=== PATIENT | male | born 1950 | race Caucasian/White ===

== ENCOUNTER 2024-07-26 19:59 | Inpatient (IN) | payer OTHER, SELFPAY ==
[2024-07-26 15:24] VITALS: BP 121/56
[2024-07-26 16:02] LABS: % Basophils 0.5 % (0-2); % Eosinophils 1.9 % (0-6); % Immature Granulocytes 0.3 % (0-0.5); % Monocytes 11.3 % (1.7-9.3); Absolute Eosinophils 0.1 10^3/uL (0-0.7); Absolute Lymphocytes 0.5 10^3/uL (1.2-3.4); Absolute Monocytes 0.7 10^3/uL (0.1-0.6); Absolute Neutrophils 4.5 10^3/uL (1.4-6.5); Hematocrit 32.8 % (39.0-52.0); Hemoglobin 11.7 g/dL (13.0-18.0); Mean Corp Hgb Conc. 35.7 g/dL (33.0-37.0); Mean Corpuscular Volume 81.2 fL (80.0-94.0); Mean Platelet Volume 12.4 fL (7.4-10.4); Nucleated Red Blood Cells % 0 % (-); Platelet Count 122 10^3/uL (130-400); Red Blood Cell Count 4.04 10^6/uL (4.70-6.10); Red Cell Dist. Width 14.7 % (11.5-14.5); White Blood Cell Count 5.8 10^3/uL (4.8-10.8)
[2024-07-26 16:13] LABS: INR 2.73; PT 28.9 Sec (11.4-14.6)
[2024-07-26 16:22] LABS: ALT (SGPT) 22 U/L (0-50); AST (SGOT) 27 U/L (17-59); Albumin 4.4 g/dl (3.5-5.0); Alkaline Phosphatase 177 U/L (38-126); Calcium 8.3 mg/dl (8.4-10.2); Carbon Dioxide 26 mmol/L (22-30); Chloride 84 mmol/L (98-107); Glucose 156 mg/dl (70-99); NT-proBNP 3450 pg/ml; Potassium 3.2 mmol/L (3.5-5.1); Sodium 130 mmol/L (135-145); eGFR 22.15
[2024-07-26 17:05] LABS: Blood Urea Nitrogen 162 mg/dl (9-20)
--- NOTE | 2024-07-26 17:08 | ED.GENMED ---
History of Present Illness
<Joie Mcfarland PA-C - Last Filed: 07/27/24 01:55>
General
Chief Complaint: Abnormal Lab Value
Source: patient
Exam Limitations: none
Time Seen by Provider: 07/26/24 16:34
Nursing documentation reviewed up to this point in time: agreed with
History of Present Illness
History of Present Illness:
74-year-old male with history atrial fibrillation on Coumadin, CHF, aortic stenosis, hypertension, diabetes presenting to the emergency department with abnormal lab work drawn outpatient. Patient has known right-sided heart failure and takes
torsemide 100 mg twice daily. Patient followed by cardiology, Dr. Morris, at [facility]. He underwent a right sided heart catheterization 2 weeks ago for potential tricuspid valve preoperative planning. He was started on metolazone 5 mg biweekly.
Since initiating this 2 weeks ago�patient states he has been very tired and lethargic. His cribber baljit labs on Friday which resulted today showing an elevation in his kidney function. It was recommended that he be admitted to the hospital
for careful fluid management of his elevated kidney function in setting of heart failure. Patient did not wish to go downtown to [facility] prompting visit to [place].
Patient denies any chest pain or shortness of breath. No increase in lower extremity swelling. He has not had any recent weight gain, he is actually losing weight.
Patient states he is still producing urine although seems to be less over the past week or so.
Past History
<Joie Mcfarland PA-C - Last Filed: 07/27/24 01:55>
Past History
ED Past Medical History: CHF, HTN, Hypercholesterolemia, NIDDM (Diet-controlled), Valvular disease (AVR x 2, tricuspid regurgitation) and Other (infectious endocarditis, alcoholic cirrhosis)
ED Past Surgical History: Cardiac (Aortic valve replacement x2) and Other (Hernia repair)
Social History
Tobacco: Non-smoker
Alcohol: Daily
Drug: None
Personal:
Review of Systems
<Joie Mcfarland PA-C - Last Filed: 07/27/24 01:55>
Review of Systems
Allergies reviewed?: Yes
All Other Systems: ROS reviewed and negative except as documented in HPI and ROS
Phy Exam
<Joie Mcfarland PA-C - Last Filed: 07/27/24 01:55>
Physical Exam
Physical Exam:
Vitals: Patient's vital signs are stable. Afebrile
General: Patient is well appearing, no acute distress. Nontoxic appearing
Skin: Warm and dry, no rashes or lesions
Head: Normocephalic, atraumatic
Eyes: Sclera nonicteric. EOMs intact. No nystagmus.
Throat: Protecting airway
Neck: Normal ROM, no cervical spine tenderness, no meningismus. No JVD
Cardiac: Regular rate and rhythm. Murmur noted.
Pulm: Normal respiratory effort, no wheezes, rales, rhonchi heard on exam. O2 saturation 97 on room air. No tachypnea
Abdomen: Abdomen soft and nontender.
Extremities: Bilateral lower extremity edema�unchanged from baseline. Palpable DP pulses bilaterally. Negative Homans' sign.
Neuro: AAOx3. Grossly intact.
Psychiatric: Normal affect.
Course
<Joie Mcfarland PA-C - Last Filed: 07/27/24 01:55>
Orders/Labs/Results
Orders:
Orders
07/26/24 15:29
Electrocardiogram (*1) Urgent
Reason for Study: Bradycardia / Tachycardia
EKG- Treatment ONCE
IV Insert/Care/Rem.- Treatment PRN
07/26/24 15:50
Complete Blood Count/With Diff Urgent
Comprehensive Metabolic Panel Urgent
Magnesium Urgent
Comment: ADD ON
Pro-BNP [NT-proBNP] Urgent
Prothrombin Time Urgent
Serum Osmolality Urgent
Comment: ADD ON
07/26/24 17:21
CR Chest - 2 Views Urgent
Comment:
Reason For Exam: elevated BNP
07/26/24 17:22
0.9% Sodium Chloride 250 ml [Nss] 250 ml IV BOLUS
Potassium Chloride [KCl] 40 meq PO NOW STA
07/26/24 18:41
Admit/Transfer Patient As Directed
Co-Sign Provider:
Level of Care: Inpatient admission
Assign to:: Telemetry
Physician / Group: mireya
Diagnosis: acute kidney injury
Reason for Telemetry: Arrhythmia
Date to Stop Telemetry: 07/29/24
Time to Stop Telemetry: 11:00
Reason for Hospitalization: MP
Expected length of stay greater than two midnights?: Yes
ELOS- Estimated Length of Stay in days: 3
I certify the patient meets the requirements for IP care: Yes
PRN Pain Medication Management As Directed
May give lesser potent ordered pain med per pt: Yes
preference::
Protocol:: Medication orders for pain may be administered in a
manner that supports deferring to patient preference
when the pt is:
- Requesting an ordered lesser potent pain medication.
Least to most potent pain medications are defined
as: acetaminophen < NSAID < tramadol < opioids
(morphine, oxycodone, hydromorphone).
- Requesting a lesser dose of the same medication IF
ORDERED.
- Requesting a less intrusive route of administration
if both routes are prescribed by the provider (PO <
IV).
07/26/24 18:42
Code Status As Directed
Resuscitation Status: Full Code
07/26/24 18:59
Add On- LAB Stat
Tests Added?: serum osmolality
07/26/24 19:24
Add On- LAB Stat
Tests Added?: magnesium level
07/26/24 20:39
Urine Creatinine Stat
Date Specimen was Collected: 07/26/24
Time Specimen was Collected: 19:22
Urine Osmolality Random [Osmolality, Random Urine] Stat
Date Specimen was Collected: 07/26/24
Time Specimen was Collected: 19:22
Urine Sodium Stat
Date Specimen was Collected: 07/26/24
Time Specimen was Collected: 19:22
07/26/24 21:28
Acetaminophen [Tylenol] 650 mg PO Q4HPRN PRN
Bisacodyl [Dulcolax] 10 mg RECTAL [id number] PRN
Carvedilol [Coreg] 6.25 mg PO BID
Dextrose 50%-Water [Dextrose 50% Syringe] 12.5 grams IV [id number] PRN
Diphenhydramine [Benadryl] 50 mg PO HSPRN PRN
Docusate W/Senna [Senokot-S] 1 tablet PO BIDPRN PRN
Glucagon [GlucaGen] 1 mg IM PRN PRN
Polyethylene Glycol Powder [Miralax] 17 grams PO DAILYPRN PRN
07/26/24 21:28
CARDIOLOGY CONSULT Routine
Consulting Provider: Hari Bui
Was physician already notified: Yes
NEPHROLOGY CONSULT Routine
Consulting Provider: Familia Black
Was physician already notified: Yes
Activity As Directed
Activity Level: As Tolerated
Bedside Glucose Monitoring As Directed
Frequency: AC&HS
Additional Instructions:: Change to q6h if pt on TPN, tube feeding or not eating
Intake/ Output As Directed
Frequency: Per unit guidelines
Vital Signs As Directed
Frequency: Per unit guidelines
Weight As Directed
Frequency: Daily
07/26/24 22:00
Atorvastatin [Lipitor] 40 mg PO HS
Torsemide [Demadex] 80 mg PO BID
Warfarin [Coumadin] 5 mg PO MoTuTh@1800
07/27/24 Breakfast
2000 calorie (17 carb) Diabetic
At Your Request: Limited Participation
Does patient need a safe tray?: No
Basic Metabolic Panel IN AM
Complete Blood Count/No Diff IN AM
Glycohemoglobin (HgbA1c) IN AM
Magnesium IN AM
PT/INR [Prothrombin Time] IN AM
07/27/24 07:30
Insulin Aspart Corrective Low [Novolog Flexpen-Low Resistance] See Protocol SC AC
07/27/24 08:00
Amlodipine [Norvasc] 5 mg PO DAILY
Pantoprazole [Protonix] 40 mg PO DAILY
07/27/24 22:00
Famotidine [Pepcid] 20 mg PO Q48H
07/28/24 06:00
Basic Metabolic Panel IN AM
Complete Blood Count/No Diff IN AM
PT/INR [Prothrombin Time] IN AM
07/28/24 18:00
Warfarin [Coumadin] 10 mg PO SuWeFrSa@1800
07/29/24 06:00
Basic Metabolic Panel IN AM
Complete Blood Count/No Diff IN AM
PT/INR [Prothrombin Time] IN AM
07/29/24 11:00
DC Protocol for Telemetry ONCE
Abnormal Lab Results
07/26/24
15:50
RBC 4.04 L 10^6/uL
(4.70-6.10)
Hgb 11.7 L g/dL
(13.0-18.0)
Hct 32.8 L %
(39.0-52.0)
RDW 14.7 H %
(11.5-14.5)
Plt Count 122 L 10^3/uL
(130-400)
MPV 12.4 H fL
(7.4-10.4)
Absolute Lymphs (auto) 0.5 L 10^3/uL
(1.2-3.4)
Absolute Monos (auto) 0.7 H 10^3/uL
(0.1-0.6)
Neutrophils % 78.0 H %
(42.2-75.2)
Lymphocytes % 8.0 L %
(20.5-51.1)
Monocytes % 11.3 H %
(1.7-9.3)
PT 28.9 H Sec
(11.4-14.6)
Sodium 130 L mmol/L
(135-145)
Potassium 3.2 L mmol/L
(3.5-5.1)
Chloride 84 L mmol/L
(98-107)
BUN 162 H* mg/dl
(9-20)
Creatinine 2.9 H mg/dL
(0.7-1.3)
Glucose 156 H mg/dl
(70-99)
Serum Osmolality 319 H mOsm/kg
(275-300)
Calcium 8.3 L mg/dl
(8.4-10.2)
Alkaline Phosphatase 177 H U/L
(38-126)
07/26/24 15:50
07/26/24 15:50
Vital Signs
Initial and Last Documented VS:
Initial Vital Signs
Temp Pulse Resp BP Pulse Ox
97.6 F 48 20 121/56 97
07/26/24 15:24 07/26/24 15:24 07/26/24 15:24 07/26/24 15:24 07/26/24 15:24
Last Documented Vital Signs
Temp Pulse Resp BP Pulse Ox
98.3 F 44 18 116/56 94
07/27/24 00:21 07/27/24 00:21 07/26/24 21:43 07/27/24 00:21 07/27/24 00:21
<Mal Vargas MD - Last Filed: 07/26/24 18:09>
Orders/Labs/Results
Orders:
Orders
07/26/24 15:29
Electrocardiogram (*1) Urgent
Reason for Study: Bradycardia / Tachycardia
EKG- Treatment ONCE
IV Insert/Care/Rem.- Treatment PRN
07/26/24 15:50
Complete Blood Count/With Diff Urgent
Comprehensive Metabolic Panel Urgent
Magnesium Urgent
Comment: ADD ON
Pro-BNP [NT-proBNP] Urgent
Prothrombin Time Urgent
Serum Osmolality Urgent
Comment: ADD ON
07/26/24 17:21
CR Chest - 2 Views Urgent
Comment:
Reason For Exam: elevated BNP
07/26/24 17:22
0.9% Sodium Chloride 250 ml [Nss] 250 ml IV BOLUS
Potassium Chloride [KCl] 40 meq PO NOW STA
07/26/24 18:41
Admit/Transfer Patient As Directed
Co-Sign Provider:
Level of Care: Inpatient admission
Assign to:: Telemetry
Physician / Group: mireya
Diagnosis: acute kidney injury
Reason for Telemetry: Arrhythmia
Date to Stop Telemetry: 07/29/24
Time to Stop Telemetry: 11:00
Reason for Hospitalization: MP
Expected length of stay greater than two midnights?: Yes
ELOS- Estimated Length of Stay in days: 3
I certify the patient meets the requirements for IP care: Yes
PRN Pain Medication Management As Directed
May give lesser potent ordered pain med per pt: Yes
preference::
Protocol:: Medication orders for pain may be administered in a
manner that supports deferring to patient preference
when the pt is:
- Requesting an ordered lesser potent pain medication.
Least to most potent pain medications are defined
as: acetaminophen < NSAID < tramadol < opioids
(morphine, oxycodone, hydromorphone).
- Requesting a lesser dose of the same medication IF
ORDERED.
- Requesting a less intrusive route of administration
if both routes are prescribed by the provider (PO <
IV).
07/26/24 18:42
Code Status As Directed
Resuscitation Status: Full Code
07/26/24 18:59
Add On- LAB Stat
Tests Added?: serum osmolality
07/26/24 19:24
Add On- LAB Stat
Tests Added?: magnesium level
07/26/24 20:39
Urine Creatinine Stat
Date Specimen was Collected: 07/26/24
Time Specimen was Collected: 19:22
Urine Osmolality Random [Osmolality, Random Urine] Stat
Date Specimen was Collected: 07/26/24
Time Specimen was Collected: 19:22
Urine Sodium Stat
Date Specimen was Collected: 07/26/24
Time Specimen was Collected: 19:22
07/26/24 21:28
Acetaminophen [Tylenol] 650 mg PO Q4HPRN PRN
Bisacodyl [Dulcolax] 10 mg RECTAL [id number] PRN
Carvedilol [Coreg] 6.25 mg PO BID
Dextrose 50%-Water [Dextrose 50% Syringe] 12.5 grams IV [id number] PRN
Diphenhydramine [Benadryl] 50 mg PO HSPRN PRN
Docusate W/Senna [Senokot-S] 1 tablet PO BIDPRN PRN
Glucagon [GlucaGen] 1 mg IM PRN PRN
Polyethylene Glycol Powder [Miralax] 17 grams PO DAILYPRN PRN
07/26/24 21:28
CARDIOLOGY CONSULT Routine
Consulting Provider: Hari Bui
Was physician already notified: Yes
NEPHROLOGY CONSULT Routine
Consulting Provider: Familia Black
Was physician already notified: Yes
Activity As Directed
Activity Level: As Tolerated
Bedside Glucose Monitoring As Directed
Frequency: AC&HS
Additional Instructions:: Change to q6h if pt on TPN, tube feeding or not eating
Intake/ Output As Directed
Frequency: Per unit guidelines
Vital Signs As Directed
Frequency: Per unit guidelines
Weight As Directed
Frequency: Daily
07/26/24 22:00
Atorvastatin [Lipitor] 40 mg PO HS
Torsemide [Demadex] 80 mg PO BID
Warfarin [Coumadin] 5 mg PO MoTuTh@1800
07/27/24 Breakfast
2000 calorie (17 carb) Diabetic
At Your Request: Limited Participation
Does patient need a safe tray?: No
Basic Metabolic Panel IN AM
Complete Blood Count/No Diff IN AM
Glycohemoglobin (HgbA1c) IN AM
Magnesium IN AM
PT/INR [Prothrombin Time] IN AM
07/27/24 07:30
Insulin Aspart Corrective Low [Novolog Flexpen-Low Resistance] See Protocol SC AC
07/27/24 08:00
Amlodipine [Norvasc] 5 mg PO DAILY
Pantoprazole [Protonix] 40 mg PO DAILY
07/27/24 22:00
Famotidine [Pepcid] 20 mg PO Q48H
07/28/24 06:00
Basic Metabolic Panel IN AM
Complete Blood Count/No Diff IN AM
PT/INR [Prothrombin Time] IN AM
07/28/24 18:00
Warfarin [Coumadin] 10 mg PO SuWeFrSa@1800
07/29/24 06:00
Basic Metabolic Panel IN AM
Complete Blood Count/No Diff IN AM
PT/INR [Prothrombin Time] IN AM
07/29/24 11:00
DC Protocol for Telemetry ONCE
Abnormal Lab Results
07/26/24
15:50
RBC 4.04 L 10^6/uL
(4.70-6.10)
Hgb 11.7 L g/dL
(13.0-18.0)
Hct 32.8 L %
(39.0-52.0)
RDW 14.7 H %
(11.5-14.5)
Plt Count 122 L 10^3/uL
(130-400)
MPV 12.4 H fL
(7.4-10.4)
Absolute Lymphs (auto) 0.5 L 10^3/uL
(1.2-3.4)
Absolute Monos (auto) 0.7 H 10^3/uL
(0.1-0.6)
Neutrophils % 78.0 H %
(42.2-75.2)
Lymphocytes % 8.0 L %
(20.5-51.1)
Monocytes % 11.3 H %
(1.7-9.3)
PT 28.9 H Sec
(11.4-14.6)
Sodium 130 L mmol/L
(135-145)
Potassium 3.2 L mmol/L
(3.5-5.1)
Chloride 84 L mmol/L
(98-107)
BUN 162 H* mg/dl
(9-20)
Creatinine 2.9 H mg/dL
(0.7-1.3)
Glucose 156 H mg/dl
(70-99)
Serum Osmolality 319 H mOsm/kg
(275-300)
Calcium 8.3 L mg/dl
(8.4-10.2)
Alkaline Phosphatase 177 H U/L
(38-126)
07/26/24 15:50
07/26/24 15:50
Vital Signs
Initial and Last Documented VS:
Initial Vital Signs
Temp Pulse Resp BP Pulse Ox
97.6 F 48 20 121/56 97
04/14/25 15:24 07/26/24 15:24 07/26/24 15:24 07/26/24 15:24 07/26/24 15:24
Last Documented Vital Signs
Temp Pulse Resp BP Pulse Ox
98.3 F 44 18 116/56 94
07/27/24 00:21 07/27/24 00:21 07/26/24 21:43 07/27/24 00:21 07/27/24 00:21
<Joie Mcfarland PA-C - Last Filed: 07/27/24 01:55>
MDM/Problems Addressed
Differential Diagnosis Includes:
Not limited to: MP, acute dehydration, electrolyte abnormalities, CHF exacerbation, etc.
MDM/Problems Addressed:
74-year-old male with history as documented presenting with abnormal lab results obtained outpatient and concern for kidney dysfunction�referred by cardiology. Patient with recent increase in fatigue after initiating metolazone by cardiology. No
associated chest pain, shortness of breath, weight increase, lower extremity edema. Vital stable. Physical exam as above. Cardio/pulmonary assessment unremarkable. Lungs are clear. Patient has stable bilateral lower extremity edema and skin
changes. Labs were initiated in triage significant for a elevated creatinine of 2.9 with BUN of 162. Mild hyponatremia and hypokalemia. BNP of 3450. Patient did have recent increase in diuretic prescription. Ultimately�suspect MP secondary to
overdiuresis. Given patient's acute kidney injury along with chronic CHF-he warrants admission for close management of diuresis along with fluid resuscitation. Will check chest x-ray to ensure no pulmonary edema prior to admission.
Update: Chest x-ray shows no evidence of pulmonary edema. Patient will be given small amount of IV fluids in ED along with oral potassium. Patient accepted to hospital service stable condition.
Chronic conditions affecting care:
Congestive heart failure, hypertension, valvular disorder, atrial fibrillation on Coumadin
Acute Exacerbation and/or Progression of Chronic Illness:
Acute kidney injury, acute CHF exacerbation
<Joie Mcfarland PA-C - Last Filed: 07/27/24 01:55>
*Radiology
Radiology exam reviewed: preliminary read by ED provider (Chest x-ray reviewed by me-no acute abnormalities) and radiology read reviewed
*Pulse Oximetry
Patient hypoxic: no
*EKG
Interpreted by ED Provider?: Yes
EKG Intrepretation Date: 07/26/24
Interpretation: abnormal
Comparison EKG: changes noted
Heart Rate: 46
Rate: bradycardiac
Rhythm: a-fib
[place]: indeterminate
Interval: normal QT interval
QRS Pattern: low voltage
Ischemia: non-specific ST changes
*Business Office Technician Interpretation
Rate: Business Office Technician- N/A
*Critical Care Note
Total Time (30-74mins, 75-104mins- exclusive of procedures): Not Applicable
<Joie Mcfarland PA-C - Last Filed: 07/27/24 01:55>
Patient Management
Discussion with other providers: Hospitalist
Escalation/DeEscalation of care consider admission/obs:
Admit indicated
ED Attending Note
<Joie Mcfarland PA-C - Last Filed: 07/27/24 01:55>
-
Portions of this chart may have been created with voice recognition software.� Occasional wrong word or��sound alike� substitutions may have occurred due to the inherent limitations of voice recognition software.
<Mal Vargas MD - Last Filed: 07/26/24 18:09>
ED Attending Note
Patient seen and examined by attending physician: Yes
I performed the substantive portion of visit, reviewed & personally made and approve the management plan that is documented in note by myself or AURE.: Yes
ED Attending Note:
74-year-old male sent for abnormal labs. History of tricuspid valve issue. On diuretics at home. Increased doses recently. Noted to have abnormal BUN and creatinine and sent in for further care. Patient had some increased weakness yesterday.
On exam patient is nontoxic in no distress. Lungs are essentially clear. Heart regular rate and rhythm. Mild midsystolic murmur. Abdomen nontender. Chronic edema and chronic hyperpigmentation of the lower extremities. Warm and dry. Perfusing
well.
BUN and creatinine elevated. Likely all prerenal related to overdiuresis. However with patient's cardiac issues and acute renal insufficiency warrants inpatient management
Discharge Plan
Departure
Patient Disposition: Admit
Date of Disposition: 07/26/24
Time of Disposition: 18:05
Presentation/result/management discussed w/ accepting MD/DO: Hospitalist
Discharge Problem:
MP (acute kidney injury), CHF exacerbation
Interventions
Interventions:
*Risk Screen - Suicide Last Done: 07/26/24 21:59
*General Assessment Last Done: 07/26/24 15:24
*Neglect/Abuse Screening Last Done: 07/26/24 17:24
*ED COVID-19 Vaccine History Last Done: 07/26/24 21:59
*Nursing Disposition Last Done: 07/26/24 21:28
Discharge Date and Time
Discharge Date/Time: 07/26/24 21:28
[2024-07-26 17:14] VITALS: BP 117/74
[2024-07-26 17:22] VITALS: BMI 34.6
--- NOTE | 2024-07-26 18:16 | HPS.HSE ---
Family Physician
-
Family Physician: Choco Carlson
Chief Complaint
-
Elevated creatinine
History of Present Illness
74-year-old male with history atrial fibrillation on Coumadin, CHF, aortic stenosis, hypertension, diabetes presenting to the emergency department with abnormal lab work drawn outpatient. Patient has known right-sided heart failure and takes
torsemide 100 mg twice daily. He underwent a right sided heart catheterization 2 weeks ago for potential tricuspid valve preoperative planning. He was started on metolazone 5 mg biweekly. Since initiating this 2 weeks ago�patient states he has
been very tired and lethargic. The labs were done on Friday and noted to have elevated creatinine. It was recommended that he be admitted to the hospital for careful fluid management of his elevated kidney function in setting of heart failure.
Patient denies any chest pain or shortness of breath. No increase in lower extremity swelling. He has not had any recent weight gain. Patient denies any headache, dizziness or syncope. Patient denies runny nose, congestion, cough. Patient
denies any abdominal pain, nausea, vomiting or diarrhea. Patient stated decreased urine output since he was started on metolazone.
Patient was noted to have creatinine of 2.9. Patient received normal saline, 40 of K in ER. Admitting for further management
Medical History
Past Medical History
Past Medical History: Reports Other
Additional Past Medical History:
Paroxysmal A-fib, pleural effusion, chronic right-sided heart failure, dyslipidemia
Hypertension
Endocarditis of aortic valve
Lyme disease
GERD
Iron deficiency anemia
Large gastric hyperplastic polyp
Pancreatic head cyst
Right inguinal hernia
Past Surgical History: Reports Other
Additional Past Surgical History:
Left inguinal herniorrhaphy
AVR
Hydrocelectomy
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
Social History
Tobacco: Non-smoker
Alcohol: Occasional
Drug: None
Personal:
Living: With Family
Family History
Family History: Not pertinent
Allergies / Home Medications
Allergies reflects when Allergies were last updated in [facility].
Home Medications with original date entered in [facility]
Allergy/Medication List:
Allergies
Allergy/AdvReac Type Severity Reaction Status Date / Time
lorazepam [From Ativan] Allergy hallucinati Verified 07/26/24 15:22
ons
Home Medications
famotidine 40 mg tablet 40 mg PO HS Gastrointestinal issue 04/26/22
atorvastatin 40 mg tablet 40 mg PO HS High cholesterol 05/16/22
pantoprazole 40 mg tablet,delayed release 40 mg PO DAILY Gastrointestinal issue 05/16/22
carvedilol 6.25 mg tablet 6.25 mg PO BID #60 tabs 06/02/22
amlodipine 5 mg tablet 5 mg PO DAILY 07/17/22
dapagliflozin propanediol 10 mg tablet (Farxiga) 10 mg PO DAILY 07/26/24
diphenhydramine 25 mg-acetaminophen 500 mg tablet (Tylenol PM Extra Strength) 2 tab PO HSPRN PRN sleep 07/26/24
lisinopril 5 mg tablet 5 mg PO DAILY 07/26/24
torsemide 100 mg tablet 100 mg PO BID 07/26/24
warfarin 5 mg tablet 5 mg PO MOTUTH 07/26/24
warfarin 5 mg tablet 10 mg PO SUWEFRSA 07/26/24
Review of Systems
-
Constitutional: Reports No Symptoms
EENT: Reports No Symptoms
Respiratory: Reports No Symptoms
Cardiac: Reports No Symptoms
Abdomen/GI: Reports No Symptoms
: Reports No Symptoms
Musculoskeletal: Reports No Symptoms
Skin: Reports No Symptoms
Neurological: Reports Weakness and Other (Lethargic)
Endocrine: Reports No Symptoms
Hematologic/Lymphatic: Reports No Symptoms
Psych: Reports No Symptoms
Physical Exam
Vital Signs
Vital Signs
Temp Pulse Resp BP Pulse Ox
97.6 F 61 21 117/74 97
07/26/24 15:24 07/26/24 17:15 07/26/24 17:15 07/26/24 17:14 07/26/24 17:15
Physical Exam
General: Well Developed, Well Nourished and No Apparent Distress
HEENT: NormoCephalic, Moist mucous membranes and Atraumatic
Respiratory: Clear
Cardiac: S1/S2 and Regular Rhythm; No Murmur or Rub
GI: Soft, Non Tender, Non Distended and Normal Bowel Sounds; No Organomegaly
Rectal: Deferred by Provider
Musculoskeletal: No Clubbing, No Cyanosis and Other (Chronic bilateral lower extremities edema)
Skin: No Rash
Neuro: AO x 3 and Nonfocal/grossly intact
Psych: Calm
Laboratory Results
-
07/26/24 15:50
07/26/24 15:50
Laboratory Results
PT 28.9 Sec (11.4-14.6) H 07/26/24 15:50
INR 2.73 07/26/24 15:50
Total Bilirubin 1.0 mg/dl (0.2-1.3) 07/26/24 15:50
AST 27 U/L (17-59) 07/26/24 15:50
ALT 22 U/L (0-50) 07/26/24 15:50
Alkaline Phosphatase 177 U/L (38-126) H 07/26/24 15:50
Data Reviewed
-
Lab Data: Labs Reviewed by me
Impression/Plan
-
# Acute kidney injury on CKD 3B
# Chronic hyponatremia
# Hypokalemia
- Sodium 130, K3.0, creatinine 2.9
-Patient received normal saline to 50 cc in ER
-Consult nephrology
-obtain urine na, cr, osm, serum osm
-decreased torsemide to 80 bid and discontinued metolazone.
# Anemia of chronic disease
# Thrombocytopenia
- Hemoglobin stable at 11.7 platelets were noted to
- No active bleeding
- Continue to monitor
-
# Atrial fibs permanent
- EKG with A-fib with slow ventricular response, right bundle branch block, ST and T wave abnormality
- Coreg continue with hold parameters
-Coumadin continued
# History of right sided heart failure
#hxt of tricuspid regurgitation
#hxt of AVR
- Hold for farxiga
-strict I&O, daily weight
-on Torsemide decrased to 80mg bid
-ECHO (2022) with sever Tricuspid regurgitation, EF of 55-60%
-chest x ray with Stable cardiomegaly without evidence of new airspace disease or pulmonary edema.
#GERD
-PPI continued
-
# History of cirrhosis/alcohol abuse
Essential Hypertension:stable
- Norvasc continue with hold parameters
-hold lisinopril
#Hx AVR: stable by recent echo
#Hyperlipidemia- maintain on Statin
#DMT2
-sliding scale
-CHO diet
#DVT prophylaxis
-Coumadin
#CODE status
-full code
[2024-07-26] MEDS: KCL 40 MEQ PO (18:20)
[2024-07-26] MEDS: NSS 250 IV (18:21)
--- NOTE | 2024-07-26 19:04 | W.PN.UPDATE ---
Update Note
Progress Note Update
Patient seen in conjunction with CORE MICROARCHITECT. I agree with the findings on patient physical physical medical with assessment and plan listed out of life.
Briefly, it is a 74-year-old male with past medical history significant for congestive failure with severe RV dysfunction, severe tricuspid regurgitation, right-sided congestion with cardiac cirrhosis, last echo in our system showing EF of 55 to
60%, history of aortic valve stenosis status post AVR, permanent atrial fibrillation on anticoagulation with Coumadin presenting to the Emergency Department after found to have elevated creatinine and to 3.4 on outpatient workup July 23.
Patient is being evaluated for tricuspid valve replacement. He had CHANTELLE and a right heart cath on July 08. Prior to this procedure patient's creatinine was 1.3. He was on torsemide 100 mg twice daily. Procedure did showed elevated pulmonary
capillary wedge pressure of 21, PA pressure of 49/24, RV end-diastolic pressure of 25, pulmonary vascular resistance of 2.7. RA pressure of 26. Based on this pressures the patient was felt to need additional volume decompression and he was placed
on metolazone 5 mg twice a week. Spouse reports that prior to this procedure the patient has maintained steady weight of around 240 pounds which has not changed for several years and has not changed since the procedure. After 2 weeks of extra days
of metolazone the patient became more weak. Spouse noted that his blood pressure did trended down over the weekend last weekend. He had outpatient workup on Friday which showed a creatinine of 3.4. He did not gain any weight. He did not appear
to have lost any weight either. He denies any increase or decrease in his lower extremity swelling. He denies any increasing orthopnea or PND. He denies any chest pain palpitations lightheadedness or dizziness. He has he has had no fevers or
cough. He did receive a contrast load with a CT cardiac study with IV contrast on June 28.
Here in the emergency department his blood pressure was 117/80 with a pulse of 61 and satting 97% on room air. He is afebrile. ECG shows atrial fibrillation rate was 46 (chronic slow A-fib), right bundle, low voltages. BNP was elevated at 3400.
No recent priors.
CBC was unremarkable stop electrolytes notable for potassium of 3.2, sodium was 130 which is similar to his baseline. Bicarb was 26.
His BUN and creatinine are 160 and 2.9.
Chest x-ray is clear.
On exam he is well-appearing and in no acute distress. No crackles on lung auscultation. He has trace to 1+ bilateral lower edema which is unchanged. He has mild abdominal distention but no fluid wave and no tenderness to palpation.
Assessment and plan
This a patient with chronic right-sided failure, severe tricuspid regurgitation pending valve repair for which she had right heart cath which showed elevated right-sided pressures as well as elevated pulmonary wedge pressure for which she was
started on more aggressive diuretic regimen with addition of metolazone twice torsemide regimen. 2 weeks after initiating this procedure patient's creatinine had gone up to 3.4 and he had slight decrease in his blood pressure and increasing
weakness over the weekend. His colorist photography pain recommended that he come to the emergency department. They stopped the metolazone and told him to reduce his torsemide to 80 mg daily. Area. Over the last 4 days his creatinine actually improved
from around 3.4-2.9. Picture is suggestive of a cardiorenal syndrome which will be typical for right-sided failure and despite elevated pressures appears to hypoperfuse kidneys with further diuresis. With the increase in BUN, suspect he is
over-diuresed.
Chronic CHF
- admit to telemetry
- holding metolazone
- decrease torsemide to 80 bid
- given 250 ml NS in ED, will re-evaluate creatinne in am, no additional fluid needed
- replace K,
- hold off on repeat echo given recent CHANTELLE/RHC with pending records from [facility]
- continue carvedilol
- cardiology consult
MP - suspect secondary to overdiuresis. Contrast exposure was June 28, no other insults. Unlikely ATN.
- adjust diuresis and fluids as above
- hold lisinopril and dapagliflozin
- daily weights and i/os
- urine Na, Cr and U/A
- nephrology consult
AFIB
- continue coreg as above
- warfarin
Code status - Full Code
[2024-07-26 19:37] LABS: Osmolality Serum 319 mOsm/kg (275-300)
[2024-07-26 19:52] LABS: Magnesium 2.1 mg/dl (1.6-2.3)
[2024-07-26 20:56] LABS: Osmolality Urine 304 mOsm/kg (300-900)
[2024-07-26 21:05] LABS: Urine Sodium 51 mmol/L (30-90)
[2024-07-26 21:43] VITALS: BP 138/66; BMI 34.7
--- NOTE | 2024-07-26 21:43 | PTCARENOTE ---
Pt arrived from ED via stretcher and ambulated to the bed. Pt is AAOx3, VSS, and w/o complaints of pain. Pt is oriented to room with the call beard within reach.
[2024-07-26] MEDS: COREG 6.25 MG PO (21:55)
[2024-07-26] MEDS: LIPITOR 40 MG PO (21:56)
[2024-07-26] MEDS: DEMADEX 80 MG PO (21:56)
[2024-07-26] MEDS: BENADRYL 50 MG PO (21:57)
[2024-07-26 22:09] VITALS: BMI 34.7
[2024-07-26] MEDS: COUMADIN 5 MG PO (22:11)
[2024-07-26 23:55] VITALS: BP 116/56
[2024-07-27] VITALS (7 sets, daily range): BP systolic 107–133; BP diastolic 54–73; BMI 34.6
[2024-07-27 01:25] LABS: Glucose - Point of Care 133 mg/dl (70-99)
[2024-07-27 07:24] LABS: Glucose - Point of Care 124 mg/dl (70-99)
[2024-07-27 08:07] LABS: INR 2.79; PT 29.3 Sec (11.4-14.6)
--- NOTE | 2024-07-27 08:12 | CON.CAR ---
Addendum entered and electronically signed by Ravinder Mchugh MD 07/27/24 12:28:
I saw and examined the patient.
The GRINDING MACHINE TENDER's note was reviewed and I agree with the note.
74-year-old male previously followed by Dr. Quigley who was most recently followed by Dr. Morris at [facility] and also will be followed by Dr. Watson. Patient with history of bioprosthetic aortic valve replacement, severe
tricuspid regurgitation and RV dysfunction permanent atrial fibrillation, chronic anticoagulation CKD cirrhosis diabetes hypertension hypercholesterolemia patient has not been undergoing an evaluation at [facility]. Possible TTVR.
As part of his evaluation he underwent a right heart catheterization nearly 3 weeks ago which showed a pulmonary wedge pressure of 21 also with elevated right heart pressures patient also had a CT scan approximately 1 month ago as part of his
preprocedure assessment.. Patient is maintained on torsemide and was taking metolazone 2.5 mg on an as needed basis his diuretic was changed post right heart cath so that he was taking metolazone 5 mg twice daily he did not notice much of an
increase in diuresis and he did not feel that his weights had changed for the most part they have been between 240 and 245 he said at 1 point he went as low as 139. He has had some lower blood pressures mostly systolics in the 100s occasionally in
the 90s. He felt a bit weak and tired and then had labs on 07/23/2024 which showed creatinine up to 3.3 he is subsequently been admitted. Creatinine was 2.9 admission. Diuretics have been held as well as Farxiga. Creatinine now 2.2. Respiratory
status is stable mild edema on exam. Nephrology also consulted.
Challenging management issues considering patient's medical complexity. Recent right heart pressures and now with acute on chronic kidney injury. Suspect rising creatinine related to increase in diuretic.
- Agree with additional holding of diuretic. Daily assessment as we determine timing of reinitiation of oral diuretic.
- Based on blood pressure and renal function can also determine timing of reinitiation of KASSIE inhibitor and possibly Farxiga.
- Patient will need continued follow-up at [facility] arranged with Dr. Morris and continued assessment for possible tricuspid valve intervention. continue
-A-fib is stable and rate controlled. Patient remains on anticoagulation with therapeutic INR 2.79. He has had some nosebleeds intermittently. This has happened at home as well. ENT currently seeing at bedside.-
Original Note:
Consultation
Consultation Request
Date/Time Consultation Requested: 07/26/2024 21:30
Date/Time Consultation Performed: 07/27/2024 08:00
Requesting Provider: KYLE Holguin
Performing Provider: KYLE Rodriguez for Dr. Mchugh
Reason for Consultation: MP
Medical History
-
History of Present Illness:
Familia Farrell is a 74-year-old male (known to Dr. Ball and Dr. Morris), with HFpEF, bio aortic valve replacement x 2 (2011, 2012), RV dysfunction, severe tricuspid regurgitation, permanent atrial fibrillation (on warfarin), CKD 3b, cirrhosis
(EtOH, cessation in 05/2022), type 2 diabetes mellitus, prior TIA, hypertension, and dyslipidemia, who presented to the emergency department with a chief complaint of abnormal outpatient labs. After his RHC his torsemide 100mg BID was unchanged but
metolazone 5mg was added. He does not feel he urinated any more than usual. No significant weight loss. No issues with urination.
He had a right heart cath 07/08/2024 for possible TTVR. Hemodynamics revealed markedly elevated (right greater than left) filling pressures, postcapillary pulmonary hypertension, elevated pulmonary/systemic vascular resistance's, and a reduced
cardiac output/index.
Past Medical History
Past Medical History: Arrhythmias (Permanent atrial fibrillation [on warfarin]), CHF, HTN, Hypercholesterolemia, NIDDM, Renal Failure ( CKD 3b) and Valvular Disease (Bio AVR [2011, 2012], severe TR)
Past Surgical History: Cardiac
Social History
Alcohol: Former
Personal:
Living: With Family (In law suite at daughters house)
Employment: Retired
Family History
Family History: Reviewed & Not Pertinent
Allergies / Home Medications
Allergy/AdvReac Type Severity Reaction Status Date / Time
lorazepam [From Ativan] Allergy hallucinati Verified 07/26/24 15:22
ons
�Medication �Instructions �Recorded �Confirmed �Type
famotidine 40 mg tablet 40 mg PO HS Gastrointestinal issue 04/26/22 07/26/24 History
atorvastatin 40 mg tablet 40 mg PO HS High cholesterol 05/16/22 07/26/24 History
pantoprazole 40 mg tablet,delayed 40 mg PO DAILY Gastrointestinal 05/16/22 07/26/24 History
release issue
carvedilol 6.25 mg tablet 6.25 mg PO BID #60 tabs 06/02/22 07/26/24 Rx
amlodipine 5 mg tablet 5 mg PO DAILY Blood Pressure 07/17/22 07/26/24 History
dapagliflozin propanediol 10 mg 10 mg PO DAILY Diabetes 07/26/24 07/26/24 History
tablet (Farxiga)
diphenhydramine 25 2 tab PO HSPRN PRN sleep 07/26/24 07/26/24 History
mg-acetaminophen 500 mg tablet
(Tylenol PM Extra Strength)
lisinopril 5 mg tablet 5 mg PO DAILY Blood Pressure 07/26/24 07/26/24 History
torsemide 100 mg tablet 100 mg PO BID Fluid 07/26/24 07/26/24 History
Retention/Swelling
warfarin 5 mg tablet 5 mg PO MOTUTH Blood Clot 07/26/24 07/26/24 History
Prevention/Tx
warfarin 5 mg tablet 10 mg PO SUWEFRSA Blood Clot 07/26/24 07/26/24 History
Prevention/Tx
Review of Systems
-
History Source: Patient
All other systems: Negative unless noted
Constitutional: Fatigue
EENT: No Symptoms
Respiratory: No Symptoms
Cardiac: No Symptoms
Abdomen/GI: No Symptoms
: No Symptoms
Musculoskeletal: No Symptoms
Skin: No Symptoms
Neurological: Weakness
Endocrine: No Symptoms
Hematologic/Lymphatic: No Symptoms
Physical Exam
Vital Signs
Temp Pulse Resp BP Pulse Ox
97.6 F 56 20 119/65 96
07/27/24 03:38 07/27/24 03:38 07/27/24 03:38 07/27/24 03:38 07/27/24 03:38
Lab Results
Luk-W-Gpeqvlxvjza Pept 3450 pg/ml 07/26/24 15:50
Physical Exam
General: Well Developed, Well Nourished, No Apparent Distress and Comfortable
HEENT: Normocephalic, Anicteric and Moist Mucous Membranes
Respiratory: Clear and Non Labored Respirations
Cardiac: S1/S2, Irregular Rhythm, Murmur and Peripheral Edema (+1 LE)
Breast: Deferred by me
GI: Soft, Non Tender, Non Distended and Normal Bowel Sounds
Rectal: Deferred by Provider
Genito-urinary: No Costovertebral Tender
Musculoskeletal: No Clubbing and No Cyanosis
Skin: Warm and Dry
Neuro: AO x 3
Hematologic/Lymphatic: No Lymphadenopathy
Psych: Calm
Impression / Plan
-
I/P: 74M with HFpEF, bio aortic valve replacement x 2 (2011, 2012), RV dysfunction, severe tricuspid regurgitation, permanent atrial fibrillation (on warfarin), CKD 3b, cirrhosis (EtOH, cessation in 05/2022), type 2 diabetes mellitus, prior TIA,
hypertension
Outpatient movie producer: Dr Ball
Heart failure: Dr. Morris
Structural heart disease: Dr. Lopez
MP on CKD3b
-Metolazone stopped
-Nephrology following
HFpEF, chronic
-MP when metolazone 5mg was added , RHC as below
-SGLT2i: Farxiga 10mg daily
-Trend daily weight, I/O, and BMP with MP
Tricuspid regurgitation, severe
- RHC at [facility] 07/08/2024 for TTVR
Bioprosthetic AVR ()
-Initially TAVR then SAVR
Permanent atrial fibrillation
-Rates a little slow, asymptomatic, following telemetry
-Oral Anticoagulation: Warfarin, INR 2.79 this mornign
-[id number]: score 6 (Heart failure, HTN, Diabetes Mellitus, prior Stroke/TIA, age 65-74)
EtOH cirrhosis, EtOH cessation since 05/2022
Hypertension, stable, follow
Dyslipidemia, on atorvastatin
NIDDM, HgbA1c pending
Prior TIA
SUBJECTIVE:
As above.
DATA:
RHC 07/08/2024, HUP by Dr. Zack Lopez:
Hemodynamics revealed markedly elevated (right greater than left) filling pressures, postcapillary pulmonary hypertension, elevated pulmonary/systemic vascular resistance's, and a reduced cardiac output/index.
RA = 26 mmHg
RV = 49 mmHg, RVEDP 25 mmHg
RA = 49/24 mmHg with mean of 33 mmHg
PCWP = 21 mmHg
PA sat 57.5%
PVR = 2.7 Wood units
SVR = 1469
Cardiac output/index = 4.5 L/min, 2.0 L/min/m2
Data Reviewed
-
EKG: Report Reviewed by me (Atrial fibrillation with slow ventricular response, RBBB, rate 46)
Radiology: Report Reviewed by me (CXR: Stable cardiomegaly without evidence of new airspace disease or pulmonary edema.)
Medical Tests (Nuc Med, Echo etc): Report Reviewed by me (As above)
Labs: Labs Reviewed by me
Old Records: Reviewed
[2024-07-27 08:15] LABS: Hematocrit 36.1 % (39.0-52.0); Hemoglobin 12.5 g/dL (13.0-18.0); Mean Corp Hgb Conc. 34.6 g/dL (33.0-37.0); Mean Corpuscular Hgb 28.8 pg (27.0-31.0); Mean Corpuscular Volume 83.2 fL (80.0-94.0); Mean Platelet Volume 11.7 fL (7.4-10.4); Platelet Count 118 10^3/uL (130-400); Red Blood Cell Count 4.34 10^6/uL (4.70-6.10); Red Cell Dist. Width 15.2 % (11.5-14.5); White Blood Cell Count 4.3 10^3/uL (4.8-10.8)
[2024-07-27 09:04] LABS: Calcium 8.8 mg/dl (8.4-10.2); Carbon Dioxide 28 mmol/L (22-30); Chloride 86 mmol/L (98-107); Estimated Creatinine Clearance 37 ml/min; Glucose 133 mg/dl (70-99); Magnesium 2.2 mg/dl (1.6-2.3); Potassium 3.2 mmol/L (3.5-5.1); Sodium 132 mmol/L (135-145); eGFR 30.85
[2024-07-27] MEDS: COREG PO ×2 (09:06→20:50)
[2024-07-27 09:27] LABS: Blood Urea Nitrogen 151 mg/dl (9-20)
--- NOTE | 2024-07-27 09:50 | W.PN.HOSP.TC ---
Today's Communication/Plan
-
see PN
Assessment / Plan
Assessment / Plan
74yo M with PMHx of AV stenosis s/p bioprosthetic valve, TIA, HTN, HLD, CHF, Afib on coumadin sent by cardiologists with worsening kidney function. Test done after his diuresis was potentiated due to CHF symptoms witgh metholazone. Patient seeing
cardiologists in [place]. Also has recurrent epistaxis.
A/P:
#MP
#Hypokalemia
Mild hyponatremia
follow and replete electrolytes
baseline Ct around 1.1
follow Cr
hold ACEi, ARB, NSAIDs, diuretics
nephrology consult
FeNa 4.4% - concern for intrinsic component
#Chronic HFpEF
cardio consult
cannot exclude cardiorenal syndrome
#Epistaxis
exacerbated by uremic coagulopathy
cold compress
ENT consult
follow CBC
#Chronic elevation of alk.phos 2/2 liver cirrhosis
Outpatient f/u by PCP
#Afib, permanent
cont coumadin
follow INR
rate control
#mild Thrombocytopenia - possibly 2/2 cirrhosis
#mild anemia - possibly 2/2 recurrent epistaxis
#Mild leukopenia - recurrent since 2022
reasonable outpatient hematology to r/o alternative etiology
#DM type 2 with unspecified complications
Accuchecks, Insulin SS, DM diet
#Essential HTN
adjust BP meds
#HLD
#GERD
cont hoem meds
DVT ppx warfarin
Full code
I have spent at least 56min reviewing chart, test results, communication with consultants and providing direct patient care
Anticipated Discharge: > 48 hours
Subjective/Interval History
-
Date of Service: July 27, 2024
Objective Data
-
Labs:
Laboratory Results
07/27/24
07:10
WBC 4.3 L
Hgb 12.5 L
Hct 36.1 L
Plt Count 118 L
PT 29.3 H
INR 2.79
Sodium 132 L
Potassium 3.2 L
Chloride 86 L
Carbon Dioxide 28
BUN 151 H*
Creatinine 2.2 H
Glucose 133 H
Calcium 8.8
Vital Signs:
Vital Signs
Temp Pulse Resp BP Pulse Ox
97.4 F 56 16 107/54 96
07/27/24 07:35 07/27/24 09:06 07/27/24 07:35 07/27/24 09:06 07/27/24 07:35
I&O
07/26/24 07/27/24 07/28/24
06:59 06:59 06:59
Intake Total 480 / 480
Output Total 700 / 700
Balance -220 / -220
Review of Systems
-
History Source: Patient
All other systems: Reviewed and negative
Physical Exam
-
General: No Apparent Distress and Comfortable
HEENT: Normocephalic and Other (nosebleed)
Respiratory: Clear to Auscultation
Cardiac: Regular Rhythm
GI: Soft, Nontender and Nondistended
Musculoskeletal: No Clubbing, No Cyanosis, Edema, Right Lower Extrem and Edema, Left Lower Extrem
Skin: Warm
Neuro: Awake, Alert, Oriented and AO x 3
Psych: Calm and Confused
[2024-07-27 09:52] LABS: Glycohemoglobin (HgbA1c) 7.1 % (4.0-5.6)
[2024-07-27] MEDS: DEMADEX PO (10:01)
[2024-07-27] MEDS: KCL 40 MEQ PO (10:02)
[2024-07-27] MEDS: NORVASC 5 MG PO (10:03)
[2024-07-27] MEDS: PROTONIX 40 MG PO (10:03)
--- NOTE | 2024-07-27 11:02 | CM ---
Patient seen bedside, initial assessment completed. Patient is a 74-year-old male with history atrial fibrillation on Coumadin, CHF, aortic stenosis, hypertension, diabetes presenting to the emergency department with abnormal lab work drawn
outpatient.
Patient reports that he and spouse resides w/ their daughter in a 2 story split level home- 2 steps to enter. Patient shared that he and spouse will be in an in-law suite that is currently being constructed for them. Patient is independent w/
ambulating, no device required. Independent w/ ADLs. Denies any DME, denies SNF hx. Patient shared he engaged in cardiac rehab in the past, patient had HC services about 10 year ago, doesn't recall provider.
Address, point of contact and insurance verified
PCP: Choco Carlson
Pharmacy: [facility] for immediate medications. Patient utilizes [facility] for mail orders.
Plan: Anticipate home; no needs
--- NOTE | 2024-07-27 11:53 | CON.MD ---
Consultation - Medical
-
74 yo c Hx CHF, HTN, DM, A fib on Coumadin admitted c elevated Creatinine
Hx recurrent epistaxis from R nares
PT elevated at 29.3 on Coumadin, platelet count low at 118
Bled for about 30 minutes this AM, not bleeding now
PE - Dried blood R ant septum, no active bleeding
After topical anesthesia, cauterized vessels with silver nitrate
Antibiotic ointment applied
Would use ointment qhs x 2 weeks and prn to keep mucosa lubricated
Direct pressure as needed
Follow up as needed
[2024-07-27 12:04] LABS: Glucose - Point of Care 105 mg/dl (70-99)
[2024-07-27] MEDS: NSS 1000 IV (12:52)
--- NOTE | 2024-07-27 16:24 | W.CON.NEPH ---
Consultation
-
Date/Time Consultation Requested: July 27, 2024 9 AM
Date/Time Consultation Performed: July 27, 2024 3 PM
Requesting Provider: Dr. Garcia
Performing Provider: Dr. Black
Reason for Consultation: Acute kidney injury
Medical History
-
Chief Complaint: Acute kidney
History of Present Illness:
74-year-old male with history atrial fibrillation on Coumadin, CHF, aortic stenosis, hypertension, diabetes presenting to the emergency department with abnormal lab work drawn outpatient. Patient has known right-sided heart failure and takes
torsemide 100 mg twice daily. He underwent a right sided heart catheterization 2 weeks ago for potential tricuspid valve preoperative planning. He was started on metolazone 5 mg biweekly. Since initiating this 2 weeks ago�patient states he has
been very tired and lethargic
Renal consult for significant azotemia BUN 169 creatinine 2.9
Past Medical History
history atrial fibrillation on Coumadin, CHF, aortic stenosis, hypertension, diabetes
Social History
Tobacco: Non-Smoker
Alcohol: None
Family History
No renal disease
Allergies / Home Medications
Allergy/AdvReac Type Severity Reaction Status Date / Time
lorazepam [From Ativan] Allergy hallucinati Verified 07/26/24 15:22
ons
�Medication �Instructions �Recorded �Confirmed �Type
famotidine 40 mg tablet 40 mg PO HS Gastrointestinal issue 04/26/22 07/26/24 History
atorvastatin 40 mg tablet 40 mg PO HS High cholesterol 05/16/22 07/26/24 History
pantoprazole 40 mg tablet,delayed 40 mg PO DAILY Gastrointestinal 05/16/22 07/26/24 History
release issue
carvedilol 6.25 mg tablet 6.25 mg PO BID #60 tabs 06/02/22 07/26/24 Rx
amlodipine 5 mg tablet 5 mg PO DAILY Blood Pressure 07/17/22 07/26/24 History
dapagliflozin propanediol 10 mg 10 mg PO DAILY Diabetes 07/26/24 07/26/24 History
tablet (Farxiga)
diphenhydramine 25 2 tab PO HSPRN PRN sleep 07/26/24 07/26/24 History
mg-acetaminophen 500 mg tablet
(Tylenol PM Extra Strength)
lisinopril 5 mg tablet 5 mg PO DAILY Blood Pressure 07/26/24 07/26/24 History
torsemide 100 mg tablet 100 mg PO BID Fluid 07/26/24 07/26/24 History
Retention/Swelling
warfarin 5 mg tablet 5 mg PO MOTUTH Blood Clot 07/26/24 07/26/24 History
Prevention/Tx
warfarin 5 mg tablet 10 mg PO SUWEFRSA Blood Clot 07/26/24 07/26/24 History
Prevention/Tx
Review of Systems
-
Lethargy no chest pain or shortness of breath
All other systems: Negative unless noted
Physical Exam
Vital Signs
Vital Signs
Temp Pulse Resp BP Pulse Ox
97.6 F 50 18 119/62 96
07/27/24 11:25 07/27/24 11:25 07/27/24 11:25 07/27/24 11:25 07/27/24 11:25
Lab Results
WBC 4.3 10^3/uL (4.8-10.8) L 07/27/24 07:10
RBC 4.34 10^6/uL (4.70-6.10) L 07/27/24 07:10
Hgb 12.5 g/dL (13.0-18.0) L 07/27/24 07:10
Hct 36.1 % (39.0-52.0) L 07/27/24 07:10
Plt Count 118 10^3/uL (130-400) L 07/27/24 07:10
Sodium 132 mmol/L (135-145) L 07/27/24 07:10
Potassium 3.2 mmol/L (3.5-5.1) L 07/27/24 07:10
Chloride 86 mmol/L (98-107) L 07/27/24 07:10
Carbon Dioxide 28 mmol/L (22-30) 07/27/24 07:10
BUN 151 mg/dl (9-20) H* 07/27/24 07:10
Creatinine 2.2 mg/dL (0.7-1.3) H 07/27/24 07:10
eGFR 30.85 07/27/24 07:10
Glucose 133 mg/dl (70-99) H 07/27/24 07:10
Calcium 8.8 mg/dl (8.4-10.2) 07/27/24 07:10
Udl-F-Urtcchhtldo Pept 3450 pg/ml 07/26/24 15:50
Albumin 4.4 g/dl (3.5-5.0) 07/26/24 15:50
Physical Exam
General no acute distress
HEENT no cephalic atraumatic extraocular muscle intact no scleral icterus no JVD neck supple
lungs clear to auscultation bilateral
heart regular S1-S2 positive
abdomen soft nontender positive bowel sounds
extremities no edema pulses present bilateral
Neurologically nonfocal alert and oriented x 3
Skin no lesions no abrasions no petechiae
Psych normal affect no bizarre behavior
Data Reviewed
-
Radiology: Image Personally Visualized and interpreted
Labs: Labs Reviewed by me and Discussed with Patient
Assessment/Plan
-
74-year-old male with history atrial fibrillation on Coumadin, CHF, aortic stenosis, hypertension, diabetes presenting to the emergency department with abnormal lab work drawn outpatient. Patient has known right-sided heart failure and takes
torsemide 100 mg twice daily. He underwent a right sided heart catheterization 2 weeks ago for potential tricuspid valve preoperative planning. He was started on metolazone 5 mg biweekly. Since initiating this 2 weeks ago�patient states he has
been very tired and lethargic
Renal consult for significant azotemia BUN 169 creatinine 2.9
Impression.
Acute kidney injury secondary to overdiuresis with significant azotemia greater than 21 ratio.
Baseline creatinine 1.5 as of 2022
CHF.
Hypertension.
Aortic stenosis.
Diabetes.
Plan.
Agree with holding diuretic
Hold SGLT2 inhibitor
Hold lisinopril
IV fluids
A.m. lab
[2024-07-27 17:16] LABS: Glucose - Point of Care 111 mg/dl (70-99)
[2024-07-27] MEDS: COUMADIN 5 MG PO (18:16)
[2024-07-27] MEDS: LIPITOR 40 MG PO (20:43)
[2024-07-27] MEDS: PEPCID 20 MG PO (21:00)
[2024-07-27 21:17] LABS: Glucose - Point of Care 148 mg/dl (70-99)
[2024-07-28 03:52] VITALS: BP 136/72
[2024-07-28 06:00] VITALS: BMI 34.1
[2024-07-28] MEDS: NSS 1000 IV (06:31)
[2024-07-28 06:45] LABS: INR 2.62
[2024-07-28 06:47] LABS: % Basophils 0.8 % (0-2); % Eosinophils 2.7 % (0-6); % Immature Granulocytes 0.4 % (0-0.5); % Lymphocytes 10.1 % (20.5-51.1); % Monocytes 16.7 % (1.7-9.3); % Neutrophils 69.3 % (42.2-75.2); Absolute Eosinophils 0.1 10^3/uL (0-0.7); Absolute Lymphocytes 0.5 10^3/uL (1.2-3.4); Absolute Monocytes 0.8 10^3/uL (0.1-0.6); Absolute Neutrophils 3.4 10^3/uL (1.4-6.5); Hematocrit 36.5 % (39.0-52.0); Hemoglobin 12.5 g/dL (13.0-18.0); Mean Corp Hgb Conc. 34.2 g/dL (33.0-37.0); Mean Corpuscular Hgb 28.6 pg (27.0-31.0); Mean Corpuscular Volume 83.5 fL (80.0-94.0); Mean Platelet Volume 11.9 fL (7.4-10.4); Nucleated Red Blood Cells % 0 % (-); Platelet Count 122 10^3/uL (130-400); Red Blood Cell Count 4.37 10^6/uL (4.70-6.10); Red Cell Dist. Width 15.4 % (11.5-14.5); White Blood Cell Count 4.9 10^3/uL (4.8-10.8)
[2024-07-28 07:35] VITALS: BP 140/69
[2024-07-28 08:02] LABS: Calcium 9.7 mg/dl (8.4-10.2); Carbon Dioxide 30 mmol/L (22-30); Chloride 93 mmol/L (98-107); Estimated Creatinine Clearance 51 ml/min; Glucose 132 mg/dl (70-99); Magnesium 2.3 mg/dl (1.6-2.3); Potassium 3.4 mmol/L (3.5-5.1); Sodium 137 mmol/L (135-145); eGFR 45.21
[2024-07-28 08:10] LABS: Glucose - Point of Care 132 mg/dl (70-99)
[2024-07-28 08:21] LABS: Blood Urea Nitrogen 120 mg/dl (9-20)
[2024-07-28] MEDS: KCL 40 MEQ PO (08:32)
[2024-07-28] MEDS: PROTONIX 40 MG PO (08:33)
[2024-07-28] MEDS: NORVASC 5 MG PO (08:33)
[2024-07-28] MEDS: COREG 6.25 MG PO ×2 (08:33→21:11)
--- NOTE | 2024-07-28 09:30 | W.PN.CD ---
Today's Communication / Plan
-
Hold diuresis, SGLT2 inhibitor and KASSIE inhibitor
Trend creatinine
If creatinine improved tomorrow, would at least restart diuresis (no metolazone) and get nephrology's thoughts on resuming KASSIE inhibitor and SGLT2 inhibitor
Impression / Plan
-
I/P: 74M with HFpEF, bio aortic valve replacement x 2 (2011, 2012), RV dysfunction, severe tricuspid regurgitation, permanent atrial fibrillation (on warfarin), CKD 3b, cirrhosis (EtOH, cessation in 05/2022), type 2 diabetes mellitus, prior TIA,
hypertension. He is here for MP in the setting of recently increased diuretics as an outpatient.
Outpatient fleet driver: Dr Ball
Heart failure: Dr. Morris
Structural heart disease: Dr. Lopez
MP on CKD3b
- Likely due to overdiuresis (metolazone recently started as an outpatient)
- Dry weight is 240-245 pounds. He got as low as 239 prior to admission.
- Creatinine is improving with holding diuretics and nephrotoxic agents.
- Hold diuresis today. Hopefully can resume tomorrow but would stop metolazone.
- Reassess for restarting KASSIE inhibitor and Farxiga tomorrow.
- Nephrology following
HFpEF, chronic
-MP when metolazone 5mg was added , RHC as below
-SGLT2i: Farxiga 10mg daily (currently held for MP)
-Trend daily weight, I/O, and BMP with MP
Tricuspid regurgitation, severe
- RHC at [facility] 07/08/2024 for TTVR
Bioprosthetic AVR ()
-Initially TAVR then SAVR
Permanent atrial fibrillation
-Rates a little slow, asymptomatic, following telemetry
-Oral Anticoagulation: Warfarin, INR therapeutic
-[id number]: score 6 (Heart failure, HTN, Diabetes Mellitus, prior Stroke/TIA, age 65-74)
EtOH cirrhosis, EtOH cessation since 05/2022
Hypertension, stable, follow
Dyslipidemia, on atorvastatin
NIDDM, HgbA1c pending
Prior TIA
SUBJECTIVE:
Biggest concern is nosebleed which has been off/on. Otherwise he feels at his baseline.
DATA:
[facility] 07/08/2024, HUP by Dr. Zack Lopez:
Hemodynamics revealed markedly elevated (right greater than left) filling pressures, postcapillary pulmonary hypertension, elevated pulmonary/systemic vascular resistance's, and a reduced cardiac output/index.
RA = 26 mmHg
RV = 49 mmHg, RVEDP 25 mmHg
RA = 49/24 mmHg with mean of 33 mmHg
PCWP = 21 mmHg
PA sat 57.5%
PVR = 2.7 Wood units
SVR = 1469
Cardiac output/index = 4.5 L/min, 2.0 L/min/m2
Physical Exam
Vital Signs/Labs
Vital Signs
Temp Pulse Resp BP Pulse Ox
97.5 F 60 16 140/69 93
07/28/24 07:35 07/28/24 08:33 07/28/24 07:35 07/28/24 08:33 07/28/24 07:35
07/27/24 07/28/24 07/29/24
06:59 06:59 06:59
Actual Weight 241 lb 1 oz 238 lb
07/28/24 06:25
07/28/24 06:25
PT 28.0 Sec (11.4-14.6) H 07/28/24 06:25
INR 2.62 07/28/24 06:25
Magnesium 2.3 mg/dl (1.6-2.3) 07/28/24 06:25
07/26/24
15:50
Ogo-G-Slqakullkoj Pept 3450
Physical Exam
Constitutional: No acute distress and Comfortable
Cardiovascular: Rhythm & rate is regular, Pedal edema present, Systolic murmur present and S1S2 is normal
Respiratory: Respiratory effort normal and Lungs clear to auscul.
Neuro/Psych: AO x 3
Data Reviewed
-
Date of Service: July 28, 2024
Medical Decision Making: Reviewed Test Results, Independent Historian Assessment, Test Interpretation and Review of Case with other Provider
EKG: Tracing Personally Visualized and interpreted
Echo: Report Reviewed by me
Labs: Labs Reviewed by me
--- NOTE | 2024-07-28 11:10 | W.PN.HOSP.TC ---
Today's Communication/Plan
-
cont to monitor nosebleed
cont holding off diuretics
labs in AM
Assessment / Plan
Assessment / Plan
74yo M with PMHx of AV stenosis s/p bioprosthetic valve, TIA, HTN, HLD, CHF, Afib on coumadin sent by cardiologists with worsening kidney function. Test done after his diuresis was potentiated due to CHF symptoms witgh metholazone. Patient seeing
cardiologists in [place]. Also has recurrent epistaxis.
A/P:
#MP
#Hypokalemia
Mild hyponatremia
follow and replete electrolytes
baseline Ct around 1.1
follow Cr
hold ACEi, ARB, NSAIDs, diuretics
nephrology consult
FeNa 4.4% - concern for intrinsic component
#Chronic HFpEF
cardio consult
cannot exclude cardiorenal syndrome
#Epistaxis
exacerbated by uremic coagulopathy
cold compress
ENT consult: s/p silver nitrate.
follow CBC
#Chronic elevation of alk.phos 2/2 liver cirrhosis
Outpatient f/u by PCP
#Afib, permanent
cont coumadin
follow INR
rate control
#mild Thrombocytopenia - possibly 2/2 cirrhosis
#mild anemia - possibly 2/2 recurrent epistaxis
#Mild leukopenia - recurrent since 2022
reasonable outpatient hematology to r/o alternative etiology
#DM type 2 with unspecified complications
Accuchecks, Insulin SS, DM diet
#Essential HTN
adjust BP meds
#HLD
#GERD
cont hoem meds
DVT ppx warfarin
Full code
I have spent at least 56min reviewing chart, test results, communication with consultants and providing direct patient care
Anticipated Discharge: 24 - 48 hours
Subjective/Interval History
-
Date of Service: July 28, 2024
Objective Data
-
Labs:
Laboratory Results
07/28/24
06:25
WBC 4.9
Hgb 12.5 L
Hct 36.5 L
Plt Count 122 L
PT 28.0 H
INR 2.62
Sodium 137
Potassium 3.4 L
Chloride 93 L
Carbon Dioxide 30
BUN 120 H*
Creatinine 1.6 H
Glucose 132 H
Calcium 9.7
Vital Signs:
Vital Signs
Temp Pulse Resp BP Pulse Ox
97.5 F 60 16 140/69 93
07/28/24 07:35 07/28/24 08:33 07/28/24 07:35 07/28/24 08:33 07/28/24 07:35
I&O
07/27/24 07/28/24 07/29/24
06:59 06:59 06:59
Intake Total 480 / 480 1350 / 1350
Output Total 700 / 700 4400 / 4400
Balance -220 / -220 -3050 / -3050
Review of Systems
-
History Source: Patient
All other systems: Reviewed and negative
EENT: Reports Bloody Nose
Physical Exam
-
General: Comfortable
HEENT: Normocephalic
Respiratory: Clear to Auscultation
GI: Soft, Nontender and Nondistended
Neuro: Awake, Alert, Oriented and AO x 3
Psych: Calm
[2024-07-28 11:55] VITALS: BP 130/64
--- NOTE | 2024-07-28 12:10 | W.PN.NEPH.PH ---
Today's Communication / Plan
-
IV fluids continue
Holding diuretics
Assessment/Plan
-
74-year-old male with history atrial fibrillation on Coumadin, CHF, aortic stenosis, hypertension, diabetes presenting to the emergency department with abnormal lab work drawn outpatient. Patient has known right-sided heart failure and takes
torsemide 100 mg twice daily. He underwent a right sided heart catheterization 2 weeks ago for potential tricuspid valve preoperative planning. He was started on metolazone 5 mg biweekly. Since initiating this 2 weeks ago�patient states he has
been very tired and lethargic
Renal consult for significant azotemia BUN 169 creatinine 2.9
Impression.
Acute kidney injury secondary to overdiuresis with significant azotemia greater than 21 ratio.
Baseline creatinine 1.5 as of 2022
CHF.
Hypertension.
Aortic stenosis.
Diabetes.
Plan.
Agree with holding diuretic
Hold SGLT2 inhibitor
Hold lisinopril
IV fluids
BUN and creatinine improved
A.m. lab
-
-
Date of Service: July 28, 2024
CC / HPI / ROS
-
Chief Complaint:
Presents with MP
History of Present Illness:
History of CHF increased diuretics outpatient with significant azotemia on torsemide and metolazone
Review of Systems:.
No chest pain or shortness of breath. No difficulty urinating
Labs
-
Labs:
WBC 4.9 10^3/uL (4.8-10.8) 07/28/24 06:25
RBC 4.37 10^6/uL (4.70-6.10) L 07/28/24 06:25
Hgb 12.5 g/dL (13.0-18.0) L 07/28/24 06:25
Hct 36.5 % (39.0-52.0) L 07/28/24 06:25
Plt Count 122 10^3/uL (130-400) L 07/28/24 06:25
Sodium 137 mmol/L (135-145) 07/28/24 06:25
Potassium 3.4 mmol/L (3.5-5.1) L 07/28/24 06:25
Chloride 93 mmol/L (98-107) L 07/28/24 06:25
Carbon Dioxide 30 mmol/L (22-30) 07/28/24 06:25
BUN 120 mg/dl (9-20) H* 07/28/24 06:25
Creatinine 1.6 mg/dL (0.7-1.3) H 07/28/24 06:25
eGFR 45.21 07/28/24 06:25
Glucose 132 mg/dl (70-99) H 07/28/24 06:25
Calcium 9.7 mg/dl (8.4-10.2) 07/28/24 06:25
Dig-P-Jpquobmddsn Pept 3450 pg/ml 07/26/24 15:50
Albumin 4.4 g/dl (3.5-5.0) 07/26/24 15:50
Physical Exam
-
Vital Signs:
Vital Signs
Temp Pulse Resp BP Pulse Ox
97.5 F 60 16 140/69 93
07/28/24 07:35 07/28/24 08:33 07/28/24 07:35 07/28/24 08:33 07/28/24 07:35
Respiratory:: Bilateral: CTA
Lung Excursion:: Normal
Abdomen:: Soft
Bowel Sounds:: Normal
Extremity Edema:: +1: Bilateral:
Hills Catheter: No
[2024-07-28 12:38] LABS: Glucose - Point of Care 120 mg/dl (70-99)
[2024-07-28] MEDS: MIRALAX 17 GRAMS PO (14:18)
[2024-07-28 15:40] VITALS: BP 143/68
[2024-07-28 16:34] LABS: Glucose - Point of Care 113 mg/dl (70-99)
[2024-07-28] MEDS: COUMADIN 10 MG PO (17:45)
[2024-07-28 19:23] VITALS: BP 144/76
[2024-07-28] MEDS: LIPITOR 40 MG PO (21:11)
[2024-07-28] MEDS: AMBIEN 5 MG PO (21:15)
[2024-07-28 21:20] LABS: Glucose - Point of Care 119 mg/dl (70-99)
[2024-07-28 23:55] VITALS: BP 138/68
[2024-07-29 03:08] VITALS: BP 156/82
[2024-07-29] MEDS: POLYSPORIN OINTMENT 1 APPLIC TOPICAL ×2 (04:46→10:45)
--- NOTE | 2024-07-29 04:51 | PTCARENOTE ---
Pt had a few nose bleed episodes. Pt was able to stop the nose bleed.
[2024-07-29 04:53] VITALS: BMI 34.3
[2024-07-29 06:44] VITALS: BMI 34.3
[2024-07-29 06:54] LABS: % Basophils 0.6 % (0-2); % Eosinophils 1.9 % (0-6); % Immature Granulocytes 0.2 % (0-0.5); % Lymphocytes 7.6 % (20.5-51.1); % Monocytes 13.9 % (1.7-9.3); % Neutrophils 75.8 % (42.2-75.2); Absolute Eosinophils 0.1 10^3/uL (0-0.7); Absolute Lymphocytes 0.5 10^3/uL (1.2-3.4); Absolute Monocytes 0.9 10^3/uL (0.1-0.6); Absolute Neutrophils 4.8 10^3/uL (1.4-6.5); Hematocrit 36.6 % (39.0-52.0); Hemoglobin 12.3 g/dL (13.0-18.0); Mean Corp Hgb Conc. 33.6 g/dL (33.0-37.0); Mean Corpuscular Hgb 28.5 pg (27.0-31.0); Mean Corpuscular Volume 84.7 fL (80.0-94.0); Mean Platelet Volume 11.9 fL (7.4-10.4); Nucleated Red Blood Cells % 0 % (-); Platelet Count 123 10^3/uL (130-400); Red Blood Cell Count 4.32 10^6/uL (4.70-6.10); Red Cell Dist. Width 15.7 % (11.5-14.5); White Blood Cell Count 6.3 10^3/uL (4.8-10.8)
[2024-07-29 06:57] LABS: INR 2.73; PT 29.3 Sec (11.4-14.6)
[2024-07-29 07:07] LABS: ALT (SGPT) 23 U/L (0-50); AST (SGOT) 29 U/L (17-59); Albumin 4.5 g/dl (3.5-5.0); Alkaline Phosphatase 193 U/L (38-126); Blood Urea Nitrogen 89 mg/dl (9-20); Calcium 9.9 mg/dl (8.4-10.2); Carbon Dioxide 32 mmol/L (22-30); Chloride 96 mmol/L (98-107); Estimated Creatinine Clearance 68 ml/min; Glucose 120 mg/dl (70-99); Sodium 140 mmol/L (135-145); Total Bilirubin 1.9 mg/dl (0.2-1.3); Total Protein 7.5 g/dl (6.3-8.2); eGFR > 60.00
[2024-07-29 07:30] VITALS: BP 149/66
[2024-07-29 07:47] LABS: Glucose - Point of Care 106 mg/dl (70-99)
[2024-07-29] MEDS: COREG PO (08:24)
[2024-07-29] MEDS: PROTONIX 40 MG PO (08:31)
[2024-07-29] MEDS: SENOKOT-S 1 TABLET PO (08:31)
[2024-07-29] MEDS: NORVASC 5 MG PO (08:40)
--- NOTE | 2024-07-29 09:27 | W.PN.CD ---
Today's Communication / Plan
-
Hold diuresis on discharge.
Plan will be to resume home diuretic (Torsemide 80 BID) WITHOUT Metolazone on Monday 07/31
He should have a BMP on Friday (08/04) and we can decide about resuming ACEi and Farxiga
Labs ordered in eCW and sent electronically to [facility]
Impression / Plan
-
I/P: 74M with HFpEF, bio aortic valve replacement x 2 (2011, 2012), RV dysfunction, severe tricuspid regurgitation, permanent atrial fibrillation (on warfarin), CKD 3b, cirrhosis (EtOH, cessation in 05/2022), type 2 diabetes mellitus, prior TIA,
hypertension. He is here for MP in the setting of recently increased diuretics as an outpatient.
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
Heart failure: Dr. Morris
Structural heart disease: Dr. Lopez
MP on CKD3b
- Likely due to overdiuresis (metolazone recently started as an outpatient)
- Dry weight is 240-245 pounds. He got as low as 239 prior to admission and is 239 again today.
- Creatinine is improving with holding diuretics and nephrotoxic agents.
- Hold diuresis today. Safe for discharge.
- Plan will be to resume home diuretic (Torsemide 80 BID) WITHOUT Metolazone on Monday 07/31
- He should have a BMP on Friday (08/04) and we can decide about resuming ACEi and Farxiga
- Nephrology following
HFpEF, chronic
-MP when metolazone 5mg was added , RHC as below
-SGLT2i: Farxiga 10mg daily (currently held for MP)
-Trend daily weight, I/O, and BMP with MP
- Diuresis plan as above
Tricuspid regurgitation, severe
- RHC at [facility] 07/08/2024 for TTVR
Bioprosthetic AVR ()
-Initially TAVR then SAVR
Permanent atrial fibrillation
-Rates a little slow, asymptomatic, following telemetry
-Oral Anticoagulation: Warfarin, INR therapeutic
-[id number]: score 6 (Heart failure, HTN, Diabetes Mellitus, prior Stroke/TIA, age 65-74)
EtOH cirrhosis, EtOH cessation since 05/2022
Hypertension, stable, follow
Dyslipidemia, on atorvastatin
NIDDM, HgbA1c pending
Prior TIA
SUBJECTIVE:
Had another nosebleed last night. No other complaints. Eager to go home.
DATA:
RHC 07/08/2024, HUP by Dr. Zack Lopez:
Hemodynamics revealed markedly elevated (right greater than left) filling pressures, postcapillary pulmonary hypertension, elevated pulmonary/systemic vascular resistance's, and a reduced cardiac output/index.
RA = 26 mmHg
RV = 49 mmHg, RVEDP 25 mmHg
RA = 49/24 mmHg with mean of 33 mmHg
PCWP = 21 mmHg
PA sat 57.5%
PVR = 2.7 Wood units
SVR = 1469
Cardiac output/index = 4.5 L/min, 2.0 L/min/m2
Physical Exam
Vital Signs/Labs
Vital Signs
Temp Pulse Resp BP Pulse Ox
97.9 F 56 18 149/66 98
07/29/24 07:30 07/29/24 08:40 07/29/24 07:30 07/29/24 08:40 07/29/24 07:30
07/28/24 07/29/24 07/30/24
06:59 06:59 06:59
Actual Weight 238 lb 239 lb 2 oz
07/29/24 06:18
07/29/24 06:19
PT 29.3 Sec (11.4-14.6) H 07/29/24 06:19
INR 2.73 07/29/24 06:19
Magnesium 2.3 mg/dl (1.6-2.3) 07/28/24 06:25
07/26/24
15:50
Lcm-O-Edhemfsgsot Pept 3450
Physical Exam
Constitutional: No acute distress and Comfortable
Cardiovascular: Rhythm/rate is irregular, Pedal edema present, S1S2 is normal and Murmur/rub/gallop absent
Respiratory: Respiratory effort normal and Lungs clear to auscul.
Data Reviewed
-
Date of Service: July 29, 2024
Medical Decision Making: Reviewed Test Results, Independent Historian Assessment, Test Interpretation and Review of Case with other Provider
EKG: Tracing Personally Visualized and interpreted
Echo: Tracing Personally Visualized and interpreted
Labs: Labs Reviewed by me
--- NOTE | 2024-07-29 10:35 | W.PN.NEPH.PH ---
Today's Communication / Plan
-
Torsemide 80 twice daily okay for discharge from renal stand
Assessment/Plan
-
74-year-old male with history atrial fibrillation on Coumadin, CHF, aortic stenosis, hypertension, diabetes presenting to the emergency department with abnormal lab work drawn outpatient. Patient has known right-sided heart failure and takes
torsemide 100 mg twice daily. He underwent a right sided heart catheterization 2 weeks ago for potential tricuspid valve preoperative planning. He was started on metolazone 5 mg biweekly. Since initiating this 2 weeks ago�patient states he has
been very tired and lethargic
Renal consult for significant azotemia BUN 169 creatinine 2.9
Impression.
Acute kidney injury secondary to overdiuresis with significant azotemia greater than 21 ratio.
Baseline creatinine 1.5 as of 2022
CHF.
Hypertension.
Aortic stenosis.
Diabetes.
Plan.
Agree with holding diuretic
Hold SGLT2 inhibitor
Hold lisinopril
IV fluids
BUN and creatinine improved
Okay for discharge from renal standpoint is discussed with all physicians involved.
Agree with torsemide 80 twice daily.
SGLT2 inhibitor and KASSIE inhibitor can be addressed outpatient.
He can follow-up with renal in a few weeks to help with diuretic management in the setting of CKD
-
-
Date of Service: July 29, 2024
CC / HPI / ROS
-
Chief Complaint:
Presents with MP
History of Present Illness:
History of CHF increased diuretics outpatient with significant azotemia on torsemide and metolazone
Review of Systems:.
No chest pain or shortness of breath. No difficulty urinating
Labs
-
Labs:
WBC 6.3 10^3/uL (4.8-10.8) 07/29/24 06:18
RBC 4.32 10^6/uL (4.70-6.10) L 07/29/24 06:18
Hgb 12.3 g/dL (13.0-18.0) L 07/29/24 06:18
Hct 36.6 % (39.0-52.0) L 07/29/24 06:18
Plt Count 123 10^3/uL (130-400) L 07/29/24 06:18
Sodium 140 mmol/L (135-145) 07/29/24 06:19
Potassium 4.0 mmol/L (3.5-5.1) 07/29/24 06:19
Chloride 96 mmol/L (98-107) L 07/29/24 06:19
Carbon Dioxide 32 mmol/L (22-30) H 07/29/24 06:19
BUN 89 mg/dl (9-20) H 07/29/24 06:19
Creatinine 1.2 mg/dL (0.7-1.3) 07/29/24 06:19
eGFR > 60.00 07/29/24 06:19
Glucose 120 mg/dl (70-99) H 07/29/24 06:19
Calcium 9.9 mg/dl (8.4-10.2) 07/29/24 06:19
Ver-H-Abignfvzdvo Pept 3450 pg/ml 07/26/24 15:50
Albumin 4.5 g/dl (3.5-5.0) 07/29/24 06:19
Physical Exam
-
Vital Signs:
Vital Signs
Temp Pulse Resp BP Pulse Ox
97.9 F 56 18 149/66 98
07/29/24 07:30 07/29/24 08:40 07/29/24 07:30 07/29/24 08:40 07/29/24 07:30
Respiratory:: Bilateral: CTA
Lung Excursion:: Normal
Abdomen:: Soft
Bowel Sounds:: Normal
Extremity Edema:: +1: Bilateral:
Hills Catheter: No
[2024-07-29 11:20] VITALS: BP 127/65
--- NOTE | 2024-07-29 11:33 | W.PN.HOSP.TC ---
Today's Communication/Plan
-
dc
Assessment / Plan
Assessment / Plan
74yo M with PMHx of AV stenosis s/p bioprosthetic valve, TIA, HTN, HLD, CHF, Afib on Coumadin sent by cardiologists with worsening kidney function. Test done after his diuresis was potentiated due to CHF symptoms witgh metolazone. Patient seeing
cardiologists in [place]. Also has recurrent epistaxis that resolved. Torsemide to be restarted 2 days after d/c with bloodwork for BMP in 1 wek with cardiology. Agreeable with shirt trimmer to discharge as Cr normalized. Farxiga and Lisinopril to
be held until determined to be started by cardiology. Medically stable to go home.
A/P:
#MP
#Hypokalemia
Mild hyponatremia
follow and replete electrolytes
baseline Ct around 1.1
follow Cr
hold ACEi, ARB, NSAIDs, diuretics
nephrology consult
FeNa 4.4% - concern for intrinsic component
#Chronic HFpEF
cardio consult: unlikely any signs of exacerbation
#Epistaxis
exacerbated by uremic coagulopathy
cold compress
ENT consult: s/p silver nitrate.
follow CBC
#Chronic elevation of alk.phos 2/2 liver cirrhosis
Outpatient f/u by PCP
#Afib, permanent
cont coumadin
follow INR
rate control
#mild Thrombocytopenia - possibly 2/2 cirrhosis
#mild anemia - possibly 2/2 recurrent epistaxis
#Mild leukopenia - recurrent since 2022
reasonable outpatient hematology to r/o alternative etiology
#DM type 2 with unspecified complications
Accuchecks, Insulin SS, DM diet
#Essential HTN
adjust BP meds
#HLD
#GERD
cont hoem meds
DVT ppx warfarin
Full code
I have spent at least 36min reviewing chart, test results, communication with consultants and providing direct patient care
Anticipated Discharge: Today
Subjective/Interval History
-
Date of Service: July 29, 2024
Objective Data
-
Labs:
Laboratory Results
07/29/24 07/29/24
06:18 06:19
WBC 6.3
Hgb 12.3 L
Hct 36.6 L
Plt Count 123 L
PT 29.3 H
INR 2.73
Sodium 140
Potassium 4.0
Chloride 96 L
Carbon Dioxide 32 H
BUN 89 H
Creatinine 1.2
Glucose 120 H
Calcium 9.9
Total Bilirubin 1.9 H
AST 29
ALT 23
Alkaline Phosphatase 193 H
Vital Signs:
Vital Signs
Temp Pulse Resp BP Pulse Ox
98 F 56 20 127/65 97
07/29/24 11:20 07/29/24 11:20 07/29/24 11:20 07/29/24 11:20 07/29/24 11:20
I&O
07/28/24 07/29/24 07/30/24
06:59 06:59 06:59
Intake Total 1350 / 1350 3180 / 3180 760 / 760
Output Total 4400 / 4400 4275 / 4275 520 / 520
Balance -3050 / -3050 -1095 / -1095 240 / 240
Review of Systems
-
History Source: Patient
All other systems: Reviewed and negative
Physical Exam
-
General: No Apparent Distress
HEENT: Normocephalic
Musculoskeletal: No Clubbing, No Cyanosis and No Edema
Neuro: Awake, Alert, Oriented and AO x 3
Psych: Calm
--- NOTE | 2024-07-29 11:42 | W.DCSUMMARY ---
Discharge Summary
Discharge Data
Date of Admission: 07/26/24
Date of Discharge: 07/29/24
-
Pending Results: No
Hospital Course
74yo M with PMHx of AV stenosis s/p bioprosthetic valve, TIA, HTN, HLD, CHF, Afib on Coumadin sent by cardiologists with worsening kidney function. Test done after his diuresis was potentiated due to CHF symptoms witgh metolazone. Patient seeing
cardiologists in [place]. Also has recurrent epistaxis that resolved. Torsemide to be restarted 2 days after d/c with bloodworm for BMP in 1 wek with cardiology. Agreeable with credit department manager to discharge as Cr normalized. Farxiga and Lisinopril to
be held until determined to be started by cardiology. Medically stable to go home.
I have spent at least 36min reviewing chart, test results, communication with consultants and providing direct patient care
patient was managed for::
#MP
#Hypokalemia
#Chronic HFpEF
#Epistaxis
#Chronic elevation of alk.phos 2/2 liver cirrhosis
#Afib, permanent
#mild Thrombocytopenia - possibly 2/2 cirrhosis
#mild anemia - possibly 2/2 recurrent epistaxis
#Mild leukopenia - recurrent since 2022
#DM type 2 with unspecified complications
#Essential HTN
#HLD
#GERD
Discharge Plan
-
Blood Work: BMP on Friday (08/04). Labs sent electronically in eCW to [facility]
Instructions: *PCP/Other Help Desk [facility] Heart Failure Instructions
Referrals:
Choco Carlson MD [Family Provider] -
Floyd Valdez MD [Active] - in one to two weeks (if nosebleed reoccur )
Narciso Oneal MD [Active] - in four to six weeks (pancytopenia)
Prescriptions:
New
torsemide 20 mg Tablet
80 mg PO BID Qty: 60 0RF
Rx Instructions:
Start on 07/31/24
Continued
famotidine 40 mg Tablet
40 mg PO HS
atorvastatin 40 MG tablet
40 mg PO HS
pantoprazole 40 MG tablet,delayed release (DR/EC)
40 mg PO DAILY
carvedilol 6.25 mg tablet
6.25 mg PO BID Qty: 60 0RF
amlodipine 5 mg Tablet
5 mg PO DAILY
warfarin 5 mg Tablet
10 mg PO SUWEFRSA
warfarin 5 mg Tablet
5 mg PO MOTUTH
diphenhydramine-acetaminophen [Tylenol PM Extra Strength] 25-500 mg Tablet
2 tab PO HSPRN PRN (Reason: sleep)
Held
lisinopril 5 mg Tablet
5 mg PO DAILY
Hold Instructions: Until told to start it by
dapagliflozin propanediol [Farxiga] 10 mg Tablet
10 mg PO DAILY
Hold Instructions: Until told to be started by
Discontinued
torsemide 100 mg Tablet
100 mg PO BID
Patient Comments:
07/26/24: Have plans to decrease this to 80mg, has not started new dose yet
Discharge Orders:
Discharge Patient (As Directed); Ordered 07/29/24
Ordered By: Harley Garcia
Discharge Date and Time
Print Language: BENGALI
[2024-07-29 12:01] LABS: Glucose - Point of Care 89 mg/dl (70-99)
--- NOTE | 2024-07-29 12:01 | CM ---
Patient medically stable for d/c today.
Met w/ patient and spouse bedside, agreeable to d/c
IMM verbally reviewed, patient given copy, copy placed on chart
Plan: Home; no needs
--- NOTE | 2024-07-29 12:59 | PTCARENOTE ---
Educated pt on discharge packet. Answered all questions. Pt and state understanding. IV and tele removed. No further questions at this time, pt to transport home.
== END 2024-07-29 13:01 | disposition home or self-care (01) | DRG 683 ==
LOC: 4 EAST ACU 19:59
PROVIDERS: Registered Nurse; Student in an Organized Health Care Education/Training Program; ADMITTING PHYSICIAN Internal Medicine; ATTENDING PHYSICIAN Internal Medicine; CONSULT PHYSICIAN Internal Medicine Nephrology; EMERGENCY PHYSICIAN Emergency Medicine; FAMILY PHYSICIAN Internal Medicine; OTHER PHYSICIAN Internal Medicine Cardiovascular Disease; OTHER PHYSICIAN Otolaryngology
DX: N17.9 Acute kidney failure, unspecified (principal); E87.1 Hypo-osmolality and hyponatremia; I13.0 Hypertensive heart and chronic kidney disease with heart failure and stage 1 through stage 4 chronic kidney disease, or unspecified chronic kidney disease; I50.32 Chronic diastolic (congestive) heart failure; I48.21 Permanent atrial fibrillation; N18.32 Chronic kidney disease, stage 3b; Z79.01 Long term (current) use of anticoagulants; E87.6 Hypokalemia; D63.8 Anemia in other chronic diseases classified elsewhere; K21.9 Gastro-esophageal reflux disease without esophagitis; E11.22 Type 2 diabetes mellitus with diabetic chronic kidney disease; K70.30 Alcoholic cirrhosis of liver without ascites; D69.59 Other secondary thrombocytopenia; D50.9 Iron deficiency anemia, unspecified; E78.00 Pure hypercholesterolemia, unspecified; Z86.73 Personal history of transient ischemic attack (TIA), and cerebral infarction without residual deficits; Z79.899 Other long term (current) drug therapy
CPT/HCPCS: 71046; 80048; 80053; 82570; 82962; 83036; 83735; 83880; 83930; 83935; 84300; 85025; 85027; 85610; 93005; 93306; 96360; 96361; 99285

== ENCOUNTER → 2024-08-06 10:16 | Outpatient (REF) | payer OTHER, SELFPAY | LOC: HWRAD 10:16 | PROVIDERS: ATTENDING PHYSICIAN Internal Medicine | DX: N28.9 Disorder of kidney and ureter, unspecified (principal); M79.641 Pain in right hand | CPT/HCPCS: 73130 ==

== ENCOUNTER → 2024-08-19 17:40 | Outpatient (REF) | payer OTHER, SELFPAY | LOC: RAD 17:40 | PROVIDERS: ATTENDING PHYSICIAN Internal Medicine | DX: S80.11XA Contusion of right lower leg, initial encounter (principal); W19.XXXA Unspecified fall, initial encounter; M79.662 Pain in left lower leg; R60.0 Localized edema | CPT/HCPCS: 93971 ==

== ENCOUNTER → 2024-08-20 09:53 | Outpatient (REF) | payer OTHER, SELFPAY ==
[2024-08-20 12:34] LABS: INR 2.44; PT 26.6 Sec (11.4-14.6)
== END ==
LOC: HWLAB 09:53
PROVIDERS: ATTENDING PHYSICIAN Student in an Organized Health Care Education/Training Program; FAMILY PHYSICIAN Internal Medicine
DX: Z95.2 Presence of prosthetic heart valve (principal)
CPT/HCPCS: 36415; 85610

== ENCOUNTER 2024-10-03 15:07 | Emergency (ER) | payer SELFPAY ==
[2024-10-03 15:12] VITALS: BP 100/50
[2024-10-03 15:27] VITALS: BP 140/82
[2024-10-03 15:40] VITALS: BMI 35.2
[2024-10-03 15:40] LABS: % Basophils 1.1 % (0-2); % Eosinophils 2.7 % (0-6); % Immature Granulocytes 0.4 % (0-0.5); % Lymphocytes 11.3 % (20.5-51.1); % Monocytes 14.4 % (1.7-9.3); % Neutrophils 70.1 % (42.2-75.2); Absolute Basophils 0.1 10^3/uL (0-0.2); Absolute Eosinophils 0.2 10^3/uL (0-0.7); Absolute Lymphocytes 0.6 10^3/uL (1.2-3.4); Absolute Monocytes 0.8 10^3/uL (0.1-0.6); Absolute Neutrophils 3.9 10^3/uL (1.4-6.5); Hematocrit 33.4 % (39.0-52.0); Hemoglobin 11.3 g/dL (13.0-18.0); Mean Corp Hgb Conc. 33.8 g/dL (33.0-37.0); Mean Corpuscular Volume 85.6 fL (80.0-94.0); Mean Platelet Volume 11.2 fL (7.4-10.4); Nucleated Red Blood Cells % 0 % (-); Platelet Count 146 10^3/uL (130-400); Red Cell Dist. Width 17.1 % (11.5-14.5); White Blood Cell Count 5.6 10^3/uL (4.8-10.8)
[2024-10-03] MEDS: DILAUDID 0.5 MG IV ×2 (15:45→17:22)
[2024-10-03 15:50] LABS: INR 2.73; PT 28.9 Sec (11.4-14.6)
[2024-10-03 16:00] VITALS: BP 113/72
[2024-10-03 16:02] LABS: ALT (SGPT) 22 U/L (0-50); AST (SGOT) 33 U/L (17-59); Albumin 4.1 g/dl (3.5-5.0); Alkaline Phosphatase 288 U/L (38-126); Blood Urea Nitrogen 60 mg/dl (9-20); Calcium 8.7 mg/dl (8.4-10.2); Carbon Dioxide 27 mmol/L (22-30); Chloride 96 mmol/L (98-107); Estimated Creatinine Clearance 51 ml/min; Glucose 117 mg/dl (70-99); Potassium 3.9 mmol/L (3.5-5.1); Sodium 135 mmol/L (135-145); Total Bilirubin 1.3 mg/dl (0.2-1.3); eGFR 45.21
[2024-10-03 16:08] LABS: Troponin I 0.021 ng/ml
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
[2024-10-03] MEDS: NSS 250 IV (17:00)
[2024-10-03 17:11] LABS: APTT 42.4 Sec (23.4-35.0)
[2024-10-03 17:45] LABS: Alcohol None Detected
--- NOTE | 2024-10-05 09:10 | CM ---
Received a message from someone at pt's insurance company, [employer], stating pt's Nancy called stating she is unable to change pt's arm dressings. Requested VN consult but pt is not homebound. I called Nancy and left a voicemail
encouraging her to call pt's PCP DR Carlson to discuss outpatient wound care.
== END 2024-10-03 18:25 | disposition home or self-care (01) ==
LOC: EMR 15:07
PROVIDERS: EMERGENCY PHYSICIAN Emergency Medicine; FAMILY PHYSICIAN Internal Medicine
DX: S51.812A Laceration without foreign body of left forearm, initial encounter (principal); S51.811A Laceration without foreign body of right forearm, initial encounter; S52.612A Displaced fracture of left ulna styloid process, initial encounter for closed fracture; S30.1XXA Contusion of abdominal wall, initial encounter; V49.40XA Driver injured in collision with unspecified motor vehicles in traffic accident, initial encounter; I11.0 Hypertensive heart disease with heart failure; I50.9 Heart failure, unspecified; E78.00 Pure hypercholesterolemia, unspecified; E11.9 Type 2 diabetes mellitus without complications; K40.90 Unilateral inguinal hernia, without obstruction or gangrene, not specified as recurrent; Z95.2 Presence of prosthetic heart valve; Z79.01 Long term (current) use of anticoagulants
CPT/HCPCS: 29125; 96374; 96376; 99285; 70450; 71260; 72125; 73090; 74177; 80053; 82077; 84484; 85025; 85610; 85730; 93005; Q9967

== ENCOUNTER 2025-03-06 22:00 | Inpatient (IN) | payer OTHER, SELFPAY ==
[2025-03-06] VITALS (12 sets, daily range): BP systolic 111–155; BP diastolic 60–82; BMI 35.3
--- NOTE | 2025-03-06 18:10 | ED.GENMED ---
History of Present Illness
General
Chief Complaint: Abdominal Pain
Time Seen by Provider: 03/06/25 17:58
History of Present Illness
History of Present Illness:
Patient is a 74-year-old male with history of atrial fibrillation on Coumadin, CHF, hypertension, hyperlipidemia, diabetes presenting to the emergency room with abdominal pain. Patient states that an hour prior to arrival patient got up and had
sharp abdominal pain. No lightheadedness dizziness. No vomiting. No diarrhea. He states that this has happened to him once before and it was a hernia. He has never been formally evaluated for hernia. No urinary symptoms. He is compliant with
his Coumadin.
Past History
Past History
ED Past Medical History: CHF, HTN, Hypercholesterolemia, NIDDM (Diet-controlled), Valvular disease (AVR x 2, tricuspid regurgitation) and Other (infectious endocarditis, alcoholic cirrhosis)
ED Past Surgical History: Cardiac (Aortic valve replacement x2) and Other (Hernia repair)
Social History
Tobacco: Non-smoker
Alcohol: Daily
Drug: None
Personal:
Phy Exam
Physical Exam
Physical Exam:
GENERAL: Appears uncomfortable
HEENT: normocephalic, extraocular movements intact, moist oral mucosa
NECK: normal inspection
RESPIRATORY: no respiratory distress, clear to auscultation bilaterally
CARDIOVASCULAR: regular rate and rhythm
ABDOMEN/: soft, diffusely tender to palpation, no rebound or guarding
EXTREMITIES: non-tender, no edema/swelling
NEUROLOGIC: awake and alert, moves all extremities
SKIN: warm
Course
Orders/Labs/Results
Orders:
Orders
03/06/25 17:59
IV Insert/Care/Rem.- Treatment PRN
03/06/25 18:06
Electrocardiogram (*1) Urgent
Reason for Study: Abdominal Pain
EKG- Treatment ONCE
03/06/25 18:08
Complete Blood Count/With Diff Urgent
Comprehensive Metabolic Panel Urgent
Lactate Level [Lactic Acid] Urgent
Lipase Urgent
PTT Urgent
Pro-BNP [NT-proBNP] Urgent
Prothrombin Time Urgent
Troponin I Urgent
Comment: ADD ON
03/06/25 18:09
CT Abd/pelvis W Iv Cont Urgent
Comment:
Reason For Exam: abdominal pain
Morphine Sulfate 2 mg IV NOW STA
03/06/25 18:10
Urinalysis Reflex To Culture Urgent
03/06/25 18:26
Add On- LAB Urgent
Tests Added?: trop.
03/06/25 18:29
Morphine Sulfate 2 mg .ROUTE .STK-MED ONE
Morphine Sulfate 2 mg IV NOW STA
03/06/25 19:05
Electrocardiogram (*1) Urgent
Reason for Study: Abdominal Pain
EKG- Treatment ONCE
03/06/25 19:11
Electrocardiogram (*1) Urgent
Reason for Study: Chest Pain
EKG- Treatment ONCE
03/06/25 19:26
Morphine Sulfate 2 mg IV NOW STA
03/06/25 19:34
Lactated Ringers [Lr] 500 ml IV BOLUS
03/06/25 20:07
HYDROmorphone [Dilaudid] 0.5 mg IV NOW STA
03/06/25 20:31
Lactated Ringers [Lr] 1,000 ml IV BOLUS
03/06/25 21:00
Troponin I Urgent
Abnormal Lab Results
03/06/25
18:08
RBC 4.36 L 10^6/uL
(4.70-6.10)
Hgb 9.9 L g/dL
(13.0-18.0)
Hct 30.8 L %
(39.0-52.0)
MCV 70.6 L fL
(80.0-94.0)
MCH 22.7 L pg
(27.0-31.0)
MCHC 32.1 L g/dL
(33.0-37.0)
RDW 23.0 H %
(11.5-14.5)
Absolute Lymphs (auto) 0.8 L 10^3/uL
(1.2-3.4)
Absolute Monos (auto) 0.8 H 10^3/uL
(0.1-0.6)
Lymphocytes % 12.2 L %
(20.5-51.1)
Monocytes % 11.5 H %
(1.7-9.3)
PT 26.8 H Sec
(11.4-14.6)
APTT 37.5 H Sec
(23.4-35.0)
Sodium 130 L mmol/L
(135-145)
Potassium 3.0 L mmol/L
(3.5-5.1)
Chloride 91 L mmol/L
(98-107)
BUN 88 H mg/dl
(9-20)
Creatinine 1.7 H mg/dL
(0.7-1.3)
Glucose 178 H mg/dl
(70-99)
Lactic Acid 4.0 H* mmol/L
(0.7-2.0)
Total Bilirubin 1.6 H mg/dl
(0.2-1.3)
Alkaline Phosphatase 267 H U/L
(38-126)
Troponin I 0.058 H* ng/ml
03/06/25 18:08
03/06/25 18:08
Vital Signs
Initial and Last Documented VS:
Initial Vital Signs
Temp Pulse Resp BP Pulse Ox
98.2 F 64 16 111/75 78
03/06/25 17:34 03/06/25 17:34 03/06/25 17:34 03/06/25 17:34 03/06/25 17:34
Last Documented Vital Signs
Temp Pulse Resp BP Pulse Ox
98.2 F 71 20 123/66 96
03/06/25 17:34 03/06/25 18:07 03/06/25 18:07 03/06/25 18:07 03/06/25 19:54
MDM/Problems Addressed
Differential Diagnosis Includes:
Patient is a 74-year-old man with history of A-fib on Coumadin, CHF, hypertension, hyperlipidemia, diabetes presenting to the emergency department sudden onset diffuse abdominal pain prior to arrival. On arrival vitals unremarkable. Exam shows man
who is uncomfortable appearing with diffuse tenderness. Differential is broad but consistent atypical ACS, hernia, mesenteric ischemia though less likely given anticoagulation status versus kidney stone versus aortic pathology though less likely
given vital signs. Will check blood work EKG urinalysis. Will obtain CT scan. Will consider upright chest x-ray if CT scan will be delayed
*Pulse Oximetry
SaO2: 78
Oxygen Mode of Delivery: Room air
Patient hypoxic: no
*Critical Care Note
Total Time (30-74mins, 75-104mins- exclusive of procedures): Not Applicable
Update Note
Update Note:
Patient immediately taken over for CAT scan. It is medically necessary.
Blood work notable for elevated lactate as well as elevated troponin and BNP. Patient is compliant with his Coumadin he does have therapeutic INR levels. EKG per my interpretation with right bundle branch block and is consistent to prior with no
obvious ST changes. Patient is not having any chest pain or shortness of breath to suggest ACS. Will continue to trend troponins.
On reevaluation patient with worsening abdominal pain. He states that it spreads to his lower back. I did review imaging which I did not see any obvious dissection or ruptured AAA. I did discuss with radiology who immediately reviewed imaging and
did not note either. Per the official read there is an internal hernia but is not obstructed given the pain out of proportion on exam, multiple opioids, elevated lactate I did discuss with Dr. Monroe from general surgery. He will evaluate patient.
Recommended hospitalist admission.
ED Attending Note
-
Portions of this chart may have been created with voice recognition software.� Occasional wrong word or��sound alike� substitutions may have occurred due to the inherent limitations of voice recognition software.
Discharge Plan
Departure
Patient Disposition: Admit
Date of Disposition: 03/06/25
Time of Disposition: 20:33
Presentation/result/management discussed w/ accepting MD/DO: Hospitalist
Discharge Problem:
Abdominal pain
Prescriptions:
No Action
famotidine 40 mg Tablet
40 mg PO HS
atorvastatin 40 MG tablet
40 mg PO HS
pantoprazole 40 MG tablet,delayed release (DR/EC)
40 mg PO DAILY
warfarin 5 mg Tablet
10 mg PO SuFrSa@1900
warfarin 5 mg Tablet
5 mg PO MOTUWETH@1900
metolazone 5 mg Tablet
5 mg PO DAILYPRN PRN (Reason: fluid gain)
allopurinol 100 mg Tablet
100 mg PO DAILY
torsemide 100 mg Tablet
100 mg PO BID
lisinopril 5 mg Tablet
5 mg PO DAILY
metoprolol succinate [Toprol XL] 25 mg Tablet Extended Release 24 Hr
12.5 mg PO QPM
dapagliflozin propanediol [Farxiga] 10 mg Tablet
10 mg PO DAILY
potassium chloride 20 mEq Tablet Extended Release
20 meq PO BID
Referrals:
UNKNOWN - PT NOT,INTERVIEWE [Family Provider]
Interventions
Interventions:
*Risk Screen - Suicide Last Done: 03/06/25 17:34
*General Assessment Last Done: 03/06/25 18:39
*Neglect/Abuse Screening Last Done: 03/06/25 17:34
*ED- Fall Risk Assessment Last Done: 03/06/25 18:39
*ED COVID-19 Vaccine History Last Done: 03/06/25 18:39
*ED Influenza Vaccine History Last Done: 03/06/25 18:39
NX-Ilntqw-Txnnzxgzgx Assessment Last Done: 03/06/25 18:40
Discharge Date and Time
Print Language: CYMRO
[2025-03-06] MEDS: MORPHINE SULFATE 2 MG IV ×3 (18:12→19:30)
[2025-03-06 18:25] LABS: Microcytosis 4+; Normal RBC Morphology No
[2025-03-06 18:26] LABS: Hematocrit 30.8 % (39.0-52.0); Hemoglobin 9.9 g/dL (13.0-18.0); Mean Corp Hgb Conc. 32.1 g/dL (33.0-37.0); Mean Corpuscular Volume 70.6 fL (80.0-94.0); Nucleated Red Blood Cells % 0 % (-); Platelet Count 238 10^3/uL (130-400); Red Cell Dist. Width 23.0 % (11.5-14.5)
[2025-03-06 18:27] LABS: INR 2.47; PT 26.8 Sec (11.4-14.6)
[2025-03-06 18:28] LABS: APTT 37.5 Sec (23.4-35.0)
[2025-03-06 18:32] LABS: ALT (SGPT) 20 U/L (0-50); AST (SGOT) 29 U/L (17-59); Albumin 4.4 g/dl (3.5-5.0); Alkaline Phosphatase 267 U/L (38-126); Blood Urea Nitrogen 88 mg/dl (9-20); Calcium 9.0 mg/dl (8.4-10.2); Carbon Dioxide 24 mmol/L (22-30); Chloride 91 mmol/L (98-107); Estimated Creatinine Clearance 48 ml/min; Glucose 178 mg/dl (70-99); Lipase 102 U/L (23-300); Potassium 3.0 mmol/L (3.5-5.1); Sodium 130 mmol/L (135-145); Total Protein 7.6 g/dl (6.3-8.2); eGFR 42.04
[2025-03-06 18:53] LABS: Troponin I 0.058 ng/ml
[2025-03-06] MEDS: LR 500 IV (19:40)
[2025-03-06] MEDS: DILAUDID 0.5 MG IV (20:30)
[2025-03-06 20:55] LABS: Urine Character Clear (Clear)
[2025-03-06] MEDS: LR 1000 IV (20:56)
--- NOTE | 2025-03-06 21:04 | HPS.HSE ---
Family Physician
-
Family Physician: INTERVIEWE UNKNOWN - PT NOT
Chief Complaint
-
Abdominal pain
History of Present Illness
74-year-old male with past medical history significant for congestive failure with severe RV dysfunction, severe tricuspid regurgitation, right-sided congestion with cardiac cirrhosis, last echo in our system showing EF of 55 to 60%, history of
aortic valve stenosis status post AVR, permanent atrial fibrillation on anticoagulation with Coumadin, CKD 4 who presents to the emergency department with acute onset of abdominal pain.
Patient reports acute onset of pain this afternoon. He was sitting on a chair and then when he tried to get up he reported severe sharp epigastric pain that seems to be radiating to his lower back. He did not have nausea vomiting initially. He
reported that he had a bowel movement earlier in the day that was not diarrhea and was nonbloody. He denies having any fevers or chills. He denies having any urinary symptoms. He denies any flank pain. He had taking his usual medications in the
morning. When I spoke to the patient he was still having severe back pain as well as abdominal pain and started having nausea. He did not have any chest pain. Denies any shortness of breath. He denies having any palpitations.
And Emergency Department patient was afebrile, blood pressure was 120/60 with a pulse of 71 and he was satting 96% on room air. ECG shows a atrial fibrillation with PVCs and right bundle branch block rate controlled. Troponin was 0.058. BNP 2800.
This INR was 2.47, total bilirubin 1.6, lactic acid was elevated 4.0. CBC was at his baseline with a white count of 6.7 hemoglobin of 9.9 and a platelet of 230. His electrolytes notable for a sodium of 130 potassium of 3.0 with normal bicarb.
BUN/creatinine are elevated for him at 88 and 1.7. Glucose was normal.
CT of the abdomen pelvis showing multiple findings including hepatic venous congestion with cardiogenic hepatic cirrhosis, similar to prior examination. Mild upper abdominal ascites. Increased compared to prior examination.
No obstructive uropathy.
Mild diverticulosis. No evidence of acute diverticulitis.
No bowel obstruction. Right inguinal hernia containing small bowel and ascites, without proximal dilatation to suggest obstruction.
Findings suspicious for internal hernia in the central/right paracentral mid pelvis, without proximal bowel distention to indicate mechanical obstruction.
The appendix is difficult to identify with certainty, possibly to the right of midline in the anterior mid to upper pelvis. No secondary signs to suggest appendicitis.
No free air.
Severe atherosclerotic calcification of the abdominal aorta without aneurysm. No evidence to suggest dissection.
No acute vertebral compression deformity appreciated. There is moderate to advanced multilevel degenerative disc disease and facet arthrosis. Similar to prior examination.
Medical History
Past Medical History
Past Medical History: Reports Other
Additional Past Medical History:
Paroxysmal A-fib, pleural effusion, chronic right-sided heart failure, dyslipidemia
Hypertension
Endocarditis of aortic valve
Lyme disease
GERD
Iron deficiency anemia
Large gastric hyperplastic polyp
Pancreatic head cyst
Right inguinal hernia
Past Surgical History: Reports Other
Additional Past Surgical History:
Left inguinal herniorrhaphy
AVR
Hydrocelectomy
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
Social History
Tobacco: Non-smoker
Alcohol: Occasional
Drug: None
Personal:
Living: With Family
Family History
Family History: Not pertinent
Allergies / Home Medications
Allergies reflects when Allergies were last updated in [facility].
Home Medications with original date entered in [facility]
Allergy/Medication List:
Allergies
Allergy/AdvReac Type Severity Reaction Status Date / Time
lorazepam [From Ativan] Allergy hallucinati Verified 07/26/24 15:22
ons
Home Medications
famotidine 40 mg tablet 40 mg PO HS Gastrointestinal issue 04/26/22
atorvastatin 40 mg tablet 40 mg PO HS High cholesterol 05/16/22
pantoprazole 40 mg tablet,delayed release 40 mg PO DAILY Gastrointestinal issue 05/16/22
carvedilol 6.25 mg tablet 6.25 mg PO BID #60 tabs 06/02/22
amlodipine 5 mg tablet 5 mg PO DAILY 07/17/22
dapagliflozin propanediol 10 mg tablet (Farxiga) 10 mg PO DAILY 07/26/24
diphenhydramine 25 mg-acetaminophen 500 mg tablet (Tylenol PM Extra Strength) 2 tab PO HSPRN PRN sleep 07/26/24
lisinopril 5 mg tablet 5 mg PO DAILY 07/26/24
torsemide 100 mg tablet 100 mg PO BID 07/26/24
warfarin 5 mg tablet 5 mg PO MOTUTH 07/26/24
warfarin 5 mg tablet 10 mg PO SUWEFRSA 07/26/24
Review of Systems
-
Constitutional: Reports No Symptoms
EENT: Reports No Symptoms
Respiratory: Reports No Symptoms
Cardiac: Reports No Symptoms
Abdomen/GI: Reports Abdominal Pain
: Reports No Symptoms
Musculoskeletal: Reports No Symptoms
Skin: Reports No Symptoms
Neurological: Reports No Symptoms
Endocrine: Reports No Symptoms
Hematologic/Lymphatic: Reports No Symptoms
Psych: Reports No Symptoms
Physical Exam
Vital Signs
Vital Signs
Temp Pulse Resp BP Pulse Ox
98.2 F 71 20 123/66 96
03/06/25 17:34 03/06/25 18:07 03/06/25 18:07 03/06/25 18:07 03/06/25 19:54
Physical Exam
General: Well Developed, Well Nourished and No Apparent Distress
HEENT: NormoCephalic, Moist mucous membranes and Atraumatic
Respiratory: Clear
Cardiac: S1/S2 and Regular Rhythm; No Murmur or Rub
GI: Soft, Normal Bowel Sounds and Distended; No Organomegaly
Rectal: Deferred by Provider
Musculoskeletal: No Clubbing, No Cyanosis and Other (Chronic bilateral lower extremities edema)
Skin: No Rash
Neuro: AO x 3 and Nonfocal/grossly intact
Psych: Calm
Laboratory Results
-
03/06/25 18:08
03/06/25 18:08
Laboratory Results
PT 26.8 Sec (11.4-14.6) H 03/06/25 18:08
INR 2.47 03/06/25 18:08
APTT 37.5 Sec (23.4-35.0) H 03/06/25 18:08
Lactic Acid 4.0 mmol/L (0.7-2.0) H* 03/06/25 18:08
Total Bilirubin 1.6 mg/dl (0.2-1.3) H 03/06/25 18:08
AST 29 U/L (17-59) 03/06/25 18:08
ALT 20 U/L (0-50) 03/06/25 18:08
Alkaline Phosphatase 267 U/L (38-126) H 03/06/25 18:08
Troponin I Cancelled 03/06/25 18:24
Lipase 102 U/L (23-300) 03/06/25 18:08
Impression/Plan
-
IMPRESSION:
Patient with history of nonischemic cardiomyopathy, CHF with preserved EF of around 65%, permanent atrial fibrillation on anticoagulation, cardiogenic cirrhosis, CKD stage IV, on anticoagulation with Coumadin, presents to the emergency department
with acute abdominal pain. Findings include markedly elevated lactic acid of 4.0 with otherwise stable vital signs and no fevers or leukocytosis. CT scan suspicious for a internal hernia in the central right paracentral mid pelvis without proximal
bowel distention to indicate a mechanical obstruction. No obvious necrotic bowel. However the concerning finding in the setting of acute abdominal pain is possible incarcerated hernia. He is troponin is elevated. But is likely secondary to
demand ischemia. BNP is chronically elevated and patient is clearly volume overloaded on exam which is similar to his baseline. He has ascites and chronic lower extremity edema.
PLAN:
Abdominal pain -incarcerated hernia versus ischemic bowel. Rising lactic acid to 4.0. Patient is chronically anticoagulated. No obvious signs of acute infection.
-Admit to ICU
-Discussed with surgery, emergent x-ray lab recommended, patient to decide shortly
-N.p.o. for now
-Will start with IV Zosyn
-Pain control, antiemetics
-Will hold his evening doses of warfarin torsemide for now
Elevated troponin -suspect demand ischemia, no chest pain
-Telemetry
� Patient is anticoagulated on warfarin and he is therapeutic,
-Treatment of abdominal pain as above
-Holding warfarin
Permanent atrial fibrillation -currently rate controlled
-Hold anticoagulation for possible pending surgery, will restart anticoagulation when INR is 2 or less and will start on heparin
- continue metoprolol iv for now
CHF - chronic overload
- hold diuretics pending surgery
- diuresis with prn metolazone bid after surgery
- given mutliple risk factors, will consult cardiology for bhargav/post-operative risk management.
DVT PPX - currently therapeutic INR, SCDs pending surgery
Code status - Full Code
[2025-03-06 21:45] LABS: Troponin I 0.055 ng/ml
--- NOTE | 2025-03-06 22:10 | CON.CRS ---
Consultation
-
Date/Time Consultation Performed: 03/06/25
Performing Provider: Dimitri Monroe MD
Reason for Consultation: internal hernia
Medical History
-
History of Present Illness:
Patient is a 74-year-old male with PMH of A-fib (on Coumadin), RV dysfunction, severe tricuspid regurg (s/p attempt at endovascular repair at [place] 1 month ago, but unsuccessful), CKD stage III, liver cirrhosis, DM, aortic stenosis s/p TAVR 2011, s/p
open bioprosthetic AVR 2012, HTN, HLD who presents for severe abdominal pain starting earlier today. This happened to him once before and it ended up being a strangulated right inguinal hernia that was successfully reduced several years ago.
However, at this time, the pain is more severe. The pain is worse with movement. He complains of some nausea, but denies vomiting. He denies chest pain fevers or urinary symptoms. He had a BM earlier today, but has not passed any flatus since
the pain started. He chronically has shortness of breath with walking.
In the ED, his WBC was 6.7, Hb 9.9, CR 1.7, lactic 4.0, INR 2.5, PTT 37.5. A CT scan was done showing concern for internal hernia of the cecum and terminal ileum.
Past Medical History
Past Medical History: Other (As above)
Past Surgical History: Other (TAVR 2011, bioprosthetic AVR 2012, attempted endovascular tricuspid valve repair 1 month ago)
Social History
Tobacco: Non-Smoker
Alcohol: Occasional (Drinks 2-3 drinks every other day)
Drug: None
Personal:
Living: With Family
Family History
Family History: Other (Denies CRC)
Allergies / Home Medications
Allergy/AdvReac Type Severity Reaction Status Date / Time
lorazepam (From Ativan) Allergy hallucinati Verified 10/03/24 15:16
ons
�Medication �Instructions �Recorded �Confirmed �Type
famotidine 40 mg tablet 40 mg PO HS Gastrointestinal issue 04/26/22 03/06/25 History
atorvastatin 40 mg tablet 40 mg PO HS High cholesterol 05/16/22 03/06/25 History
pantoprazole 40 mg tablet,delayed 40 mg PO DAILY Gastrointestinal 05/16/22 03/06/25 History
release issue
warfarin 5 mg tablet 5 mg PO [id number]@1900 Blood Clot 07/26/24 03/06/25 History
Prevention/Tx
warfarin 5 mg tablet 10 mg PO SuFrSa@1900 Blood Clot 07/26/24 03/06/25 History
Prevention/Tx
allopurinol 100 mg tablet 100 mg PO DAILY Gout 03/06/25 03/06/25 History
dapagliflozin propanediol 10 mg 10 mg PO DAILY Diabetes 03/06/25 03/06/25 History
tablet (Farxiga)
lisinopril 5 mg tablet 5 mg PO DAILY Blood Pressure 03/06/25 03/06/25 History
metolazone 5 mg tablet 5 mg PO DAILYPRN PRN fluid gain 03/06/25 03/06/25 History
metoprolol succinate 25 mg 12.5 mg PO QPM Heart 03/06/25 03/06/25 History
tablet,extended release 24 hr Disease/Condition
(Toprol XL)
potassium chloride 20 mEq 20 meq PO BID Electrolyte Repletion 03/06/25 03/06/25 History
tablet,extended release
torsemide 100 mg tablet 100 mg PO BID Fluid 03/06/25 03/06/25 History
Retention/Swelling
Review of Systems
-
A 10 point review of systems was completed, and was negative except as per HPI.
Physical Exam
Vital Signs
Temp 98.2 F 03/06/25 17:34
Pulse 71 03/06/25 18:07
Resp Rate 20 03/06/25 18:07
Blood pressure 123/66 03/06/25 18:07
SaO2 96 03/06/25 19:54
03/05/25 03/06/25 03/07/25
06:59 06:59 06:59
Actual Weight 111.5 kg
Body Mass Index (BMI) 35.3
Lab Results / Allergies
03/06/25 18:08
03/06/25 18:08
WBC 6.7 10^3/uL (4.8-10.8) 03/06/25 18:08
Hgb 9.9 g/dL (13.0-18.0) L 03/06/25 18:08
Hct 30.8 % (39.0-52.0) L 03/06/25 18:08
Plt Count 238 10^3/uL (130-400) 03/06/25 18:08
Abs Immat Gran (auto) 0.0 10^3/uL (0-0.05) 03/06/25 18:08
Neutrophils % 74.5 % (42.2-75.2) 03/06/25 18:08
Allergy/AdvReac Type Severity Reaction Status Date / Time
lorazepam (From Ativan) Allergy hallucinati Verified 10/03/24 15:16
ons
Physical Exam
General: Well Developed and No Apparent Distress
HEENT: Normocephalic and Atraumatic
Respiratory: Non Labored Respirations
Cardiac: S1/S2
GI: Soft, Non Distended and Tender (Moderately tender in the periumbilical region, no rebound, voluntary guarding)
Skin: Warm and Dry
Neuro: AO x 3
Data Reviewed
-
Radiology: Image Personally Visualized and interpreted and Other (Discussed with Dr. You, who agreed that there is an internal hernia involving the cecum and terminal ileum)
Labs: Labs Reviewed by me
Assessment / Plan
-
74-year-old male with PMH of A-fib (on Coumadin), RV dysfunction, severe tricuspid regurg (s/p attempt at endovascular repair at [place] 1 month ago, but unsuccessful), CKD stage III, liver cirrhosis, DM, aortic stenosis s/p TAVR 2011, s/p open
bioprosthetic AVR 2012, HTN, HLD who presents for severe abdominal pain starting earlier today. This happened to him once before and it ended up being a strangulated right inguinal hernia that was successfully reduced several years ago. However,
at this time, the pain is more severe. The pain is worse with movement. He complains of some nausea, but denies vomiting. He denies chest pain fevers or urinary symptoms. He had a BM earlier today, but has not passed any flatus since the pain
started. He chronically has shortness of breath with walking.
In the ED, his WBC was 6.7, Hb 9.9, CR 1.7, lactic 4.0, INR 2.5, PTT 37.5. A CT scan was done showing concern for internal hernia of the cecum and terminal ileum.
�Internal hernia with elevated lactate, concerning for bowel ischemia
�I discussed with Dr. You, radiology, who agrees that this most likely represents an internal hernia; he evaluated the vasculature and did not see any evidence of arterial or venous thromboembolism
�Explained the treatment options to the patient and patient's spouse, including surgery and no surgery; I explained that without surgery, this issue is unlikely to resolve and would result in further worsening of his clinical status, bowel
ischemia, infarction and possible ; I explained that surgery with his comorbidities is extremely risky; the NSQIP risk calculator estimated his 44% serious complication (i.e.�CT, CVA, DVT/PE, respiratory failure, other organ failure) and 15%
mortality; I described the surgery, involving exploration, evaluation of the bowel, reduction of the internal hernia, possible bowel resection, possible ostomy and possible open abdomen; after a lengthy discussion, the patient agreed to proceed with
surgery; he just wanted to see his children, who were less than 5 minutes away prior to going to the OR
�Discussed with anesthesia regarding his cardiac risk and whether we should transfer the patient; he reviewed his imaging and prior cardiology notes and agreed that we could perform this safely here; he would plan to monitor his hemodynamics with
an A-line; we agreed to proceed with open approach for the sake of time and avoiding stress on the heart
�Ordered Kcentra; discussed with pharmacist for dosing, to be given stat prior to surgery
�N.p.o./IVF
� Pain pain control
� Appreciate hospitalist; discussed with Dr. Peralta
[2025-03-06] MEDS: KCL 160 MEQ IV (22:15)
[2025-03-06] MEDS: TIGAN 200 MG IM (22:15)
[2025-03-06] MEDS: AQUAMEPHYTON 51 MG IV (22:16)
[2025-03-06] MEDS: KCENTRA 8.4 UNIT IV (22:18)
[2025-03-06 22:24] LABS: Magnesium 2.2 mg/dl (1.6-2.3)
[2025-03-07] VITALS (21 sets, daily range): BP systolic 103–159; BP diastolic 59–91; PULSE 67; O2SAT 97; BMI 35.3; BMI 34.1
[2025-03-07 00:10] LABS: B.E. - POC 4.8 mmol/L; Glucose - POC 187 mg/dl (70-99); HCO3 - POC 29 mmol/L (21-28); Hematocrit - POC 33 % PCV (42-52); Hemodilution- POC No; Hemoglobin Calculated - POC 11.1; Ionized Calcium - POC 1.02 mmol/L (1.15-1.33); Lactate - POC 0.84 mmol/L (0.36-0.75); O2 Saturation %Calculated-POC 99.9 % (94-98); PCO2 - POC 43 mmHg (35-48); PO2 - POC 306 mmHg (83-108); Potassium - POC 2.8 mmol/L (3.5-5.1); Sodium - POC 137 mmol/L (136-145); Specimen Type - POC Arterial; pH - POC 7.45 (7.35-7.45)
--- NOTE | 2025-03-07 01:49 | W.IMMPOSTOP ---
Surgical Immed Post Op Note
-
Primary Surgeon: Dimitri Monroe MD
Assisting Surgeon: Mal Trevino MD
Pre-op Diagnosis: Internal hernia
Post-op Diagnosis: Small bowel adhesion, appendiceal lesion
Procedure Performed: Exlap, lysis of peritoneal band, appendectomy, TAP block
Anesthesia Type: general
Specimen / Cultures: Appendix
Estimated Blood Loss: 50 mL
IVF: 600 mL
UOP: 600 mL
Complications: None
Operative Findings: Peritoneal band extending from the terminal ileum into the right inguinal hernia; no concerning ischemia along the visible length of the colon or entire length of the small bowel; identified a possible lesion within the appendix
that felt spongy, performed appendectomy and lysed peritoneal band that likely served as the fulcrum for the twist of the cecum and terminal ileum
[2025-03-07 02:00] LABS: Glucose - Point of Care 189 mg/dl (70-99)
--- NOTE | 2025-03-07 02:00 | PTCARENOTE ---
Patient received from OR, drowsy but oriented x3, HERNANDEZ. Afib with PVCs on monitor, afebrile, blood pressure as documented. palpable pulses throughout, trace bilateral lower extremity edema noted. Knee high SCDs maintained. Lungs coarse
bilaterally, received on simple mask, transitioned to nasal cannula at 4L, pulse ox 97-99%. NG in left nare, found to be coiled in patients mouth, removed and [place] sump placed to 75 cm, on continuous suction. Abdomen round obese with positive
bowel sounds. Hills catheter draining yellow urine. MASd npted in groin. Aquacell midline dressing, clean dry and intact. #20 g in RAC, #18 in LAC flushed and patent. Left radial Line, transduced and zeroed. CHG bath given, labs sent
--- NOTE | 2025-03-07 02:00 | OR.RPT ---
Operative Report
Operative Report
DATE OF OPERATION: 03/07/2025
SURGEON: Dimitri Monroe MD
PREOPERATIVE DIAGNOSIS: Internal hernia of the bowel
POSTOPERATIVE DIAGNOSIS: Peritoneal band to the terminal ileum, appendiceal lesion
OPERATION: Exploratory laparotomy, adhesiolysis, TAP block
ASSISTANTS:
1. Mal Trevino MD
ANESTHESIA: General
ESTIMATED BLOOD LOSS: 50 mL
UOP: 600 mL
IVF: 600 mL
FINDINGS:
1. Suctioned about 1 L of clear ascites upon entry
2. Upon entry, cecum appeared pale, but no evidence of ischemia; cecum was mobile up to the mid ascending colon; no internal hernia identified and no obvious volvulus; there was a peritoneal band extending from the mesentery of the terminal ileum
into the right inguinal hernia sac, likely serving as fulcrum for bowel twist as seen on CT
3. Appendix was very small and possibly had a spongy lesion associated with its mid-portion
SPECIMENS:
1. Appendix
DRAINS: None
COMPLICATIONS: No immediate complications.
INDICATIONS: The patient is a 74-year-old male who presented to the [place] ED with 6 hours of severe acute abdominal pain. His WBC was normal but lactate was elevated to 4.0. He had an MP and a slight elevation in troponins, but EKG was
negative for AL. A CT scan was done which showed concern for internal hernia involving the cecum and terminal ileum. Despite multiple doses of morphine and Dilaudid, the pain had persisted. This constellation of findings was concerning for bowel
ischemia. Therefore, I recommended urgent surgery. The operation was discussed with the patient and patient's spouse in detail, including the risks, benefits and alternatives. Risks described included, but not limited to, bleeding, infection,
injury to nearby structures (i.e.�bowel, solid organ, bladder, ureter), anastomotic leak or stricture if created, possible ostomy and risks associated with it (i.e.�skin irritation, hernia, prolapse, retraction, need for revision surgery), need for
open abdomen and anesthetic risks, including but not limited to AL, stroke, DVT/PE, respiratory failure and . The patient understood and agreed to proceed.
PROCEDURE IN DETAIL: The patient was taken to the operating room and placed on the operating table in supine position. Sequential compression devices were placed bilaterally. General anesthesia was induced and the patient was intubated without
complication. The patient was placed in supine position with the bilateral arms secured to the armboards in extended position. A 16 Danish was unable to be placed, but a 14 Danish Hills catheter was placed easily with sterile technique. Anesthesia
placed an orogastric tube. IV Zosyn was given preincision. It was confirmed that the patient received Kcentra and vitamin K. The abdomen was shaved, prepped and draped in a sterile fashion. A marking pen was used to dixie out the midline. A
time-out was performed verifying the correct patient, procedure, operative site, positioning, and special equipment.
A 15 blade scalpel was used to make an incision from the suprapubic quadrant to a few centimeters above the umbilicus. This was taken down through the subcutaneous tissues with electrocautery. Hemostasis was assured with the electrocautery. The
linea alba was encountered and incised. A Rin was used to bluntly dissect down to the peritoneum. The peritoneum was elevated and incised with Metzenbaum scissors. Abdominal entry was confirmed with a finger sweep. No injury from entry was
noted. The fascia was incised to the length of the skin incision. I immediately encountered clear ascites, which was suctioned away. The cecum was noted to be slightly pale and mobile. An Wilber wound protector was placed. The abdomen was
explored. The cecum was lacking its congenital attachments to the abdominal wall up to the mid ascending colon. There was no obvious twist of the bowel around the cecum. The cecum did not appear ischemic. I traced the colon up to the hepatic
flexure and there appeared to be no twist. I identified the terminal ileum and identified a thick peritoneal band extending from the mesentery of the terminal ileum into the right inguinal hernia sac. There was no bowel noted in the hernia sac.
The patient was placed in Trendelenburg position. There were no concerning findings within the pelvis. The rectum and rectosigmoid appeared healthy. I identified the appendix, which was covered in thickened peritoneum and was diminutive, only
about 2 or so centimeters in length. It had a bulbous feel, with a possible spongy lesion within it. However, it was possible that the appendix was just curled on itself under the thickened peritoneum, but it did appear abnormal.
I reviewed the images of the CT scan again now that I had explored the abdomen. My suspicion was that the peritoneal band likely served as a fulcrum around which the cecum and terminal ileum likely twisted. Fortunately, this had not caused any
substantial ischemia to the involved bowel. I decided to perform an appendectomy and takedown this peritoneal band. I scored the peritoneum around the appendix up to the base of the appendix. Using blunt dissection, I developed a mesenteric
window at the base of the appendix. I stapled across the base of the appendix with the ENRIKE 80 stapler with a blue load. I divided the mesoappendix with the LigaSure device. The appendix was passed off as specimen. Using electrocautery, I scored
the peritoneum overlying the band, staying close to the insertion on the bowel mesentery. The peritoneum was bluntly dissected away from the mesentery. The gonadal vessels were identified at the base of this band and kept safe from this
mobilization. The terminal ileum was now freed from the band. I checked the NG tube and confirmed placement within the stomach at 75 cm at the nose. I identified the ligament of Treitz and ran the small bowel to the ligament of Treves. The bowel
appeared completely healthy throughout its entire length. There were no other bands or internal hernias identified. I evaluated the operative field. There was some oozing of blood from the edge of the peritoneum, which was controlled with
electrocautery and a 2-0 Vicryl stitch in a [id number] fashion.
Local anesthesia used was 60 mL of 0.25% Marcaine with epi mixed with 0.6 mg of Decadron. A TAP block was performed by injecting 15 mL of local bilaterally along the transversus abdominis plane. The fascia was closed with a #1 PDS, starting in the
corners and meeting in the middle. The subcutaneous tissue was irrigated and hemostasis was assured with electrocautery. The skin was closed with ramiro and covered with an Aquacel dressing.
At this point, the procedure was complete. The patient was awoken and extubated without complication. All needle, sponge and instrument counts were reported as correct. The patient tolerated the procedure well and was transferred to the ICU in
stable condition with the nasogastric tube and Hills in place.
Of note, Mal Trevino MD, conservation assistant, was necessary during this procedure for traction, countertraction, and exploratory purposes. I was present for the entire duration of the case.
DICTATED BY: Dimitri Monroe MD
[2025-03-07] MEDS: NOVOLOG FLEXPEN 1 UNITS SC (02:33)
[2025-03-07] MEDS: DILAUDID 0.5 MG IV ×5 (02:49→21:16)
[2025-03-07 02:58] LABS: Hematocrit 30.5 % (39.0-52.0); Hemoglobin 9.7 g/dL (13.0-18.0); Mean Corp Hgb Conc. 31.8 g/dL (33.0-37.0); Mean Corpuscular Volume 72.3 fL (80.0-94.0); Nucleated Red Blood Cells % 0 % (-); Platelet Count 241 10^3/uL (130-400); Red Cell Dist. Width 23.1 % (11.5-14.5)
[2025-03-07 03:04] LABS: Troponin I 0.080 ng/ml
[2025-03-07 03:19] LABS: ALT (SGPT) 19 U/L (0-50); AST (SGOT) 27 U/L (17-59); Albumin 4.1 g/dl (3.5-5.0); Alkaline Phosphatase 202 U/L (38-126); Blood Urea Nitrogen 87 mg/dl (9-20); Calcium 8.8 mg/dl (8.4-10.2); Carbon Dioxide 28 mmol/L (22-30); Chloride 95 mmol/L (98-107); Estimated Creatinine Clearance 55 ml/min; Glucose 176 mg/dl (70-99); Potassium 3.7 mmol/L (3.5-5.1); Sodium 134 mmol/L (135-145); Total Protein 7.4 g/dl (6.3-8.2); eGFR 48.85
[2025-03-07] MEDS: NSS (PRESERVATIVE FREE) 8 ML IV ×2 (03:19→23:32)
[2025-03-07] MEDS: PEPCID 20 MG IV ×2 (03:19→23:31)
[2025-03-07] MEDS: LR 1000 IV ×2 (03:24→12:46)
--- NOTE | 2025-03-07 05:30 | PTCARENOTE ---
patient reassessed, offers no complaints. small amount of drainage noted on midline dressing. labs sent
[2025-03-07] MEDS: ZOSYN 50 IV ×2 (05:49→12:47)
[2025-03-07 06:15] LABS: INR 1.69; PT 20.1 Sec (11.4-14.6)
[2025-03-07 06:16] LABS: APTT 38.0 Sec (23.4-35.0)
[2025-03-07 06:20] LABS: Hematocrit 30.7 % (39.0-52.0); Hemoglobin 10.0 g/dL (13.0-18.0); Mean Corp Hgb Conc. 32.6 g/dL (33.0-37.0); Mean Corpuscular Volume 72.6 fL (80.0-94.0); Nucleated Red Blood Cells % 0 % (-); Platelet Count 245 10^3/uL (130-400); Red Cell Dist. Width 22.7 % (11.5-14.5)
[2025-03-07 06:38] LABS: Blood Urea Nitrogen 87 mg/dl (9-20); Calcium 8.7 mg/dl (8.4-10.2); Carbon Dioxide 30 mmol/L (22-30); Chloride 96 mmol/L (98-107); Estimated Creatinine Clearance 51 ml/min; Glucose 124 mg/dl (70-99); Magnesium 2.5 mg/dl (1.6-2.3); Potassium 4.1 mmol/L (3.5-5.1); Sodium 138 mmol/L (135-145); eGFR 45.21
[2025-03-07] MEDS: NOVOLOG FLEXPEN-MODERATE RESISTANCE SC ×3 (06:39→23:39)
[2025-03-07 06:40] LABS: Troponin I 0.098 ng/ml
--- NOTE | 2025-03-07 07:45 | PTCARENOTE ---
Received pt upright in the bed w/right nare Early sump tube to continuous suction @80mmHg, secured 75cm. Minimal drainage noted. He is awake and alert. Asking for ice chips, c/o throat discomfort from SS tube and asking when the Hills catheter is
going to be removed. He was instructed on the plan pf care for now. He was informed that typically he would need to pass gas before they would consider removing the Early sumps tube to prevent nausea, vomiting and pain. He verbalized his
understanding. ECG with artifact from fine tremors. Leads moved to his back, with better tracing noted. Left AC #20g protective catheter with LR @ 100ml/hr. He is aware we are monitoring for s/s of alcohol withdrawal, especially seizures. He
verbalized that he never experienced alcohol withdrawal before. Absent BSX4. NPO, tolerating small amounts of ice chips. Midline abdominal incision with mediated dressing intact. Three areas of drainage, outlined on dressing. Large round distended
abdomen. 60cc Air inserted in ARV, tube flushed as ordered. Hills with davida urine with good OUP, secured. Safe environment maintained. Knee-hi SCD's in place. Informed on preventive measures of coughing, deep breathing, SCD's for the prevention of
PNA & DVT. He verbalized his understanding.
--- NOTE | 2025-03-07 07:55 | W.PN.HOSP.TC ---
Addendum entered and electronically signed by Lucas Ventura DO 03/07/25 08:23:
Correction: Patient still drinks vodka and tonic, 2-3 drinks every other day. Last drink was Monday 03/05. No history of withdrawal symptoms.
Discussed with patient, recommend abstinence.
MSAS protocol ordered. Has not required any doses of lorazepam so far.
Original Note:
Today's Communication/Plan
-
Recheck troponin
Lower rate of IV fluids
Check anemia labs
Await return of bowel function
Transfer out of ICU if okay with surgical service
Assessment / Plan
Assessment / Plan
Gen-AAOx3, NAD
HEENT-NC, AT, anicteric, clear oral mm, NG tube
Neck-supple
CV-reg, no M, +S1/S2
Lungs-clear B/L
Abd-soft, NT, ND
Ext-no edema
Musculoskeletal-no cyanosis, clubbing
Skin-warm and dry
Neuro-grossly non-focal
Psych-calm, cooperative
Abdominal pain -stable postop. Currently in ICU.
Lactic acidosis noted on admission, resolved.
Underwent exploratory laparotomy with lysis of peritoneal band, appendectomy, tap block 03/07. Small bowel adhesion and appendiceal lesion found. Peritoneal band found extending from the terminal ileum into the right inguinal hernia. No
concerning ischemia. Possible lesion within the appendix.
Currently n.p.o., NG tube in place.
Continue IV fluids, analgesics. Empiric Zosyn per colorectal surgery.
Hyponatremia -POA. Sodium improving.
Hypokalemia -POA. Improving.
Hyperphosphatemia -5.9. Doubt hemolysis. Could be from CKD. Monitor closely. Difficult to give phosphate binder while NPO, has NG tube in place.
Chronic heart failure preserved EF -stable. On torsemide 100 mg twice daily at home, metolazone 5 mg daily as needed.
Last echocardiogram was July 2024, LVEF 68%, enlarged RV with reduced systolic function, septal flattening consistent with RV pressure/volume overload. Biatrial enlargement. Severe TR.
Troponin elevation -asymptomatic. No reports of chest pain. Has stable chronic dyspnea on exertion. Suspect acute nonischemic myocardial injury due to acute illness.
Cardiology consulted.
Permanent atrial fibrillation -on chronic warfarin, 10 mg 3 days/week, 5 mg 4 days/week. He believes he takes 10 mg on Friday, Friday, Friday.
INR lowered with Kcentra administration last night.
INR 1.6 this morning.
Essential hypertension -stable.
DM 2 without hyperglycemia -hemoglobin A1c 7.1% in July. Will recheck. On Farxiga 10 mg daily at home.
Currently on moderate resistance NovoLog scale.
Aortic stenosis -s/p bioprosthetic AVR x 2.
GERD
Acute on chronic anemia/iron deficiency anemia -previous hemoglobins averaged 11-12. Admission hemoglobin 9.9. Hemoglobin today 10.0. Monitor for now. MCV noted to be 72.
Will check anemia labs.
CKD 3a -renal function at baseline. Currently getting lactated Ringer's 100 cc/h, will lower rate in light of CKD, chronic heart failure.
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
Hyperlipidemia -atorvastatin.
History of TIA
Obesity due to excess calories
Full code
Anticipated Discharge: > 48 hours
Subjective/Interval History
-
Date of Service: March 07, 2025
Patient seen and examined. Complaining of thirst.
Objective Data
-
Labs:
Laboratory Results
03/07/25 03/07/25 03/07/25
02:22 02:28 05:47
WBC 7.8 9.3
Hgb 9.7 L 10.0 L
Hct 30.5 L 30.7 L
Plt Count 241 245
PT 20.1 H
INR 1.69
APTT 38.0 H
Sodium 134 L 138
Potassium 3.7 4.1
Chloride 95 L 96 L
Carbon Dioxide 28 30
BUN 87 H 87 H
Creatinine 1.5 H 1.6 H
Glucose 176 H 124 H
Calcium 8.8 8.7
Total Bilirubin 1.7 H
AST 27
ALT 19
Alkaline Phosphatase 202 H
Vital Signs:
Vital Signs
Temp Pulse Resp BP Pulse Ox
98 F 65 28 106/67 98
03/07/25 07:18 03/07/25 06:00 03/07/25 06:00 03/07/25 04:00 03/07/25 06:00
I&O
03/06/25 03/07/25 03/08/25
06:59 06:59 06:59
Intake Total 350 / 350
Output Total 1750 / 1750
Balance -1400 / -1400
Review of Systems
-
History Source: Patient
All other systems: Reviewed and negative
[2025-03-07] MEDS: NSS (PRESERVATIVE FREE) 10 ML IV (08:06)
[2025-03-07] MEDS: PROTONIX IV 40 MG IV (08:06)
[2025-03-07] MEDS: THIAMINE INJECTION 200 MG IV ×2 (08:07→20:23)
--- NOTE | 2025-03-07 08:18 | CON.CAR ---
Consultation
Consultation Request
Date/Time Consultation Requested: 03/07/2025
Date/Time Consultation Performed: 03/03/2025
Requesting Provider: Dr. Ventura
Performing Provider: Dr. Nance
Reason for Consultation: Elevated troponin
Medical History
-
History of Present Illness:
74 year old male chronic HFpEF, bioprosthetic aortic valve replacement (TAVR 2011, then subsequent SAVR 2012), severe TV status-post failed TTVR (at [place] 1 month ago), RV dysfunction, permanent atrial fibrillation (on warfarin), CKD 3b, cirrhosis
(EtOH; still drinks 2-3 drinks every other day), type 2 diabetes mellitus, prior TIA, hypertension; admitted with abdominal pain. Subsequently underwent emergent ex-lap and appendectomy overnight. Cardiology consulted for troponin elevation.
Patient denies any anginal symptoms. Also denies shortness of breath or palpitations.
Outpatient Site Interpreter: Dr Ball
Heart Failure: Dr. Morris
Structural Heart Disease: Dr. Lopez
Past Medical History
Past Medical History: Arrhythmias (Permanent atrial fibrillation [on warfarin]), CHF, HTN, Hypercholesterolemia, NIDDM, Renal Failure ( CKD 3b) and Valvular Disease (Bio AVR [2011, 2012], severe TR)
Past Surgical History: Cardiac
Social History
Tobacco: Non-Smoker
Alcohol: Chronic Alcoholic
Drug: None
Personal:
Living: With Family (In law suite at daughters house)
Employment: Retired
Family History
Family History: Reviewed & Not Pertinent
Allergies / Home Medications
Allergy/AdvReac Type Severity Reaction Status Date / Time
lorazepam (From Ativan) Allergy hallucinati Verified 10/03/24 15:16
ons
�Medication �Instructions �Recorded �Confirmed �Type
famotidine 40 mg tablet 40 mg PO HS Gastrointestinal issue 04/26/22 03/06/25 History
atorvastatin 40 mg tablet 40 mg PO HS High cholesterol 05/16/22 03/06/25 History
pantoprazole 40 mg tablet,delayed 40 mg PO DAILY Gastrointestinal 05/16/22 03/06/25 History
release issue
warfarin 5 mg tablet 5 mg PO MOTUWETH@1900 Blood Clot 07/26/24 03/06/25 History
Prevention/Tx
warfarin 5 mg tablet 10 mg PO SuFrSa@1900 Blood Clot 07/26/24 03/06/25 History
Prevention/Tx
allopurinol 100 mg tablet 100 mg PO DAILY Gout 03/06/25 03/06/25 History
dapagliflozin propanediol 10 mg 10 mg PO DAILY Diabetes 03/06/25 03/06/25 History
tablet (Farxiga)
lisinopril 5 mg tablet 5 mg PO DAILY Blood Pressure 03/06/25 03/06/25 History
metolazone 5 mg tablet 5 mg PO DAILYPRN PRN fluid gain 03/06/25 03/06/25 History
metoprolol succinate 25 mg 12.5 mg PO QPM Heart 03/06/25 03/06/25 History
tablet,extended release 24 hr Disease/Condition
(Toprol XL)
potassium chloride 20 mEq 20 meq PO BID Electrolyte Repletion 03/06/25 03/06/25 History
tablet,extended release
torsemide 100 mg tablet 100 mg PO BID Fluid 03/06/25 03/06/25 History
Retention/Swelling
Review of Systems
-
History Source: Patient
All other systems: Negative unless noted
Abdomen/GI: Abdominal Pain
Physical Exam
Vital Signs
Temp Pulse Resp BP Pulse Ox
98 F 65 28 106/67 98
03/07/25 07:18 03/07/25 06:00 03/07/25 06:00 03/07/25 04:00 03/07/25 06:00
Lab Results
03/07/25 05:47
03/07/25 05:47
Troponin I 0.098 ng/ml H* 03/07/25 05:47
Ixg-W-Lecgjjsjxzw Pept 2810 pg/ml 03/06/25 18:08
Physical Exam
General: No Apparent Distress and Comfortable
HEENT: Normocephalic
Respiratory: Clear
Cardiac: S1/S2, Irregular Rhythm, Murmur (/) and Peripheral Edema (trace to 1+)
Breast: N/A
GI: Soft and Tender
Rectal: Deferred by Provider
Musculoskeletal: Edema (trace to 1+)
Skin: Warm
Neuro: AO x 3
Psych: Calm
Impression / Plan
-
74 year old male chronic HFpEF, bioprosthetic aortic valve replacement (TAVR 2011, then subsequent SAVR 2012), severe TV status-post failed TTVR (at [place] 1 month ago), RV dysfunction, permanent atrial fibrillation (on warfarin), CKD 3b, cirrhosis
(EtOH; still drinks 2-3 drinks every other day), type 2 diabetes mellitus, prior TIA, hypertension; admitted with abdominal pain. Subsequently underwent emergent ex-lap and appendectomy overnight. Cardiology consulted for troponin elevation.
Patient denies any anginal symptoms. Also denies shortness of breath or palpitations.
Outpatient Site Interpreter: Dr Ball
Heart Failure: Dr. Morris
Structural Heart Disease: Dr. Lopez
Abdominal pain:
- Stable after ex-lap and appendectomy.
- Management as per Surgery.
- Supportive care.
Troponin elevation:
- Most likely acute nonischemic myocardial injury in the setting of underlying medical condition requiring surgery.
- Obtain echocardiogram at some point this admission; will hold off on getting it today as patient has abdominal pain after undergoing surgery, worse with movement.
- Echocardiogram 07/27/2024: LVEF 68%; decreased RV systolic function; severe TR, PASP 40 mmHg.
Chronic HFpEF:
- Currently compensated; monitor volume status closely.
- Hold diuretics for now.
- Previously had MP when metolazone 5mg was added.
- On Farxiga at home.
- Trend daily weight, I/O, and BMP.
Tricuspid regurgitation, severe
- Failed TTVR at [facility] 1 month ago.
- Monitor volume status; hold diuretics for now.
Bioprosthetic AVR ()
- Initially TAVR then SAVR.
- Stable on echocardiogram 07/2024.
- Can repeat echocardiogram prior to discharge.
Permanent atrial fibrillation:
- On warfarin at home.
- Currently rate-controlled; continue satellite project site monitor.
- Resume Toprol-XL when tolerating PO intake.
- INR was reversed with IV vitamin K.
- Goal INR 2.0-3.0; can bridge with heparin, once cleared by Surgery.
- [id number]: score 6 (Heart failure, HTN, Diabetes Mellitus, prior Stroke/TIA, age 65-74)
CKD3b:
- Creatinine 1.6; stable at baseline.
- Continue to monitor.
EtOH cirrhosis:
- Patient apparently stopped drinking alcohol at one point in 2022, but currently drinks 2-3 drinks every other day (vodka tonic).
Hypertension:
- Blood pressure is currently stable; continue to monitor.
Dyslipidemia:
- On atorvastatin at home.
NIDDM:
- Management as per primary team.
Prior TIA:
- Anticoagulation recommendations as above.
- On atorvastatin at home.
Data Reviewed
-
EKG: Report Reviewed by me (Atrial fibrillation at 75 bpm with right bundle branch block and occasional PVCs.)
Medical Tests (Nuc Med, Echo etc): Report Reviewed by me (Transthoracic Echocardiogram (07/27/2024): EF 68%, decreased RV function, severe TR, PASP 40 mmHg.)
Labs: Labs Reviewed by me
Critical Care Time (in minutes): 55
[2025-03-07 08:56] LABS: Iron 41 ug/dl (49-181)
[2025-03-07 09:05] LABS: Total Iron Binding Capacity 465 ug/dl (261-462)
[2025-03-07 09:39] LABS: Ferritin 34.3 ng/ml (17.9-464.0)
[2025-03-07 09:46] LABS: Glycohemoglobin (HgbA1c) 6.5 % (4.0-5.9)
[2025-03-07 09:58] LABS: Reticulocyte Count 1.2 % (0.4-2.8)
[2025-03-07] MEDS: ANESTHETIC LOZENGE 1 LOZENGE PO ×2 (10:07→13:34)
[2025-03-07 10:11] LABS: Folate > 20.0 ng/ml (2.76-20); Vitamin B12 723 pg/ml (239-931)
--- NOTE | 2025-03-07 10:17 | W.PN.CRS1 ---
Today's Communication / Plan
-
maintain ngt
oob
start heparin sq
d/c zosyn
Assessment/Plan
-
POD#0 Exlap, lysis of peritoneal band, appendectomy, TAP block
Vitals: normal
WBC: 9.3, Hgb 10.0 (9.7)
urine output: 450ml
-Maintain NGT with IVFs
-OOB with PT
-OR pathology pending
-Start heparin sq for DVT prophylaxis
-Holding home coumadin
-MSAS protocol in place
-Will discontinue zosyn
-D/C laxatives
-Incentive spirometer q1hr while awake
-Okay to transfer out of ICU if doing well later this evening
-OKay to d/c carlos from our perspective
-Maintain tian today
-Pain control
-Appreciate hospitalist/patient advocate
Subjective Data
Procedure
03/07/2025- Exlap, lysis of peritoneal band, appendectomy, TAP block
Subjective Data
Date of Service: March 07, 2025
Patient states he has no nausea or vomiting. He is not in that much pain. He has no bowel movements or gas yet.
Objective Data
-
Vital Signs
Temp Pulse Resp BP Pulse Ox
98 F 65 28 106/67 98
03/07/25 07:18 03/07/25 06:00 03/07/25 06:00 03/07/25 04:00 03/07/25 06:00
Intake & Output
03/06/25 03/07/25 03/08/25
06:59 06:59 06:59
Intake Total 350 / 350
Output Total 1750 / 1750
Balance -1400 / -1400
Intake:
IV fluids (Total) 300 / 300
Lr 1,000 ml @ 100 mls/hr IV . 300 / 300
Q10H [facility] Rx#:[id number]
IV piggybacks 50 / 50
Output:
Urine, Tian 450 / 450
Urine, Voided 1300 / 1300
Lab Results
03/07/25 05:47
03/07/25 05:47
Physical Exam
-
General: No Acute Distress and AOx3
Abdomen: Soft, Non Distended and Non Tender
Skin: Warm and Dry
Wound: Dressing in Place (midline)
--- NOTE | 2025-03-07 11:09 | CON.GI ---
Addendum entered and electronically signed by Ольга Schneider MD 03/07/25 15:10:
I saw and examined the patient.
The SOLAR SALES ENERGY ADVISOR's note was reviewed and I agree with the note.
Comment: This is a 74-year-old male with significant past medical history as listed below presented to the emergency room with acute onset of severe abdominal pain yesterday and showed concern of internal hernia involving the cecum and the terminal
ileum he was taken to the OR by Dr. Monroe and had ex lap with lysis of peritoneal band and appendectomy. There was no bowel ischemia noted. He was also noted to have ascites and we were consulted. He does have a history of known cirrhosis and had
been seeing Dr. Michael but unfortunately has not followed up in the office and was last seen in 2021. At that time he was recommended a FibroScan which he had refused and was also advised to quit drinking. He was also recommended a colonoscopy which he
also refused. He does have a history of a large gastric polyp which was removed in [address] Meza and was benign hyperplastic and he had a follow-up endoscopy with with no recurrence. was also noted to have a pancreatic
cyst on EUS in 2020 but a follow-up MRI in 2021 did not reveal any evidence of pancreatic cyst but was recommended repeat in 2022 which again the patient has not followed up for.
Assessment and plan
1. Cirrhosis with ascites most likely cardiogenic and also likely related to alcohol unfortunately he was drinking despite being advised to quit drinking in the past. He will need a follow-up with Dr. Michael after DC and was also recommended
hepatology follow-up. He did have workup to rule out other chronic liver diseases in the past which was negative including viral hepatitis serologies which were negative in 2022 he does not want to have a tap if he does have increasing distention
and he is symptomatic he said he would be agreeable then. he had a para in 2022 1300ml with SAAG 1.2
2. History of a large 4 cm ulcerated gastric polyp removed endoscopically in 2020 which was benign hyperplastic on pathology and he did have a follow-up endoscopy with Dr. Michael after that with no recurrence.
3. His last colonoscopy was over 10 years ago but he had refused follow-up surveillance despite being explained the risk in the office during his last office visit with Dr. Michael in 2021
4. 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 Meza he then had a follow-up MRI in 2021 which did not reveal any obvious cyst but was a limited study because of his body habitus and was recommended repeat in 2022
which he has not followed up for.
4. Status post ex lap with lysis of peritoneal band from TI to the right inguinal hernia 03/06/[address] Monroe. He also has a large inguinal hernia with no incarceration noted on recent imaging was reducible discussed with Dr. Monroe
Strongly encouraged him to follow-up with Dr. Michael and hepatology after DC.
Addendum entered and electronically signed by KYLE Damon 03/07/25 13:06:
review of epic chart -- do not see follow up for hepatology but nephrology
Original Note:
Consultation
-
Date/Time Consultation Requested: 03/07/25 1050
Date/Time Consultation Performed: 03/07/25 1110
Requesting Provider: Lucas Ventura DO
Performing Provider: KYLE Hernandez, Ольга Schneider MD
Reason for Consultation: eval for cirrhosis
Medical History
Chief Complaint / HPI
History of Present Illness:
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
replacement x 2 ( with TAVR 2011 then SAVR 2012), RV dysfunction, severe TR( with failed TTVR at [place] 1 month ago) and cirrhosis (with ETOH use 2-3 drinks every other day) presents with abdominal pain with exp lap 03/07 with lysis of peritoneal
band from TI to right inguinal hernia without ischemia , appe with possible spongy lesion, and lysed peritoneal band than served as fulcrum for twist of cecum and TI. Pt was noted with fair amount of ascites during surgery and asked to see for
management. In review of prior imaging Ct from September 2024 with severe Cardiomegaly and severe passive hepatic venous congestion with mild cardiogenic cirrhosis, small volume ascites, large right inguinal hernia containing ileocolic junction, cecum,
ascending colon and large amount of fluid along with multiple other finding. Last PM on admission repeat Ct with a/p with congestion with cardiogenic hepatic cirrhosis, upper abdominal ascites increased, right inguinal hernia with SB and ascites
without dilation to suggest obstruction, appendix difficulty to ID, no signs appendicitis, no free air. Also noted internal hernia central and right para without bowel distention to indicate obstruction. Atherosclerosis of abdominal aorta
without aneurysm without dissection. Pt states there was concern for liver disease in past as he had fluid overload difficulty to management cardiology. He is scheduled with hepatology in early March.
Pt states improvement since last PM pain was 10+/10 now 3/10. He denies odynophagia, dysphagia, GERD, nausea, vomiting, diarrhea, constipation, or rectal bleeding. He admits to hx ETOh use daily heavy til 5-6 years ago then cut back per review
with his catering cook. Prior hx para 2022-- 1300ml with SAAG 1.2 with t protein 4.4.
Past Medical History
Past Medical History: Arrhythmias (afib on Warfarin prior to admission), CHF, CVA (prior TIA), GERD, HTN, Hypercholesterolemia, NIDDM, Renal Failure (CKD), Valvular Disease (bio AVR 2011, 2) and Other (panc cyst , hemorrhoids )
Past Surgical History: Cardiac (bio ) and Other (prior EMR of hyperplastic )
Social History
Tobacco: Non-Smoker
Alcohol: Daily (2-3 drinks every other day )
Drug: None
Personal:
Living: With Family
Employment: Retired
Family History
Family History: Other (mother with [employer] B[employer] ROLLER )
Allergies / Home Medications
Allergy/AdvReac Type Severity Reaction Status Date / Time
lorazepam (From Ativan) Allergy hallucinati Verified 10/03/24 15:16
ons
�Medication �Instructions �Recorded
famotidine 40 mg tablet 40 mg PO HS Gastrointestinal issue 04/26/22
atorvastatin 40 mg tablet 40 mg PO HS High cholesterol 05/16/22
pantoprazole 40 mg tablet,delayed 40 mg PO DAILY Gastrointestinal 05/16/22
release issue
warfarin 5 mg tablet 5 mg PO MOTUWETH@1900 Blood Clot 07/26/24
Prevention/Tx
warfarin 5 mg tablet 10 mg PO SuFrSa@1900 Blood Clot 07/26/24
Prevention/Tx
allopurinol 100 mg tablet 100 mg PO DAILY Gout 03/06/25
dapagliflozin propanediol 10 mg 10 mg PO DAILY Diabetes 03/06/25
tablet (Farxiga)
lisinopril 5 mg tablet 5 mg PO DAILY Blood Pressure 03/06/25
metolazone 5 mg tablet 5 mg PO DAILYPRN PRN fluid gain 03/06/25
metoprolol succinate 25 mg 12.5 mg PO QPM Heart 03/06/25
tablet,extended release 24 hr Disease/Condition
(Toprol XL)
potassium chloride 20 mEq 20 meq PO BID Electrolyte Repletion 03/06/25
tablet,extended release
torsemide 100 mg tablet 100 mg PO BID Fluid 03/06/25
Retention/Swelling
Review of Systems
-
History Source: Patient
Constitutional: Reports Weight Gain (with increased fluid )
EENT: Reports No Symptoms
Respiratory: Reports No Symptoms
Cardiac: Reports No Symptoms
Abdomen/GI: Reports Abdominal Pain
: Reports No Symptoms
Musculoskeletal: Reports Edema
Neurological: Reports Weakness
Endocrine: Reports No Symptoms
Hematologic/Lymphatic: Reports No Symptoms
Vital Signs
Temp Pulse Resp BP Pulse Ox
98 F 65 28 106/67 98
03/07/25 07:18 03/07/25 06:00 03/07/25 06:00 03/07/25 04:00 03/07/25 06:00
Physical Exam
Exam
General: Other (no acute distress )
HEENT: Normocephalic and Anicteric
Respiratory: Clear
Cardiac: Regular Rhythm
GI: Soft, Non Tender, Distended and Other (NGT in place )
Musculoskeletal: No Clubbing and No Cyanosis
Skin: Warm and Dry
Neuro: Awake, Alert and AO x 3
Psych: Calm
Results
WBC 9.3 10^3/uL (4.8-10.8) 03/07/25 05:47
Hgb 10.0 g/dL (13.0-18.0) L 03/07/25 05:47
Hct 30.7 % (39.0-52.0) L 03/07/25 05:47
MCV 72.6 fL (80.0-94.0) L 03/07/25 05:47
Plt Count 245 10^3/uL (130-400) 03/07/25 05:47
Absolute Neuts (auto) 8.4 10^3/uL (1.4-6.5) H 03/07/25 05:47
PT 20.1 Sec (11.4-14.6) H 03/07/25 05:47
INR 1.69 03/07/25 05:47
APTT 38.0 Sec (23.4-35.0) H 03/07/25 05:47
Sodium 138 mmol/L (135-145) 03/07/25 05:47
Potassium 4.1 mmol/L (3.5-5.1) 03/07/25 05:47
Chloride 96 mmol/L (98-107) L 03/07/25 05:47
Carbon Dioxide 30 mmol/L (22-30) 03/07/25 05:47
BUN 87 mg/dl (9-20) H 03/07/25 05:47
Creatinine 1.6 mg/dL (0.7-1.3) H 03/07/25 05:47
Calcium 8.7 mg/dl (8.4-10.2) 03/07/25 05:47
Total Bilirubin 1.7 mg/dl (0.2-1.3) H 03/07/25 02:22
AST 27 U/L (17-59) 03/07/25 02:22
ALT 19 U/L (0-50) 03/07/25 02:22
Alkaline Phosphatase 202 U/L (38-126) H 03/07/25 02:22
Lipase 102 U/L (23-300) 03/06/25 18:08
Diagnostic Image Results:
03/06/25 CT A/p
Facet hepatic venous congestion with cardiogenic hepatic cirrhosis, similar to prior examination. Mild upper abdominal ascites. Increased compared to prior examination.
No obstructive uropathy. Mild diverticulosis. No evidence of acute diverticulitis. No bowel obstruction. Right inguinal hernia containing small bowel and ascites, without proximal dilatation to suggest obstruction.
Findings suspicious for internal hernia in the central/right paracentral mid pelvis, without proximal bowel distention to indicate mechanical obstruction.
The appendix is difficult to identify with certainty, possibly to the right of midline in the anterior mid to upper pelvis. No secondary signs to suggest appendicitis. No free air.
Severe atherosclerotic calcification of the abdominal aorta without aneurysm. No evidence to suggest dissection. No acute vertebral compression deformity appreciated. There is moderate to advanced multilevel degenerative disc disease and facet
arthrosis. Similar to prior examination.
10/03/24 CT Chest/abd/pel W Iv Cont
CHEST:
1. SEVERE CARDIOMEGALY with severe enlargement of the right atrial and ventricular chambers.
2. Severe calcific atherosclerotic plaque in the coronary arteries.
3. Previous aortic valve replacement.
4. Mild right lower paratracheal lymphadenopathy.
5. Mild scarring in both lower lungs.
6. 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
7. Severe DISH in the thoracic spine.
ABDOMEN and PELVIS:
1. SEVERE PASSIVE HEPATIC VENOUS CONGESTION and MILD CARDIOGENIC CIRRHOSIS.
2. Mild hepatomegaly.
3. Small volume of abdominal ascites.
4. Very severe calcific atherosclerotic plaque in the abdominal aorta and common iliac arteries.
5. VERY LARGE 18 cm RIGHT INGUINAL HERNIA containing the ileocecal junction, cecum, proximal ascending colon, and a large amount of fluid.
6. Severe diverticulosis in the descending and sigmoid colon.
7. Moderate distention of the urinary bladder.
8. Severe multilevel lumbar discogenic degenerative disease.
Prior GI Procedures:
EGD: 02/2021- - Normal esophagus.
- Erythematous mucosa in the gastric body and antrum.
Biopsied.
- Scar in the gastric antrum. Biopsied.
- Normal examined duodenum.
bx polypectomy HP from polypectomy sites, -- due follow up 3 years
08/2020- EUS -novikov A gastric lesion, no evidence of aggressive behavior
on EUS
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
- No lymphadenopathy
08/2020 Novikov EGD - Large gastric polyp s/p EMR and endoscopic suturing
of the defect bx unclerated HP polyps
06/2020 Do EGD - Normal esophagus.
- Medium sized villous appearing gastric mass found in
the gastric antrum with diffuse hematin. Tunneled
biopsies taken. Clip (MR conditional) was placed to
prevent post biopsy bleeding.
- Gastritis. Biopsied.
- A few gastric polyps.
- Normal duodenal bulb, first portion of the duodenum
and second portion of the duodenum
bx mass with HP polyp, neg metaplasia, dysplasia or malignancy, ne H pylori other bx neg
Colonoscopy: 15 years ago recalls polyps
Assessment / Plan
-
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
replacement x 2 ( with TAVR 2011 then SAVR 2012), RV dysfunction, severe TR (with failed TTVR at [place] 1 month ago) and cirrhosis (with ETOH use 2-3 drinks every other day) presents with abdominal pain with exp lap 03/07 with lysis of peritoneal
band from TI to right inguinal hernia without ischemia , appe with possible spongy lesion, and lysed peritoneal band than served as fulcrum for twist of cecum and TI. Pt was noted with fair amount of ascites during surgery and asked to see for
management. In review of prior imaging Ct from September 2024 with severe Cardiomegaly and severe passive hepatic venous congestion with mild cardiogenic cirrhosis, small volume ascites, large right inguinal hernia containing ileocolic junction, cecum,
ascending colon and large amount of fluid along with multiple other finding. Last PM on admission repeat Ct with a/p with congestion with cardiogenic hepatic cirrhosis, upper abdominal ascites increased, right inguinal hernia with SB and ascites
without dilation to suggest obstruction, appendix difficulty to ID, no signs appendicitis, no free air. Also noted internal hernia central and right para without bowel distention to indicate obstruction. Atherosclerosis of abdominal aorta
without aneurysm without dissection. Pt states there was concern for liver disease in past as he had fluid overload difficulty to management cardiology. He is scheduled with hepatology in early March. He admits to hx ETOh use daily heavy til
5-6 years ago then cut back per review with his catering cook. Prior hx para 2022-- 1300ml with SAAG 1.2 with t protein 4.4. Fibroscan recommended 2021 not completed.
-ascites noted on exp lap
-? hx cirrhosis due follow up hepatology on March
-hx ascites in past with SAAG 1.2 with t protein 4.4.
-03/07 s/p exp lap with with lysis of peritoneal band from TI to right inguinal hernia without ischemia , appe with possible spongy lesion, and lysed peritoneal band than served as fulcrum for twist of cecum and TI
-hx valve heart disease with prior TAVR/SAVR and recent failed TTVR 1 month ago
-panc cyst
-hx EMR of gastric HP polyp 2020
other med problems:
TIA, HTN, hypercholesterolemia, NIDDM CKD, HFpEF
PLAN:etiology of ascites related to cirrhosis -- possible liver vs cardiogenic
hx para in 2022 with SAAG 1.2 with t protein 4.4 with continued normal platelet, albumin more c/w cardiac congestion(INR elevated with warfarin use)
ideally will need repeat tap with fluid analysis to repeat SAAG but currently post -op and tap level may not be accurate
agree with follow up at [facility] hepatology as scheduled
will review with Dr. Schneider for further recs
will need follow up with Dr. Michael as overdue for follow up EGD and management of prior noted panc cyst
-
-
Thank you for consultation and allowing me to participate in the patient's care. Please call the zoning administrator GI physician during the after hours with any questions or concerns.
--- NOTE | 2025-03-07 11:15 | PTCARENOTE ---
OOB to the chair w/rolling walker, 2 assist. He tolerated it well. Stated his abdominal pain was 3 out of 10. Left radial arterial line transduced and monitored. Cuff pressure 20mmHg lower than arterial line bilaterally. +pulses, no edema. Lungs
CTA. Intermittent cough. C/O discomfort from NGT and [place] catheter. He was informed by Dr. Monroe that he would need to pass gas and have adequate urinary output. Left nare SS secured and on continuous all suction at this time. Pt
tolerating ice chips & was encouraged to take an occasional ice chip. Abdominal incison with dressing marked with old drainage. No expansion of drainage noted. SCD's intact. Safe environment maintained.
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
--- NOTE | 2025-03-07 11:41 | CON.INTV ---
Consultation
Consultation Request
Date/Time Consultation Requested: 03/07/25 0144
Date/Time Consultation Performed: 03/07/25 0830
Medical History
Past Medical History
Past Medical History: Arrhythmias (Permanent atrial fibrillation), CHF, GERD, HTN, Renal Failure (CKD stage IV) and Other (Endocarditis of aortic valve)
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
Social History
Tobacco: Non-smoker
Alcohol: Daily (2-3 drinks of vodka and tonic daily)
Drug: None
Personal:
Living: With Family
Family History
Family History: Reviewed & Not Pertinent
Allergies / Home Medications
Allergies
Allergy/AdvReac Type Severity Reaction Status Date / Time
lorazepam (From Ativan) Allergy hallucinati Verified 10/03/24 15:16
ons
Home Medications
�Medication �Instructions �Recorded �Confirmed �Last Taken �Type
famotidine 40 mg tablet 40 mg PO HS Gastrointestinal issue 04/26/22 03/06/25 03/05/25 History
atorvastatin 40 mg tablet 40 mg PO HS High cholesterol 05/16/22 03/06/25 03/05/25 History
pantoprazole 40 mg tablet,delayed 40 mg PO DAILY Gastrointestinal 05/16/22 03/06/25 03/06/25 History
release issue
warfarin 5 mg tablet 5 mg PO [id number] Blood Clot 07/26/24 03/06/25 03/03/25 History
Prevention/Tx
warfarin 5 mg tablet 10 mg PO [id number]@1900 Blood Clot 07/26/24 03/06/25 03/05/25 History
Prevention/Tx
allopurinol 100 mg tablet 100 mg PO DAILY Gout 03/06/25 03/06/25 03/06/25 History
dapagliflozin propanediol 10 mg 10 mg PO DAILY Diabetes 03/06/25 03/06/25 03/06/25 History
tablet (Farxiga)
lisinopril 5 mg tablet 5 mg PO DAILY Blood Pressure 03/06/25 03/06/25 03/06/25 History
metolazone 5 mg tablet 5 mg PO DAILYPRN PRN fluid gain 03/06/25 03/06/25 03/04/25 History
metoprolol succinate 25 mg 12.5 mg PO QPM Heart 03/06/25 03/06/25 03/05/25 History
tablet,extended release 24 hr Disease/Condition
(Toprol XL)
potassium chloride 20 mEq 20 meq PO BID Electrolyte Repletion 03/06/25 03/06/25 03/06/25 History
tablet,extended release
torsemide 100 mg tablet 100 mg PO BID Fluid 03/06/25 03/06/25 03/06/25 History
Retention/Swelling
Review of Systems
-
History Source: Patient
Constitutional: No Symptoms
EENT: No Symptoms
Respiratory: No Symptoms
Abdomen/GI: Abdominal Pain
: No Symptoms
Musculoskeletal: No Symptoms
Skin: No Symptoms
Neuro: No Symptoms
Endocrine: No Symptoms
Hematologic/Lymphatic: No Symptoms
Vitals / Labs / Diagnostic Testing
Vital Signs
Temp Pulse Resp BP Pulse Ox
98.3 F 68 17 118/72 94
03/07/25 11:15 03/07/25 12:00 03/07/25 12:00 03/07/25 09:48 03/07/25 11:00
Lab Data
03/07/25 05:47
03/07/25 05:47
Laboratory Results
03/06/25 03/07/25
18:08 05:47
PT 26.8 H 20.1 H
INR 2.47 1.69
APTT 37.5 H 38.0 H
Diagnostic Testing:
Physical Exam
-
HEENT: Normocephalic, Anicteric and Moist Mucous Membranes
Cardiovascular: S1/S2 and Irregular Rhythm
Respiratory: Clear and Non-Labored Respirations
GI: Soft
Neurology: Awake and AO x 3
Skin: Warm and Other (wound dressing in place-midline)
General: Comfortable
Assessment
-
Assessment:
A 74-year-old male with a significant medical history including congestive heart failure with severe right-sided dysfunction, severe tricuspid regurgitation, HFpEF (EF 60% on echo July 2024), aortic stenosis s/p aortic valve replacement, permanent
atrial fibrillation on Coumadin, CKD 4, alcohol use disorder, type 2 diabetes mellitus who presented to the ED for sudden onset severe abdominal pain. CT imaging demonstrated an internal hernia with elevated lactate concerning for possible bowel
ischemia. He underwent emergent exploratory laparotomy on , which revealed a peritoneal band extending from terminal ileum to the right inguinal region, small bowel dilation and a possible appendiceal lesion, but no bowel ischemia.
Plan:
# Abdominal pain with elevated lactate levels - improved
# Status post exploratory laparotomy 03/07/25
POD 0, vitals normal, WBC 9.3, Hgb 10.0
Preop lactate elevated due to suspected internal hernia/ischemia. Improving post laparotomy. No ischemia found during surgery.
Initial lactate 4.0, improved to 1.21 03/07/2025
Pain well-controlled with IV Dilaudid as needed. Currently 3/10 in severity
Colorectal surgery following
Continue NPO, NG tube
Lactated Ringer's at 75 ml/hr
Incentive spirometry
Continue Hills- urine output 450 ml
Maintain MAP >65, HOB 30-45 degrees
Likely to be transferred out of ICU later this evening if doing well
# Elevated troponins
# Severe tricuspid regurgitation
Currently trending, last trop 0.098. Most likely acute nonischemic myocardial injury in the setting of recent abdominal process requiring surgery
Cardiology consulted
Echo 07/27/24: LVEF 60%, decreased RV systolic function, severe tricuspid regurgitation
Failed TTVR at [place] 1 month ago
#Permanent atrial fibrillation on Coumadin
Coumadin held
INR 1.6-subtherapeutic (s/p KCentra last night)
Goal INR 2.0-3.0. Once cleared by colorectal surgery, can bridge with heparin.
#CKD stage IV with hyperphosphatemia
Cr 1.6, stable at baseline
P 5.9-hyperphosphatemia is expected in CKD-4
No acute need for phosphate binder. Trend P levels. Consider phosphorus binder if >6.5.
Avoid NSAIDs and nephrotoxins.
#Alcohol use disorder-last drink 03/05/2025, no withdrawal signs
Drinks 2-3 vodka/tonics daily
MSAS protocol, son required lorazepam thus far
Thiamine, folate supplementation
Continue to monitor for signs of withdrawal
# History of HFpEF with ejection fraction of 60%
# HTN- stable
Home medications include torsemide 100 mg twice daily, Metolazone 5 mg PRN
Hold diuresis postop
Monitor volume status
On Farxiga 10 Mg daily at home
# Type 2 diabetes mellitus
Last A1c 7.1%
Currently on moderate resistance NovoLog scale
#Chronic anemia -Hgb 10
Likely anemia in the setting of CKD/chronic disease, stable
Monitor CBC
Transfuse if Hgb <7
DVT prophylaxis: Heparin SC
CODE STATUS: Full code
Data Reviewed
-
CT Scan: Report reviewed by me, Discussed with Physician and Discussed with Nurse
Labs: Labs reviewed by me, Discussed with Physician, Discussed with Nurse and Discussed with Patient
[2025-03-07] MEDS: NOVOLOG FLEXPEN-MODERATE RESISTANCE 1 UNITS SC (12:36)
[2025-03-07 12:39] LABS: Glucose - Point of Care 156 mg/dl (70-99)
[2025-03-07] MEDS: FOLVITE PO (13:22)
[2025-03-07 14:08] LABS: Troponin I 0.078 ng/ml
--- NOTE | 2025-03-07 15:00 | PTCARENOTE ---
Left radial arterial line dc's as ordered. Pt stood in front of the chair and shifted his weight from left to right foot with walker. Back rub provided. Again he was informed that once he passes gas the NGT would be able to be removed. Safe
environment maintained.
[2025-03-07] MEDS: FOLVITE 50.2 MG IV (15:01)
[2025-03-07] MEDS: HEPARIN 5000 UNITS SC ×2 (16:57→23:32)
[2025-03-07 17:48] LABS: Glucose - Point of Care 130 mg/dl (70-99)
--- NOTE | 2025-03-07 19:23 | PTCARENOTE ---
Nancy notified that he will be downgraded and may possibly move out sometime tonight and to call in the main number for his location.
[2025-03-07] MEDS: ZOSYN IV (19:26)
--- NOTE | 2025-03-07 20:46 | PTCARENOTE ---
Pt oob in chair, rolling walker to get around. Pt rings appropriately Pt Aox3, VSS, AFIB with PVCs on monitor, audible Murmur,+1 lower extremity edema, PVD to lower legs. LR at 75ml/hr. NGT in Right nare 75cm at nostril, draining clear yellow fluid.
Abdomen is round and distended, no bowel sounds at this time. Midline incision with post op dressing, small areas of old drainage. Hills in place, davida urine, adequate output. Education on use of incentive spirometer.
[2025-03-07 23:49] LABS: Glucose - Point of Care 147 mg/dl (70-99)
[2025-03-07] MEDS: TYLENOL 650 MG PO (23:52)
[2025-03-08] VITALS (16 sets, daily range): BP systolic 89–151; BP diastolic 57–94; BMI 33.8
[2025-03-08] MEDS: DILAUDID 0.5 MG IV ×5 (01:11→21:49)
[2025-03-08] MEDS: LR 1000 IV (01:14)
[2025-03-08 03:55] LABS: Hematocrit 30.4 % (39.0-52.0); Hemoglobin 9.6 g/dL (13.0-18.0); Mean Corp Hgb Conc. 31.6 g/dL (33.0-37.0); Mean Corpuscular Volume 74.1 fL (80.0-94.0); Nucleated Red Blood Cells % 0 % (-); Platelet Count 239 10^3/uL (130-400); Red Cell Dist. Width 23.2 % (11.5-14.5)
[2025-03-08 04:08] LABS: Blood Urea Nitrogen 90 mg/dl (9-20); Calcium 9.4 mg/dl (8.4-10.2); Carbon Dioxide 30 mmol/L (22-30); Chloride 99 mmol/L (98-107); Estimated Creatinine Clearance 45 ml/min; Glucose 126 mg/dl (70-99); Magnesium 2.6 mg/dl (1.6-2.3); Potassium 3.6 mmol/L (3.5-5.1); Sodium 139 mmol/L (135-145); eGFR 39.25
[2025-03-08] MEDS: NOVOLOG FLEXPEN-MODERATE RESISTANCE 1 UNITS SC (06:15)
[2025-03-08 06:26] LABS: Glucose - Point of Care 153 mg/dl (70-99)
--- NOTE | 2025-03-08 06:34 | PTCARENOTE ---
Pt urine went from an davida color to blood tinged, now starting to clear back up.
--- NOTE | 2025-03-08 07:36 | W.PN.ANS.POP ---
Anesthesia Post Operative
- Anesthesia Post Op Note
Vital Signs Stable-See Nursing Note: Yes
Airway Patent: Yes
Adequate Pain Control: Yes
Change in Mental Status: No
Current Postoperative Nausea & Vomiting: No
Anesthesia Complications: No
General Anesthetic Recall: No
Unplanned Admission: No
Post Op Hydration Adequate: Yes
--- NOTE | 2025-03-08 07:47 | W.PN.CD ---
Today's Communication / Plan
-
- Will obtain echocardiogram today to reassess cardiac function.
- Resume Toprol-XL when tolerating PO intake.
- Goal INR 2.0-3.0; bridge with heparin, once cleared by Surgery.
Impression / Plan
-
74 year old male chronic HFpEF, bioprosthetic aortic valve replacement (TAVR 2011, then subsequent SAVR 2012), severe TV status-post failed TTVR (at [place] 1 month ago), RV dysfunction, permanent atrial fibrillation (on warfarin), CKD 3b, cirrhosis
(EtOH; still drinks 2-3 drinks every other day), type 2 diabetes mellitus, prior TIA, hypertension; admitted with abdominal pain. Subsequently underwent emergent ex-lap and appendectomy overnight. Cardiology consulted for troponin elevation.
Patient denies any anginal symptoms. Also denies shortness of breath or palpitations.
Outpatient Electric Frying Pan Repairer: Dr Ball
Heart Failure: Dr. Morris
Structural Heart Disease: Dr. Lopez
Abdominal pain:
- Stable after ex-lap, lysis of adhesions, appendectomy; clinically improving.
- Continue supportive care and management as per Surgery.
Troponin elevation:
- Most likely acute nonischemic myocardial injury in the setting of underlying medical condition requiring surgery.
- Will obtain echocardiogram today to reassess cardiac function.
- Echocardiogram 07/27/2024: LVEF 68%; decreased RV systolic function; severe TR, PASP 40 mmHg.
Chronic HFpEF:
- Fairly compensated; continue to monitor volume status closely.
- Continue to hold diuretics for now.
- Previously had MP when metolazone 5 mg was added.
- On Farxiga at home.
- Continue to trend daily weights, I/O, and BMP.
Tricuspid regurgitation, severe
- Failed TTVR at [facility] 1 month ago.
- Continue to monitor volume status; holding diuretics for now.
Bioprosthetic AVR ()
- Initially TAVR then SAVR.
- Stable on echocardiogram 07/2024.
- Will repeat echocardiogram today.
Permanent atrial fibrillation:
- On warfarin at home.
- Remains rate-controlled; continue library monitor.
- Resume Toprol-XL when tolerating PO intake.
- INR was reversed with IV vitamin K for surgery.
- Goal INR 2.0-3.0; bridge with heparin, once cleared by Surgery.
- [id number]: score 6 (Heart failure, HTN, Diabetes Mellitus, prior Stroke/TIA, age 65-74)
PVCs:
- Asymptomatic; likely secondary to underlying medical condition.
- Repeating echocardiogram as above.
CKD3b:
- BUN/creatinine increasing, creatinine increased from 1.6 yesterday to 1.9 today.
- NPO status likely contributing.
- Continue to monitor/trend.
EtOH cirrhosis:
- Patient apparently stopped drinking alcohol at one point in 2022, but currently drinks 2-3 drinks every other day (vodka tonic).
- Alcohol cessation recommended.
Hypertension:
- Blood pressure remains stable; continue to monitor.
Dyslipidemia:
- On atorvastatin at home.
NIDDM:
- Management as per primary team.
Prior TIA:
- Anticoagulation recommendations as above.
- On atorvastatin at home.
Physical Exam
Vital Signs/Labs
Vital Signs
Temp Pulse Resp BP Pulse Ox
97.7 F 86 16 107/78 98
03/08/25 04:00 03/08/25 05:00 03/08/25 05:00 03/08/25 05:00 03/08/25 05:00
03/07/25 03/08/25 03/09/25
06:59 06:59 06:59
Actual Weight 107.7 kg 106.8 kg
03/08/25 03:28
03/08/25 03:28
PT 20.1 Sec (11.4-14.6) H 03/07/25 05:47
INR 1.69 03/07/25 05:47
APTT 38.0 Sec (23.4-35.0) H 03/07/25 05:47
Magnesium 2.6 mg/dl (1.6-2.3) H 03/08/25 03:28
03/06/25
18:08
[id number] Pept 2810
LAB Results
03/06/25 03/06/25 03/06/25
18:08 18:24 21:00
Troponin I 0.058 H* Cancelled 0.055 H*
03/07/25 03/07/25 03/07/25
02:09 05:47 13:33
Troponin I 0.080 H* D 0.098 H* 0.078 H*
Physical Exam
Constitutional: No acute distress and Comfortable
EENT: Anicteric
Cardiovascular: Rhythm/rate is irregular, Pedal edema present (Trace), Systolic murmur present (Soft 2/6) and S1S2 is normal
Respiratory: Respiratory effort normal and Rhonchi Present (Bibasilar)
GI: Soft
Neuro/Psych: AO x 3
Other: Skin (Warm, dry, intact)
Data Reviewed
-
Date of Service: March 08, 2025
EKG: Tracing Personally Visualized and interpreted (Telemetry: Atrial fibrillation, PVCs, bigeminy, triplets)
Echo: Ordered by me
Medical Tests (PFT, Pathology etc): Discussed with Physician (Primary Hospitalist) and Discussed with Patient
Labs: Labs Reviewed by me
Critical Care Time (in minutes): 36
[2025-03-08] MEDS: HEPARIN 5000 UNITS SC ×3 (08:02→23:20)
[2025-03-08] MEDS: FOLVITE PO (08:02)
[2025-03-08] MEDS: PROTONIX IV 40 MG IV (08:03)
[2025-03-08] MEDS: THIAMINE INJECTION 200 MG IV ×2 (08:04→19:14)
[2025-03-08] MEDS: NSS (PRESERVATIVE FREE) 10 ML IV (08:04)
--- NOTE | 2025-03-08 08:33 | W.PN.HOSP.TC ---
Today's Communication/Plan
-
Telemetry transfer
DC Hills
Voiding trial
Assessment / Plan
Assessment / Plan
Gen-AAOx3, NAD
HEENT-NC, AT, anicteric, clear oral mm, NG tube
Neck-supple
CV-reg, no M, +S1/S2
Lungs-clear B/L
Abd-distended, nontender
Ext-bilateral lower extremity edema, nonpitting
Musculoskeletal-no cyanosis, clubbing
Skin-warm and dry
Neuro-grossly non-focal
Psych-calm, cooperative
Abdominal pain -stable postop. Currently in ICU.
Lactic acidosis noted on admission, resolved.
Underwent exploratory laparotomy with lysis of peritoneal band, appendectomy, tap block 03/07. Small bowel adhesion and appendiceal lesion found. Peritoneal band found extending from the terminal ileum into the right inguinal hernia. No
concerning ischemia. Possible lesion within the appendix.
Currently n.p.o., NG tube in place.
Continue IV fluids, analgesics. Antibiotics discontinued by surgical service.
Hyponatremia -POA. Resolved.
Hypokalemia -POA. Resolved.
Hyperphosphatemia - improving, 4.9. Doubt hemolysis. Could be from CKD. Monitor closely. Difficult to give phosphate binder while NPO, has NG tube in place.
Chronic heart failure preserved EF -stable. On torsemide 100 mg twice daily at home, metolazone 5 mg daily as needed. Resume diuretics once NG tube removed.
Last echocardiogram was July 2024, LVEF 68%, enlarged RV with reduced systolic function, septal flattening consistent with RV pressure/volume overload. Biatrial enlargement. Severe TR.
Body weight is down compared to admission. Patient states his lower extremity edema is stable, not worse than baseline. Denies shortness of breath.
Troponin elevation -asymptomatic. No reports of chest pain. Has stable chronic dyspnea on exertion. Suspect acute nonischemic myocardial injury due to acute illness.
Cardiology following.
Alcohol use disorder -no signs or symptoms of withdrawal. On alcohol withdrawal protocol but has not required any doses of lorazepam so far. Monitor closely. Abstinence recommended.
Patient still drinks 2-3 drinks of vodka and tonic daily. Last drink was Monday 03/05.
Permanent atrial fibrillation -on chronic warfarin, 10 mg 3 days/week, 5 mg 4 days/week. He believes he takes 10 mg on Friday, Friday, Friday.
INR lowered with Kcentra as well as 10 mg IV vitamin K administration night of admission.
INR 1.6 03/07.
Spoke with cardiology service. Plan to bridge with IV heparin and resume warfarin when cleared by surgical service. [place] text sent to Dr. Monroe.
Essential hypertension -stable.
DM 2 without hyperglycemia -hemoglobin A1c 6.5%. On Farxiga 10 mg daily at home.
Currently on moderate resistance NovoLog scale.
Aortic stenosis -s/p bioprosthetic AVR x 2.
GERD
Acute on chronic anemia/iron deficiency anemia -previous hemoglobins averaged 11-12. Admission hemoglobin 9.9, 9.6 today. Monitor for now. MCV noted to be 72.
Labs consistent with iron deficiency anemia. Will need outpatient endoscopic evaluation, GI follow-up.
CKD 3a -renal function relatively stable. Admission creatinine 1.7, 1.8 today. Currently getting lactated Ringer's 75 cc/h.
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
Hyperlipidemia -atorvastatin after NG tube removed.
History of TIA
Obesity due to excess calories
Full code
Transfer to telemetry
DC Hills catheter, voiding trial. Discussed with nursing.
Anticipated Discharge: > 48 hours
Subjective/Interval History
-
Date of Service: March 08, 2025
Patient seen and examined. Mild lower abdominal pain.
Objective Data
-
Labs:
Laboratory Results
03/08/25
03:28
WBC 8.5
Hgb 9.6 L
Hct 30.4 L
Plt Count 239
Sodium 139
Potassium 3.6
Chloride 99
Carbon Dioxide 30
BUN 90 H
Creatinine 1.8 H
Glucose 126 H
Calcium 9.4
Vital Signs:
Vital Signs
Temp Pulse Resp BP Pulse Ox
97.7 F 86 16 107/78 98
03/08/25 04:00 03/08/25 05:00 03/08/25 05:00 03/08/25 05:00 03/08/25 05:00
I&O
03/07/25 03/08/25 03/09/25
06:59 06:59 06:59
Intake Total 350 / 450 2410 / 2410
Output Total 1750 / 1870 3380 / 3380
Balance -1400 / -1420 -970 / -970
Review of Systems
-
History Source: Patient
All other systems: Reviewed and negative
[2025-03-08] MEDS: ANESTHETIC LOZENGE 1 LOZENGE PO (09:26)
--- NOTE | 2025-03-08 09:32 | PTCARENOTE ---
Hills removed per hospitalist - DTV by 1500. NGT removed per surgery - had some bleeding from nare that resolved. Pt OOB to chair and ambulating w/ standby assist using RW.
--- NOTE | 2025-03-08 10:57 | W.PN.GI.CBS2 ---
Today's Communication / Plan
-
Continue postop care per surgery
follow-up with hepatology at [facility] and Dr. Michael after DC
Assessment / Plan
-
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
replacement x 2 ( with TAVR 2011 then SAVR 2012), RV dysfunction, severe TR (with failed TTVR at [facility] 1 month ago) and cirrhosis (with ETOH use 2-3 drinks every other day) presents with abdominal pain with exp lap 03/07 with lysis of peritoneal
band from TI to right inguinal hernia without ischemia , appe with possible spongy lesion, and lysed peritoneal band than served as fulcrum for twist of cecum and TI. Pt was noted with fair amount of ascites during surgery and asked to see for
management. In review of prior imaging Ct from September 2024 with severe Cardiomegaly and severe passive hepatic venous congestion with mild cardiogenic cirrhosis, small volume ascites, large right inguinal hernia containing ileocolic junction, cecum,
ascending colon and large amount of fluid along with multiple other finding. Last PM on admission repeat Ct with a/p with congestion with cardiogenic hepatic cirrhosis, upper abdominal ascites increased, right inguinal hernia with SB and ascites
without dilation to suggest obstruction, appendix difficulty to ID, no signs appendicitis, no free air. Also noted internal hernia central and right para without bowel distention to indicate obstruction. Atherosclerosis of abdominal aorta
without aneurysm without dissection. Pt states there was concern for liver disease in past as he had fluid overload difficulty to management cardiology. He is scheduled with hepatology in early March. He admits to hx ETOh use daily heavy til
5-6 years ago then cut back per review with his radiology rn. Prior hx para 2022-- 1300ml with SAAG 1.2 with t protein 4.4. Fibroscan recommended 2021 not completed.
-ascites noted on exp lap
-? hx cirrhosis due follow up hepatology on March
-hx ascites in past with SAAG 1.2 with t protein 4.4.
-03/07 s/p exp lap with with lysis of peritoneal band from TI to right inguinal hernia without ischemia , appe with possible spongy lesion, and lysed peritoneal band than served as fulcrum for twist of cecum and TI
-hx valve heart disease with prior TAVR/SAVR and recent failed TTVR 1 month ago
-panc cyst
-hx EMR of gastric HP polyp 2020
other med problems:
TIA, HTN, hypercholesterolemia, NIDDM CKD, HFpEF
PLAN:etiology of ascites related to cirrhosis -- possible liver vs cardiogenic
hx para in 2022 with SAAG 1.2 with t protein 4.4 with continued normal platelet, albumin more c/w cardiac congestion(INR elevated with warfarin use)
ideally will need repeat tap with fluid analysis to repeat SAAG but currently post -op and tap level may not be accurate
He does not want to have a paracenteses but he says if he gets more distended or uncomfortable he will be more agreeable
agree with follow up at [facility] hepatology
He connected me with his Nancy over the telephone and he does not have a follow-up appointment with [facility] hepatology only nephrology. I encouraged her to make an appointment also with hepatology
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
follow-up with Dr. Michael after DC
Will sign off and will be available as needed
Subjective
Subjective
Date of Service: March 08, 2025
No flatus yet, abdominal pain is improving, no nausea or vomiting NG tube with minimal drainage,
Objective
Data Reviewed
Laboratory Data:
Laboratory Results
03/08/25 03:28
03/08/25 03:28
Laboratory Results
PT 20.1 Sec (11.4-14.6) H 03/07/25 05:47
INR 1.69 03/07/25 05:47
APTT 38.0 Sec (23.4-35.0) H 03/07/25 05:47
Phosphorus 4.9 mg/dl (2.5-4.5) H 03/08/25 03:28
Magnesium 2.6 mg/dl (1.6-2.3) H 03/08/25 03:28
Total Bilirubin 1.7 mg/dl (0.2-1.3) H 03/07/25 02:22
AST 27 U/L (17-59) 03/07/25 02:22
ALT 19 U/L (0-50) 03/07/25 02:22
Alkaline Phosphatase 202 U/L (38-126) H 03/07/25 02:22
Lipase 102 U/L (23-300) 03/06/25 18:08
Vital Signs and I&O:
Vital Signs
Temp Pulse Resp BP Pulse Ox
97.5 F 86 16 107/78 94
03/08/25 08:00 03/08/25 05:00 03/08/25 05:00 03/08/25 05:00 03/08/25 08:44
I&O
03/07/25 03/08/25 03/09/25
06:59 06:59 06:59
Intake Total 350 / 450 2410 / 2485 150 / 150
Output Total 1750 / 1870 3380 / 3380
Balance -1400 / -1420 -970 / -895 150 / 150
Physical Exam
Physical Exam
Cardiology: Irregular Rate/Rhythm and Murmur (Systolic murmur)
Pulmonary: Clear
GI: Soft, Distended and Tender (Minimal tenderness, hypoactive bowel sounds)
--- NOTE | 2025-03-08 11:12 | W.PN.CRS1 ---
Today's Communication / Plan
-
dc ngt
dc tian
clears
Assessment/Plan
-
POD#1 Exlap, lysis of peritoneal band, appendectomy, TAP block
Vitals: normal
WBC: 8.5 (9.3)0, Hgb 9.6 (10.0, 9.7)
urine output: 2480ml
-Remove ngt
-Start on clear liquids
-OOB with PT
-OR pathology pending
-Heparin sq for DVT prophylaxis - not yet ready to start a heparin gtt from a surgical perpective
-Holding home coumadin
-MSAS protocol in place
-Incentive spirometer q1hr while awake
-Okay to transfer out of ICU if doing well later this evening
-DC tian
-Pain control
-Appreciate hospitalist/cage operator
Subjective Data
Procedure
03/07/2025- Exlap, lysis of peritoneal band, appendectomy, TAP block
Subjective Data
Date of Service: March 08, 2025
Patient states that he is feeling well today. He has no nausea or vomiting. No flatus or bowel movements yet. He is requesting the Tian catheter be removed. He would like to get up and walk around.
Objective Data
-
Vital Signs
Temp Pulse Resp BP Pulse Ox
97.5 F 86 16 107/78 94
03/08/25 08:00 03/08/25 05:00 03/08/25 05:00 03/08/25 05:00 03/08/25 08:44
Intake & Output
03/07/25 03/08/25 03/09/25
06:59 06:59 06:59
Intake Total 350 / 450 2410 / 2485 150 / 150
Output Total 1750 / 1870 3380 / 3380
Balance -1400 / -1420 -970 / -895 150 / 150
Intake:
Oral fluids 360 / 360
IV fluids (Total) 300 / 400 1800 / 1875 150 / 150
Lr 1,000 ml @ 100 mls/hr IV . 300 / 400 300 / 300
Q10H [facility] Rx#:[id number]
Lr 1,000 ml @ 75 mls/hr IV . 1500 / 1575 150 / 150
[id number] [facility] Rx#:[id number]
IV piggybacks 50 / 50 100 / 100
Amount instilled into GI Tube ( 150 / 150
Total)
[place] Sump 150 / 150
Output:
Gastrointestinal tube output ( 180 / 180
Total)
[place] Sump 180 / 180
Urine, Tain 450 / 570 3200 / 3200
Urine, Voided 1300 / 1300
Lab Results
03/08/25 03:28
03/08/25 03:28
Physical Exam
-
General: No Acute Distress and AOx3
Abdomen: Soft, Non Distended and Non Tender
Skin: Warm and Dry
Incision: Clear, Dry, Intact
[2025-03-08 12:08] LABS: Glucose - Point of Care 212 mg/dl (70-99)
[2025-03-08] MEDS: NOVOLOG FLEXPEN-LOW RESISTANCE 2 UNITS SC (12:50)
--- NOTE | 2025-03-08 15:07 | CARDSERVLU ---
Echocardiogram with Lumason completed after protocol screening completed. Allergies verified.
Patent IV site: _Left AC___
IV site flushed with 0.9% NaCl pre and post administration.
Diluted bolus method utilized to enhance visualization of ventricular pruett.
Total volume given: _2.5__ mL
Patient tolerated all procedures well without complications.
--- NOTE | 2025-03-08 15:25 | PTCARENOTE ---
Pt ambulatory around unit and oob to chair. Able to void on own s/p tian removal. Tolerating clears well.
--- NOTE | 2025-03-08 15:57 | CM ---
JABIER and jaylan removed, clear liquid diet. Declined [facility] services. Discharge POC: Therapy recommended SNF. Medicare[employer] list explained and provided.
[2025-03-08 17:08] LABS: Glucose - Point of Care 109 mg/dl (70-99)
[2025-03-08] MEDS: NOVOLOG FLEXPEN-LOW RESISTANCE SC (17:28)
[2025-03-08] MEDS: TOPROL XL 12.5 MG PO (17:33)
--- NOTE | 2025-03-08 19:35 | PTCARENOTE ---
Rec'd pt sitting on chair, family at bedside, oriented, msas 2, follows commands, Afib w/ occas pvc, bp stable, + pulses, + LE edema, skin warm/dry, RA, lungs decr in bases, sat 97, enc to use IS- reaches 1500ml, hypo bowel sounds, no bm, + flatus,
no n/v, herbert clears, male purewick in place- voiding dark davida urine
[2025-03-08] MEDS: PEPCID 20 MG IV (21:49)
[2025-03-08] MEDS: NSS (PRESERVATIVE FREE) 8 ML IV (21:50)
--- NOTE | 2025-03-08 21:56 | PTCARENOTE ---
Addendum entered by Kelley Ramirez RN 03/08/25 21:57:
bed alarm on
Original Note:
assisted back to bed, dilaudid 0.5mg iv given fore incis pain
[2025-03-08 22:02] LABS: Glucose - Point of Care 175 mg/dl (70-99)
[2025-03-09] VITALS (8 sets, daily range): BP systolic 104–143; BP diastolic 60–91; PULSE 86; O2SAT 98; BMI 34.2
--- NOTE | 2025-03-09 00:09 | PTCARENOTE ---
assisted oob to chair using walker
[2025-03-09] MEDS: DILAUDID 0.5 MG IV (02:10)
--- NOTE | 2025-03-09 02:11 | PTCARENOTE ---
dilaudid 0.5 mg iv given for pain
[2025-03-09 03:56] LABS: Hematocrit 30.9 % (39.0-52.0); Hemoglobin 9.5 g/dL (13.0-18.0); Mean Corp Hgb Conc. 30.7 g/dL (33.0-37.0); Mean Corpuscular Volume 74.6 fL (80.0-94.0); Nucleated Red Blood Cells % 0 % (-); Platelet Count 242 10^3/uL (130-400); Red Cell Dist. Width 23.9 % (11.5-14.5)
[2025-03-09 04:01] LABS: INR 1.28; PT 16.3 Sec (11.4-14.6)
[2025-03-09 04:07] LABS: Blood Urea Nitrogen 90 mg/dl (9-20); Calcium 9.1 mg/dl (8.4-10.2); Carbon Dioxide 29 mmol/L (22-30); Chloride 95 mmol/L (98-107); Estimated Creatinine Clearance 38 ml/min; Glucose 119 mg/dl (70-99); Magnesium 2.5 mg/dl (1.6-2.3); Potassium 3.4 mmol/L (3.5-5.1); Sodium 133 mmol/L (135-145); eGFR 32.62
[2025-03-09] MEDS: KCL ELIXIR 40 MEQ PO (04:27)
--- NOTE | 2025-03-09 04:30 | PTCARENOTE ---
assisted back to bed, 40 kcl po given as ordered
--- NOTE | 2025-03-09 07:40 | PTCARENOTE ---
Assumed care of Pt at shift change. Pt resting comfortably in bed. Male purewick device intact draining dark davida/brown urine. AAO x 3, makes needs known. Remains A-fib on monitor with BBB. Lungs CTA; Reports 3/10 pain at rest. Small
drainage on midline dressing, unchanged. Pt continues with sips of clears and ice chips. Hypoactive BS x 4 - no flatus. Min assist OOB to chair with rolling walker. Emphasize need for movement. Will continue to monitor and assess.
[2025-03-09] MEDS: FOLVITE 1 MG PO (07:44)
[2025-03-09] MEDS: NSS (PRESERVATIVE FREE) 10 ML IV (07:44)
[2025-03-09] MEDS: PROTONIX IV 40 MG IV (07:45)
[2025-03-09] MEDS: THIAMINE INJECTION 200 MG IV ×2 (07:45→20:23)
[2025-03-09] MEDS: HEPARIN 5000 UNITS SC (07:45)
--- NOTE | 2025-03-09 07:57 | W.PN.CRS1 ---
Today's Communication / Plan
-
NPO except sips, meds, ice
Might need NGT
OK for heparin drip (no bolus)
Patient encouraged to avoid narcotics if possible and ambulate
Assessment/Plan
-
POD#2 Exlap, lysis of peritoneal band, appendectomy, TAP block
Vitals: normal
WBC: normal, Hgb 9.5 (10.0, 9.7, 9.6)
voiding well
-NPO except meds/ice/sips
-Might need NGT but he declines at present
-OOB with PT
-OR pathology pending
-OK for Heparin drip (no bolus)
-Holding home coumadin
-MSAS protocol in place
-Incentive spirometer q1hr while awake
-Okay to transfer out of ICU if doing well later this evening
-Pain control - advised to avoid narcotics if possible
-Appreciate hospitalist/agriculture instructor
Subjective Data
Procedure
03/07/2025- Exlap, lysis of peritoneal band, appendectomy, TAP block
Subjective Data
Date of Service: March 09, 2025
Nursing reports he is drinking lots of liquids. He denies any nausea but has not passed flatus. Mild pain and asking for Dilaudid when due.
He was out of bed yesterday.
Objective Data
-
Vital Signs
Temp Pulse Resp BP Pulse Ox
97.4 F 80 11 108/75 98
03/09/25 07:46 03/09/25 04:00 03/09/25 04:00 03/09/25 03:41 03/09/25 00:00
Intake & Output
03/08/25 03/09/25 03/10/25
06:59 06:59 06:59
Intake Total 2410 / 2485 600 / 600
Output Total 3380 / 3380 700 / 700
Balance -970 / -895 -100 / -100
Intake:
Oral fluids 360 / 360 450 / 450
IV fluids (Total) 1800 / 1875 150 / 150
Lr 1,000 ml @ 100 mls/hr IV . 300 / 300
Q10H NIVIA Rx#:[id number]
Lr 1,000 ml @ 75 mls/hr IV . 1500 / 1575 150 / 150
[id number] NIVIA Rx#:[id number]
IV piggybacks 100 / 100
Amount instilled into GI Tube ( 150 / 150
Total)
[place] Sump 150 / 150
Output:
Gastrointestinal tube output ( 180 / 180
Total)
[place] Sump 180 / 180
Urine, [place] 3200 / 3200
Urine, Voided 700 / 700
Lab Results
03/09/25 03:38
03/09/25 03:38
Physical Exam
-
General: No Acute Distress
Abdomen: Distended, Non Tender and Tympanetic
Extremities: No Calf Tenderness
Incision: Clear, Dry, Intact
[2025-03-09] MEDS: NOVOLOG FLEXPEN-LOW RESISTANCE SC ×3 (08:31→19:43)
[2025-03-09 08:43] LABS: Glucose - Point of Care 128 mg/dl (70-99)
--- NOTE | 2025-03-09 08:45 | W.PN.HOSP.TC ---
Today's Communication/Plan
-
Bladder scan
Check urine studies
IV heparin
Assessment / Plan
Assessment / Plan
Gen-AAOx3, NAD
HEENT-NC, AT, anicteric, clear oral mm, NG tube
Neck-supple
CV-reg, no M, +S1/S2
Lungs-clear B/L
Abd-distended, nontender
Ext-bilateral lower extremity edema, nonpitting
Musculoskeletal-no cyanosis, clubbing
Skin-warm and dry
Neuro-grossly non-focal
Psych-calm, cooperative
MP on CKD 3a -creatinine slowly climbing, 2.1 today. Baseline appears to be 1.6.
Did get IV contrast 03/[address] scan. Suspect component of contrast-induced nephropathy.
Difficult to assess volume status as he grossly looks volume overloaded but elevated BUN to creatinine ratio suggestive of prerenal azotemia. Suspect he is third spacing.
Hold off on further IV fluids. His body weight is up compared to admission.
Check FENA.
Hills catheter removed 03/08.
Check bladder scan.
Abdominal pain -stable postop. Currently in ICU.
Lactic acidosis noted on admission, resolved.
Underwent exploratory laparotomy with lysis of peritoneal band, appendectomy, tap block 03/07. Small bowel adhesion and appendiceal lesion found. Peritoneal band found extending from the terminal ileum into the right inguinal hernia. No
concerning ischemia. Possible lesion within the appendix.
Was on clear liquid diet yesterday but now n.p.o. as per colorectal surgery. Minimize opiates. Still awaiting return of bowel function.
Hyponatremia -POA. 133.
Hypokalemia -POA. 3.4, received oral potassium chloride today. Magnesium normal.
Hyperphosphatemia - improving, 3.7. Doubt hemolysis. Could be from CKD. Monitor closely.
Chronic heart failure preserved EF -stable. On torsemide 100 mg twice daily at home, metolazone 5 mg daily as needed. Resume diuretics once NG tube removed.
Last echocardiogram was July 2024, LVEF 68%, enlarged RV with reduced systolic function, septal flattening consistent with RV pressure/volume overload. Biatrial enlargement. Severe TR.
Body weight is down compared to admission. Patient states his lower extremity edema is stable, not worse than baseline. Denies shortness of breath.
Troponin elevation -asymptomatic. No reports of chest pain. Has stable chronic dyspnea on exertion. Suspect acute nonischemic myocardial injury due to acute illness.
Cardiology following.
Alcohol use disorder -no signs or symptoms of withdrawal. On alcohol withdrawal protocol but has not required any doses of lorazepam so far. Monitor closely. Abstinence recommended.
Patient still drinks 2-3 drinks of vodka and tonic daily. Last drink was Monday 03/05.
Permanent atrial fibrillation -on chronic warfarin, 10 mg 3 days/week, 5 mg 4 days/week. He believes he takes 10 mg on Friday, Friday, Friday.
INR lowered with Kcentra as well as 10 mg IV vitamin K administration night of admission.
Start IV heparin drip, hold off on warfarin. Discussed with colorectal service.
Essential hypertension -stable.
DM 2 without hyperglycemia -hemoglobin A1c 6.5%. On Farxiga 10 mg daily at home.
Currently on moderate resistance NovoLog scale.
Glucoses for the most part controlled.
Aortic stenosis -s/p bioprosthetic AVR x 2.
GERD
Acute on chronic anemia/iron deficiency anemia -previous hemoglobins averaged 11-12. Admission hemoglobin 9.9, 9.5 today. Monitor for now. MCV noted to be 72.
Labs consistent with iron deficiency anemia. Will need outpatient endoscopic evaluation, GI follow-up.
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
Hyperlipidemia -atorvastatin after NG tube removed.
History of TIA
Obesity due to excess calories
Full code
Transfer to telemetry
Anticipated Discharge: > 48 hours
Subjective/Interval History
-
Date of Service: March 09, 2025
Patient seen and examined, no complaints.
Objective Data
-
Labs:
Laboratory Results
03/09/25 03/09/25
03:38 08:33
WBC 9.2 Pending
Hgb 9.5 L Pending
Hct 30.9 L Pending
Plt Count 242 Pending
PT 16.3 H
INR 1.28
APTT Pending
Sodium 133 L
Potassium 3.4 L
Chloride 95 L
Carbon Dioxide 29
BUN 90 H
Creatinine 2.1 H
Glucose 119 H
Calcium 9.1
Vital Signs:
Vital Signs
Temp Pulse Resp BP Pulse Ox
97.4 F 80 11 108/75 97
03/09/25 07:46 03/09/25 04:00 03/09/25 04:00 03/09/25 03:41 03/09/25 08:18
I&O
03/08/25 03/09/25 03/10/25
06:59 06:59 06:59
Intake Total 2410 / 2485 600 / 600
Output Total 3380 / 3380 700 / 700
Balance -970 / -895 -100 / -100
Review of Systems
-
History Source: Patient
All other systems: Reviewed and negative
[2025-03-09] MEDS: TYLENOL 650 MG PO ×4 (09:00→23:17)
--- NOTE | 2025-03-09 10:41 | W.PN.CD ---
Today's Communication / Plan
-
Resume home GDMT once MP improves
Continue to hold diuresis
Start heparin bridge to warfarin
Impression / Plan
-
74 year old male chronic HFpEF, bioprosthetic aortic valve replacement (TAVR 2011, then subsequent SAVR 2012), severe TV status-post failed TTVR (at [place] 1 month ago), RV dysfunction, permanent atrial fibrillation (on warfarin), CKD 3b, cirrhosis
(EtOH; still drinks 2-3 drinks every other day), type 2 diabetes mellitus, prior TIA, hypertension; admitted with abdominal pain. Subsequently underwent emergent ex-lap and appendectomy on 03/07. Cardiology consulted for troponin elevation.
Outpatient Supervisor General: Dr Ball
Heart Failure: Dr. Morris
Structural Heart Disease: Dr. Lopez
Internal hernia
- Pain is stable after ex-lap, lysis of adhesions, appendectomy; clinically improving. NGT removed 03/08.
- Continue supportive care and management as per Surgery.
Heart failure with mildly reduced ejection fraction
- Had HFpEF prior to this admission so reduced ejection fraction is new. Suspect stress-induced cardiomyopathy due to intra-abdominal process and surgery.
- TTE 03/08/2025: LVEF 40%, global hypokinesis, RV pressure/volume overload, dilated RV with decreased function, severe TR, PASP 38 mmHg, TAVR mean gradient 11 mmHg, mild AR
- GDMT:
- Beta Danielle: Continue metoprolol 12.5 mg daily
- KASSIE/ARB/ARNI: Home lisinopril on hold due to MP on CKD
- SGLT2i: Home Farxiga on hold
- MRA: Reassess outpatient
- Home torsemide on hold because he is n.p.o.
- Overall, I suspect his EF will improve after this acute process. We will reassess with outpatient echocardiogram in 3 months.
Permanent atrial fibrillation:
- On warfarin at home.
- Remains rate-controlled; continue vehicle monitor technician.
- Continue home Toprol�XL
- INR was reversed with IV vitamin K for surgery.
- Goal INR 2.0-3.0; bridge with heparin, cleared by Surgery to start today
- [id number]: score 6 (Heart failure, HTN, Diabetes Mellitus, prior Stroke/TIA, age 65-74)
MP on CKD
- Continue to trend with holding diuresis
- Avoid nephrotoxic agents
Troponin elevation:
- Most likely acute nonischemic myocardial injury in the setting of underlying medical condition requiring surgery. No chest pain. No RWMA on echo
- Peak 0.098. Stopped trending.
Tricuspid regurgitation, severe
- Failed TTVR at [facility] 1 month ago.
- Continue to monitor volume status; holding diuretics for now.
Bioprosthetic AVR ()
- Initially TAVR then SAVR.
- Stable on echocardiogram this admission
PVCs:
- Asymptomatic; likely secondary to underlying medical condition.
EtOH cirrhosis:
- Patient apparently stopped drinking alcohol at one point in 2022, but currently drinks 2-3 drinks every other day (vodka tonic).
- Alcohol cessation recommended.
Hypertension:
- Blood pressure remains stable; continue to monitor.
Dyslipidemia:
- On atorvastatin at home.
NIDDM:
- Management as per primary team.
Prior TIA:
- Anticoagulation recommendations as above.
- On atorvastatin at home.
Subjective: Abdominal pain improving. He just went for a walk. Not passing gas yet. He denies chest pain, shortness of breath, orthopnea, or worsening lower extremity edema.
Physical Exam
Vital Signs/Labs
Vital Signs
Temp Pulse Resp BP Pulse Ox
97.4 F 80 11 108/75 97
03/09/25 07:46 03/09/25 04:00 03/09/25 04:00 03/09/25 03:41 03/09/25 08:18
03/08/25 03/09/25 03/10/25
06:59 06:59 06:59
Actual Weight 235 lb 7.259 oz 238 lb 1.588 oz
03/09/25 03:38
PT 16.3 Sec (11.4-14.6) H 03/09/25 03:38
INR 1.28 03/09/25 03:38
APTT 38.0 Sec (23.4-35.0) H 03/07/25 05:47
Magnesium 2.5 mg/dl (1.6-2.3) H 03/09/25 03:38
03/06/25
18:08
Gpa-V-Ovctzltzkcj Pept 2810
LAB Results
03/06/25 03/06/25 03/06/25
18:08 18:24 21:00
Troponin I 0.058 H* Cancelled 0.055 H*
03/07/25 03/07/25 03/07/25
02:09 05:47 13:33
Troponin I 0.080 H* D 0.098 H* 0.078 H*
Physical Exam
Constitutional: No acute distress and Comfortable
Cardiovascular: Rhythm/rate is irregular, Pedal edema present, Systolic murmur present and S1S2 is normal
Respiratory: Respiratory effort normal and Lungs clear to auscul.
GI: Distention present
Neuro/Psych: AO x 3
Data Reviewed
-
Date of Service: March 09, 2025
Medical Decision Making: Reviewed Test Results, Test Interpretation and Review of Case with other Provider
EKG: Tracing Personally Visualized and interpreted
Echo: Tracing Personally Visualized and interpreted and Report Reviewed by me
Labs: Labs Reviewed by me
--- NOTE | 2025-03-09 11:14 | PTCARENOTE ---
Pt reported that he has started passing flatus
[2025-03-09 11:40] LABS: APTT 32.8 Sec (23.4-35.0)
--- NOTE | 2025-03-09 11:40 | PTCARENOTE ---
Reported given to Dk RN on ; Called for transport, Pt sent to Rm [id number] in wheelchair.
[2025-03-09 11:46] LABS: Hematocrit 30.5 % (39.0-52.0); Hemoglobin 9.5 g/dL (13.0-18.0); Mean Corp Hgb Conc. 31.1 g/dL (33.0-37.0); Mean Corpuscular Volume 75.5 fL (80.0-94.0); Platelet Count 238 10^3/uL (130-400); Red Cell Dist. Width 23.7 % (11.5-14.5)
[2025-03-09] MEDS: HEPARIN 25000 UNITS/250 ML IV (12:37)
--- NOTE | 2025-03-09 12:41 | CM ---
Patient seen at bedside in ICU earlier with therapy. Patient plan is for discharge home with VN. Per therapy patient is doing better but will need to be able to do steps prior to discharge home. Current recommendation is SNF vs home with VN. CM will
continue to follow for discharge planning needs.
Plan; home with VN vs SNF pending medical treatment plan
[2025-03-09 12:43] LABS: Glucose - Point of Care 118 mg/dl (70-99)
[2025-03-09 18:20] LABS: Glucose - Point of Care 105 mg/dl (70-99)
[2025-03-09 18:51] LABS: APTT 46.9 Sec (23.4-35.0)
[2025-03-09] MEDS: TOPROL XL 12.5 MG PO (20:22)
[2025-03-09] MEDS: MELATONIN 5 MG PO (21:13)
[2025-03-09] MEDS: PEPCID 20 MG IV (21:13)
[2025-03-09] MEDS: NSS (PRESERVATIVE FREE) 8 ML IV (22:02)
[2025-03-09 23:41] LABS: Glucose - Point of Care 116 mg/dl (70-99)
[2025-03-10 02:17] LABS: APTT 76.2 Sec (23.4-35.0)
[2025-03-10 03:05] VITALS: BP 127/60
[2025-03-10 05:53] LABS: Glucose - Point of Care 122 mg/dl (70-99)
--- NOTE | 2025-03-10 05:54 | PTCARENOTE ---
pt refused to remove purewick male catheter, education given about infection prevention, pt is adament about keeping it.
[2025-03-10 06:00] VITALS: BMI 34.7
[2025-03-10 07:40] VITALS: BP 117/71
[2025-03-10 08:15] LABS: Hematocrit 31.6 % (39.0-52.0); Hemoglobin 9.8 g/dL (13.0-18.0); Mean Corp Hgb Conc. 31.0 g/dL (33.0-37.0); Mean Corpuscular Volume 75.6 fL (80.0-94.0); Nucleated Red Blood Cells % 0 % (-); Platelet Count 235 10^3/uL (130-400); Red Cell Dist. Width 23.8 % (11.5-14.5)
[2025-03-10 08:23] LABS: APTT 68.7 Sec (23.4-35.0)
[2025-03-10] MEDS: NOVOLOG FLEXPEN-LOW RESISTANCE SC ×2 (08:35→12:35)
[2025-03-10 08:37] LABS: Blood Urea Nitrogen 96 mg/dl (9-20); Calcium 9.1 mg/dl (8.4-10.2); Carbon Dioxide 29 mmol/L (22-30); Chloride 92 mmol/L (98-107); Estimated Creatinine Clearance 33 ml/min; Glucose 105 mg/dl (70-99); Magnesium 2.6 mg/dl (1.6-2.3); Potassium 3.8 mmol/L (3.5-5.1); Sodium 130 mmol/L (135-145); eGFR 26.47
[2025-03-10] MEDS: HEPARIN 25000 UNITS/250 ML IV (08:44)
[2025-03-10] MEDS: TYLENOL 650 MG PO ×3 (08:46→21:31)
[2025-03-10] MEDS: PROTONIX IV 40 MG IV (08:49)
[2025-03-10] MEDS: FOLVITE 1 MG PO (08:49)
[2025-03-10] MEDS: VITAMIN B1 100 MG PO ×2 (08:49→21:13)
[2025-03-10] MEDS: NSS (PRESERVATIVE FREE) 10 ML IV (08:50)
--- NOTE | 2025-03-10 10:47 | W.PN.CD ---
Today's Communication / Plan
-
Give 1L IVF over 2 hours
Impression / Plan
-
74 year old male chronic HFpEF, bioprosthetic aortic valve replacement (TAVR 2011, then subsequent SAVR 2012), severe TV status-post failed TTVR (at [place] 1 month ago), RV dysfunction, permanent atrial fibrillation (on warfarin), CKD 3b, cirrhosis
(EtOH; still drinks 2-3 drinks every other day), type 2 diabetes mellitus, prior TIA, hypertension; admitted with abdominal pain. Subsequently underwent emergent ex-lap and appendectomy on 03/07. Cardiology consulted for troponin elevation.
Outpatient System Programmer: Dr Ball
Heart Failure: Dr. Morris
Structural Heart Disease: Dr. Lopez
Internal hernia
- Pain is stable after ex-lap, lysis of adhesions, appendectomy; clinically improving. NGT removed 03/08.
- Continue supportive care and management as per Surgery.
Heart failure with mildly reduced ejection fraction
- Had HFpEF prior to this admission so reduced ejection fraction is new. Suspect stress-induced cardiomyopathy due to intra-abdominal process
- TTE 03/08/2025: LVEF 40%, global hypokinesis, RV pressure/volume overload, dilated RV with decreased function, severe TR, PASP 38 mmHg, TAVR mean gradient 11 mmHg, mild AR
- GDMT:
- Beta Danielle: Continue metoprolol 12.5 mg daily
- KASSIE/ARB/ARNI: Home lisinopril on hold due to MP on CKD
- SGLT2i: Home Farxiga on hold
- MRA: Reassess outpatient
- Home torsemide on hold because he is n.p.o.
- Overall, I suspect his EF will improve after this acute process. We will reassess with outpatient echocardiogram in 3 months.
MP on CKD
- Suspect due to dehydration in the setting of being n.p.o. for several days
- Give 1 L IV fluid slowly and trend
- Avoid nephrotoxic agents
Permanent atrial fibrillation:
- On warfarin at home.
- Remains rate-controlled; continue traffic monitor specialist.
- Continue home Toprol�XL
- INR was reversed with IV vitamin K for surgery.
- Goal INR 2.0-3.0; bridge with heparin
- [id number]: score 6 (Heart failure, HTN, Diabetes Mellitus, prior Stroke/TIA, age 65-74)
Troponin elevation:
- Most likely acute nonischemic myocardial injury in the setting of underlying medical condition requiring surgery. No chest pain. No RWMA on echo
- Peak 0.098. Stopped trending.
Tricuspid regurgitation, severe
- Failed TTVR at [facility] 1 month ago.
- Continue to monitor volume status; holding diuretics for now.
Bioprosthetic AVR ()
- Initially TAVR then SAVR.
- Stable on echocardiogram this admission
PVCs:
- Asymptomatic; likely secondary to underlying medical condition.
EtOH cirrhosis:
- Patient apparently stopped drinking alcohol at one point in 2022, but currently drinks 2-3 drinks every other day (vodka tonic).
- Alcohol cessation recommended.
Hypertension:
- Blood pressure remains stable; continue to monitor.
Dyslipidemia:
- On atorvastatin at home.
NIDDM:
- Management as per primary team.
Prior TIA:
- Anticoagulation recommendations as above.
- On atorvastatin at home.
Subjective: Still on sips of clears. Abdominal pain improving. He denies shortness of breath, orthopnea, or worsening lower extremity edema. Does endorse dry mouth.
Physical Exam
Vital Signs/Labs
Vital Signs
Temp Pulse Resp BP Pulse Ox
97.8 F 66 16 117/71 98
03/10/25 07:40 03/10/25 07:40 03/10/25 07:40 03/10/25 07:40 03/10/25 07:40
03/09/25 03/10/25 03/11/25
06:59 06:59 06:59
Actual Weight 238 lb 1.588 oz 242 lb
03/10/25 07:53
03/10/25 07:53
PT 16.3 Sec (11.4-14.6) H 03/09/25 03:38
INR 1.28 03/09/25 03:38
APTT 68.7 Sec (23.4-35.0) H 03/10/25 07:53
Magnesium 2.6 mg/dl (1.6-2.3) H 03/10/25 07:53
03/06/25
18:08
Hkh-F-Rstrrxxsakh Pept 2810
LAB Results
03/07/25
13:33
Troponin I 0.078 H*
Physical Exam
Constitutional: No acute distress and Comfortable
Cardiovascular: Systolic murmur absent, Rhythm/rate is irregular, Pedal edema present and S1S2 is normal
Respiratory: Respiratory effort normal and Lungs clear to auscul.
GI: Distention present
Neuro/Psych: AO x 3
Data Reviewed
-
Date of Service: March 10, 2025
Medical Decision Making: Reviewed Test Results, Test Interpretation and Review of Case with other Provider
EKG: Tracing Personally Visualized and interpreted
Echo: Report Reviewed by me
Labs: Labs Reviewed by me
--- NOTE | 2025-03-10 10:57 | W.PN.CRS1 ---
Today's Communication / Plan
-
As below
Assessment/Plan
-
74-year-old male with PMH of A-fib (on Coumadin), RV dysfunction, severe tricuspid regurg (s/p attempt at endovascular repair at [place] 1 month ago, but unsuccessful), CKD stage III, liver cirrhosis (Gamaliel class B), DM, aortic stenosis s/p TAVR 2011,
s/p open bioprosthetic AVR 2012, HTN, HLD who presented for severe abdominal pain starting earlier that day. This happened to him once before and it ended up being a strangulated right inguinal hernia that was successfully reduced several years
ago. However, this time, the pain was more severe, worse with movement. He chronically has shortness of breath with walking. In the ED, his WBC was 6.7, Hb 9.9, CR 1.7, lactic 4.0, INR 2.5, PTT 37.5. A CT scan was done showing concern for internal
hernia of the cecum and terminal ileum.
No nausea, no flatus or BMs. Pain controlled.
POD 3 exlap, lysis of peritoneal band, appendectomy, TAP block
AFVSS
WBC 8.6 from 9.4, Hb 9.8 from 9.5, sodium 130, CR 2.5 from 2.1; urine studies yesterday show Fena of 0.1%
�Continue n.p.o. due to significant tympany on exam
�Will obtain AXR; if ileus pattern, continue n.p.o.
-Hold on starting TPN for now
� Pain control with Dilaudid as needed
�Continue hep drip; hold on restarting Coumadin
� Encourage I-S/OOB
�MP on CKD; appears prerenal, but clinically appears fluid overloaded with peripheral edema and likely fluid in the lower abdomen
�Consult nephrology
�History of liver cirrhosis; appreciate GI
� Appreciate cardiology; giving 1 L of fluid
�Appreciate hospitalist
Subjective Data
Procedure
03/07/2025- Exlap, lysis of peritoneal band, appendectomy, TAP block
Subjective Data
Date of Service: March 10, 2025
No overnight events.
Pain controlled.
Denies nausea/vomiting. Tolerating ice chips and some sips of water.
+flatus -BMs +voiding
Pt is OOB.
Objective Data
-
Vital Signs
Temp Pulse Resp BP Pulse Ox
97.8 F 66 16 117/71 98
03/10/25 07:40 03/10/25 07:40 03/10/25 07:40 03/10/25 07:40 03/10/25 07:40
Intake & Output
03/09/25 03/10/25 03/11/25
06:59 06:59 06:59
Intake Total 600 / 600
Output Total 700 / 700
Balance -100 / -100
Intake:
Oral fluids 450 / 450
IV fluids (Total) 150 / 150
Lr 1,000 ml @ 75 mls/hr IV . 150 / 150
[id number] NIVIA Rx#:[id number]
Output:
Urine, Voided 700 / 700
Lab Results
03/10/25 07:53
03/10/25 07:53
Physical Exam
-
General: No Acute Distress and AOx3
Abdomen: Soft, Distended (With tympany in the upper abdomen), Tender (Appropriately tender near midline incision), No Guarding and No Rebound
Skin: Warm and Dry
Incision: Other (Aquacel dressing intact with stable strikethrough)
[2025-03-10 12:15] VITALS: BP 129/71
--- NOTE | 2025-03-10 12:23 | W.PN.HOSP.TC ---
Today's Communication/Plan
-
Nephrology consult
Assessment / Plan
Assessment / Plan
Gen-AAOx3, NAD
HEENT-NC, AT, anicteric, clear oral mm, NG tube
Neck-supple
CV-reg, no M, +S1/S2
Lungs-clear B/L
Abd-distended, nontender
Ext-bilateral lower extremity edema, nonpitting
Musculoskeletal-no cyanosis, clubbing
Skin-warm and dry
Neuro-grossly non-focal
Psych-calm, cooperative
MP on CKD 3a -creatinine slowly climbing, 2.5 today. Baseline appears to be 1.6.
Did get IV contrast 03/[address] scan. Suspect component of contrast-induced nephropathy as well as prerenal azotemia.
Difficult to assess volume status as he grossly looks volume overloaded but elevated BUN to creatinine ratio suggestive of prerenal azotemia. Suspect he is third spacing.
His body weight is progressively rising over the past 72 hours.
FENa less than 1%.
Hills catheter removed 03/08.
Bladder scan 210 cc today.
Consult nephrology.
Abdominal pain -stable postop. Currently in ICU.
Lactic acidosis noted on admission, resolved.
Underwent exploratory laparotomy with lysis of peritoneal band, appendectomy, tap block 03/07. Small bowel adhesion and appendiceal lesion found. Peritoneal band found extending from the terminal ileum into the right inguinal hernia. No
concerning ischemia. Possible lesion within the appendix.
Abdominal x-ray done today to assess for ileus, results pending. Currently n.p.o. per colorectal surgery.
Patient states he is passing gas but no bowel movement so far. Minimizing opiates.
Hyponatremia -POA. 130. Suspect due to volume overloaded state.
Hypokalemia -POA. Improved to 3.8 today.
Hyperphosphatemia -4.7. Doubt hemolysis. Could be from CKD. Monitor closely.
Chronic heart failure preserved EF -stable. On torsemide 100 mg twice daily at home, metolazone 5 mg daily as needed. Currently diuretics on hold for progressive MP.
Last echocardiogram was July 2024, LVEF 68%, enlarged RV with reduced systolic function, septal flattening consistent with RV pressure/volume overload. Biatrial enlargement. Severe TR.
Patient states his lower extremity edema is stable, not worse than baseline. Denies shortness of breath.
Troponin elevation -asymptomatic. No reports of chest pain. Has stable chronic dyspnea on exertion. Suspect acute nonischemic myocardial injury due to acute illness.
Cardiology following.
Alcohol use disorder -no signs or symptoms of withdrawal. On alcohol withdrawal protocol but has not required any doses of lorazepam so far. Monitor closely. Abstinence recommended.
Patient still drinks 2-3 drinks of vodka and tonic daily. Last drink was Monday 03/05.
Permanent atrial fibrillation -on chronic warfarin, 10 mg 3 days/week, 5 mg 4 days/week. He believes he takes 10 mg on Friday, Friday, Friday.
INR lowered with Kcentra as well as 10 mg IV vitamin K administration night of admission.
Continue heparin drip, hold off on warfarin. Discussed with colorectal service.
Essential hypertension -stable.
DM 2 without hyperglycemia -hemoglobin A1c 6.5%. On Farxiga 10 mg daily at home.
Currently on moderate resistance NovoLog scale.
Glucoses for the most part controlled.
Aortic stenosis -s/p bioprosthetic AVR x 2.
GERD
Acute on chronic anemia/iron deficiency anemia -previous hemoglobins averaged 11-12, hemoglobin has been stable over the past few days since admission. Monitor for now. MCV noted to be 72.
Labs consistent with iron deficiency anemia. Will need outpatient endoscopic evaluation, GI follow-up.
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
Hyperlipidemia
History of TIA
Obesity due to excess calories
Full code
Anticipated Discharge: > 48 hours
Subjective/Interval History
-
Date of Service: March 10, 2025
Patient seen and examined. Having mild lower abdominal pain.
Objective Data
-
Labs:
Laboratory Results
03/10/25 03/10/25 03/10/25
01:56 07:53 14:43
WBC 8.6
Hgb 9.8 L
Hct 31.6 L
Plt Count 235
APTT 76.2 H 68.7 H Pending
Sodium 130 L
Potassium 3.8
Chloride 92 L
Carbon Dioxide 29
BUN 96 H
Creatinine 2.5 H
Glucose 105 H
Calcium 9.1
Vital Signs:
Vital Signs
Temp Pulse Resp BP Pulse Ox
97.8 F 66 16 117/71 98
03/10/25 07:40 03/10/25 07:40 03/10/25 07:40 03/10/25 07:40 03/10/25 07:40
I&O
03/09/25 03/10/25 03/11/25
06:59 06:59 06:59
Intake Total 600 / 600
Output Total 700 / 700
Balance -100 / -100
Review of Systems
-
History Source: Patient
All other systems: Reviewed and negative
[2025-03-10 12:26] LABS: Glucose - Point of Care 105 mg/dl (70-99)
--- NOTE | 2025-03-10 12:37 | W.CON.NEPH ---
Consultation
-
Date/Time Consultation Requested: 03/10/2025 11 AM
Date/Time Consultation Performed: 03/10/2025 12 PM
Requesting Provider: Dr. Ventura
Performing Provider: Dr. Garza
Reason for Consultation: MP
Medical History
-
Chief Complaint: MP
History of Present Illness:
This is a 74-year-old gentleman who has heart failure with preserved ejection fraction on chronic diuretic therapy which is very high dose. He does have significant severe tricuspid regurgitation failed tricuspid repair at [facility] in
January. He does have atrial fibrillation on Coumadin for anticoagulation and metoprolol for rate control. He has baseline CKD 3A with creatinine around 1.5�1.7. Is noted that he does have cirrhosis likely due to chronic alcohol use. He was
admitted because of abdominal pain and underwent CT scan with IV contrast on March 06. This also noted a right abdominal inguinal hernia. He underwent exploratory laparotomy with lysis of adhesions as well as appendectomy due to the finding of
a possible appendiceal mass. Postoperatively he had done fairly well. His creatinine however had began to rise now up to 2.5 with MP. His sodium also has fallen at 130 at this time. His hemoglobin also remains low.
Past Medical History
Paroxysmal A-fib, pleural effusion, chronic right-sided heart failure, dyslipidemia
Hypertension
Severe tricuspid regurgitation, failed tricuspid valve repair
Endocarditis of aortic valve
Lyme disease
GERD
Iron deficiency anemia
Large gastric hyperplastic polyp
Pancreatic head cyst
Right inguinal hernia
Left inguinal herniorrhaphy
AVR
Hydrocelectomy
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
Appendectomy
Lysis of adhesions
Social History
Tobacco: Non-Smoker
Alcohol: Daily
Family History
Family History: Not Pertinent
Allergies / Home Medications
Allergy/AdvReac Type Severity Reaction Status Date / Time
lorazepam (From Ativan) Allergy hallucinati Verified 10/03/24 15:16
ons
�Medication �Instructions �Recorded �Confirmed �Type
famotidine 40 mg tablet 40 mg PO HS Gastrointestinal issue 04/26/22 03/06/25 History
atorvastatin 40 mg tablet 40 mg PO HS High cholesterol 05/16/22 03/06/25 History
pantoprazole 40 mg tablet,delayed 40 mg PO DAILY Gastrointestinal 05/16/22 03/06/25 History
release issue
warfarin 5 mg tablet 5 mg PO [id number]@1900 Blood Clot 07/26/24 03/06/25 History
Prevention/Tx
warfarin 5 mg tablet 10 mg PO SuFrSa@1900 Blood Clot 07/26/24 03/06/25 History
Prevention/Tx
allopurinol 100 mg tablet 100 mg PO DAILY Gout 03/06/25 03/06/25 History
dapagliflozin propanediol 10 mg 10 mg PO DAILY Diabetes 03/06/25 03/06/25 History
tablet (Farxiga)
lisinopril 5 mg tablet 5 mg PO DAILY Blood Pressure 03/06/25 03/06/25 History
metolazone 5 mg tablet 5 mg PO DAILYPRN PRN fluid gain 03/06/25 03/06/25 History
metoprolol succinate 25 mg 12.5 mg PO QPM Heart 03/06/25 03/06/25 History
tablet,extended release 24 hr Disease/Condition
(Toprol XL)
potassium chloride 20 mEq 20 meq PO BID Electrolyte Repletion 03/06/25 03/06/25 History
tablet,extended release
torsemide 100 mg tablet 100 mg PO BID Fluid 03/06/25 03/06/25 History
Retention/Swelling
Review of Systems
-
No chest pain or shortness of breath
Excellent urine output
All other systems: Negative unless noted
Physical Exam
Vital Signs
Vital Signs
Temp Pulse Resp BP Pulse Ox
97.8 F 66 16 117/71 98
03/10/25 07:40 03/10/25 07:40 03/10/25 07:40 03/10/25 07:40 03/10/25 07:40
Lab Results
WBC 8.6 10^3/uL (4.8-10.8) 03/10/25 07:53
RBC 4.18 10^6/uL (4.70-6.10) L 03/10/25 07:53
Hgb 9.8 g/dL (13.0-18.0) L 03/10/25 07:53
Hct 31.6 % (39.0-52.0) L 03/10/25 07:53
Plt Count 235 10^3/uL (130-400) 03/10/25 07:53
Sodium 130 mmol/L (135-145) L 03/10/25 07:53
Potassium 3.8 mmol/L (3.5-5.1) 03/10/25 07:53
Chloride 92 mmol/L (98-107) L 03/10/25 07:53
Carbon Dioxide 29 mmol/L (22-30) 03/10/25 07:53
BUN 96 mg/dl (9-20) H 03/10/25 07:53
Creatinine 2.5 mg/dL (0.7-1.3) H 03/10/25 07:53
eGFR 26.47 03/10/25 07:53
Glucose 105 mg/dl (70-99) H 03/10/25 07:53
Calcium 9.1 mg/dl (8.4-10.2) 03/10/25 07:53
Phosphorus 4.7 mg/dl (2.5-4.5) H 03/10/25 07:53
Ved-N-Rtlkibhtzpn Pept 2810 pg/ml 03/06/25 18:08
Albumin 4.1 g/dl (3.5-5.0) 03/07/25 02:22
Laboratory Tests
10/03/24 03/06/25 03/07/25
15:34 18:08 02:22
Sodium 135 130 L
Creatinine 1.6 H 1.7 H
Iron 41 L
TIBC 465 H
% Saturation 8 L
Ferritin 34.3
Troponin I
Urine Creatinine
Urine Sodium
03/07/25 03/09/25
13:33 11:29
Sodium
Creatinine
Iron
TIBC
% Saturation
Ferritin
Troponin I 0.078 H*
Urine Creatinine 133.900
Urine Sodium 6 L
Physical Exam
Patient is awake alert oriented and in no distress. Mood and affect were pleasant, insight and judgment were good. Pupils are equal round and reactive to light, extraocular movements are intact, sclera were anicteric. Hearing was normal, ears and
nose are intact. Oropharynx was clear. Neck was supple with trachea midline and no thyromegaly. Heart was regular rate and rhythm without rubs. Lower extremities with 3+ to the knee edema. Noted scrotal edema right greater than left. Lungs were
clear to auscultation bilaterally and with normal excursion. Abdomen was soft, nontender, with normal active bowel sounds, and no hepatosplenomegaly. Skin was without rash and with normal turgor.
Data Reviewed
-
Radiology: Image Personally Visualized and interpreted (Chest x-ray 03/06/2025 by my reading cardiomegaly)
CT Scan: Report Reviewed by me (CT with IV contrast March 06, 2025 right inguinal hernia, diverticulosis)
Medical Tests (Nuc Med, Echo etc): Image Personally Visualized and interpreted (EKG 03/06/2025 by my reading atrial fibrillation right bundle branch block PVCs) and Report Reviewed by me (Echocardiogram 03/08/2025 ejection fraction 40%, severe TR,
flattened septum)
Labs: Labs Reviewed by me
Old Records: Reviewed
Assessment/Plan
-
Assessment
MP
Tricuspid regurgitation severe
Heart failure reduced ejection fraction
Status post appendectomy, lysis of adhesions
Right inguinal hernia
Paroxysmal atrial fibrillation
Iron deficiency anemia
Edema
Plan
MP likely due to contrast nephropathy
He does not appear to be in decompensated heart failure. Torsemide is held currently as his urine output is excellent
Follow BMP
Follow postvoid residual
If creatinine continues to worsen may require additional workup with repeat urinalysis. UA at time of admission was unremarkable except for glucose due to SGLT2
IV iron
Discussed with patient and
[2025-03-10 14:30] LABS: APTT 118.7 Sec (23.4-35.0)
[2025-03-10] MEDS: FERRLECIT 110 MG IV (14:32)
[2025-03-10 15:10] VITALS: BP 113/66
[2025-03-10 17:29] LABS: Urine Character Slightly Cloudy (Clear)
[2025-03-10 17:42] LABS: Glucose - Point of Care 109 mg/dl (70-99)
[2025-03-10 17:44] LABS: Urine Squamous Cell 0-2 /LPF (Few)
[2025-03-10] MEDS: TOPROL XL 12.5 MG PO (17:57)
[2025-03-10 19:15] VITALS: BP 122/66
[2025-03-10] MEDS: PEPCID 20 MG IV (21:20)
[2025-03-10] MEDS: NSS (PRESERVATIVE FREE) 8 ML IV (21:20)
[2025-03-10] MEDS: MELATONIN 5 MG PO (21:32)
[2025-03-10] MEDS: MELATONIN 3 MG PO (21:54)
[2025-03-10 22:41] LABS: APTT 182.5 Sec (23.4-35.0)
[2025-03-10 23:10] VITALS: BP 131/75
[2025-03-11] VITALS (7 sets, daily range): BP systolic 99–144; BP diastolic 53–78
[2025-03-11 00:02] LABS: Glucose - Point of Care 97 mg/dl (70-99)
[2025-03-11] MEDS: TYLENOL 650 MG PO ×2 (03:53→20:24)
[2025-03-11 06:08] LABS: Hematocrit 28.6 % (39.0-52.0); Hemoglobin 9.1 g/dL (13.0-18.0); Mean Corp Hgb Conc. 31.8 g/dL (33.0-37.0); Mean Corpuscular Volume 75.5 fL (80.0-94.0); Platelet Count 227 10^3/uL (130-400); Red Cell Dist. Width 23.3 % (11.5-14.5)
[2025-03-11 06:09] LABS: APTT 40.9 Sec (23.4-35.0)
[2025-03-11 06:21] LABS: Blood Urea Nitrogen 94 mg/dl (9-20); Calcium 8.8 mg/dl (8.4-10.2); Carbon Dioxide 28 mmol/L (22-30); Chloride 96 mmol/L (98-107); Estimated Creatinine Clearance 35 ml/min; Glucose 86 mg/dl (70-99); Potassium 3.6 mmol/L (3.5-5.1); Sodium 131 mmol/L (135-145); eGFR 29.25
--- NOTE | 2025-03-11 08:40 | W.PN.HOSP.TC ---
Today's Communication/Plan
-
Continue IV heparin
Resume warfarin
Assessment / Plan
Assessment / Plan
Gen-AAOx3, NAD
HEENT-NC, AT, anicteric, clear oral mm, NG tube
Neck-supple
CV-reg, no M, +S1/S2
Lungs-clear B/L
Abd-distended, nontender
Ext-bilateral lower extremity edema, nonpitting
Musculoskeletal-no cyanosis, clubbing
Skin-warm and dry
Neuro-grossly non-focal
Psych-calm, cooperative
MP on CKD 3a -creatinine down slightly to 2.3. Baseline appears to be 1.6. Urine output is good.
Did get IV contrast 03/[address] scan. Suspect component of contrast-induced nephropathy as well as prerenal azotemia.
Difficult to assess volume status as he grossly looks volume overloaded but elevated BUN to creatinine ratio suggestive of prerenal azotemia. Suspect he is third spacing.
His body weight is progressively rising over the past 72 hours.
FENa less than 1%.
Hills catheter removed 03/08.
Bladder scan 210 cc today.
Appreciate nephrology input.
Postoperative ileus -improving. Was n.p.o. yesterday, now on clears this morning as per surgical service.
Lactic acidosis noted on admission, resolved.
Underwent exploratory laparotomy with lysis of peritoneal band, appendectomy, tap block 03/07. Small bowel adhesion and appendiceal lesion found. Peritoneal band found extending from the terminal ileum into the right inguinal hernia. No
concerning ischemia. Possible lesion within the appendix.
Abdominal x-ray done today to assess for ileus, results pending. Currently n.p.o. per colorectal surgery.
Patient states he is passing gas but no bowel movement so far. Minimizing opiates.
Hyponatremia -POA. 131. Suspect due to volume overloaded state.
Hypokalemia -POA. Improved.
Hyperphosphatemia -4.7. Doubt hemolysis. Could be from CKD. Monitor closely.
Chronic heart failure preserved EF -stable. On torsemide 100 mg twice daily at home, metolazone 5 mg daily as needed. Currently diuretics on hold for progressive MP.
Last echocardiogram was July 2024, LVEF 68%, enlarged RV with reduced systolic function, septal flattening consistent with RV pressure/volume overload. Biatrial enlargement. Severe TR.
Patient states his lower extremity edema is stable, not worse than baseline. Denies shortness of breath.
Troponin elevation -asymptomatic. No reports of chest pain. Has stable chronic dyspnea on exertion. Suspect acute nonischemic myocardial injury due to acute illness.
Cardiology following.
Alcohol use disorder -no signs or symptoms of withdrawal. On alcohol withdrawal protocol but has not required any doses of lorazepam so far. Monitor closely. Abstinence recommended.
Patient still drinks 2-3 drinks of vodka and tonic daily. Last drink was Monday 03/05.
Permanent atrial fibrillation -on chronic warfarin, 10 mg 3 days/week, 5 mg 4 days/week. He believes he takes 10 mg on Friday, Friday, Friday.
INR lowered with Kcentra as well as 10 mg IV vitamin K administration night of admission.
Continue IV heparin, resume warfarin tonight. Discussed with colorectal service.
Essential hypertension -stable.
DM 2 without hyperglycemia -hemoglobin A1c 6.5%. On Farxiga 10 mg daily at home.
Currently on moderate resistance NovoLog scale.
Glucoses for the most part controlled.
Aortic stenosis -s/p bioprosthetic AVR x 2.
GERD
Acute on chronic anemia/iron deficiency anemia -previous hemoglobins averaged 11-12, hemoglobin has been stable over the past few days since admission. Monitor for now. MCV noted to be 72.
Labs consistent with iron deficiency anemia. Will need outpatient endoscopic evaluation, GI follow-up.
Hemoglobin relatively stable at 9.1.
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
Hyperlipidemia
History of TIA
Obesity due to excess calories
Full code
Anticipated Discharge: > 48 hours
Subjective/Interval History
-
Date of Service: March 11, 2025
Patient seen and examined. Passing gas but no bowel movements. Abdominal discomfort when going from a sitting to standing position but not with ambulation.
Objective Data
-
Labs:
Laboratory Results
03/10/25 03/11/25 03/11/25
21:50 05:38 12:30
WBC 7.1
Hgb 9.1 L
Hct 28.6 L
Plt Count 227
APTT 182.5 H* 40.9 H Pending
Sodium 131 L
Potassium 3.6
Chloride 96 L
Carbon Dioxide 28
BUN 94 H
Creatinine 2.3 H
Glucose 86
Calcium 8.8
Vital Signs:
Vital Signs
Temp Pulse Resp BP Pulse Ox
97.8 F 72 16 121/63 97
03/11/25 07:30 03/11/25 07:30 03/11/25 07:30 03/11/25 07:30 03/11/25 07:30
I&O
03/10/25 03/11/25 03/12/25
06:59 06:59 06:59
Intake Total 1105 / 1105
Output Total 1100 / 1100
Balance 5 / 5
Review of Systems
-
History Source: Patient
All other systems: Reviewed and negative
--- NOTE | 2025-03-11 09:05 | W.PN.CRS1 ---
Today's Communication / Plan
-
clears to fulls
okay to start coumadin today
Assessment/Plan
-
74-year-old male with PMH of A-fib (on Coumadin), RV dysfunction, severe tricuspid regurg (s/p attempt at endovascular repair at [place] 1 month ago, but unsuccessful), CKD stage III, liver cirrhosis (Gamaliel class B), DM, aortic stenosis s/p TAVR 2011,
s/p open bioprosthetic AVR 2012, HTN, HLD who presented for severe abdominal pain starting earlier that day. This happened to him once before and it ended up being a strangulated right inguinal hernia that was successfully reduced several years
ago. However, this time, the pain was more severe, worse with movement. He chronically has shortness of breath with walking. In the ED, his WBC was 6.7, Hb 9.9, CR 1.7, lactic 4.0, INR 2.5, PTT 37.5. A CT scan was done showing concern for internal
hernia of the cecum and terminal ileum.
No nausea, no flatus or BMs. Pain controlled.
POD 4 exlap, lysis of peritoneal band, appendectomy, TAP block
AFVSS
WBC 7.1, Hgb 9.1. (9.8)
�Start on clears, advance to fulls later today if tolerates clears
� Pain control with Dilaudid as needed
�Continue hep drip; ok to resume coumadin
� Encourage I-S/OOB
�MP on CKD; appears prerenal, but clinically appears fluid overloaded with peripheral edema and likely fluid in the lower abdomen
�Consult nephrology
�History of liver cirrhosis; appreciate GI
� Appreciate cardiology
�Appreciate hospitalist
Subjective Data
Procedure
03/07/2025- Exlap, lysis of peritoneal band, appendectomy, TAP block
Subjective Data
Date of Service: March 11, 2025
Patient states that he is feeling better. He is hungry. Has flatus, no bowel movements yet. He is hungry.
Objective Data
-
Vital Signs
Temp Pulse Resp BP Pulse Ox
97.8 F 72 16 121/63 97
03/11/25 07:30 03/11/25 07:30 03/11/25 07:30 03/11/25 07:30 03/11/25 07:30
Intake & Output
03/10/25 03/11/25 03/12/25
06:59 06:59 06:59
Intake Total 1105 / 1105
Output Total 1100 / 1100
Balance 5 / 5
Intake:
Oral fluids 995 / 995
IV fluids (Total) 110 / 110
Output:
Urine, Voided 1100 / 1100
Other:
Number of approximated MODERATE 2
amounts of urine
Lab Results
03/11/25 05:38
03/11/25 05:38
Physical Exam
-
General: No Acute Distress and AOx3
Abdomen: Soft, Non Distended and Non Tender
Wound: Dressing Changed (ramiro underneath, dressing replaced)
[2025-03-11] MEDS: NSS (PRESERVATIVE FREE) 10 ML IV (09:09)
[2025-03-11] MEDS: FOLVITE 1 MG PO (09:09)
[2025-03-11] MEDS: VITAMIN B1 100 MG PO ×2 (09:09→20:23)
[2025-03-11] MEDS: PROTONIX IV 40 MG IV (09:10)
--- NOTE | 2025-03-11 09:29 | CM ---
Chart reviewed and caseworker protective services met with patient this am and plan is for patient to return to home with spouse and visiting nurses, visiting nurse options reviewed with patient and patient and spouse have selected [facility], [facility] liaison has been
contacted.
Plan; Home with [facility].
--- NOTE | 2025-03-11 10:09 | W.PN.NEPH.PH ---
Today's Communication / Plan
-
follow BMP
Assessment/Plan
-
Assessment
MP
Tricuspid regurgitation severe
Heart failure reduced ejection fraction
Status post appendectomy, lysis of adhesions
Right inguinal hernia
Paroxysmal atrial fibrillation
Iron deficiency anemia
Edema
Plan
MP likely due to contrast nephropathy
He does not appear to be in decompensated heart failure. Torsemide is held currently as his urine output is excellent
Follow BMP
not retaining urine
IV iron course
Discussed with patient
-
-
Date of Service: March 11, 2025
CC / HPI / ROS
-
Chief Complaint:
MP
History of Present Illness:
MP/Cr down to 2.3
BP stable
UOP good without diuretics
Review of Systems:
no CP/SOB
Labs
-
Labs:
WBC 7.1 10^3/uL (4.8-10.8) 03/11/25 05:38
RBC 3.79 10^6/uL (4.70-6.10) L 03/11/25 05:38
Hgb 9.1 g/dL (13.0-18.0) L 03/11/25 05:38
Hct 28.6 % (39.0-52.0) L 03/11/25 05:38
Plt Count 227 10^3/uL (130-400) 03/11/25 05:38
Sodium 131 mmol/L (135-145) L 03/11/25 05:38
Potassium 3.6 mmol/L (3.5-5.1) 03/11/25 05:38
Chloride 96 mmol/L (98-107) L 03/11/25 05:38
Carbon Dioxide 28 mmol/L (22-30) 03/11/25 05:38
BUN 94 mg/dl (9-20) H 03/11/25 05:38
Creatinine 2.3 mg/dL (0.7-1.3) H 03/11/25 05:38
eGFR 29.25 03/11/25 05:38
Glucose 86 mg/dl (70-99) 03/11/25 05:38
Calcium 8.8 mg/dl (8.4-10.2) 03/11/25 05:38
Phosphorus 4.7 mg/dl (2.5-4.5) H 03/10/25 07:53
Bvr-Q-Lfghljcwhys Pept 2810 pg/ml 03/06/25 18:08
Albumin 4.1 g/dl (3.5-5.0) 03/07/25 02:22
Physical Exam
-
Vital Signs:
Vital Signs
Temp Pulse Resp BP Pulse Ox
97.8 F 72 16 121/63 97
03/11/25 07:30 03/11/25 07:30 03/11/25 07:30 03/11/25 07:30 03/11/25 07:30
Cardiovascular:: Regular rate and rhythm
Respiratory:: Bilateral: Coarse
Lung Excursion:: Normal
Abdomen:: Nontender and Soft
Bowel Sounds:: Normal
Extremity Edema:: +3: Bilateral:
--- NOTE | 2025-03-11 10:38 | VNURNOTE ---
Home health liaison met with patient to discuss [facility] services, visit scheduling/frequency, homebound status and pet policy. Patient agreeable to [facility] services and understands home visits will be 1-2 times a week to assess and teach medical
management. Patient aware a visiting nurse will contact him for start of care within 1 week after discharge from . [facility] Referral completed in care port
[2025-03-11] MEDS: HEPARIN 25000 UNITS/250 ML IV (11:41)
[2025-03-11 12:04] LABS: Glucose - Point of Care 155 mg/dl (70-99)
[2025-03-11] MEDS: NOVOLOG FLEXPEN-LOW RESISTANCE 1 UNITS SC (12:34)
--- NOTE | 2025-03-11 12:45 | W.PN.CD ---
Addendum entered and electronically signed by Manolo Ball MD 03/11/25 16:09:
I reviewed and agree with the note by KYLE and it accurately reflects our care.
I saw and evaluated the patient, and I provided the substantive portion of the medical decision making. My assessment and plan is below:
Patient has been advanced to clear liquid diet and is tolerating this. He is passing gas. No bowel movements yet. He denies shortness of breath or chest pain.
Physical exam: Irregular rhythm, regular rate, systolic murmur, chronic lower extremity edema, clear lungs
Labs notable for creatinine 2.3 from 2.5 yesterday
Heart failure with mildly reduced ejection fraction: Continue to hold diuresis while he is only on clear liquids. May need to resume in the next several days as diet advances. Continue beta-danielle. Other GDMT on hold due to MP.
Permanent atrial fibrillation: Continue heparin. Restart warfarin tonight. He and his will look into the pricing of dabigatran.
Original Note:
Today's Communication / Plan
-
Diet escalated from clear liquids to full liquid diet by surgery
Warfarin to start today, cleared by surgery. Continue heparin drip.
Impression / Plan
-
I/P: 74M with chronic HFpEF, bioprosthetic aortic valve replacement (TAVR 2011, then subsequent SAVR 2012), severe TV status-post failed TTVR (at [place] 1 month ago), RV dysfunction, permanent atrial fibrillation (on warfarin), CKD 3b, cirrhosis
(EtOH; still drinks 2-3 drinks every other day), type 2 diabetes mellitus, prior TIA, hypertension; admitted with abdominal pain. Subsequently underwent emergent ex-lap and appendectomy on 03/07. Cardiology consulted for troponin elevation.
Outpatient Hog Slaughterer: Dr Ball
Heart Failure: Dr. Morris
Structural Heart Disease: Dr. Lopez
Internal hernia
- Pain is stable after ex-lap, lysis of adhesions, appendectomy; clinically improving. NGT removed 03/08.
- Continue supportive care and management as per Surgery.
Heart failure with mildly reduced ejection fraction - NEW
- Suspect stress-induced cardiomyopathy due to intra-abdominal process
- TTE 03/08/2025: LVEF 40%, global hypokinesis, RV pressure/volume overload, dilated RV with decreased function, severe TR, PASP 38 mmHg, TAVR mean gradient 11 mmHg, mild AR
- GDMT:
- Beta Danielle: Continue metoprolol 12.5 mg daily
- KASSIE/ARB/ARNI: Home lisinopril on hold due to MP on CKD
- SGLT2i: Home Farxiga on hold
- MRA: Reassess outpatient
- Home torsemide on hold because he is n.p.o.
- Overall, I suspect his EF will improve after this acute process. We will reassess with outpatient echocardiogram in 3 months.
MP on CKD
- Suspect due to dehydration in the setting of being n.p.o. for several days s/p 1 L IV fluid slowly -- improved
- Avoid nephrotoxic agents
- Nephrology following
Permanent atrial fibrillation:
- On warfarin at home. Resumed today. INR was reversed pre-op.
- Remains rate-controlled; continue windows consultant.
- Continue home Toprol�XL
- Goal INR 2.0-3.0; bridge with heparin
- [id number]: score 6 (Heart failure, HTN, Diabetes Mellitus, prior Stroke/TIA, age 65-74)
Troponin elevation:
- Most likely acute nonischemic myocardial injury in the setting of underlying medical condition requiring surgery. No chest pain. No RWMA on echo
- Peak 0.098. Stopped trending.
Tricuspid regurgitation, severe
- Failed TTVR at [facility] 1 month ago.
- Continue to monitor volume status; holding diuretics for now.
Bioprosthetic AVR ()
- Initially TAVR then SAVR.
- Stable on echocardiogram this admission
PVCs:
- Asymptomatic; likely secondary to underlying medical condition.
EtOH cirrhosis:
- Patient apparently stopped drinking alcohol at one point in 2022, but currently drinks 2-3 drinks every other day (vodka tonic).
- Alcohol cessation recommended.
Hypertension:
- Blood pressure remains stable; continue to monitor.
Dyslipidemia:
- On atorvastatin at home.
NIDDM:
- Management as per primary team.
Prior TIA:
- Anticoagulation recommendations as above.
- On atorvastatin at home.
Subjective: Still on sips of clears. Abdominal pain improving. He denies shortness of breath, orthopnea, or worsening lower extremity edema. Does endorse dry mouth.
Physical Exam
Vital Signs/Labs
Vital Signs
Temp Pulse Resp BP Pulse Ox
97.8 F 71 16 138/78 99
03/11/25 11:10 03/11/25 11:10 03/11/25 11:10 03/11/25 11:10 03/11/25 11:10
03/10/25 03/11/25 03/12/25
06:59 06:59 06:59
Actual Weight 242 lb
03/11/25 05:38
03/11/25 05:38
PT 16.3 Sec (11.4-14.6) H 03/09/25 03:38
INR 1.28 03/09/25 03:38
APTT 40.9 Sec (23.4-35.0) H 03/11/25 05:38
Magnesium 2.6 mg/dl (1.6-2.3) H 03/10/25 07:53
03/06/25
18:08
Rap-R-Zghcwjtmdza Pept 2810
Physical Exam
Constitutional: No acute distress and Comfortable
EENT: Anicteric and Moist mucous membranes
Cardiovascular: Rhythm & rate is regular and S1S2 is normal
Respiratory: Respiratory effort normal and Lungs clear to auscul.
GI: Soft, Distention absent and Normal bowel sounds
Neuro/Psych: AO x 3
Other: Skin (Warm and dry)
Data Reviewed
-
Date of Service: March 11, 2025
Echo: Report Reviewed by me
Labs: Labs Reviewed by me
Old Records: Reviewed
[2025-03-11 13:13] LABS: APTT 96.4 Sec (23.4-35.0)
[2025-03-11] MEDS: FERRLECIT 110 MG IV (14:29)
[2025-03-11 17:32] LABS: Glucose - Point of Care 144 mg/dl (70-99)
[2025-03-11] MEDS: NOVOLOG FLEXPEN-LOW RESISTANCE SC (17:33)
[2025-03-11] MEDS: TOPROL XL 12.5 MG PO (17:34)
[2025-03-11 19:47] LABS: APTT 67.0 Sec (23.4-35.0)
[2025-03-11] MEDS: COUMADIN 10 MG PO (20:23)
[2025-03-11 21:43] LABS: Glucose - Point of Care 111 mg/dl (70-99)
[2025-03-11] MEDS: NSS (PRESERVATIVE FREE) 8 ML IV (23:27)
[2025-03-11] MEDS: MELATONIN 5 MG PO (23:27)
[2025-03-11] MEDS: PEPCID 20 MG IV (23:27)
[2025-03-12] MEDS: TYLENOL 650 MG PO ×3 (00:37→21:42)
[2025-03-12 03:05] VITALS: BP 119/53
[2025-03-12 03:28] LABS: APTT 90.8 Sec (23.4-35.0)
[2025-03-12 06:00] VITALS: BMI 35.3
[2025-03-12 07:00] VITALS: BP 114/60; BMI 35.5
[2025-03-12 07:30] LABS: Glucose - Point of Care 113 mg/dl (70-99)
[2025-03-12 07:42] LABS: INR 1.36; PT 16.9 Sec (11.4-14.6)
[2025-03-12 07:59] LABS: ALT (SGPT) 18 U/L (0-50); AST (SGOT) 28 U/L (17-59); Albumin 3.6 g/dl (3.5-5.0); Alkaline Phosphatase 148 U/L (38-126); Blood Urea Nitrogen 79 mg/dl (9-20); Calcium 8.4 mg/dl (8.4-10.2); Carbon Dioxide 28 mmol/L (22-30); Chloride 93 mmol/L (98-107); Estimated Creatinine Clearance 41 ml/min; Glucose 105 mg/dl (70-99); Magnesium 2.5 mg/dl (1.6-2.3); Potassium 3.5 mmol/L (3.5-5.1); Sodium 127 mmol/L (135-145); Total Protein 6.5 g/dl (6.3-8.2); eGFR 34.59
[2025-03-12] MEDS: HEPARIN 25000 UNITS/250 ML IV (08:22)
[2025-03-12] MEDS: NOVOLOG FLEXPEN-LOW RESISTANCE SC ×3 (08:27→17:31)
[2025-03-12] MEDS: VITAMIN B1 100 MG PO ×2 (08:28→21:43)
[2025-03-12] MEDS: PROTONIX IV 40 MG IV (08:28)
[2025-03-12] MEDS: FOLVITE 1 MG PO (08:28)
[2025-03-12] MEDS: NSS (PRESERVATIVE FREE) 10 ML IV (08:29)
[2025-03-12 10:19] LABS: APTT > 200 Sec (23.4-35.0)
--- NOTE | 2025-03-12 10:49 | W.PN.HOSP.TC ---
Today's Communication/Plan
-
Diabetic diet
Resume torsemide
IV heparin, warfarin
Oral potassium chloride
Labs in the morning
Assessment / Plan
Assessment / Plan
Gen-AAOx3, NAD
HEENT-NC, AT, anicteric, clear oral mm, NG tube
Neck-supple
CV-reg, no M, +S1/S2
Lungs-clear B/L
Abd-distended, nontender, surgical wound with mild serous drainage
Ext-bilateral lower extremity edema, nonpitting
Musculoskeletal-no cyanosis, clubbing
Skin-warm and dry
Neuro-grossly non-focal
Psych-calm, cooperative
MP on CKD 3a -creatinine improving, 2.0 today. Baseline appears to be 1.6. Urine output is good.
Did get IV contrast 03/[address] scan. Suspect component of contrast-induced nephropathy as well as prerenal azotemia.
Difficult to assess volume status as he grossly looks volume overloaded but elevated BUN to creatinine ratio suggestive of prerenal azotemia. Suspect he is third spacing.
His body weight is progressively rising over the past 72 hours.
FENa less than 1%.
Hills catheter removed 03/08.
Appreciate nephrology input.
Torsemide to resume today as per nephrology. Add potassium chloride.
Postoperative ileus -improved.
Lactic acidosis noted on admission, resolved.
Underwent exploratory laparotomy with lysis of peritoneal band, appendectomy, tap block 03/07. Small bowel adhesion and appendiceal lesion found. Peritoneal band found extending from the terminal ileum into the right inguinal hernia. No
concerning ischemia. Possible lesion within the appendix.
Patient states he is passing gas but no bowel movement so far. Minimizing opiates.
Diet advanced to solids today 03/12 by surgical service.
Hyponatremia -POA. Sodium dropped to 127. Suspect due to volume overloaded state. Monitor closely.
Hypokalemia -POA. Potassium 3.5 today. Monitor closely on diuretics.
Hyperphosphatemia - improved.
Chronic heart failure preserved EF -stable. On torsemide 100 mg twice daily at home, metolazone 5 mg daily as needed.
Last echocardiogram was July 2024, LVEF 68%, enlarged RV with reduced systolic function, septal flattening consistent with RV pressure/volume overload. Biatrial enlargement. Severe TR.
Patient states his lower extremity edema is stable, not worse than baseline.
Torsemide resumed today, 03/12 by nephrology.
Troponin elevation -asymptomatic. No reports of chest pain. Has stable chronic dyspnea on exertion. Suspect acute nonischemic myocardial injury due to acute illness.
Cardiology following.
Alcohol use disorder -no signs or symptoms of withdrawal. On alcohol withdrawal protocol but has not required any doses of lorazepam so far. Monitor closely. Abstinence recommended.
Patient still drinks 2-3 drinks of vodka and tonic daily. Last drink was Monday 03/05.
Permanent atrial fibrillation -on chronic warfarin, 10 mg 3 days/week, 5 mg 4 days/week. He believes he takes 10 mg on Friday, Friday, Friday.
INR lowered with Kcentra as well as 10 mg IV vitamin K administration night of admission.
Continue IV heparin, warfarin. Warfarin resumed 03/11.
INR 1.36 today.
Essential hypertension -stable.
DM 2 without hyperglycemia -hemoglobin A1c 6.5%. On Farxiga 10 mg daily at home.
Currently on moderate resistance NovoLog scale.
Glucoses for the most part controlled.
Aortic stenosis -s/p bioprosthetic AVR x 2.
GERD
Acute on chronic anemia/iron deficiency anemia -previous hemoglobins averaged 11-12, hemoglobin has been stable over the past few days since admission. Monitor for now. MCV noted to be 72.
Labs consistent with iron deficiency anemia. Will need outpatient endoscopic evaluation, GI follow-up.
Hemoglobin relatively stable at 9.1.
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
Hyperlipidemia
History of TIA
Obesity due to excess calories
Full code
Anticipated Discharge: > 48 hours
Subjective/Interval History
-
Date of Service: March 12, 2025
Patient seen and examined. Overall feels that he is improving. Passing gas but no bowel movement so far. Mild dyspnea on exertion.
Objective Data
-
Labs:
Laboratory Results
03/12/25 03/12/25 03/12/25
02:30 06:59 09:49
PT 16.9 H
INR 1.36
APTT 90.8 H > 200 H*
Sodium 127 L
Potassium 3.5
Chloride 93 L
Carbon Dioxide 28
BUN 79 H
Creatinine 2.0 H
Glucose 105 H
Calcium 8.4
Total Bilirubin 1.5 H
AST 28
ALT 18
Alkaline Phosphatase 148 H
Vital Signs:
Vital Signs
Temp Pulse Resp BP Pulse Ox
97.0 F 67 16 114/60 95
03/12/25 07:00 03/12/25 07:00 03/12/25 07:00 03/12/25 07:00 03/12/25 07:00
I&O
03/11/25 03/12/25 03/13/25
06:59 06:59 06:59
Intake Total 1249 / 1249 2672 / 2672
Output Total 1100 / 1100 625 / 625 600 / 600
Balance 149 / 149 2047 / 2047 -600 / -600
Review of Systems
-
History Source: Patient
All other systems: Reviewed and negative
[2025-03-12 10:56] LABS: Glucose - Point of Care 116 mg/dl (70-99)
[2025-03-12 11:00] VITALS: BP 123/59
--- NOTE | 2025-03-12 11:17 | W.PN.GS2 ---
Addendum entered and electronically signed by Silvio Bernstein MD 03/12/25 12:32:
I saw and examined the patient.
The Automotive Glazier's note was reviewed and I agree with the note.
Comment: Improving, denies n/v, herbert liq diet, passing flatus, belly protuberant, incision cdi with scant serous drainage, approp ttp, adv to reg diet, cont hep bridge to coumadin
Original Note:
Today's Communication / Plan
-
Advance diet
Daily dressing changes
Assessment / Plan
-
74-year-old male with PMH of A-fib (on Coumadin), RV dysfunction, severe tricuspid regurg (s/p attempt at endovascular repair at [place] 1 month ago, but unsuccessful), CKD stage III, liver cirrhosis (Gamaliel class B), DM, aortic stenosis s/p TAVR 2011,
s/p open bioprosthetic AVR 2012, HTN, HLD who presented for severe abdominal pain with CT scan was done showing concern for internal hernia of the cecum and terminal ileum.
POD #5 exlap, lysis of peritoneal band, appendectomy, TAP block
AFVSS
Cr trending back down, hyponatremia present
h/h stable on heparin gtt as bridge to warfarin
Plan:
Advance to regular diet
Analgesics prn
Local wound care
Path pending from OR
Cards/Nephrology following for management of comorbid conditions. GI evaluated earlier this admission.
Analgesics PRN
Heparin gtt as bridge to therapeutic INR on warfarin
Subjective Data
-
Date of Service: March 12, 2025
Pt seen and examined at bedside with Dr. Bernstein. Denies n/v. Tolerating diet and passing flatus. Minimal discomfort.
Objective Data
-
Intake and Output
03/11/25 03/12/25 03/13/25
06:59 06:59 06:59
Intake Total 1249 / 1249 2672 / 2672
Output Total 1100 / 1100 625 / 625 600 / 600
Balance 149 / 149 2047 / 2047 -600 / -600
Intake:
Oral fluids 995 / 995 2418 / 2418
IV fluids (Total) 254 / 254 254 / 254
Output:
Urine, Voided 1100 / 1100 625 / 625 600 / 600
Other:
Number of approximated MODERATE 2 2
amounts of urine
Vital Signs
Temp Pulse Resp BP Pulse Ox
97.0 F 67 16 114/60 95
03/12/25 07:00 03/12/25 07:00 03/12/25 07:00 03/12/25 07:00 03/12/25 07:00
Lab Results
03/11/25 05:38
03/12/25 06:59
Calcium 8.4 mg/dl (8.4-10.2) 03/12/25 06:59
Phosphorus 3.9 mg/dl (2.5-4.5) 03/12/25 06:59
Magnesium 2.5 mg/dl (1.6-2.3) H 03/12/25 06:59
Total Bilirubin 1.5 mg/dl (0.2-1.3) H 03/12/25 06:59
AST 28 U/L (17-59) 03/12/25 06:59
ALT 18 U/L (0-50) 03/12/25 06:59
Alkaline Phosphatase 148 U/L (38-126) H 03/12/25 06:59
Total Protein 6.5 g/dl (6.3-8.2) 03/12/25 06:59
Albumin 3.6 g/dl (3.5-5.0) 03/12/25 06:59
Physical Exam
-
NAD
ABD soft, mild distention, expected incisional tenderness
Midline incision with intact ramiro, some ascitic fluid on gauze dressing
Patient has a tian catheter: No
--- NOTE | 2025-03-12 11:18 | W.PN.NEPH.PH ---
Today's Communication / Plan
-
restart torsemide
Assessment/Plan
-
Assessment
MP
Tricuspid regurgitation severe
Heart failure reduced ejection fraction
Status post appendectomy, lysis of adhesions
Right inguinal hernia
Paroxysmal atrial fibrillation
Iron deficiency anemia
Edema
Plan
MP likely due to contrast nephropathy
restart torsemide at this time
Follow BMP
not retaining urine
IV iron course
-
-
Date of Service: March 12, 2025
CC / HPI / ROS
-
Chief Complaint:
MP
History of Present Illness:
MP/Cr down to 2
Na down to 127
BP stable
UOP good without diuretics
weights up
on IV iron
Review of Systems:
no CP/SOB
Labs
-
Labs:
WBC 7.1 10^3/uL (4.8-10.8) 03/11/25 05:38
RBC 3.79 10^6/uL (4.70-6.10) L 03/11/25 05:38
Hgb 9.1 g/dL (13.0-18.0) L 03/11/25 05:38
Hct 28.6 % (39.0-52.0) L 03/11/25 05:38
Plt Count 227 10^3/uL (130-400) 03/11/25 05:38
Sodium 127 mmol/L (135-145) L 03/12/25 06:59
Potassium 3.5 mmol/L (3.5-5.1) 03/12/25 06:59
Chloride 93 mmol/L (98-107) L 03/12/25 06:59
Carbon Dioxide 28 mmol/L (22-30) 03/12/25 06:59
BUN 79 mg/dl (9-20) H 03/12/25 06:59
Creatinine 2.0 mg/dL (0.7-1.3) H 03/12/25 06:59
eGFR 34.59 03/12/25 06:59
Glucose 105 mg/dl (70-99) H 03/12/25 06:59
Calcium 8.4 mg/dl (8.4-10.2) 03/12/25 06:59
Phosphorus 3.9 mg/dl (2.5-4.5) 03/12/25 06:59
Pix-A-Bvasqddvatu Pept 2810 pg/ml 03/06/25 18:08
Albumin 3.6 g/dl (3.5-5.0) 03/12/25 06:59
Physical Exam
-
Vital Signs:
Vital Signs
Temp Pulse Resp BP Pulse Ox
97.0 F 67 16 114/60 95
03/12/25 07:00 03/12/25 07:00 03/12/25 07:00 03/12/25 07:00 03/12/25 07:00
Cardiovascular:: Regular rate and rhythm
Respiratory:: Bilateral: Coarse
Lung Excursion:: Normal
Abdomen:: Nontender and Soft
Bowel Sounds:: Normal
Extremity Edema:: +3: Bilateral:
[2025-03-12] MEDS: KCL 20 MEQ PO (11:25)
[2025-03-12] MEDS: DEMADEX 100 MG PO ×2 (11:25→16:03)
--- NOTE | 2025-03-12 11:51 | CM ---
Chart reviewed; PT recommended Home Health; Anticipated Discharge: > 48 hours
Plan: [facility] when medically stable
--- NOTE | 2025-03-12 12:18 | W.PN.CD ---
Today's Communication / Plan
-
agree with resuming home torsemide
Impression / Plan
-
I/P: 74M with chronic HFpEF, bioprosthetic aortic valve replacement (TAVR 2011, then subsequent SAVR 2012), severe TV status-post failed TTVR (at [place] 1 month ago), RV dysfunction, permanent atrial fibrillation (on warfarin), CKD 3b, cirrhosis
(EtOH; still drinks 2-3 drinks every other day), type 2 diabetes mellitus, prior TIA, hypertension; admitted with abdominal pain. Subsequently underwent emergent ex-lap and appendectomy on 03/07. Cardiology consulted for troponin elevation.
Outpatient Hydrostatic Tubing Tester: Dr Ball
Heart Failure: Dr. Morris
Structural Heart Disease: Dr. Lopez
Internal hernia
- Pain is stable after ex-lap, lysis of adhesions, appendectomy; clinically improving. NGT removed 03/08.
- Continue supportive care and management as per Surgery.
Heart failure with mildly reduced ejection fraction - NEW
- Suspect stress-induced cardiomyopathy due to intra-abdominal process
- TTE 03/08/2025: LVEF 40%, global hypokinesis, RV pressure/volume overload, dilated RV with decreased function, severe TR, PASP 38 mmHg, TAVR mean gradient 11 mmHg, mild AR
- GDMT:
- Beta Danielle: Continue metoprolol 12.5 mg daily
- KASSIE/ARB/ARNI: Home lisinopril on hold due to MP on CKD
- SGLT2i: Home Farxiga on hold
- MRA: Reassess outpatient
- Resuming torsemide today
- Overall, I suspect his EF will improve after this acute process. We will reassess with outpatient echocardiogram in 3 months.
MP on CKD
- Cr 2.0
- resume torsemide
- nephro following
Permanent atrial fibrillation:
- On warfarin at home. Resumed today. INR was reversed pre-op.
- Remains rate-controlled; continue assistant executive housekeeper.
- Continue home Toprol�XL
- Goal INR 2.0-3.0; bridge with heparin
- [id number]: score 6 (Heart failure, HTN, Diabetes Mellitus, prior Stroke/TIA, age 65-74)
Troponin elevation:
- Most likely acute nonischemic myocardial injury in the setting of underlying medical condition requiring surgery. No chest pain. No RWMA on echo
- Peak 0.098. Stopped trending.
Tricuspid regurgitation, severe
- Failed TTVR at [facility] 1 month ago.
- Continue to monitor volume status; holding diuretics for now.
Bioprosthetic AVR ()
- Initially TAVR then SAVR.
- Stable on echocardiogram this admission
PVCs:
- Asymptomatic; likely secondary to underlying medical condition.
EtOH cirrhosis:
- Patient apparently stopped drinking alcohol at one point in 2022, but currently drinks 2-3 drinks every other day (vodka tonic).
- Alcohol cessation recommended.
Hypertension:
- Blood pressure remains stable; continue to monitor.
Dyslipidemia:
- On atorvastatin at home.
NIDDM:
- Management as per primary team.
Prior TIA:
- Anticoagulation recommendations as above.
- On atorvastatin at home.
Subjective: diet improving
Physical Exam
Vital Signs/Labs
Vital Signs
Temp Pulse Resp BP Pulse Ox
97.0 F 62 16 123/59 99
03/12/25 11:00 03/12/25 11:25 03/12/25 11:00 03/12/25 11:25 03/12/25 11:00
03/11/25 03/12/25 03/13/25
06:59 06:59 06:59
Actual Weight 246 lb
03/11/25 05:38
03/12/25 06:59
PT 16.9 Sec (11.4-14.6) H 03/12/25 06:59
INR 1.36 03/12/25 06:59
APTT > 200 Sec (23.4-35.0) H* 03/12/25 09:49
Magnesium 2.5 mg/dl (1.6-2.3) H 03/12/25 06:59
03/06/25
18:08
Bha-J-Qtbwlumzolr Pept 2810
Physical Exam
Constitutional: No acute distress and Comfortable
EENT: Anicteric
Data Reviewed
-
Date of Service: March 12, 2025
EKG: Tracing Personally Visualized and interpreted (af)
Echo: Report Reviewed by me
Labs: Labs Reviewed by me
[2025-03-12] MEDS: FERRLECIT 110 MG IV (14:40)
[2025-03-12 15:00] VITALS: BP 114/61
[2025-03-12 17:08] LABS: Glucose - Point of Care 132 mg/dl (70-99)
[2025-03-12] MEDS: TOPROL XL 12.5 MG PO (18:03)
[2025-03-12] MEDS: COUMADIN 10 MG PO (18:03)
[2025-03-12 19:00] VITALS: BP 124/65
[2025-03-12 19:32] LABS: APTT 107.1 Sec (23.4-35.0)
[2025-03-12 21:38] LABS: Glucose - Point of Care 177 mg/dl (70-99)
[2025-03-12] MEDS: NSS (PRESERVATIVE FREE) 8 ML IV (21:41)
[2025-03-12] MEDS: PEPCID 20 MG IV (21:42)
[2025-03-12] MEDS: MELATONIN 5 MG PO (21:43)
[2025-03-12 23:20] VITALS: BP 118/57
[2025-03-13] MEDS: TYLENOL 650 MG PO ×2 (02:03→08:31)
[2025-03-13 02:36] LABS: APTT 151 Sec (23.4-35.0)
[2025-03-13 03:09] VITALS: BP 127/65
[2025-03-13 06:00] VITALS: BMI 35.1
[2025-03-13 07:00] VITALS: BP 118/59
[2025-03-13 07:28] LABS: Glucose - Point of Care 132 mg/dl (70-99)
[2025-03-13] MEDS: KCL 20 MEQ PO (07:48)
[2025-03-13] MEDS: DEMADEX 100 MG PO ×2 (07:49→16:06)
[2025-03-13] MEDS: FOLVITE 1 MG PO (07:50)
[2025-03-13] MEDS: VITAMIN B1 100 MG PO ×2 (07:50→20:07)
[2025-03-13] MEDS: NSS (PRESERVATIVE FREE) 10 ML IV (07:51)
[2025-03-13] MEDS: NOVOLOG FLEXPEN-LOW RESISTANCE SC ×3 (07:51→16:12)
[2025-03-13] MEDS: PROTONIX IV 40 MG IV (07:51)
[2025-03-13 08:56] LABS: Hematocrit 29.4 % (39.0-52.0); Hemoglobin 9.2 g/dL (13.0-18.0); Mean Corp Hgb Conc. 31.3 g/dL (33.0-37.0); Mean Corpuscular Volume 76.2 fL (80.0-94.0); Platelet Count 240 10^3/uL (130-400); Red Cell Dist. Width 24.3 % (11.5-14.5)
[2025-03-13 09:07] LABS: INR 1.48; PT 18.1 Sec (11.4-14.6)
[2025-03-13 09:08] LABS: APTT 67.1 Sec (23.4-35.0)
[2025-03-13 09:13] LABS: ALT (SGPT) 20 U/L (0-50); AST (SGOT) 29 U/L (17-59); Albumin 3.9 g/dl (3.5-5.0); Alkaline Phosphatase 162 U/L (38-126); Blood Urea Nitrogen 66 mg/dl (9-20); Calcium 8.5 mg/dl (8.4-10.2); Carbon Dioxide 30 mmol/L (22-30); Chloride 91 mmol/L (98-107); Estimated Creatinine Clearance 46 ml/min; Glucose 152 mg/dl (70-99); Magnesium 2.0 mg/dl (1.6-2.3); Potassium 3.8 mmol/L (3.5-5.1); Sodium 128 mmol/L (135-145); Total Protein 7.1 g/dl (6.3-8.2); eGFR 39.25
--- NOTE | 2025-03-13 09:37 | W.PN.GS2 ---
Addendum entered and electronically signed by Silvio Bernstein MD 03/13/25 13:27:
I saw and examined the patient.
The Chaser Apprentice's note was reviewed and I agree with the note.
Comment: Karrie diet, only complaint is leg swelling, incision cdi with some serous drainage on dressing. Adv to reg diet. Cont hep bridge to cuomadin
Original Note:
Today's Communication / Plan
-
C/w diet and wound care
Assessment / Plan
-
74-year-old male with PMH of A-fib (on Coumadin), RV dysfunction, severe tricuspid regurg (s/p attempt at endovascular repair at [place] 1 month ago, but unsuccessful), CKD stage III, liver cirrhosis (Gamaliel class B), DM, aortic stenosis s/p TAVR 2011,
s/p open bioprosthetic AVR 2012, HTN, HLD who presented for severe abdominal pain with CT scan was done showing concern for internal hernia of the cecum and terminal ileum.
POD #6 exlap, lysis of peritoneal band, appendectomy, TAP block
AFVSS
Cr trending back down, hyponatremia present with stable elevation in bilirubin
Ascitic fluid noted at incision
h/h stable on heparin gtt as bridge to warfarin
Plan:
Advance to regular diet
Analgesics prn
Local wound care
Path pending from OR
Cards/Nephrology following for management of comorbid conditions. GI evaluated earlier this admission.
Analgesics PRN
Heparin gtt as bridge to therapeutic INR on warfarin
Doing well from surgical standpoint, awaiting medical optimization/therapeutic INR prior to d/c
Subjective Data
-
Date of Service: March 13, 2025
Pt seen and examined at bedside. Denies n/v. Tolerating diet. Passing bm's this morning, soft and formed. Denies much discomfort. Ambulating in hallways. Notes scrotal edema.
Objective Data
-
Intake and Output
03/12/25 03/13/25 03/14/25
06:59 06:59 06:59
Intake Total 2672 / 2672 1790 / 1790
Output Total 625 / 625 2840 / 2840
Balance 2047 / 2047 -1050 / -1050
Intake:
Oral fluids 2418 / 2418 1680 / 1680
IV fluids (Total) 254 / 254
IV piggybacks 110 / 110
Output:
Urine, Voided 625 / 625 2840 / 2840
Other:
Number of approximated MODERATE 2
amounts of urine
Vital Signs
Temp Pulse Resp BP Pulse Ox
97.0 F 73 20 118/59 99
03/13/25 07:00 03/13/25 07:49 03/13/25 07:00 03/13/25 07:49 03/13/25 07:00
Lab Results
03/13/25 08:43
03/13/25 08:43
Calcium 8.5 mg/dl (8.4-10.2) 03/13/25 08:43
Phosphorus 3.3 mg/dl (2.5-4.5) 03/13/25 08:43
Magnesium 2.0 mg/dl (1.6-2.3) 03/13/25 08:43
Total Bilirubin 1.4 mg/dl (0.2-1.3) H 03/13/25 08:43
AST 29 U/L (17-59) 03/13/25 08:43
ALT 20 U/L (0-50) 03/13/25 08:43
Alkaline Phosphatase 162 U/L (38-126) H 03/13/25 08:43
Total Protein 7.1 g/dl (6.3-8.2) 03/13/25 08:43
Albumin 3.9 g/dl (3.5-5.0) 03/13/25 08:43
Physical Exam
-
NAD
ABD soft, ND, NT
Midline incision with intact ramiro, some ascitic fluid draining onto gauze dressing
Patient has a tian catheter: No
[2025-03-13] MEDS: HEPARIN 25000 UNITS/250 ML IV (09:43)
--- NOTE | 2025-03-13 10:21 | W.PN.NEPH.PH ---
Today's Communication / Plan
-
diurese
Assessment/Plan
-
Assessment
MP
Tricuspid regurgitation severe
Heart failure reduced ejection fraction
Status post appendectomy, lysis of adhesions
Right inguinal hernia
Paroxysmal atrial fibrillation
Iron deficiency anemia
Edema
Plan
MP likely due to contrast nephropathy
continue torsemide at this time
will need routine metolazone to slowing remove edema
Follow BMP
IV iron course
-
-
Date of Service: March 13, 2025
CC / HPI / ROS
-
Chief Complaint:
MP
History of Present Illness:
MP/Cr down to 1.8
Na low stable 128
BP stable
UOP good without diuretics
on IV iron
Review of Systems:
no CP/SOB
right scrotal swelling
Labs
-
Labs:
WBC 7.8 10^3/uL (4.8-10.8) 03/13/25 08:43
RBC 3.86 10^6/uL (4.70-6.10) L 03/13/25 08:43
Hgb 9.2 g/dL (13.0-18.0) L 03/13/25 08:43
Hct 29.4 % (39.0-52.0) L 03/13/25 08:43
Plt Count 240 10^3/uL (130-400) 03/13/25 08:43
Sodium 128 mmol/L (135-145) L 03/13/25 08:43
Potassium 3.8 mmol/L (3.5-5.1) 03/13/25 08:43
Chloride 91 mmol/L (98-107) L 03/13/25 08:43
Carbon Dioxide 30 mmol/L (22-30) 03/13/25 08:43
BUN 66 mg/dl (9-20) H 03/13/25 08:43
Creatinine 1.8 mg/dL (0.7-1.3) H 03/13/25 08:43
eGFR 39.25 03/13/25 08:43
Glucose 152 mg/dl (70-99) H 03/13/25 08:43
Calcium 8.5 mg/dl (8.4-10.2) 03/13/25 08:43
Phosphorus 3.3 mg/dl (2.5-4.5) 03/13/25 08:43
Vih-S-Wweraatjbxg Pept 2810 pg/ml 03/06/25 18:08
Albumin 3.9 g/dl (3.5-5.0) 03/13/25 08:43
Physical Exam
-
Vital Signs:
Vital Signs
Temp Pulse Resp BP Pulse Ox
97.0 F 73 20 118/59 99
03/13/25 07:00 03/13/25 07:49 03/13/25 07:00 03/13/25 07:49 03/13/25 07:00
Cardiovascular:: Regular rate and rhythm
Respiratory:: Bilateral: Coarse
Lung Excursion:: Normal
Abdomen:: Nontender and Soft
Bowel Sounds:: Normal
Extremity Edema:: +3: Bilateral:
--- NOTE | 2025-03-13 10:36 | W.PN.HOSP.TC ---
Today's Communication/Plan
-
Continue anticoagulation
Continue diuretics
Monitor labs
Assessment / Plan
Assessment / Plan
Gen-AAOx3, NAD, obese
HEENT-NC, AT, anicteric, clear oral mm
Neck-supple
CV-reg, no M, +S1/S2
Lungs-clear B/L
Abd-distended, nontender, surgical wound with mild serous drainage
Ext-bilateral lower extremity edema
Musculoskeletal-no cyanosis, clubbing
Skin-warm and dry
Neuro-grossly non-focal
Psych-calm, cooperative
MP on CKD 3a -creatinine improving, 1.8 today. Baseline appears to be 1.6. Urine output is good.
Did get IV contrast 03/[address] scan. Suspect component of contrast-induced nephropathy as well as prerenal azotemia.
His body weight is progressively rising over the past 72 hours.
FENa less than 1%.
Hills catheter removed 03/08.
Appreciate nephrology input.
Continue diuretics per nephrology.
Postoperative ileus -resolved. Tolerating solid food.
Lactic acidosis noted on admission, resolved.
Underwent exploratory laparotomy with lysis of peritoneal band, appendectomy, tap block 03/07. Small bowel adhesion and appendiceal lesion found. Peritoneal band found extending from the terminal ileum into the right inguinal hernia. No
concerning ischemia. Possible lesion within the appendix.
Bowels are now moving.
Hyponatremia -POA. Sodium stable at 128. Suspect due to volume overloaded state. Monitor closely.
Hypokalemia -POA. Potassium 3.8 today. Monitor closely on diuretics.
Hyperphosphatemia - improved.
Chronic heart failure preserved EF -stable. On torsemide 100 mg twice daily at home, metolazone 5 mg daily as needed.
Last echocardiogram was July 2024, LVEF 68%, enlarged RV with reduced systolic function, septal flattening consistent with RV pressure/volume overload. Biatrial enlargement. Severe TR.
Patient states his lower extremity edema is stable, not worse than baseline.
Continue torsemide.
Troponin elevation -asymptomatic. No reports of chest pain. Has stable chronic dyspnea on exertion. Suspect acute nonischemic myocardial injury due to acute illness.
Cardiology following.
Alcohol use disorder -no signs or symptoms of withdrawal. On alcohol withdrawal protocol but has not required any doses of lorazepam so far. Monitor closely. Abstinence recommended.
Patient still drinks 2-3 drinks of vodka and tonic daily. Last drink was Monday 03/05.
Permanent atrial fibrillation -on chronic warfarin, 10 mg 3 days/week, 5 mg 4 days/week. He believes he takes 10 mg on Friday, Friday, Friday.
INR lowered with Kcentra as well as 10 mg IV vitamin K administration night of admission.
Continue IV heparin, warfarin. Warfarin resumed 03/11.
INR 1.48 today.
Essential hypertension -stable.
DM 2 without hyperglycemia -hemoglobin A1c 6.5%. On Farxiga 10 mg daily at home.
Currently on moderate resistance NovoLog scale.
Glucoses for the most part controlled.
Aortic stenosis -s/p bioprosthetic AVR x 2.
GERD
Acute on chronic anemia/iron deficiency anemia -previous hemoglobins averaged 11-12, hemoglobin has been stable over the past few days since admission. Monitor for now. MCV noted to be 72.
Labs consistent with iron deficiency anemia. Will need outpatient endoscopic evaluation, GI follow-up.
Hemoglobin relatively stable at 9.2.
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
Hyperlipidemia
History of TIA
Obesity due to excess calories
Full code
Dispo -anticipate discharge once INR therapeutic, volume status improved.
Anticipated Discharge: 24 - 48 hours
Subjective/Interval History
-
Date of Service: March 13, 2025
Patient seen and examined. No new complaints.
Objective Data
-
Labs:
Laboratory Results
03/13/25 03/13/25 03/13/25
02:08 08:43 08:44
WBC 7.8
Hgb 9.2 L
Hct 29.4 L
Plt Count 240
PT 18.1 H
INR 1.48
APTT 151 H* 67.1 H
Sodium 128 L
Potassium 3.8
Chloride 91 L
Carbon Dioxide 30
BUN 66 H
Creatinine 1.8 H
Glucose 152 H
Calcium 8.5
Total Bilirubin 1.4 H
AST 29
ALT 20
Alkaline Phosphatase 162 H
03/13/25
15:50
WBC
Hgb
Hct
Plt Count
PT
INR
APTT Pending
Sodium
Potassium
Chloride
Carbon Dioxide
BUN
Creatinine
Glucose
Calcium
Total Bilirubin
AST
ALT
Alkaline Phosphatase
Vital Signs:
Vital Signs
Temp Pulse Resp BP Pulse Ox
97.0 F 73 20 118/59 99
03/13/25 07:00 03/13/25 07:49 03/13/25 07:00 03/13/25 07:49 03/13/25 07:00
I&O
03/12/25 03/13/25 03/14/25
06:59 06:59 06:59
Intake Total 2672 / 2672 1790 / 1790
Output Total 625 / 625 2840 / 2840
Balance 2047 / 2047 -1050 / -1050
Review of Systems
-
History Source: Patient
All other systems: Reviewed and negative
[2025-03-13 11:42] LABS: Glucose - Point of Care 119 mg/dl (70-99)
[2025-03-13] MEDS: FERRLECIT 110 MG IV (13:14)
--- NOTE | 2025-03-13 13:47 | W.PN.CD ---
Today's Communication / Plan
-
Agree with torsemide
Impression / Plan
-
I/P: 74M with chronic HFpEF, bioprosthetic aortic valve replacement (TAVR 2011, then subsequent SAVR 2012), severe TV status-post failed TTVR (at [place] 1 month ago), RV dysfunction, permanent atrial fibrillation (on warfarin), CKD 3b, cirrhosis
(EtOH; still drinks 2-3 drinks every other day), type 2 diabetes mellitus, prior TIA, hypertension; admitted with abdominal pain. Subsequently underwent emergent ex-lap and appendectomy on 03/07. Cardiology consulted for troponin elevation.
Outpatient Costume Draper: Dr Ball
Heart Failure: Dr. Morris
Structural Heart Disease: Dr. Lopez
Internal hernia
- Pain is stable after ex-lap, lysis of adhesions, appendectomy; clinically improving. NGT removed 03/08.
- Continue supportive care and management as per Surgery.
Heart failure with mildly reduced ejection fraction - NEW
- Suspect stress-induced cardiomyopathy due to intra-abdominal process
- TTE 03/08/2025: LVEF 40%, global hypokinesis, RV pressure/volume overload, dilated RV with decreased function, severe TR, PASP 38 mmHg, TAVR mean gradient 11 mmHg, mild AR
- GDMT:
- Beta Danielle: Continue metoprolol 12.5 mg daily
- KASSIE/ARB/ARNI: Home lisinopril on hold due to MP on CKD
- SGLT2i: Home Farxiga on hold
- MRA: Reassess outpatient
- Resuming torsemide today
- Overall, I suspect his EF will improve after this acute process. We will reassess with outpatient echocardiogram in 3 months.
MP on CKD
- Cr 2.0
- resume torsemide
- nephro following
Permanent atrial fibrillation:
- On warfarin at home. Resumed today. INR was reversed pre-op.
- Remains rate-controlled; continue court monitor.
- Continue home Toprol�XL
- Goal INR 2.0-3.0; bridge with heparin
- [id number]: score 6 (Heart failure, HTN, Diabetes Mellitus, prior Stroke/TIA, age 65-74)
Troponin elevation:
- Most likely acute nonischemic myocardial injury in the setting of underlying medical condition requiring surgery. No chest pain. No RWMA on echo
- Peak 0.098. Stopped trending.
Tricuspid regurgitation, severe
- Failed TTVR at [facility] 1 month ago.
- Continue to monitor volume status; holding diuretics for now.
Bioprosthetic AVR ()
- Initially TAVR then SAVR.
- Stable on echocardiogram this admission
PVCs:
- Asymptomatic; likely secondary to underlying medical condition.
EtOH cirrhosis:
- Patient apparently stopped drinking alcohol at one point in 2022, but currently drinks 2-3 drinks every other day (vodka tonic).
- Alcohol cessation recommended.
Hypertension:
- Blood pressure remains stable; continue to monitor.
Dyslipidemia:
- On atorvastatin at home.
NIDDM:
- Management as per primary team.
Prior TIA:
- Anticoagulation recommendations as above.
- On atorvastatin at home.
Subjective: Feeling better
Physical Exam
Vital Signs/Labs
Vital Signs
Temp Pulse Resp BP Pulse Ox
97.0 F 73 20 118/59 99
03/13/25 07:00 03/13/25 07:49 03/13/25 07:00 03/13/25 07:49 03/13/25 07:00
03/12/25 03/13/25 03/14/25
06:59 06:59 06:59
Actual Weight 246 lb 244 lb 14.4 oz
03/13/25 08:43
03/13/25 08:43
PT 18.1 Sec (11.4-14.6) H 03/13/25 08:44
INR 1.48 03/13/25 08:44
APTT 67.1 Sec (23.4-35.0) H 03/13/25 08:44
Magnesium 2.0 mg/dl (1.6-2.3) 03/13/25 08:43
03/06/25
18:08
Ept-I-Usrstdncnmu Pept 2810
Physical Exam
Constitutional: No acute distress and Comfortable
EENT: Anicteric
Cardiovascular: Rhythm/rate is irregular and Pedal edema present
Respiratory: Respiratory effort normal and Lungs clear to auscul.
GI: Soft
Neuro/Psych: AO x 3
Data Reviewed
-
Date of Service: March 13, 2025
EKG: Tracing Personally Visualized and interpreted (Likely A-fib)
Echo: Report Reviewed by me
Labs: Labs Reviewed by me
[2025-03-13 14:59] VITALS: BP 114/54
[2025-03-13 16:12] LABS: Glucose - Point of Care 136 mg/dl (70-99)
[2025-03-13] MEDS: TOPROL XL 12.5 MG PO (17:22)
[2025-03-13 17:32] LABS: APTT 65.8 Sec (23.4-35.0)
[2025-03-13] MEDS: COUMADIN 10 MG PO (20:07)
[2025-03-13 22:13] LABS: Glucose - Point of Care 162 mg/dl (70-99)
[2025-03-13] MEDS: PEPCID 20 MG IV (22:14)
[2025-03-13] MEDS: NSS (PRESERVATIVE FREE) 8 ML IV (22:14)
[2025-03-13] MEDS: MELATONIN 5 MG PO (22:14)
[2025-03-13 23:15] VITALS: BP 115/57
[2025-03-13 23:49] LABS: APTT 67.4 Sec (23.4-35.0)
[2025-03-14] MEDS: TYLENOL 650 MG PO (02:37)
[2025-03-14 06:00] VITALS: BMI 34.6
[2025-03-14 06:25] LABS: INR 1.50; PT 18.3 Sec (11.4-14.6)
[2025-03-14 06:27] LABS: APTT 87.6 Sec (23.4-35.0)
[2025-03-14 07:05] LABS: ALT (SGPT) 21 U/L (0-50); AST (SGOT) 29 U/L (17-59); Albumin 4.0 g/dl (3.5-5.0); Alkaline Phosphatase 181 U/L (38-126); Blood Urea Nitrogen 57 mg/dl (9-20); Calcium 8.4 mg/dl (8.4-10.2); Carbon Dioxide 30 mmol/L (22-30); Chloride 92 mmol/L (98-107); Estimated Creatinine Clearance 54 ml/min; Glucose 131 mg/dl (70-99); Magnesium 1.7 mg/dl (1.6-2.3); Potassium 3.6 mmol/L (3.5-5.1); Sodium 129 mmol/L (135-145); Total Protein 7.0 g/dl (6.3-8.2); eGFR 48.85
[2025-03-14 07:45] VITALS: BP 142/66
[2025-03-14 07:51] LABS: Glucose - Point of Care 125 mg/dl (70-99)
[2025-03-14] MEDS: NOVOLOG FLEXPEN-LOW RESISTANCE SC ×2 (08:44→11:57)
[2025-03-14] MEDS: DEMADEX 100 MG PO (08:44)
[2025-03-14] MEDS: VITAMIN B1 100 MG PO (08:47)
[2025-03-14] MEDS: FOLVITE 1 MG PO (08:47)
[2025-03-14] MEDS: PROTONIX 40 MG PO (08:47)
[2025-03-14] MEDS: KCL 20 MEQ PO (08:47)
--- NOTE | 2025-03-14 09:42 | W.PN.CRS1 ---
Today's Communication / Plan
-
doing well surgically
heparin gtt to cmd
Assessment/Plan
-
74-year-old male with PMH of A-fib (on Coumadin), RV dysfunction, severe tricuspid regurg (s/p attempt at endovascular repair at [place] 1 month ago, but unsuccessful), CKD stage III, liver cirrhosis (Gamaliel class B), DM, aortic stenosis s/p TAVR 2011,
s/p open bioprosthetic AVR 2012, HTN, HLD who presented for severe abdominal pain with CT scan was done showing concern for internal hernia of the cecum and terminal ileum.
POD #7 exlap, lysis of peritoneal band, appendectomy, TAP block
AFVSS
Creatinine: 1.5 (1.8, 2.0)
Hgb: 9.2 (9.1, 9.8)
heparin gtt as bridge to warfarin
Plan:
-Continue regular diet
-Analgesics prn
-Local wound care - incision with ramiro in place
-Path from OR resulted: appendix with diverticulum and fecal material
-Cards/Nephrology following for management of comorbid conditions. GI evaluated earlier this admission.
-Analgesics PRN
-Heparin gtt as bridge to therapeutic INR on warfarin
-[facility] Awaiting medical optimization/therapeutic INR prior to d/c
Subjective Data
Procedure
03/07/2025- Exlap, lysis of peritoneal band, appendectomy, TAP block
Subjective Data
Date of Service: March 14, 2025
Patient states he feels well. His pain is controlled. Denies nausea or vomiting. Tolerating a diet. Has bowel movements (non-bloody) and flatus.
Objective Data
-
Vital Signs
Temp Pulse Resp BP Pulse Ox
97.9 F 62 16 142/66 98
03/14/25 07:45 03/14/25 08:44 03/14/25 07:45 03/14/25 08:44 03/14/25 07:45
Intake & Output
03/13/25 03/14/25 03/15/25
06:59 06:59 06:59
Intake Total 1790 / 1790 860 / 860
Output Total 2840 / 2840 440 / 440
Balance -1050 / -1050 420 / 420
Intake:
Oral fluids 1680 / 1680 720 / 720
IV fluids (Total) 140 / 140
IV piggybacks 110 / 110
Output:
Urine, Voided 2840 / 2840 440 / 440
Other:
Number of approximated MODERATE 4
amounts of urine
Lab Results
03/13/25 08:43
03/14/25 06:05
Physical Exam
-
General: No Acute Distress and AOx3
Abdomen: Soft, Non Distended and Non Tender
Skin: Warm and Dry
Wound: Dressing in Place
Incision: Clear, Dry, Intact
--- NOTE | 2025-03-14 10:02 | W.PN.CD ---
Addendum entered and electronically signed by Hay Bailey MD 03/14/25 18:51:
Patient seen and examined. I agree with the note by ASTER Blanchard.
74M with HFpEF, severe TR s/p failed TTVR 01/2025, bio AVR (TAVR 2011, SAVR 2012), permanent Afib on warfarin, CKD, cirrhosis with continued EtOH use, T2DM, TIA, admitted with abdominal pain s/p ex-lap and appendectomy 03/07. Cardiology consulted
for troponin elevation felt to be non-ischemic myocardial injury. Found to have newly reduced EF 40%.
Today, doing well. No CP, SOB. Eager to go home.
Cr improved to 1.5. INR 1.5.
Plans:
# HFmrEF: felt do be secondary to stress CM from abdominal condition requiring surgery, GDMT limited by CKD, tolerating low dose metop, will titrate further GDMT as outpatient, will resume torsemide today
# Afib: will discharge with Lovenox bridge to warfarin
Stable for discharge from a cardiovascular standpoint.
Original Note:
Today's Communication / Plan
-
On heparin drip.
INRs: 1.28 (10 mg), 1.36 (10 mg), 1.48, (10 mg), today 1.50.
Porter Lovenox for bridging.
Impression / Plan
-
I/P: 74M with chronic HFpEF, bioprosthetic aortic valve replacement (TAVR 2011, then subsequent SAVR 2012), severe TV status-post failed TTVR (at [place] 1 month ago), RV dysfunction, permanent atrial fibrillation (on warfarin), CKD 3b, cirrhosis
(EtOH; still drinks 2-3 drinks every other day), type 2 diabetes mellitus, prior TIA, hypertension; admitted with abdominal pain. Subsequently underwent emergent ex-lap and appendectomy on 03/07. Cardiology consulted for troponin elevation.
Outpatient Supervisor [facility]: Dr Ball
Heart Failure: Dr. Morris
Structural Heart Disease: Dr. Lopez
Internal hernia
- Pain is stable after ex-lap, lysis of adhesions, appendectomy; clinically improving. NGT removed 03/08.
- Continue supportive care and management as per Surgery.
Heart failure with mildly reduced ejection fraction (EF 40%) - NEW
- Suspect stress-induced cardiomyopathy due to intra-abdominal process
- TTE 03/08/2025: LVEF 40%, global hypokinesis, RV pressure/volume overload, dilated RV with decreased function, severe TR, PASP 38 mmHg, TAVR mean gradient 11 mmHg, mild AR
- GDMT:
- Beta Danielle: Continue metoprolol 12.5 mg daily
- KASSIE/ARB/ARNI: Home lisinopril on hold due to MP on CKD
- SGLT2i: Home Farxiga on hold
- MRA: Reassess outpatient
- Diuretic: Resumed Torsemide 03/12/2025 by nephrology
- Overall, I suspect his EF will improve after this acute process. We will reassess with outpatient echocardiogram in 3 months.
MP on CKD
- Cr down to 1.5
- Torsemide resumed
Permanent atrial fibrillation:
- On warfarin at home. Resumed today. INR was reversed pre-op.
- Remains rate-controlled
- Continue home Toprol�XL
- Goal INR 2.0-3.0; bridge with heparin, INR 1.50 today
- [id number]: score 6 (Heart failure, HTN, Diabetes Mellitus, prior Stroke/TIA, age 65-74)
Troponin elevation:
- Most likely acute nonischemic myocardial injury in the setting of underlying medical condition requiring surgery. No chest pain. No RWMA on echo
- Peak 0.098. Stopped trending.
Tricuspid regurgitation, severe
- Failed TTVR at [facility] 1 month ago.
- Continue to monitor volume status; holding diuretics for now.
Bioprosthetic AVR ()
- Initially TAVR then SAVR.
- Stable on echocardiogram this admission
PVCs:
- Asymptomatic; likely secondary to underlying medical condition.
EtOH cirrhosis:
- Patient apparently stopped drinking alcohol at one point in 2022, but currently drinks 2-3 drinks every other day (vodka tonic).
- Alcohol cessation recommended.
Hypertension:
- Blood pressure remains stable; continue to monitor.
Dyslipidemia:
- On atorvastatin at home.
NIDDM:
- Management as per primary team.
Prior TIA:
- Anticoagulation recommendations as above.
- On atorvastatin at home.
SUBJECTIVE:
Feeling well without chest pain and shortness of breath.
Reports his lower extremity edema is 'how they always look'.
Asking about discharge.
Physical Exam
Vital Signs/Labs
Vital Signs
Temp Pulse Resp BP Pulse Ox
97.9 F 62 16 142/66 98
03/14/25 07:45 03/14/25 08:44 03/14/25 07:45 03/14/25 08:44 03/14/25 07:45
03/13/25 03/14/25 03/15/25
06:59 06:59 06:59
Actual Weight 244 lb 14.4 oz 241 lb 2 oz
03/13/25 08:43
03/14/25 06:05
PT 18.3 Sec (11.4-14.6) H 03/14/25 06:04
INR 1.50 03/14/25 06:04
APTT 87.6 Sec (23.4-35.0) H 03/14/25 06:04
Magnesium 1.7 mg/dl (1.6-2.3) 03/14/25 06:05
03/06/25
18:08
Fyw-L-Zdrnleikwaf Pept 2810
Physical Exam
Constitutional: No acute distress and Comfortable
EENT: Anicteric and Moist mucous membranes
Cardiovascular: Rhythm/rate is irregular and S1S2 is normal
Respiratory: Respiratory effort normal and Lungs clear to auscul.
GI: Normal bowel sounds
Neuro/Psych: AO x 3
Other: Skin (Warm and dry, chronic lower extremity edema)
Data Reviewed
-
Date of Service: March 14, 2025
Labs: Labs Reviewed by me
Old Records: Reviewed
[2025-03-14] MEDS: HEPARIN 25000 UNITS/250 ML IV (11:03)
[2025-03-14 11:47] LABS: Glucose - Point of Care 98 mg/dl (70-99)
--- NOTE | 2025-03-14 11:53 | CM ---
patient seen at bedside
imm explained & signed. In chart
CM consult completed for Lovenox 110mg 2xday (8 syringes per Zainab Blanchard)
CM called [facility] spoke with Alia pharmacist - cost $5.00
per nursing will start teaching Lovenox
[facility] referral in place, discharge today notified liaison
PLAN: Home with [facility]
to transport
--- NOTE | 2025-03-14 12:35 | W.PN.NEPH.PH ---
Today's Communication / Plan
-
d/c plan
Assessment/Plan
-
Assessment
MP
Tricuspid regurgitation severe
Heart failure reduced ejection fraction
Status post appendectomy, lysis of adhesions
Right inguinal hernia
Paroxysmal atrial fibrillation
Iron deficiency anemia
Edema
Plan
MP likely due to contrast nephropathy
cr down to baseline
continue torsemide at this time, wt is down
cont metolazone as needed
stable hyponatremia likely from hypervolemia expect to see improvement with FR and diuresis
stable h/h, on IV iron course
noted plan d/c today
he wants to see out practice with Dr Garza
-
-
Date of Service: March 14, 2025
CC / HPI / ROS
-
Chief Complaint:
MP
History of Present Illness:
MP/Cr down to 1.5
Na low stable 129
BP stable
on IV iron
Review of Systems:
no CP/SOB
chr Shahla edema no change
wt is down
Labs
-
Labs:
WBC 7.8 10^3/uL (4.8-10.8) 03/13/25 08:43
RBC 3.86 10^6/uL (4.70-6.10) L 03/13/25 08:43
Hgb 9.2 g/dL (13.0-18.0) L 03/13/25 08:43
Hct 29.4 % (39.0-52.0) L 03/13/25 08:43
Plt Count 240 10^3/uL (130-400) 03/13/25 08:43
Sodium 129 mmol/L (135-145) L 03/14/25 06:05
Potassium 3.6 mmol/L (3.5-5.1) 03/14/25 06:05
Chloride 92 mmol/L (98-107) L 03/14/25 06:05
Carbon Dioxide 30 mmol/L (22-30) 03/14/25 06:05
BUN 57 mg/dl (9-20) H 03/14/25 06:05
Creatinine 1.5 mg/dL (0.7-1.3) H 03/14/25 06:05
eGFR 48.85 03/14/25 06:05
Glucose 131 mg/dl (70-99) H 03/14/25 06:05
Calcium 8.4 mg/dl (8.4-10.2) 03/14/25 06:05
Phosphorus 3.2 mg/dl (2.5-4.5) 03/14/25 06:05
Npo-Y-Ydoihryrruq Pept 2810 pg/ml 03/06/25 18:08
Albumin 4.0 g/dl (3.5-5.0) 03/14/25 06:05
Physical Exam
-
Vital Signs:
Vital Signs
Temp Pulse Resp BP Pulse Ox
97.9 F 62 16 142/66 98
03/14/25 07:45 03/14/25 08:44 03/14/25 07:45 03/14/25 08:44 03/14/25 07:45
Cardiovascular:: Regular rate and rhythm
Respiratory:: Bilateral: CTA
Lung Excursion:: Normal
Abdomen:: Nontender and Soft
Extremity Edema:: +3: Bilateral:
Hills Catheter: No
--- NOTE | 2025-03-14 12:48 | VNURNOTE ---
Rec'ed update from GABRIELA Juarez that pt will DC home with Lovenox. RN to do teaching prior to DC. [facility] will plan on Start of Care visit tomorrow. Confirmed with [facility] Intake office. Met with patient. He is agreeable to [facility] and next day
visit. 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 Confirmed that pt has a scale at home. Pt states he normally goes to outpt Lab for INR draws.
[facility] referral accepted in [facility].
--- NOTE | 2025-03-14 13:51 | W.DCSUMMARY ---
Discharge Summary
Discharge Data
Date of Admission: 03/06/25
Date of Discharge: 03/14/25
Total time spent discharging patient (in min): 55
-
Pending Results: No
Hospital Course
Mr. Farrell is a 74-year-old male with medical history of permanent A-fib (on warfarin), chronic HFpEF, cardiac-induced hepatic cirrhosis, aortic stenosis (status post AVR), and CKD stage IIIa who presented with abdominal pain. He was brought to
the OR and found to have a small bowel lesion and appendiceal lesion. He is status post ex lap with lysis of adhesions and appendectomy on 03/07/2025. He tolerated the procedure well, but developed a postoperative ileus which has since resolved.
His warfarin was held and he was given Kcentra and vitamin K preoperatively. He has been on IV heparin for bridging back to his home warfarin dosage however his INR is still not therapeutic. He will be transitioned to bridging with weight-based
Lovenox until his INR is back within therapeutic range of 2.0-3.0. He had a postoperative echocardiogram which showed a newly reduced ejection fraction of 40%. He was followed closely by cardiology during this admission who felt this was likely
stress-induced and will recover postoperatively. He developed an MP superimposed on his CKD stage IIIa was likely due to IV contrast media. His home lisinopril, Farxiga, and torsemide were held. His renal function has now returned to baseline.
His home torsemide and lisinopril have been resumed. He should follow-up with his geophysical laboratory director regarding whether or not to restart Farxiga. He has hyponatremia at baseline which has remained stable. He is medically stable for discharge.
General: No Apparent Distress, Comfortable and Conversant
HEENT: NormoCephalic, Moist mucous membranes, Atraumatic
Respiratory: Clear and Non Labored Respirations
Cardiac: S1/S2 and Regular Rhythm; No Rub or Gallop
GI: Soft, midline laparotomy wound dressing CDI
Musculoskeletal: Mild lower extremity edema, no deformity
: NO Hills
Neuro: Awake, Alert, Nonfocal/grossly intact
Psych: Calm and Intact Judgment/Insight
Discharge Plan
-
Patient Disposition: Home with Home Care
Discharge Diagnosis/Procedures: Peritoneal band to the terminal ileum, appendiceal lesion, postoperative ileus, acute kidney injury
Blood Work: INR with goal 2.0-3.0
Activity Restrictions/Additional Instructions:
You were admitted for treatment of abdominal pain that was due to small bowel adhesion. You underwent surgery on 03/07/2025 and tolerated the procedure well. Your home warfarin was held prior to surgery and restarted afterward. You were initially
being bridged with IV heparin until your INR was back within therapeutic range. However you have now been transitioned to bridging with Lovenox, which you can continue at home until your INR is back between 2.0 and 3.0. You will need to repeat
blood work as an outpatient to monitor your INR. Postoperative echocardiogram showed decreased pumping action of your heart with a left ventricular systolic function of 40% (normal is around 55%). This is a new finding. You were evaluated by
cardiology team while in the hospital with adjustments to your medication as needed. You had a mild kidney injury however now your kidney function is back to within normal limits and should continue to be monitored in the outpatient setting. Your
home lisinopril and Farxiga were held due to your kidney injury. You can restart your home lisinopril but please follow-up with your geophysical laboratory director regarding whether or not to restart your Farxiga. You will need to follow-up in the outpatient office
with surgery for evaluation of your surgical incision and staple removal.
Referrals:
Zulma Michael MD [Active, Gastroenterology]
Referral Note: follow up in 6-8 weeks with concern for cirrhosis, follow up prior gastric lesion to review for EGD
Choco Carlson MD [Family Provider, Internal Medicine]
Richar Graham MD [Non-Admitting Privileges, Internal Medicine]
Referral Note: Call to arrange hepatology follow up with Dr. Graham or other provider at [place].
Dimitri Monroe MD [Active, ColoRectal] - in two weeks
Additional Discharge Medication Instructions: Arabella will be removed at the appointment with Dr. Monroe.
Prescriptions:
New
folic acid 1 mg Tablet
1 mg PO DAILY Qty: 30 0RF
thiamine mononitrate (vit B1) 100 mg Tablet
100 mg PO BID Qty: 60 0RF
enoxaparin 120 mg/0.8 mL Syringe
110 mg SC Q12H Qty: 20 0RF
Continued
famotidine 40 mg Tablet
40 mg PO HS
atorvastatin 40 MG tablet
40 mg PO HS
pantoprazole 40 MG tablet,delayed release (DR/EC)
40 mg PO DAILY
warfarin 5 mg Tablet
10 mg PO SuFrSa@1900
warfarin 5 mg Tablet
5 mg PO MOTUWETH@1900
metolazone 5 mg Tablet
5 mg PO DAILYPRN PRN (Reason: fluid gain)
torsemide 100 mg Tablet
100 mg PO BID
lisinopril 5 mg Tablet
5 mg PO DAILY
metoprolol succinate [Toprol XL] 25 mg Tablet Extended Release 24 Hr
12.5 mg PO QPM
potassium chloride 20 mEq Tablet Extended Release
20 meq PO BID
Held
allopurinol 100 mg Tablet
100 mg PO DAILY
Hold Instructions: Hold until follow-up with your prescribing physician
dapagliflozin propanediol [Farxiga] 10 mg Tablet
10 mg PO DAILY
Hold Instructions: Hold until follow-up with your geophysical laboratory director
Discharge Orders:
Discharge Patient (As Directed); Ordered 03/14/25
Ordered By: Benjamin Gloria
Discharge Date and Time
Print Language: [place]
[2025-03-14] MEDS: LOVENOX 110 MG SC (14:11)
[2025-03-14 14:22] VITALS: BP 124/61
[2025-03-14] MEDS: FERRLECIT IV (15:27)
== END 2025-03-14 15:52 | disposition home health service (06) | DRG 336 ==
LOC: 2 SOUTH 22:00
PROVIDERS: Hospitalist; Nurse Practitioner Family; ADMITTING PHYSICIAN Internal Medicine; ATTENDING PHYSICIAN Internal Medicine; CONSULT PHYSICIAN Internal Medicine Gastroenterology; CONSULT PHYSICIAN Specialist; CONSULT PHYSICIAN Surgery; EMERGENCY PHYSICIAN Student in an Organized Health Care Education/Training Program; FAMILY PHYSICIAN Internal Medicine; OTHER PHYSICIAN Internal Medicine; OTHER PHYSICIAN Internal Medicine Critical Care Medicine
PROC: 30283B1 Transfusion of Nonautologous 4-Factor Prothrombin Complex Concentrate into Vein, Percutaneous Approach (ICD-10-PCS; 2025-03-06)
PROC: 0DTJ0ZZ Resection of Appendix, Open Approach (ICD-10-PCS; 2025-03-07)
PROC: 0DNB0ZZ Release Ileum, Open Approach (ICD-10-PCS; 2025-03-07)
PROC: 0DNW0ZZ Release Peritoneum, Open Approach (ICD-10-PCS; 2025-03-07)
DX: K66.0 Peritoneal adhesions (postprocedural) (postinfection) (principal); E87.1 Hypo-osmolality and hyponatremia; I13.0 Hypertensive heart and chronic kidney disease with heart failure and stage 1 through stage 4 chronic kidney disease, or unspecified chronic kidney disease; I48.21 Permanent atrial fibrillation; K56.7 Ileus, unspecified; N17.9 Acute kidney failure, unspecified; K91.89 Other postprocedural complications and disorders of digestive system; N18.4 Chronic kidney disease, stage 4 (severe); I50.32 Chronic diastolic (congestive) heart failure; I5A Non-ischemic myocardial injury (non-traumatic); I51.81 Takotsubo syndrome; E87.20 Acidosis, unspecified; E11.22 Type 2 diabetes mellitus with diabetic chronic kidney disease; I07.1 Rheumatic tricuspid insufficiency; N14.11 Contrast-induced nephropathy; T50.8X5A Adverse effect of diagnostic agents, initial encounter; K38.8 Other specified diseases of appendix; D50.9 Iron deficiency anemia, unspecified; E78.00 Pure hypercholesterolemia, unspecified; K70.31 Alcoholic cirrhosis of liver with ascites; E87.6 Hypokalemia; K40.90 Unilateral inguinal hernia, without obstruction or gangrene, not specified as recurrent; E83.39 Other disorders of phosphorus metabolism; D63.1 Anemia in chronic kidney disease; K76.1 Chronic passive congestion of liver; I45.10 Unspecified right bundle-branch block; F10.10 Alcohol abuse, uncomplicated; I49.3 Ventricular premature depolarization; K21.9 Gastro-esophageal reflux disease without esophagitis; I50.82 Biventricular heart failure; I70.0 Atherosclerosis of aorta; E66.09 Other obesity due to excess calories; Z68.35 Body mass index [BMI] 35.0-35.9, adult; Z95.3 Presence of xenogenic heart valve; Z79.01 Long term (current) use of anticoagulants; Z86.73 Personal history of transient ischemic attack (TIA), and cerebral infarction without residual deficits
CPT/HCPCS: 71045; 74019; 74177; 80048; 80053; 81003; 81015; 82570; 82607; 82728; 82746; 82962; 83036; 83540; 83550; 83605; 83690; 83735; 83880; 84100; 84300; 84484; 85025; 85027; 85045; 85610; 85730; 86850; 86900; 86901; 88304; 93005; 93306; 96361; 96374; 96375; 96376; 97116; 97163; 97167; 97530; 99285; J2916; J7168; Q9950; Q9967

== ENCOUNTER 2025-03-30 20:58 | Inpatient (IN) | payer OTHER, SELFPAY ==
[2025-03-30 15:46] VITALS: BP 116/54
[2025-03-30 16:24] LABS: INR 2.17; PT 23.8 Sec (11.4-14.6)
[2025-03-30 16:30] LABS: Hematocrit 28.4 % (39.0-52.0); Hemoglobin 9.4 g/dL (13.0-18.0); Mean Corp Hgb Conc. 33.1 g/dL (33.0-37.0); Mean Corpuscular Volume 77.6 fL (80.0-94.0); Platelet Count 266 10^3/uL (130-400); Red Cell Dist. Width 24.5 % (11.5-14.5)
[2025-03-30 16:40] LABS: ALT (SGPT) 19 U/L (0-50); AST (SGOT) 27 U/L (17-59); Albumin 3.8 g/dl (3.5-5.0); Alkaline Phosphatase 228 U/L (38-126); Blood Urea Nitrogen 103 mg/dl (9-20); Calcium 8.4 mg/dl (8.4-10.2); Carbon Dioxide 27 mmol/L (22-30); Chloride 87 mmol/L (98-107); Glucose 125 mg/dl (70-99); Potassium 4.3 mmol/L (3.5-5.1); Sodium 123 mmol/L (135-145); Total Protein 6.6 g/dl (6.3-8.2); Troponin I 0.051 ng/ml; eGFR 32.42
[2025-03-30 17:10] LABS: Anisocytosis 2+; Hypochromasia 1+; Macrocytosis 3+; Normal RBC Morphology No; Nucleated Red Blood Cells % 0 % (-); Poikilocytosis 1+; Spherocytes 1+; Target Cells 2+
[2025-03-30 18:14] VITALS: BMI 37.3
[2025-03-30 18:15] VITALS: BP 114/64
--- NOTE | 2025-03-30 18:24 | ED.GENMED ---
History of Present Illness
General
Chief Complaint: Abnormal Lab Value
Time Seen by Provider: 03/30/25 17:54
Nursing documentation reviewed up to this point in time: agreed with
History of Present Illness
History of Present Illness:
75-year-old male presents to the ER for evaluation of multiple lab abnormalities as obtained as an outpatient today. Patient has been compliant with taking his diuretics but has noted worsening swelling to his legs. He did experience a fall last
week and had multiple finger dislocations of the right hand. This hand has been persistently swollen since this time. He also has been having worsening swelling, predominantly in his right lower extremity after his fall. He states that he had
been urinating well until today where he has had minimal urine output. He has been following his fluid restriction but states that normally he is able to void a significant amount of urine throughout the day. He denies orthopnea or paroxysmal
nocturnal dyspnea. He denies chest pain.
Past History
Past History
ED Past Medical History: CHF, HTN, Hypercholesterolemia, NIDDM (Diet-controlled), Valvular disease (AVR x 2, tricuspid regurgitation) and Other (infectious endocarditis, alcoholic cirrhosis)
ED Past Surgical History: Cardiac (Aortic valve replacement x2) and Other (Hernia repair)
Social History
Tobacco: Non-smoker
Alcohol: Daily
Drug: None
Personal:
Review of Systems
Review of Systems
Allergies reviewed?: Yes
Phy Exam
Physical Exam
Physical Exam:
Patient is awake, alert, appears in no acute distress, head is NCAT, PERRL, EOMI mucous membranes moist, conjunctiva pink, heart regular rate and rhythm without murmurs or ectopy, lungs are clear to auscultation without wheezes rales or rhonchi, no
JVD, abdomen is soft with mild distention, ramiro are present mid lower abdomen with several areas of healing crust intact, bilateral lower extremities with 3+ edema to the thighs, right hand with 3+ edema to the mid forearm, healing ecchymosis
present to the palm of the right hand, wrist cap refill present to the digits bilateral upper extremities, GCS is 15
Course
Orders/Labs/Results
Orders:
Orders
03/30/25 15:50
Electrocardiogram (*1) Urgent
Reason for Study: Shortness of Breath
03/30/25 15:51
EKG- Treatment ONCE
03/30/25 16:04
Complete Blood Count/With Diff Urgent
Comprehensive Metabolic Panel Urgent
NT-proBNP Urgent
PT/INR [Prothrombin Time] Urgent
Troponin I Urgent
03/30/25 18:23
Bladder Scan- Treatment ONCE
CR Chest Portable - 1 View Urgent
Comment:
Reason For Exam: dyspnea
Reason Study Needs to be Portable: Unable to Transport
03/30/25 18:36
Urinalysis Reflex To Culture Urgent
Date Specimen was Collected: 03/30/25
Time Specimen was Collected: 18:34
03/30/25 20:27
Admit/Transfer Patient As Directed
Co-Sign Provider:
Level of Care: Inpatient admission
Assign to:: Telemetry
Physician / Group: Sheldon
Diagnosis: CHF, MP
Reason for Telemetry: Subacute Heart Failure
Date to Stop Telemetry: 04/01/25
Time to Stop Telemetry: 11:00
Reason for Hospitalization: CHF, MP
Expected length of stay greater than two midnights?: Yes
ELOS- Estimated Length of Stay in days: 3
I certify the patient meets the requirements for IP care: Yes
PRN Pain Medication Management As Directed
May give lesser potent ordered pain med per pt: Yes
preference::
Protocol:: Medication orders for pain may be administered in a
manner that supports deferring to patient preference
when the pt is:
- Requesting an ordered lesser potent pain medication.
Least to most potent pain medications are defined
as: acetaminophen < NSAID < tramadol < opioids
(morphine, oxycodone, hydromorphone).
- Requesting a lesser dose of the same medication IF
ORDERED.
- Requesting a less intrusive route of administration
if both routes are prescribed by the provider (PO <
IV).
03/30/25 20:30
Code Status As Directed
Resuscitation Status: Full Code
03/30/25 21:55
Acetaminophen [Tylenol] 650 mg PO Q4HPRN PRN
Dextrose 50%-Water [Dextrose 50% Syringe] 12.5 grams IV [id number] PRN
Glucagon [GlucaGen] 1 mg IM PRN PRN
03/30/25 21:55
CARDIOLOGY CONSULT Routine
Consulting Provider: Breezy Braun
Was physician already notified: Yes
Reason for consult: CHF / Cardiorenal syndrome
NEPHROLOGY CONSULT Routine
Consulting Provider: Bubba Sims V.
Was physician already notified: Yes
Reason for consult: Cardiorenal Syndrome, MP
TSH Reflex To Free T4 Routine
Activity As Directed
Activity Level: Ambulate
With Assistance
Bedside Glucose Monitoring As Directed
Frequency: AC&HS
Additional Instructions:: Change to q6h if pt on TPN, tube feeding or not eating
Bladder Scan As Directed
Follow Bladder Retention/Intermittent Cath Algorithm?: Yes
PRN if no void in __ hours: 6
Frequency: Per Retention Algorithm
If Bladder Scan Result >: 400
then:: Straight cath
EKG with chest pain [ECG as needed] As Directed
ECG as needed for:: Chest Pain
I/O [Intake/ Output] As Directed
Frequency: Per unit guidelines
Straight Cath As Directed
Frequency: Per Retention Algorithm
Additional Instructions: straight cath as needed per acute urinary retention algorithm for 24 hrs
Additional Instructions: for bladder scan greater than 400 mL
Vital Signs As Directed
Frequency: Per unit guidelines
Weight As Directed
Frequency: Daily
Oxygen Therapy [O2 Therapy] [RESP] Routine
Titrate/Wean O2 to maintain O2 sat greater than (%): 94
03/30/25 22:00
diphenhydramine-acetaminophen [Acetaminophen PM] 1 tablet PO HS
famotidine 40 mg PO HS
03/30/25 22:15
Atorvastatin [Lipitor] 40 mg PO HS
03/31/25 Breakfast
Sodium, 2 Gram
At Your Request: Full Participation
Fluid Restriction: 1440 mL/day (48 oz)
Basic Metabolic Panel IN AM
Complete Blood Count/No Diff IN AM
Glycohemoglobin (HgbA1c) IN AM
Prothrombin Time IN AM
03/31/25 07:30
Insulin Aspart Corrective Low [Novolog Flexpen-Low Resistance] See Protocol SC AC
03/31/25 08:00
FOLic ACID [Folvite] 1 mg PO DAILY
Furosemide [Lasix] 80 mg IV BID AT 0800,1600
Thiamine HCl [Vitamin B1] 100 mg PO BID
03/31/25 18:00
Metoprolol Xl [Toprol Xl] 12.5 mg PO QPM
03/31/25 19:00
Warfarin [Coumadin] 5 mg PO SUTUTHSA@1900
04/01/25 06:00
Prothrombin Time IN AM
04/01/25 11:00
DC Protocol for Telemetry ONCE
04/01/25 19:00
Warfarin [Coumadin] 10 mg PO MoWeFr@1900
04/02/25 06:00
Prothrombin Time IN AM
04/03/25 06:00
Prothrombin Time IN AM
Abnormal Lab Results
03/30/25
16:04
RBC 3.66 L 10^6/uL
(4.70-6.10)
Hgb 9.4 L g/dL
(13.0-18.0)
Hct 28.4 L %
(39.0-52.0)
MCV 77.6 L fL
(80.0-94.0)
MCH 25.7 L pg
(27.0-31.0)
RDW 24.5 H %
(11.5-14.5)
Absolute Lymphs (auto) 0.4 L 10^3/uL
(1.2-3.4)
Absolute Monos (auto) 0.7 H 10^3/uL
(0.1-0.6)
Neutrophils % 80.1 H %
(42.2-75.2)
Lymphocytes % 6.2 L %
(20.5-51.1)
Monocytes % 10.3 H %
(1.7-9.3)
PT 23.8 H Sec
(11.4-14.6)
Sodium 123 L mmol/L
(135-145)
Chloride 87 L mmol/L
(98-107)
BUN 103 H* mg/dl
(9-20)
Creatinine 2.1 H mg/dL
(0.7-1.3)
Glucose 125 H mg/dl
(70-99)
Alkaline Phosphatase 228 H U/L
(38-126)
Troponin I 0.051 H* ng/ml
03/30/25 16:04
03/30/25 16:04
Significant hyponatremia, worsened compared to prior labs from 03/14/2025. Patient also has significant increase in BUN and creatinine compared to prior labs. Hemoglobin of 9.4 reflects chronic anemia, no significant change compared to prior. Mild
elevation in troponin of uncertain significance. BNP is also elevated, no prior for comparison
Vital Signs
Initial and Last Documented VS:
Initial Vital Signs
Temp Pulse Resp BP Pulse Ox
98.0 F 57 16 116/54 98
03/30/25 15:46 03/30/25 15:46 03/30/25 15:46 03/30/25 15:46 03/30/25 15:46
Last Documented Vital Signs
Temp Pulse Resp BP Pulse Ox
98.0 F 57 16 114/64 98
03/30/25 15:46 03/30/25 15:46 03/30/25 15:46 03/30/25 18:15 03/30/25 18:28
MDM/Problems Addressed
Differential Diagnosis Includes:
Differential diagnosis to consider but not limited to acute kidney injury, dehydration, adverse medication reaction, along with other etiologies considered
Chronic conditions affecting care:
CKD stage IIIa, baseline creatinine 1.6, hyponatremia, chronic heart failure with preserved ejection fraction, history of alcohol use disorder, permanent atrial fibrillation on chronic warfarin, hypertension, type 2 diabetes without hyperglycemia
*Radiology
Radiology exam reviewed: radiology read reviewed (IMPRESSION: Cardiomegaly with mild left basilar atelectasis, similar in appearance to prior.)
*Pulse Oximetry
SaO2: 98
Oxygen Mode of Delivery: Room air
Patient hypoxic: no
*EKG
Interpreted by ED Provider?: Yes (Care I independently viewed and interpreted twelve-lead EKG showing A-fib with PVCs, rate 66, normal axis, nonspecific ST changes, right bundle branch block, this is an abnormal tracing without evidence for acute
ischemia, similar to prior from 03/06/2025)
*Algebra Tutor Interpretation
Rate: other (I independently viewed and interpreted rhythm strip showing atrial fibrillation with controlled)
*Critical Care Note
Total Time (30-74mins, 75-104mins- exclusive of procedures): Not Applicable
Data Reviewed
Review of Other/Old Records Reveals: Discharge Summary (I reviewed discharge summary from Dr. Gloria dated 03/14/2025-patient had been admitted for appendectomy and exploratory laparotomy with lysis of peritoneal bands on 1124. Patient prior
medical history and current medication list reviewed)
Update Note
Update Note:
Patient and present bedside agree with plan for x-ray and admission. Patient appears extra vascularly overloaded but labs would be reflective of intravascular depletion. Will obtain bladder scan to rule out acute bladder outlet obstruction.
late entry-patient with 275 mL in his bladder. Would await of voiding prior to consideration of catheterization. I reviewed full patient presentation with the hospitalist, including concern for acute kidney injury in light of anasarca. He accepts
patient for admission for further treatment of MP with CHF and hyponatremia
ED Attending Note
-
Portions of this chart may have been created with voice recognition software.� Occasional wrong word or��sound alike� substitutions may have occurred due to the inherent limitations of voice recognition software.
Discharge Plan
Departure
Patient Disposition: Admit
Date of Disposition: 03/30/25
Time of Disposition: 19:27
Presentation/result/management discussed w/ accepting MD/DO: Hospitalist
Discharge Problem:
Acute kidney injury, Heart failure, chronic, with acute decompensation, Acute hyponatremia
Interventions
Interventions:
*General Assessment Last Done: 03/30/25 15:46
*Neglect/Abuse Screening Last Done: 03/30/25 15:46
*ED COVID-19 Vaccine History Last Done: 03/30/25 15:46
*ED Influenza Vaccine History Last Done: 03/30/25 15:46
[facility] Risk Assessment Tool Last Done: 03/30/25 18:14
*Risk Screen - Suicide (C-SSRS) Last Done: 03/30/25 15:46
[2025-03-30 18:50] LABS: Urine Character Clear (Clear)
--- NOTE | 2025-03-30 20:33 | HPS.HSE ---
Family Physician
-
Family Physician: Choco Carlson
Chief Complaint
-
Abnormal Labs
History of Present Illness
Patient is a 75y M with PMH significant for chronic HFrEF, valvular heart disease and CKD III who presents to ED for evaluation of abnormal labs. Patient was most recently admitted to 03/06 - 03/14 for abdominal pain and taken urgently to the
OR for suspected internal hernia. Patient underwent ex lap, MATT and appendectomy. He tolerated that procedure well. He was seen during his stay by Cardiology given his complicated cardiac history. His diuretic regimen and Farxiga were held for a
time due to MP and his renal function had returned to baseline at the time of discharge. Patient was advised to resume the torsemide (100mg BID) at discharge. He has remained off of the Farxiga.
Patient states that he has felt fairly well since the surgery / discharge. He denies any chest pain, dyspnea, etc.
He has noted consistent / unchanged LE swelling and discoloration.
He has tomer monitoring his weight as per usual and his weight has been increasing since discharge. He had taken two doses of metolazone this month at the direction of his Cardiologists.
He had outpatient labs done and was contacted today and advised to present to the ED for further evaluation given marked abnormalities. He has no new clinical symptoms.
Patient notes that he had a [id number] on the stairs about one week ago.
He dislocated three fingers on his R hand. He has significant associated hematoma. Patient states that the pain and swelling have been improving.
He has arabella in place in his laparotomy incision. Patient notes that he has an appointment tomorrow (03/31) for staple removal.
Medical History
Past Medical History
Past Medical History: Reports Other
Additional Past Medical History:
Permanent Atrial Fibrillation
Hypertension
Endocarditis of aortic valve
Severe Tricuspid Regurgitation
Pulmonary Hypertension
CKD III
Obesity
DM-II, Diet-Controlled
Lyme disease
GERD
Iron deficiency anemia
Large gastric hyperplastic polyp
Pancreatic head cyst
Past Surgical History: Reports Other
Additional Past Surgical History:
Ex lap, MATT, Appendectomy (03/07/25)
Left inguinal herniorrhaphy
TAVR
Surgical AVR
Attempted Tricuspid Valve Repair (unsuccessful)
Hydrocelectomy
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
Social History
Tobacco: Non-smoker
Alcohol: Former (History of alcohol use disorder. No alcohol x 2 weeks.)
Drug: None
Personal:
Living: With Family
Family History
Family History: Not pertinent
Allergies / Home Medications
Allergies reflects when Allergies were last updated in [employer].
Home Medications with original date entered in [employer]
Allergy/Medication List:
Allergies
Allergy/AdvReac Type Severity Reaction Status Date / Time
lorazepam (From Ativan) Allergy hallucinati Verified 03/30/25 15:50
ons
Home Medications
famotidine 40 mg tablet 40 mg PO HS Gastrointestinal issue 04/26/22
atorvastatin 40 mg tablet 40 mg PO HS High cholesterol 05/16/22
pantoprazole 40 mg tablet,delayed release 40 mg PO DAILY Gastrointestinal issue 05/16/22
warfarin 5 mg tablet 5 mg PO SUTUTHSA@1900 Blood Clot Prevention/Tx 07/26/24
warfarin 5 mg tablet 10 mg PO MoWeFr@1900 Blood Clot Prevention/Tx 07/26/24
lisinopril 5 mg tablet 5 mg PO DAILY Blood Pressure 03/06/25
metolazone 5 mg tablet 5 mg PO DAILYPRN PRN fluid gain 03/06/25
metoprolol succinate 25 mg tablet,extended release 24 hr (Toprol XL) 12.5 mg PO QPM Heart Disease/Condition 03/06/25
potassium chloride 20 mEq tablet,extended release 20 meq PO BID Electrolyte Repletion 03/06/25
torsemide 100 mg tablet 100 mg PO BID Fluid Retention/Swelling 03/06/25
acetaminophen 325 mg tablet (Tylenol) 650 mg PO Q6H Anti-Inflammatory 03/30/25
diphenhydramine 25 mg-acetaminophen 500 mg tablet (Acetaminophen PM) 1 tab PO HS Sleep 03/30/25
folic acid 1 mg tablet 1 mg PO DAILY Supplement 03/30/25
magnesium oxide 400 mg PO DAILY Supplement 03/30/25
thiamine mononitrate (vit B1) 100 mg tablet 100 mg PO BID Supplement 03/30/25
Review of Systems
-
History Source: Patient and Family
A 12 point ROS was completed and negative except as noted: Yes
Constitutional: Reports Weight Gain; Denies Fever, Fatigue or Chills
EENT: Denies Sore Throat
Respiratory: Denies Cough or Trouble Breathing
Cardiac: Denies Chest Pain or Palpitations
Abdomen/GI: Reports Other (Incision with scant drainage. Arabella in place.); Denies Abdominal Pain, Nausea, Vomiting or Diarrhea
: Reports Other (Decreased frequency / volume of urine.)
Musculoskeletal: Reports Edema; Denies Joint Pain
Skin: Reports Other (Bruising R hand)
Neurological: Denies Dizzy or Headache
Physical Exam
Vital Signs
Vital Signs
Temp Pulse Resp BP Pulse Ox
98.0 F 57 16 114/64 98
03/30/25 15:46 03/30/25 15:46 03/30/25 15:46 03/30/25 18:15 03/30/25 18:28
Physical Exam
General: Other (75y M in no acute distress.)
HEENT: Moist mucous membranes, PERRLA and Other (Neck supple.)
Respiratory: Clear; No Wheezes, Rales or Rhonchi
Cardiac: S1/S2, Irregular Rhythm and Murmur (II/ ADRYAN)
GI: Other (Obese, not tender. Mildline incision intact with arabella in place. Minimal erythema and scant serosanguinous discharge. Pos BS.)
Musculoskeletal: Other (4+ pitting edema b/l LE with chronic stasis skin changes / discoloration. R hand hematoma / edema.)
Neuro: AO x 3
Laboratory Results
-
03/30/25 16:04
03/30/25 16:04
Laboratory Results
PT 23.8 Sec (11.4-14.6) H 03/30/25 16:04
INR 2.17 03/30/25 16:04
Total Bilirubin 0.9 mg/dl (0.2-1.3) 03/30/25 16:04
AST 27 U/L (17-59) 03/30/25 16:04
ALT 19 U/L (0-50) 03/30/25 16:04
Alkaline Phosphatase 228 U/L (38-126) H 03/30/25 16:04
Troponin I 0.051 ng/ml H* 03/30/25 16:04
Impression/Plan
-
A/P: Patient is a 75y M with PMH significant for HFrEF, AVR x 2, severe TR, CKD and permanent A-Fib who presents to ED at the direction of his physicians for evaluation of abnormal labs.
Acute on Chronic HFrEF
Severe Tricuspid Regurgitation s/p Failed TTVR
Severe Pulmonary Hypertension
MP on CKD III
Cardiorenal Syndrome
- Admit for further evaluation and treatment.
- Certainly evidence of right-sided HF on exam with increased edema, weight gain, etc.
- Worsening MP / azotemia and decreased urine output despite increased diuretics / metolazone dosing at home.
- Trial of IV Lasix overnight. Follow I/Os, daily weights, etc.
- Cardiology and Nephrology evaluations for additional recommendations.
- ? trial of ionotropic support, etc to allow for more effective diuresis.
- Patient notably has no new clinical complaints, dyspnea, etc since his most recent hospital discharge.
Hyponatremia -Chronic
- Likely secondary to volume overload as noted above.
- Follow for changes with diuresis.
- Fluid restriction.
- Nephrology consulted.
Permanent Atrial Fibrillation
- Stable. Continue metoprolol.
- Continue Coumadin for stoke risk eduction.
- Follow daily INR and adjust dosing as needed.
R Hand Injury
- Patient reports multiple digital dislocations - since reduced.
- Improving pain, swelling , etc.
- Follow for clinical changes.
s/p Ex Lap, MATT, Appendectomy
- Stable. Incision intact with scant drainage.
- Scheduled for staple removal tomorrow.
- Follow / continue local care.
DM-II
- Stable. Farxiga remains on hold.
- Follow glucose and cover with SSI as needed.
- Update A1C.
Anemia of Chronic Disease / Iron Deficiency
- Stable. Hgb is at / near known baseline.
Alcohol Use Disorder
Alcoholic Cirrhosis
- Patient states that he has abstained from EtOH for the past 11 days.
- Continue to encourage alcohol cessation.
Obesity due to excess calories
- Affects all aspects of care.
- Encourage healthy diet and activity as tolerated with goals of weight reduction.
- Alcohol cessation should also provide benefits.
DVT Prophylaxis: On Coumadin
Code Status: Full
[2025-03-30 23:17] VITALS: BP 120/76
[2025-03-30] MEDS: TYLENOL 500 MG PO (23:45)
[2025-03-30] MEDS: BENADRYL 25 MG PO (23:45)
[2025-03-30] MEDS: LIPITOR 40 MG PO (23:45)
[2025-03-30] MEDS: COUMADIN 10 MG PO (23:50)
[2025-03-31] VITALS (7 sets, daily range): BP systolic 100–133; BP diastolic 46–74; BMI 36.7
[2025-03-31 06:56] LABS: INR 2.19; PT 24.0 Sec (11.4-14.6)
[2025-03-31 07:10] LABS: Hematocrit 28.6 % (39.0-52.0); Hemoglobin 9.1 g/dL (13.0-18.0); Mean Corp Hgb Conc. 31.8 g/dL (33.0-37.0); Mean Corpuscular Volume 79.2 fL (80.0-94.0); Platelet Count 247 10^3/uL (130-400); Red Cell Dist. Width 25.0 % (11.5-14.5)
[2025-03-31 07:14] LABS: Blood Urea Nitrogen 103 mg/dl (9-20); Calcium 8.6 mg/dl (8.4-10.2); Carbon Dioxide 25 mmol/L (22-30); Chloride 88 mmol/L (98-107); Estimated Creatinine Clearance 46 ml/min; Glucose 105 mg/dl (70-99); Potassium 3.7 mmol/L (3.5-5.1); Sodium 125 mmol/L (135-145); eGFR 39.01
--- NOTE | 2025-03-31 08:44 | VNURNOTE ---
Chart reviewed. Patient is current with [facility]. Will continue to follow hospital course and DC plans.
[2025-03-31 09:26] LABS: Glucose - Point of Care 107 mg/dl (70-99)
[2025-03-31] MEDS: NOVOLOG FLEXPEN-LOW RESISTANCE SC ×3 (09:36→16:44)
[2025-03-31] MEDS: FOLVITE 1 MG PO (09:41)
[2025-03-31] MEDS: LASIX 80 MG IV ×2 (09:41→15:26)
[2025-03-31] MEDS: VITAMIN B1 100 MG PO ×2 (09:41→19:49)
--- NOTE | 2025-03-31 09:43 | CON.CAR ---
Addendum entered and electronically signed by Dimitri Nance MD 03/31/25 13:16:
Patient seen and examined in collaboration with TREKKING GUIDE; agree with below.
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
atrial fibrillation (on warfarin), CKD 3b, ETOH cirrhosis, type 2 diabetes mellitus, prior TIA, hypertension, and obesity admitting with progressive lower extremity swelling and weight gain.
- Exam: Heart irregular rate and rhythm, 2-3/6 systolic murmur; lungs scant bibasilar rhonchi; 3+ taught lower extremity edema.
- Plan: Lasix 80 mg IV BID.
- cardiac monitor; will follow.
Original Note:
Consultation
Consultation Request
Date/Time Consultation Requested: 03/30/252154
Date/Time Consultation Performed: 03/31/25 [id number]
Requesting Provider: Dr. Chung
Performing Provider: Barbara WRIGHT for Dr. Nance
Reason for Consultation: CHF
Medical History
-
Chief Complaint: abnormal lab values
History of Present Illness:
75 year old male with HFrEF, bioprosthetic aortic valve replacement (TAVR 2011, then subsequent SAVR 2012), severe TV status-post failed TTVR (recently at [place]), RV dysfunction, permanent atrial fibrillation (on warfarin), CKD 3b, cirrhosis (now
reports he quit ETOH), type 2 diabetes mellitus, prior TIA, and hypertension. He was recently in hospital with abdominal pain and subsequently underwent emergent ex-lap and appendectomy. Troponin was elevated (non-ischemic myocardial injury). Echo
showed reduced EF 40%; felt to be stress-induced from acute illness. GDMT limited by renal function. He has noted 10 lbs weight gain at home and increased LE edema. No SOB. He had labs with Dr. Morris, who recommended he come to [facility] for further evaluation and management. Of note, he had a recent trip and fall and right hand is swollen- he reports he had imaging and no fracture. He denies any change to diet. He has been compliant with diuretics. Only used
metolazone once recently. Hasn't been urinating as much as OP. He is in no distress at the time of my assessment.
Outpatient Pediatric Radiologist: Dr Ball
Heart Failure: Dr. Morris
Structural Heart Disease: Dr. Lopez
Past Medical History
Past Medical History: Arrhythmias (Permanent atrial fibrillation [on warfarin]), CHF, HTN, Hypercholesterolemia, NIDDM, Renal Failure ( CKD 3b) and Valvular Disease (Bio AVR [2011, 2013], severe TR)
Past Surgical History: Cardiac
Social History
Tobacco: Non-Smoker
Alcohol: Other (reports he quit)
Family History
Family History: Reviewed & Not Pertinent
Allergies / Home Medications
Allergy/AdvReac Type Severity Reaction Status Date / Time
lorazepam (From Ativan) Allergy hallucinati Verified 03/30/25 15:50
ons
�Medication �Instructions �Recorded �Confirmed �Type
famotidine 40 mg tablet 40 mg PO HS Gastrointestinal issue 04/26/22 03/30/25 History
atorvastatin 40 mg tablet 40 mg PO HS High cholesterol 05/16/22 03/30/25 History
pantoprazole 40 mg tablet,delayed 40 mg PO DAILY Gastrointestinal 05/16/22 03/30/25 History
release issue
warfarin 5 mg tablet 5 mg PO SUTUTHSA@1900 Blood Clot 07/26/24 03/30/25 History
Prevention/Tx
warfarin 5 mg tablet 10 mg PO MoWeFr@1900 Blood Clot 07/26/24 03/30/25 History
Prevention/Tx
lisinopril 5 mg tablet 5 mg PO DAILY Blood Pressure 03/06/25 03/30/25 History
metolazone 5 mg tablet 5 mg PO DAILYPRN PRN fluid gain 03/06/25 03/30/25 History
metoprolol succinate 25 mg 12.5 mg PO QPM Heart 03/06/25 03/30/25 History
tablet,extended release 24 hr Disease/Condition
(Toprol XL)
potassium chloride 20 mEq 20 meq PO BID Electrolyte Repletion 03/06/25 03/30/25 History
tablet,extended release
torsemide 100 mg tablet 100 mg PO BID Fluid 03/06/25 03/30/25 History
Retention/Swelling
acetaminophen 325 mg tablet 650 mg PO Q6H Anti-Inflammatory 03/30/25 03/30/25 History
(Tylenol)
diphenhydramine 25 1 tab PO HS Sleep 03/30/25 03/30/25 History
mg-acetaminophen 500 mg tablet
(Acetaminophen PM)
folic acid 1 mg tablet 1 mg PO DAILY Supplement 03/30/25 03/30/25 History
magnesium oxide 400 mg PO DAILY Supplement 03/30/25 03/30/25 History
thiamine mononitrate (vit B1) 100 100 mg PO BID Supplement 03/30/25 03/30/25 History
mg tablet
Review of Systems
-
History Source: Patient
All other systems: Negative unless noted
Constitutional: Weight Gain
Musculoskeletal: Edema
Physical Exam
Vital Signs
Temp Pulse Resp BP Pulse Ox
97.6 F 81 19 100/63 96
03/31/25 05:30 03/31/25 07:45 03/31/25 08:00 03/31/25 05:30 03/31/25 05:30
Lab Results
03/31/25 06:27
03/31/25 06:27
Troponin I 0.051 ng/ml H* 03/30/25 16:04
Hlt-G-Mqlpvvrwyhx Pept 3710 pg/ml 03/30/25 16:04
Physical Exam
General: Well Developed, Well Nourished and No Apparent Distress
HEENT: Normocephalic and Anicteric
Respiratory: Clear and Non Labored Respirations
Cardiac: Irregular Rhythm
Musculoskeletal: Edema (+3 BLE edema)
Skin: Warm and Dry
Neuro: AO x 3
Psych: Calm
Impression / Plan
-
Qpjvl-yj-iidepkg HFrEF:
-in setting of renal dysfunction
-Echo 03/08/25: Moderate LV systolic dysfunction. LVEF estimated at 40% with global hypokinesis. Flattened septum consistent with RV pressure/volume overload. Severely dilated right ventricle. Moderately reduced right ventricular systolic function.
Severe tricuspid regurgitation. Estimated PASP 38 mmHg. PASP may be underestimated. Well-seated TAVR with a mean gradient of 11 mmHg and mild aortic regurgitation. Compared to echocardiographic study date is 07/27/2024 the LVEF is decreased from 68%
to 40%. Recent failed TTVR at [place].
-agree with IV lasix, which requires intensive monitoring (particularly with current lab abnormalities- see below)
-OP torsemide dosing is 100 mg PO BID. He denies any change to diet. He has been compliant with diuretics. Only used metolazone once recently. Hasn't been urinating as much as OP.
-GDMT currently limited by renal dysfunction- SGLT2I was stopped on recent admission
-EF felt to be recently decreased from acute illness and plan was to reassess as OP after 3 M
MP on CKD:
-nephrology is consulted
-monitor with IV diuresis
-ACEI held
Hyponatremia:
-monitor with diuresis
-nephrology on the case
Permanent AFIB:
-rate-controlled
-continue metoprolol
-continue warfarin with INR monitoring
Abnormal troponin:
-chronic, non-ischemic myocardial injury in setting of renal dysfunction
-denies any CP
Data Reviewed
-
EKG: Tracing Personally Visualized and interpreted (AFIB with RBBB- baseline artifact, overall stable)
Radiology: Report Reviewed by me (CXR: Cardiomegaly with mild left basilar atelectasis, similar in appearance to prior.)
Medical Tests (Nuc Med, Echo etc): Report Reviewed by me (recent echo as noted )
Labs: Labs Reviewed by me
[2025-03-31 12:39] LABS: Glucose - Point of Care 98 mg/dl (70-99)
--- NOTE | 2025-03-31 12:39 | W.CON.NEPH ---
Consultation
-
Date/Time Consultation Requested: 03/30/2025 at 2000
Date/Time Consultation Performed: 03/31/2025 at 10 AM
Requesting Provider: Niraj Chung
Performing Provider: Dr. Black
Reason for Consultation: Acute on chronic kidney disease
Medical History
-
Chief Complaint: Acute on chronic kidney disease
History of Present Illness:
This is a 75-year-old gentleman who has heart failure with preserved ejection fraction on chronic diuretic therapy torsemide 100 mg twice a day. He does have significant severe tricuspid regurgitation failed tricuspid repair at [facility]
[place] in January. He does have atrial fibrillation on Coumadin for anticoagulation and metoprolol for rate control. He has baseline CKD 3b with creatinine around 1.5�1.7. Is noted that he does have cirrhosis likely due to chronic alcohol
use. Previous admissions he underwent exploratory laparotomy with lysis of adhesions as well as appendectomy due to the finding of a possible appendiceal mass. Postoperatively he developed acute kidney injury with creatinine up to 2.5 with MP.
Eventually discharged with a creatinine of 1.5 on March 14, 2025.
Renal consult for acute acute on chronic kidney disease with a BUN of 103 with a creatinine of 1.8 and a sodium of 125.
Past Medical History
Paroxysmal A-fib, pleural effusion, chronic right-sided heart failure, dyslipidemia
Hypertension
Severe tricuspid regurgitation, failed tricuspid valve repair
Endocarditis of aortic valve
Lyme disease
GERD
Iron deficiency anemia
Large gastric hyperplastic polyp
Pancreatic head cyst
Right inguinal hernia
Left inguinal herniorrhaphy
AVR
Hydrocelectomy
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
Appendectomy
Lysis of adhesions
Social History
Tobacco: Non-Smoker
Alcohol: Daily
Family History
Family History: Not Pertinent
Allergies / Home Medications
Allergy/AdvReac Type Severity Reaction Status Date / Time
lorazepam (From Ativan) Allergy hallucinati Verified 03/30/25 15:50
ons
�Medication �Instructions �Recorded �Confirmed �Type
famotidine 40 mg tablet 40 mg PO HS Gastrointestinal issue 04/26/22 03/30/25 History
atorvastatin 40 mg tablet 40 mg PO HS High cholesterol 05/16/22 03/30/25 History
pantoprazole 40 mg tablet,delayed 40 mg PO DAILY Gastrointestinal 05/16/22 03/30/25 History
release issue
warfarin 5 mg tablet 5 mg PO SUTUTHSA@1900 Blood Clot 07/26/24 03/30/25 History
Prevention/Tx
warfarin 5 mg tablet 10 mg PO MoWeFr@1900 Blood Clot 07/26/24 03/30/25 History
Prevention/Tx
lisinopril 5 mg tablet 5 mg PO DAILY Blood Pressure 03/06/25 03/30/25 History
metolazone 5 mg tablet 5 mg PO DAILYPRN PRN fluid gain 03/06/25 03/30/25 History
metoprolol succinate 25 mg 12.5 mg PO QPM Heart 03/06/25 03/30/25 History
tablet,extended release 24 hr Disease/Condition
(Toprol XL)
potassium chloride 20 mEq 20 meq PO BID Electrolyte Repletion 03/06/25 03/30/25 History
tablet,extended release
torsemide 100 mg tablet 100 mg PO BID Fluid 03/06/25 03/30/25 History
Retention/Swelling
acetaminophen 325 mg tablet 650 mg PO Q6H Anti-Inflammatory 03/30/25 03/30/25 History
(Tylenol)
diphenhydramine 25 1 tab PO HS Sleep 03/30/25 03/30/25 History
mg-acetaminophen 500 mg tablet
(Acetaminophen PM)
folic acid 1 mg tablet 1 mg PO DAILY Supplement 03/30/25 03/30/25 History
magnesium oxide 400 mg PO DAILY Supplement 03/30/25 03/30/25 History
thiamine mononitrate (vit B1) 100 100 mg PO BID Supplement 03/30/25 03/30/25 History
mg tablet
Review of Systems
-
Significant leg swelling and abdominal swelling no chest pain mild shortness of breath
Physical Exam
Vital Signs
Vital Signs
Temp Pulse Resp BP Pulse Ox
97.5 F 74 21 105/64 96
03/31/25 12:16 03/31/25 12:00 03/31/25 12:15 03/31/25 12:09 03/31/25 12:16
Lab Results
WBC 4.9 10^3/uL (4.8-10.8) 03/31/25 06:27
RBC 3.61 10^6/uL (4.70-6.10) L 03/31/25 06:27
Hgb 9.1 g/dL (13.0-18.0) L 03/31/25 06:27
Hct 28.6 % (39.0-52.0) L 03/31/25 06:27
Plt Count 247 10^3/uL (130-400) 03/31/25 06:27
Sodium 125 mmol/L (135-145) L 03/31/25 06:27
Potassium 3.7 mmol/L (3.5-5.1) 03/31/25 06:27
Chloride 88 mmol/L (98-107) L 03/31/25 06:27
Carbon Dioxide 25 mmol/L (22-30) 03/31/25 06:27
BUN 103 mg/dl (9-20) H* 03/31/25 06:27
Creatinine 1.8 mg/dL (0.7-1.3) H 03/31/25 06:27
eGFR 39.01 03/31/25 06:27
Glucose 105 mg/dl (70-99) H 03/31/25 06:27
Calcium 8.6 mg/dl (8.4-10.2) 03/31/25 06:27
Rxk-A-Sykmadrggib Pept 3710 pg/ml 03/30/25 16:04
Albumin 3.8 g/dl (3.5-5.0) 03/30/25 16:04
Physical Exam
General no acute distress
HEENT no cephalic atraumatic extraocular muscle intact no scleral icterus no JVD neck supple
lungs clear to auscultation bilateral
heart regular S1-S2 positive
abdomen soft nontender positive bowel sounds
extremities 3+ edema pulses present bilateral
Neurologically nonfocal alert and oriented x 3
Skin no lesions no abrasions no petechiae
Psych normal affect no bizarre behavior
Data Reviewed
-
Radiology: Image Personally Visualized and interpreted
Labs: Labs Reviewed by me, Discussed with Physician, Discussed with Nurse and Discussed with Patient
Assessment/Plan
-
This is a 75-year-old gentleman who has heart failure with preserved ejection fraction on chronic diuretic therapy torsemide 100 mg twice a day. He does have significant severe tricuspid regurgitation failed tricuspid repair at [facility]
[place] in January. He does have atrial fibrillation on Coumadin for anticoagulation and metoprolol for rate control. He has baseline CKD 3b with creatinine around 1.5�1.7. Is noted that he does have cirrhosis likely due to chronic alcohol
use. Previous admissions he underwent exploratory laparotomy with lysis of adhesions as well as appendectomy due to the finding of a possible appendiceal mass. Postoperatively he developed acute kidney injury with creatinine up to 2.5 with MP.
Eventually discharged with a creatinine of 1.5 on March 14, 2025.
Renal consult for acute acute on chronic kidney disease with a BUN of 103 with a creatinine of 1.8 and a sodium of 125.
Assessment
MP cardiorenal creatinine 1.8 with azotemia
Tricuspid regurgitation severe
Heart failure reduced ejection fraction 40%
Status post appendectomy, lysis of adhesions February 2025
Paroxysmal atrial fibrillation
Iron deficiency anemia
Anasarca= 03/14 discharge 109 kg. Admission weight 118 kg
Plan
Agree with IV diuretic
Fluid restrict
Sodium restriction 2 g
Renal dose appropriate GFR
Anticipate he may need higher diuretic dose and/or thiazide added over the next 24
Follow weights
--- NOTE | 2025-03-31 12:57 | W.PN.HOSP.TC ---
Today's Communication/Plan
-
continue IV Lasix
follow cards/renal recs
Assessment / Plan
Assessment / Plan
Assessment:
Acute on Chronic HFrEF
Severe Tricuspid Regurgitation s/p Failed TTVR
Severe Pulmonary Hypertension
MP on CKD IIIb
Cardiorenal Syndrome
- Certainly evidence of right-sided HF on exam with increased edema, weight gain, etc.
- Worsening MP / azotemia and decreased urine output despite increased diuretics / metolazone dosing at home.
- Continue IV Lasix - requires intensive monitoring of I/Os, daily weights, lytes
- Na and fluid restriction
- Cardiology and Nephrology following
acute hypervolemic hyponatremia on chronic hyponatremia
- Follow for changes with diuresis.
- Fluid restriction.
- Nephrology following
Permanent Atrial Fibrillation
- Stable. continue metoprolol.
- Continue Coumadin for stoke risk eduction.
- Follow daily INR and adjust dosing as needed.
R Hand Injury
- Patient reports multiple digital dislocations - since reduced.
- Improving pain, swelling , etc.
- Follow for clinical changes.
s/p Ex Lap, MATT, Appendectomy
- Stable. Incision intact with scant drainage.
- Scheduled for staple removal - CRS service will evaluate tomorrow.
- Follow/continue local care.
DM-II
- Stable. Farxiga remains on hold.
- Follow glucose and cover with SSI as needed.
- A1C 6.5%
Anemia of Chronic Disease / Iron Deficiency
- Stable. Hgb is at / near known baseline.
Alcohol Use Disorder
Alcoholic Cirrhosis
- Patient states that he has abstained from EtOH for the past 11 days.
- Continue to encourage alcohol cessation.
Obesity due to excess calories
- Affects all aspects of care.
- Encourage healthy diet and activity as tolerated with goals of weight reduction.
- Alcohol cessation should also provide benefits.
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
DVT Prophylaxis: Coumadin
Code Status: Full
Anticipated Discharge: > 48 hours
Subjective/Interval History
-
Date of Service: March 31, 2025
reports ongoing LE edema, weight not documented yet for today
denies SOB
Objective Data
-
Labs:
Laboratory Results
03/31/25
06:27
WBC 4.9
Hgb 9.1 L
Hct 28.6 L
Plt Count 247
PT 24.0 H
INR 2.19
Sodium 125 L
Potassium 3.7
Chloride 88 L
Carbon Dioxide 25
BUN 103 H*
Creatinine 1.8 H
Glucose 105 H
Calcium 8.6
Vital Signs:
Vital Signs
Temp Pulse Resp BP Pulse Ox
97.5 F 74 21 105/64 96
03/31/25 12:16 03/31/25 12:00 03/31/25 12:15 03/31/25 12:09 03/31/25 12:16
I&O
03/30/25 03/31/25 04/01/25
06:59 06:59 06:59
Intake Total 480 / 480
Output Total 900 / 900
Balance -420 / -420
Physical Exam
-
General: No Apparent Distress
HEENT: Normocephalic and Atraumatic
Respiratory: Clear to Auscultation
Cardiac: Irregular Rhythm and Murmur
GI: Other (midline ramiro intact)
Musculoskeletal: Edema, Right Lower Extrem and Edema, Left Lower Extrem
Neuro: AO x 3
Psych: Calm
Data Reviewed
-
Total Time Spent with Patient (in minutes): 51
Labs: Labs Reviewed by me
--- NOTE | 2025-03-31 15:07 | TRANSFER ---
pt arrived from ER accompanied by transport staff. pt ambulated from stretcher to bed without assistance. VSS, pt AAOx3, no complaints at this time.
[2025-03-31 16:41] LABS: Glucose - Point of Care 119 mg/dl (70-99)
[2025-03-31] MEDS: TOPROL XL 12.5 MG PO (17:52)
[2025-03-31] MEDS: COUMADIN 5 MG PO (17:53)
[2025-03-31] MEDS: LIPITOR 40 MG PO (21:26)
[2025-03-31] MEDS: BENADRYL 25 MG PO (21:26)
[2025-03-31] MEDS: TYLENOL 500 MG PO ×2 (21:27→23:14)
[2025-03-31] MEDS: PEPCID 20 MG PO (21:27)
[2025-03-31 21:50] LABS: Glucose - Point of Care 135 mg/dl (70-99)
[2025-04-01] VITALS (7 sets, daily range): BP systolic 105–131; BP diastolic 49–65; PULSE 70; O2SAT 96–97; BMI 36.5
[2025-04-01] MEDS: TYLENOL 650 MG PO ×2 (03:13→19:38)
[2025-04-01 07:40] LABS: Glucose - Point of Care 117 mg/dl (70-99)
[2025-04-01] MEDS: NOVOLOG FLEXPEN-LOW RESISTANCE SC ×3 (07:59→17:21)
--- NOTE | 2025-04-01 07:59 | W.PN.CD ---
Today's Communication / Plan
-
continue with aggressive diuresis attempts
Impression / Plan
-
Mlnco-om-thqehnu HFrEF:
-in setting of renal dysfunction
-Echo 03/08/25: Moderate LV systolic dysfunction. LVEF estimated at 40% with global hypokinesis. Flattened septum consistent with RV pressure/volume overload. Severely dilated right ventricle. Moderately reduced right ventricular systolic function.
Severe tricuspid regurgitation. Estimated PASP 38 mmHg. PASP may be underestimated. Well-seated TAVR with a mean gradient of 11 mmHg and mild aortic regurgitation. Compared to echocardiographic study date is 07/27/2024 the LVEF is decreased from 68%
to 40%. Recent failed TTVR at [place].
-agree with IV lasix, which requires intensive monitoring (particularly with current lab abnormalities- see below)
-D/w Medicine and Nephrology will add metolazone to push diuresis.
-OP torsemide dosing is 100 mg PO BID. He denies any change to diet. He has been compliant with diuretics. Only used metolazone once recently. Hasn't been urinating as much as OP.
-GDMT currently limited by renal dysfunction- SGLT2I was stopped on recent admission
-EF felt to be recently decreased from acute illness and plan was to reassess as OP after 3 M
MP on CKD:
-nephrology is consulted
-monitor with IV diuresis
-ACEI held
Hyponatremia:
-monitor with diuresis
-nephrology on the case
Permanent AFIB:
-rate-controlled
-continue metoprolol
-continue warfarin with INR monitoring
Abnormal troponin:
-chronic, non-ischemic myocardial injury in setting of renal dysfunction
-denies any CP
Physical Exam
Vital Signs/Labs
Vital Signs
Temp Pulse Resp BP Pulse Ox
97.0 F 77 18 131/65 96
04/01/25 03:28 04/01/25 03:28 04/01/25 03:28 04/01/25 03:28 04/01/25 03:28
03/31/25 04/01/25 04/02/25
06:59 06:59 06:59
Actual Weight 260 lb 2.327 oz 254 lb 2 oz
PT 24.0 Sec (11.4-14.6) H 03/31/25 06:27
INR 2.19 03/31/25 06:27
03/30/25
16:04
Ncm-T-Eygmmbizsjd Pept 3710
LAB Results
03/30/25
16:04
Troponin I 0.051 H*
Physical Exam
Constitutional: No acute distress
Cardiovascular: Systolic murmur absent, Rhythm/rate is irregular and Pedal edema present (2+ b/l )
Respiratory: Respiratory effort normal, Lungs clear to auscul., Wheeze Absent, Crackles Absent and Rhonchi Absent
Neuro/Psych: AO x 3
Data Reviewed
-
Date of Service: April 01, 2025
Medical Decision Making: Review of Case with other Provider (d/w Dr Jj and Dr Garza---need more aggressive push at diuresis)
EKG: Other (afib)
[2025-04-01 08:28] LABS: INR 2.15; PT 24.2 Sec (11.4-14.6)
[2025-04-01] MEDS: FOLVITE 1 MG PO (08:37)
[2025-04-01] MEDS: VITAMIN B1 100 MG PO ×2 (08:37→19:34)
[2025-04-01 08:54] LABS: Hematocrit 29.8 % (39.0-52.0); Hemoglobin 9.6 g/dL (13.0-18.0); Mean Corp Hgb Conc. 32.2 g/dL (33.0-37.0); Mean Corpuscular Volume 78.0 fL (80.0-94.0); Platelet Count 254 10^3/uL (130-400); Red Cell Dist. Width 24.8 % (11.5-14.5)
--- NOTE | 2025-04-01 09:00 | CON.CRS ---
Consultation
-
Date/Time Consultation Requested: 03/31/2025,
Date/Time Consultation Performed: 04/01/2025,
Requesting Provider: Stewart Jj MD
Performing Provider: Dimitri Monroe MD
Reason for Consultation: staple removal
Medical History
-
Chief Complaint: swelling to his legs
History of Present Illness:
75yo male, s/p exlap, lysis of peritoneal band, appendectomy on 03/07/[address] Monroe due to a peritoneal band, presents to [facility] complaning of weight gain and LE swelling. He was supposed to see Dr. Monroe in the office on his day of
admission due to a 2 week post op appointment. His arabella are still in place at this time. Denies nausea or vomiting. Urinating without difficulty. Bowel movements are daily. He is tolerating a diet. Denies any abdominal pain. Since his arabella are
still in place, we have been consulted for removal.
Past Medical History
Past Medical History: Other (Permanent Atrial Fibrillation, Hypertension, Endocarditis of aortic valve, Severe Tricuspid Regurgitation, Pulmonary Hypertension, CKD III, Obesity DM-II, Lyme disease, GERD, Iron deficiency, anemia, Large gastric
hyperplastic polyp, Pancreatic head cyst)
Past Surgical History: Other (Ex lap, MATT, Appendectomy, Left inguinal herniorrhaphy, TAVR, Right calf excision of squamous cell carcinoma)
Social History
Tobacco: Non-Smoker
Alcohol: Former
Drug: None
Personal:
Family History
Family History: Reviewed & Not Pertinent
Allergies / Home Medications
Allergy/AdvReac Type Severity Reaction Status Date / Time
lorazepam (From Ativan) Allergy hallucinati Verified 03/30/25 15:50
ons
�Medication �Instructions �Recorded �Confirmed �Type
famotidine 40 mg tablet 40 mg PO HS Gastrointestinal issue 04/26/22 03/30/25 History
atorvastatin 40 mg tablet 40 mg PO HS High cholesterol 05/16/22 03/30/25 History
pantoprazole 40 mg tablet,delayed 40 mg PO DAILY Gastrointestinal 05/16/22 03/30/25 History
release issue
warfarin 5 mg tablet 5 mg PO [id number] Blood Clot 07/26/24 03/30/25 History
Prevention/Tx
warfarin 5 mg tablet 10 mg PO [id number] Blood Clot 07/26/24 03/30/25 History
Prevention/Tx
lisinopril 5 mg tablet 5 mg PO DAILY Blood Pressure 03/06/25 03/30/25 History
metolazone 5 mg tablet 5 mg PO DAILYPRN PRN fluid gain 03/06/25 03/30/25 History
metoprolol succinate 25 mg 12.5 mg PO QPM Heart 03/06/25 03/30/25 History
tablet,extended release 24 hr Disease/Condition
(Toprol XL)
potassium chloride 20 mEq 20 meq PO BID Electrolyte Repletion 03/06/25 03/30/25 History
tablet,extended release
torsemide 100 mg tablet 100 mg PO BID Fluid 03/06/25 03/30/25 History
Retention/Swelling
acetaminophen 325 mg tablet 650 mg PO Q6H Anti-Inflammatory 03/30/25 03/30/25 History
(Tylenol)
diphenhydramine 25 1 tab PO HS Sleep 03/30/25 03/30/25 History
mg-acetaminophen 500 mg tablet
(Acetaminophen PM)
folic acid 1 mg tablet 1 mg PO DAILY Supplement 03/30/25 03/30/25 History
magnesium oxide 400 mg PO DAILY Supplement 03/30/25 03/30/25 History
thiamine mononitrate (vit B1) 100 100 mg PO BID Supplement 03/30/25 03/30/25 History
mg tablet
Review of Systems
-
History Source: Patient
All other systems: Negative unless noted
Constitutional: Weight Gain
Musculoskeletal: Edema (lower extremities)
A 10 point review of systems was completed, and was negative except as per HPI.
Physical Exam
Vital Signs
Temp 98.7 F 04/01/25 07:25
Pulse 66 04/01/25 07:25
Resp Rate 18 04/01/25 07:25
Blood pressure 115/65 04/01/25 07:25
SaO2 97 04/01/25 07:25
03/31/25 04/01/25 04/02/25
06:59 06:59 06:59
Actual Weight 118 kg 115.269 kg
Body Mass Index (BMI) 36.5
Lab Results / Allergies
04/01/25 07:32
WBC 5.1 10^3/uL (4.8-10.8) 04/01/25 07:32
Hgb 9.6 g/dL (13.0-18.0) L 04/01/25 07:32
Hct 29.8 % (39.0-52.0) L 04/01/25 07:32
Plt Count 254 10^3/uL (130-400) 04/01/25 07:32
Abs Immat Gran (auto) 0.0 10^3/uL (0-0.05) 03/30/25 16:04
Neutrophils % 80.1 % (42.2-75.2) H 03/30/25 16:04
Allergy/AdvReac Type Severity Reaction Status Date / Time
lorazepam (From Ativan) Allergy hallucinati Verified 03/30/25 15:50
ons
Physical Exam
General: Well Developed, Well Nourished and No Apparent Distress
GI: Soft, Non Tender, Non Distended and Other (Midline incision: arabella in place. Opening on the posterior aspect, covered with mucin, as expected. No erythema. No bleed. )
Skin: Warm and Dry
Neuro: AO x 3
Psych: Calm
Data Reviewed
-
Radiology: Image Personally Visualized and interpreted and Report Reviewed by me
Labs: Labs Reviewed by me, Discussed with Physician and Discussed with Patient
Old Records: Reviewed
Assessment / Plan
-
Assessment: 75 yo male, s/p Exlap, lysis of peritoneal band, appendectomy on 03/[address] Monroe, presents with weight gain and lower extremity edema, midline abdominal arabella still in place
Plan:
-Arabella removed at bedside, steri-strips placed
-No plans for further surgery
-Medical management per hospitalist
-Continue on 2g Sodium diet
-Okay for discharge from our standpoint, follow up with Dr. Monroe in the office in 2 weeks
-Will s/o, please contact if further issues arise
[2025-04-01 09:05] LABS: Blood Urea Nitrogen 98 mg/dl (9-20); Calcium 8.9 mg/dl (8.4-10.2); Carbon Dioxide 26 mmol/L (22-30); Chloride 87 mmol/L (98-107); Estimated Creatinine Clearance 46 ml/min; Glucose 100 mg/dl (70-99); Magnesium 2.3 mg/dl (1.6-2.3); Potassium 3.9 mmol/L (3.5-5.1); Sodium 126 mmol/L (135-145); eGFR 39.01
[2025-04-01] MEDS: ZAROXOLYN 5 MG PO (09:24)
[2025-04-01] MEDS: LASIX 80 MG IV ×2 (09:24→17:22)
--- NOTE | 2025-04-01 10:32 | W.PN.HOSP.TC ---
Today's Communication/Plan
-
IV Diuresis + Metolazone; d/w Cards/Renal
Assessment / Plan
Assessment / Plan
Assessment:
Acute on Chronic HFrEF
Severe Tricuspid Regurgitation s/p Failed TTVR
Severe Pulmonary Hypertension
MP on CKD IIIb
Cardiorenal Syndrome
- Certainly evidence of right-sided HF on exam with increased edema, weight gain, etc.
- Worsening MP/azotemia and decreased urine output despite increased diuretics/metolazone dosing at home.
- Continue IV Lasix - requires intensive monitoring of I/Os, daily weights, lytes. Add metolazone 5mg today.
- Na and fluid restriction
- Cardiology and Nephrology following
acute hypervolemic hyponatremia on chronic hyponatremia
- Follow for changes with diuresis.
- Fluid restriction continues
- Nephrology following
Permanent Atrial Fibrillation
- Stable. continue metoprolol.
- Continue Coumadin for stoke risk eduction.
- Follow daily INR and adjust dosing as needed.
R Hand Injury
- Patient reports multiple digital dislocations - since reduced.
- Improving pain, swelling , etc.
- Follow for clinical changes.
R shoulder pain
Hx of rotator cuff injury in R shoulder
- obtain shoulder X rays
s/p Ex Lap, MATT, Appendectomy
- Stable. Incision intact with scant drainage.
- s/p staple removal with CRS service; OP f/u
- Follow/continue local care.
DM-II
- Stable. Farxiga remains on hold.
- Follow glucose and cover with SSI as needed.
- A1C 6.5%
Anemia of Chronic Disease / Iron Deficiency
- Stable. Hgb is at/near known baseline.
Alcohol Use Disorder
Alcoholic Cirrhosis
- Patient states that he has abstained from EtOH for the past 11 days.
- Continue to encourage alcohol cessation.
Obesity due to excess calories
- Affects all aspects of care.
- Encourage healthy diet and activity as tolerated with goals of weight reduction.
- Alcohol cessation should also provide benefits.
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
DVT Prophylaxis: Coumadin
Code Status: Full
Anticipated Discharge: > 48 hours
Subjective/Interval History
-
Date of Service: April 01, 2025
reports shoulder pain in the R shoulder since his fall, reports chronic rotator cuff injuries
Objective Data
-
Labs:
Laboratory Results
04/01/25
07:32
WBC 5.1
Hgb 9.6 L
Hct 29.8 L
Plt Count 254
PT 24.2 H
INR 2.15
Sodium 126 L
Potassium 3.9
Chloride 87 L
Carbon Dioxide 26
BUN 98 H
Creatinine 1.8 H
Glucose 100 H
Calcium 8.9
Vital Signs:
Vital Signs
Temp Pulse Resp BP Pulse Ox
98.7 F 66 18 115/65 97
04/01/25 07:25 04/01/25 09:24 04/01/25 07:25 04/01/25 09:24 04/01/25 07:25
I&O
03/31/25 04/01/25 04/02/25
06:59 06:59 06:59
Intake Total 480 / 480 1440 / 1440
Output Total 900 / 900 1825 / 1825
Balance -420 / -420 -385 / -385
Physical Exam
-
General: No Apparent Distress
HEENT: Normocephalic and Atraumatic
Respiratory: Negative Wheezes
Cardiac: Regular Rhythm and S1/S2
GI: Soft
Musculoskeletal: Edema, Right Lower Extrem and Edema, Left Lower Extrem
Neuro: AO x 3
Psych: Calm
Data Reviewed
-
Total Time Spent with Patient (in minutes): 51
Labs: Labs Reviewed by me
[2025-04-01 11:43] LABS: Glucose - Point of Care 106 mg/dl (70-99)
--- NOTE | 2025-04-01 12:04 | W.PN.NEPH.PH ---
Today's Communication / Plan
-
metolazone
Assessment/Plan
-
This is a 75-year-old gentleman who has heart failure with preserved ejection fraction on chronic diuretic therapy torsemide 100 mg twice a day. He does have significant severe tricuspid regurgitation failed tricuspid repair at [facility]
[place] in January. He does have atrial fibrillation on Coumadin for anticoagulation and metoprolol for rate control. He has baseline CKD 3b with creatinine around 1.5�1.7. Is noted that he does have cirrhosis likely due to chronic alcohol
use. Previous admissions he underwent exploratory laparotomy with lysis of adhesions as well as appendectomy due to the finding of a possible appendiceal mass. Postoperatively he developed acute kidney injury with creatinine up to 2.5 with MP.
Eventually discharged with a creatinine of 1.5 on March 14, 2025.
Renal consult for acute acute on chronic kidney disease with a BUN of 103 with a creatinine of 1.8 and a sodium of 125.
Assessment
MP cardiorenal creatinine 1.8 with azotemia
Tricuspid regurgitation severe
Heart failure reduced ejection fraction 40%
Status post appendectomy, lysis of adhesions February 2025
Paroxysmal atrial fibrillation
Iron deficiency anemia
Anasarca= 03/14 discharge 109 kg. Admission weight 118 kg
Plan
continue IV lasix for HF
add metolazone
can still increase lasix to TID and metolazone to BID
follow BMP
-
-
Date of Service: April 01, 2025
CC / HPI / ROS
-
Chief Complaint:
CKD3b
History of Present Illness:
Cr stable 1.8
Na low 126
on IV lasix, some diuresis for decompensated HF
Review of Systems:
no CP/SOB
no supplemental O2
Labs
-
Labs:
WBC 5.1 10^3/uL (4.8-10.8) 04/01/25 07:32
RBC 3.82 10^6/uL (4.70-6.10) L 04/01/25 07:32
Hgb 9.6 g/dL (13.0-18.0) L 04/01/25 07:32
Hct 29.8 % (39.0-52.0) L 04/01/25 07:32
Plt Count 254 10^3/uL (130-400) 04/01/25 07:32
Sodium 126 mmol/L (135-145) L 04/01/25 07:32
Potassium 3.9 mmol/L (3.5-5.1) 04/01/25 07:32
Chloride 87 mmol/L (98-107) L 04/01/25 07:32
Carbon Dioxide 26 mmol/L (22-30) 04/01/25 07:32
BUN 98 mg/dl (9-20) H 04/01/25 07:32
Creatinine 1.8 mg/dL (0.7-1.3) H 04/01/25 07:32
eGFR 39.01 04/01/25 07:32
Glucose 100 mg/dl (70-99) H 04/01/25 07:32
Calcium 8.9 mg/dl (8.4-10.2) 04/01/25 07:32
Rlf-B-Pttlhreenbx Pept 3710 pg/ml 03/30/25 16:04
Albumin 3.8 g/dl (3.5-5.0) 03/30/25 16:04
Physical Exam
-
Vital Signs:
Vital Signs
Temp Pulse Resp BP Pulse Ox
97.3 F 70 18 117/54 97
04/01/25 11:26 04/01/25 11:26 04/01/25 11:26 04/01/25 11:26 04/01/25 11:26
Cardiovascular:: Regular rate and rhythm
Respiratory:: Bilateral: Coarse
Lung Excursion:: Normal
Abdomen:: Nontender and Soft
Bowel Sounds:: None
Extremity Edema:: +3: Bilateral:
[2025-04-01 17:09] LABS: Glucose - Point of Care 131 mg/dl (70-99)
[2025-04-01] MEDS: TOPROL XL 12.5 MG PO (17:23)
[2025-04-01] MEDS: COUMADIN 10 MG PO (18:05)
[2025-04-01] MEDS: COLACE 100 MG PO (21:14)
[2025-04-01] MEDS: LIPITOR 40 MG PO (21:15)
[2025-04-01] MEDS: BENADRYL 25 MG PO (21:15)
[2025-04-01] MEDS: PEPCID 20 MG PO (21:15)
[2025-04-01] MEDS: TYLENOL PO (21:16)
[2025-04-01 21:28] LABS: Glucose - Point of Care 147 mg/dl (70-99)
[2025-04-02 03:11] VITALS: BP 117/60
[2025-04-02 05:55] VITALS: BMI 36.3
[2025-04-02 07:00] VITALS: BP 111/58
[2025-04-02 07:24] LABS: Glucose - Point of Care 146 mg/dl (70-99)
[2025-04-02 07:43] LABS: Hematocrit 28.9 % (39.0-52.0); Hemoglobin 9.5 g/dL (13.0-18.0); Mean Corp Hgb Conc. 32.9 g/dL (33.0-37.0); Mean Corpuscular Volume 77.3 fL (80.0-94.0); Platelet Count 255 10^3/uL (130-400); Red Cell Dist. Width 24.5 % (11.5-14.5)
[2025-04-02] MEDS: NOVOLOG FLEXPEN-LOW RESISTANCE SC ×3 (07:49→16:47)
[2025-04-02 08:13] LABS: INR 2.04; PT 23.2 Sec (11.4-14.6)
[2025-04-02] MEDS: COLACE 100 MG PO ×2 (08:32→19:36)
[2025-04-02] MEDS: FOLVITE 1 MG PO (08:32)
[2025-04-02] MEDS: LASIX 80 MG IV ×2 (08:33→16:47)
[2025-04-02] MEDS: VITAMIN B1 100 MG PO ×2 (08:33→19:37)
[2025-04-02 09:05] LABS: Blood Urea Nitrogen 105 mg/dl (9-20); Calcium 9.2 mg/dl (8.4-10.2); Carbon Dioxide 29 mmol/L (22-30); Chloride 88 mmol/L (98-107); Estimated Creatinine Clearance 48 ml/min; Glucose 109 mg/dl (70-99); Magnesium 2.4 mg/dl (1.6-2.3); Potassium 3.8 mmol/L (3.5-5.1); Sodium 126 mmol/L (135-145); eGFR 41.78
--- NOTE | 2025-04-02 09:48 | W.PN.HOSP.TC ---
Today's Communication/Plan
-
continue IV Lasix; follow Cards/Nephrology recs
Assessment / Plan
Assessment / Plan
Assessment:
Acute on Chronic HFrEF
Severe Tricuspid Regurgitation s/p Failed TTVR
Severe Pulmonary Hypertension
MP on CKD IIIb
Cardiorenal Syndrome
- Certainly evidence of right-sided HF on exam with increased edema, weight gain, etc.
- Worsening MP/azotemia and decreased urine output despite increased diuretics/metolazone dosing at home.
- Continue IV Lasix - requires intensive monitoring of I/Os, daily weights, lytes. s/p metolazone 5mg 04/01
- Na and fluid restriction
- Cardiology and Nephrology following
acute hypervolemic hyponatremia on chronic hyponatremia
- Follow for changes with diuresis.
- Fluid restriction continues
- Nephrology following
Permanent Atrial Fibrillation
- Stable. continue metoprolol.
- Continue Coumadin for stoke risk eduction.
- Follow daily INR and adjust dosing as needed.
R Hand Injury
- Patient reports multiple digital dislocations - since reduced.
- Improving pain, swelling , etc.
- Follow for clinical changes.
R shoulder pain
Hx of rotator cuff injury in R shoulder
- shoulder X ray: SEVERE OSTEOARTHRITIS of the RIGHT GLENOHUMERAL JOINT. Mild osteoarthritis of the right acromioclavicular joint. Chronic insertional tendinosis of the right rotator cuff. Diffuse bone demineralization.
- OP Orthopedics evaluation
s/p Ex Lap, MATT, Appendectomy
- Stable. Incision intact with scant drainage.
- s/p staple removal with CRS service; OP f/u
- Follow/continue local care.
DM-II
- Stable. Alexisxiga remains on hold.
- Follow glucose and cover with SSI as needed.
- A1C 6.5%
Anemia of Chronic Disease / Iron Deficiency
- Stable. Hgb is at/near known baseline.
Alcohol Use Disorder
Alcoholic Cirrhosis
- Patient states that he has abstained from EtOH for the past 11 days.
- Continue to encourage alcohol cessation.
Obesity due to excess calories
- Affects all aspects of care.
- Encourage healthy diet and activity as tolerated with goals of weight reduction.
- Alcohol cessation should also provide benefits.
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
DVT Prophylaxis: Coumadin
Code Status: Full
Anticipated Discharge: > 48 hours
Subjective/Interval History
-
Date of Service: April 02, 2025
weight down to 114kg
denies cp or sob
Objective Data
-
Labs:
Laboratory Results
04/02/25
06:54
WBC 5.1
Hgb 9.5 L
Hct 28.9 L
Plt Count 255
PT 23.2 H
INR 2.04
Sodium 126 L
Potassium 3.8
Chloride 88 L
Carbon Dioxide 29
BUN 105 H*
Creatinine 1.7 H
Glucose 109 H
Calcium 9.2
Vital Signs:
Vital Signs
Temp Pulse Resp BP Pulse Ox
98.2 F 70 16 111/58 95
04/02/25 07:00 04/02/25 07:00 04/02/25 07:00 04/02/25 07:00 04/02/25 07:00
I&O
04/01/25 04/02/25 04/03/25
06:59 06:59 06:59
Intake Total 1440 / 1440 720 / 720
Output Total 1825 / 1825 2900 / 2900
Balance -385 / -385 -2180 / -2180
Physical Exam
-
General: No Apparent Distress
HEENT: Normocephalic and Atraumatic
Respiratory: Negative Wheezes
Cardiac: Regular Rhythm and S1/S2
GI: Soft
Genito-urinary: No Costovertebral Tender
Musculoskeletal: Edema, Right Lower Extrem and Edema, Left Lower Extrem
Neuro: AO x 3
Psych: Calm
Data Reviewed
-
Total Time Spent with Patient (in minutes): 51
Labs: Labs Reviewed by me
[2025-04-02 11:00] VITALS: BP 118/62
[2025-04-02] MEDS: ZAROXOLYN 5 MG PO (11:10)
--- NOTE | 2025-04-02 11:12 | W.PN.NEPH.PH ---
Today's Communication / Plan
-
zaroxolyn
Assessment/Plan
-
This is a 75-year-old gentleman who has heart failure with preserved ejection fraction on chronic diuretic therapy torsemide 100 mg twice a day. He does have significant severe tricuspid regurgitation failed tricuspid repair at [facility]
[place] in January. He does have atrial fibrillation on Coumadin for anticoagulation and metoprolol for rate control. He has baseline CKD 3b with creatinine around 1.5�1.7. Is noted that he does have cirrhosis likely due to chronic alcohol
use. Previous admissions he underwent exploratory laparotomy with lysis of adhesions as well as appendectomy due to the finding of a possible appendiceal mass. Postoperatively he developed acute kidney injury with creatinine up to 2.5 with MP.
Eventually discharged with a creatinine of 1.5 on March 14, 2025.
Renal consult for acute acute on chronic kidney disease with a BUN of 103 with a creatinine of 1.8 and a sodium of 125.
Assessment
MP cardiorenal creatinine 1.8 with azotemia
Tricuspid regurgitation severe
Heart failure reduced ejection fraction 40%
Status post appendectomy, lysis of adhesions February 2025
Paroxysmal atrial fibrillation
Iron deficiency anemia
Anasarca= 03/14 discharge 109 kg. Admission weight 118 kg
Plan
continue IV lasix for HF
add metolazone again today
follow BMP
if weights lower tomorrow can switch to po torsemide with metolazone BIW
-
-
Date of Service: April 02, 2025
CC / HPI / ROS
-
Chief Complaint:
CKD3b
History of Present Illness:
Cr stable 1.7
Na low 126 stable
on IV lasix, some diuresis for decompensated HF with metolazone
Review of Systems:
no CP/SOB
no supplemental O2
weights down 114kg
Labs
-
Labs:
WBC 5.1 10^3/uL (4.8-10.8) 04/02/25 06:54
RBC 3.74 10^6/uL (4.70-6.10) L 04/02/25 06:54
Hgb 9.5 g/dL (13.0-18.0) L 04/02/25 06:54
Hct 28.9 % (39.0-52.0) L 04/02/25 06:54
Plt Count 255 10^3/uL (130-400) 04/02/25 06:54
Sodium 126 mmol/L (135-145) L 04/02/25 06:54
Potassium 3.8 mmol/L (3.5-5.1) 04/02/25 06:54
Chloride 88 mmol/L (98-107) L 04/02/25 06:54
Carbon Dioxide 29 mmol/L (22-30) 04/02/25 06:54
BUN 105 mg/dl (9-20) H* 04/02/25 06:54
Creatinine 1.7 mg/dL (0.7-1.3) H 04/02/25 06:54
eGFR 41.78 04/02/25 06:54
Glucose 109 mg/dl (70-99) H 04/02/25 06:54
Calcium 9.2 mg/dl (8.4-10.2) 04/02/25 06:54
Pvo-U-Oaxiggaivwl Pept 3710 pg/ml 03/30/25 16:04
Albumin 3.8 g/dl (3.5-5.0) 03/30/25 16:04
Physical Exam
-
Vital Signs:
Vital Signs
Temp Pulse Resp BP Pulse Ox
98.2 F 70 16 111/58 95
04/02/25 07:00 04/02/25 07:00 04/02/25 07:00 04/02/25 07:00 04/02/25 08:25
Cardiovascular:: Regular rate and rhythm
Respiratory:: Bilateral: Coarse
Lung Excursion:: Normal
Abdomen:: Nontender and Soft
Bowel Sounds:: Normal
Extremity Edema:: +3: Bilateral:
--- NOTE | 2025-04-02 11:26 | W.PN.CD ---
Today's Communication / Plan
-
-Continue 80 mg BID.
-Adding metolazone today, as per Nephrology.
Impression / Plan
-
Oytjh-av-umrjcxt HFrEF:
-in setting of renal dysfunction
-Echo 03/08/25: Moderate LV systolic dysfunction. LVEF estimated at 40% with global hypokinesis. Flattened septum consistent with RV pressure/volume overload. Severely dilated right ventricle. Moderately reduced right ventricular systolic function.
Severe tricuspid regurgitation. Estimated PASP 38 mmHg. PASP may be underestimated. Well-seated TAVR with a mean gradient of 11 mmHg and mild aortic regurgitation. Compared to echocardiographic study date is 07/27/2024 the LVEF is decreased from 68%
to 40%. Recent failed TTVR at [place].
-Continue 80 mg BID, which requires intensive monitoring (particularly with current lab abnormalities- see below).
-Adding metolazone today, as per Nephrology.
-OP torsemide dosing is 100 mg PO BID.
-GDMT currently limited by renal dysfunction- SGLT2I was stopped on recent admission.
-EF felt to be recently decreased from acute illness and plan was to reassess as OP after 3 M
MP on CKD:
-Nephrology is consulted.
-Continue to monitor renal function with diuresis.
-ACEI held
Hyponatremia:
-Unchanged at 126; continue monitor with diuresis
-Nephrology following.
Permanent AFIB:
-Remains rate-controlled
-Continue current dose of metoprolol succinate.
-Continue warfarin INR is at goal (2.0-3.0).
Abnormal troponin:
-chronic, non-ischemic myocardial injury in setting of renal dysfunction
Physical Exam
Vital Signs/Labs
Vital Signs
Temp Pulse Resp BP Pulse Ox
98.2 F 70 16 111/58 95
04/02/25 07:00 04/02/25 07:00 04/02/25 07:00 04/02/25 07:00 04/02/25 08:25
04/01/25 04/02/25 04/03/25
06:59 06:59 06:59
Actual Weight 115.269 kg 114.668 kg
04/02/25 06:54
04/02/25 06:54
PT 23.2 Sec (11.4-14.6) H 04/02/25 06:54
INR 2.04 04/02/25 06:54
Magnesium 2.4 mg/dl (1.6-2.3) H 04/02/25 06:54
03/30/25
16:04
Xll-Q-Ykzntxbxwia Pept 3710
LAB Results
03/30/25
16:04
Troponin I 0.051 H*
Physical Exam
Constitutional: No acute distress and Comfortable
EENT: Anicteric
Cardiovascular: Rhythm/rate is irregular, Pedal edema present (4+ taught edema), Systolic murmur present (2/6) and S1S2 is normal
Respiratory: Respiratory effort normal and Rhonchi Present
GI: Soft
Neuro/Psych: AO x 3
Other: Skin (warm)
Data Reviewed
-
Date of Service: April 02, 2025
EKG: Tracing Personally Visualized and interpreted (Telemetry: A-fib)
Echo: Report Reviewed by me (03/08/2025: EF 40%)
Labs: Labs Reviewed by me
[2025-04-02 11:39] LABS: Glucose - Point of Care 104 mg/dl (70-99)
[2025-04-02 16:06] VITALS: BP 98/55
[2025-04-02 16:25] LABS: Glucose - Point of Care 114 mg/dl (70-99)
[2025-04-02] MEDS: TOPROL XL 12.5 MG PO (16:46)
[2025-04-02] MEDS: TYLENOL 650 MG PO (17:52)
[2025-04-02] MEDS: COUMADIN 5 MG PO (17:53)
[2025-04-02 21:07] LABS: Glucose - Point of Care 134 mg/dl (70-99)
[2025-04-02] MEDS: BENADRYL 25 MG PO (21:23)
[2025-04-02] MEDS: LIPITOR 40 MG PO (21:23)
[2025-04-02] MEDS: TYLENOL 500 MG PO (21:24)
[2025-04-02] MEDS: PEPCID 20 MG PO (21:24)
[2025-04-02 23:51] VITALS: BP 116/55
[2025-04-03] MEDS: TYLENOL 650 MG PO ×2 (03:18→11:39)
[2025-04-03 06:00] VITALS: BMI 35.8
[2025-04-03 07:20] VITALS: BP 127/53
[2025-04-03 07:30] LABS: Hematocrit 27.6 % (39.0-52.0); Hemoglobin 9.3 g/dL (13.0-18.0); INR 2.35; Mean Corp Hgb Conc. 33.7 g/dL (33.0-37.0); Mean Corpuscular Volume 76.9 fL (80.0-94.0); PT 25.9 Sec (11.4-14.6); Platelet Count 231 10^3/uL (130-400); Red Cell Dist. Width 24.5 % (11.5-14.5)
[2025-04-03 07:37] LABS: Blood Urea Nitrogen 113 mg/dl (9-20); Calcium 9.0 mg/dl (8.4-10.2); Carbon Dioxide 28 mmol/L (22-30); Chloride 89 mmol/L (98-107); Estimated Creatinine Clearance 48 ml/min; Glucose 114 mg/dl (70-99); Magnesium 2.5 mg/dl (1.6-2.3); Potassium 3.5 mmol/L (3.5-5.1); Sodium 128 mmol/L (135-145); eGFR 41.78
[2025-04-03 07:47] LABS: Glucose - Point of Care 119 mg/dl (70-99)
[2025-04-03] MEDS: NOVOLOG FLEXPEN-LOW RESISTANCE SC (08:00)
[2025-04-03] MEDS: FOLVITE 1 MG PO (08:48)
[2025-04-03] MEDS: VITAMIN B1 100 MG PO (08:48)
[2025-04-03] MEDS: LASIX 80 MG IV (08:48)
[2025-04-03] MEDS: COLACE 100 MG PO (08:48)
--- NOTE | 2025-04-03 11:14 | W.PN.CD ---
Today's Communication / Plan
-
-Continue Lasix 80 mg BID; patient's dry weight appears to be closer to 106 kg (currently 113 kg; was 118 kg on admission).
-Received metolazone today, as per Nephrology; would likely benefit from daily dosing of metolazone for now.
-Patient states that he wants to go home, but he would benefit from more IV diuresis to try to get him down back to goal weight.
-Continue warfarin; INR remains at goal (2.0-3.0).
Impression / Plan
-
75-year-old male with complex cardiac history as outlined below, including HFrEF (EF 40%), bioprosthetic aortic valve replacement (TAVR 2011), subsequent SAVR (2012), severe TV status-post failed TTVR (recently at [facility]), RV dysfunction, permanent
atrial fibrillation (on warfarin), CKD 3b, ETOH cirrhosis, type 2 diabetes mellitus, prior TIA, hypertension, and obesity admitting with progressive lower extremity swelling and weight gain.
Nrmkt-en-uywbmda HFrEF (40%):
-in setting of renal dysfunction
-Echo 03/08/25: Moderate LV systolic dysfunction. LVEF estimated at 40% with global hypokinesis. Flattened septum consistent with RV pressure/volume overload. Severely dilated right ventricle. Moderately reduced right ventricular systolic function.
Severe tricuspid regurgitation. Estimated PASP 38 mmHg. PASP may be underestimated. Well-seated TAVR with a mean gradient of 11 mmHg and mild aortic regurgitation. Compared to echocardiographic study date is 07/27/2024 the LVEF is decreased from 68%
to 40%. Recent failed TTVR at [place].
-Continue Lasix 80 mg BID; patient's dry weight appears to be closer to 106 kg (currently 113 kg; was 118 kg on admission).
-Received metolazone today, as per Nephrology; would likely benefit from daily dosing of metolazone for now.
-Patient states that he wants to go home, but he would benefit from more IV diuresis to try to get him down back to goal weight.
-OP torsemide dosing is 100 mg PO BID.
-GDMT currently limited by renal dysfunction- SGLT2I was stopped on recent admission.
-EF felt to be recently decreased from acute illness and plan was to reassess as OP after 3 M
Valvular heart disease:
-TAVR (2011), subsequent bioprosthetic SAVR (2012), severe TR status-post failed TTVR (recently at [facility]).
- Continue diuresis as above.
MP on CKD:
-Nephrology is consulted.
-Continue to monitor renal function with diuresis.
-ACEI held
Hyponatremia:
-Continue to monitor with diuresis.
-Nephrology following.
Permanent AFIB:
-Remains rate-controlled
-Continue current dose of metoprolol succinate.
-Continue warfarin; INR remains at goal (2.0-3.0).
Abnormal troponin:
-chronic non-ischemic myocardial injury in setting of renal dysfunction and CHF.
Physical Exam
Vital Signs/Labs
Vital Signs
Temp Pulse Resp BP Pulse Ox
97.5 F 62 16 127/53 99
04/03/25 07:20 04/03/25 08:48 04/03/25 07:20 04/03/25 08:48 04/03/25 08:45
04/02/25 04/03/25 04/04/25
06:59 06:59 06:59
Actual Weight 114.668 kg 113.03 kg
04/03/25 06:38
04/03/25 06:38
PT 25.9 Sec (11.4-14.6) H 04/03/25 06:38
INR 2.35 04/03/25 06:38
Magnesium 2.5 mg/dl (1.6-2.3) H 04/03/25 06:38
03/30/25
16:04
Fce-Z-Rokyrufmijl Pept 3710
Physical Exam
Constitutional: No acute distress and Comfortable
EENT: Anicteric
Cardiovascular: Rhythm & rate is regular, Pedal edema present (4+ bilateral taught edema), Systolic murmur present (2/6) and S1S2 is normal
Respiratory: Respiratory effort normal and Lungs clear to auscul.
GI: Soft
Neuro/Psych: AO x 3
Other: Skin (Warm; taught edema with chronic venous stasis changes)
Data Reviewed
-
Date of Service: April 03, 2025
Echo: Report Reviewed by me (03/08/2025: EF 40%; severe TR, PASP 38 mmHg, may be underestimated; well-seated TAVR with a mean gradient of 11 mmHg.)
Medical Tests (PFT, Pathology etc): Discussed with Patient
Labs: Labs Reviewed by me
[2025-04-03 11:45] LABS: Glucose - Point of Care 168 mg/dl (70-99)
[2025-04-03] MEDS: NOVOLOG FLEXPEN-LOW RESISTANCE 1 UNITS SC (12:04)
--- NOTE | 2025-04-03 12:29 | W.PN.NEPH.PH ---
Today's Communication / Plan
-
P.o. diuretics
Assessment/Plan
-
This is a 75-year-old gentleman who has heart failure with preserved ejection fraction on chronic diuretic therapy torsemide 100 mg twice a day. He does have significant severe tricuspid regurgitation failed tricuspid repair at [facility]
[place] in January. He does have atrial fibrillation on Coumadin for anticoagulation and metoprolol for rate control. He has baseline CKD 3b with creatinine around 1.5�1.7. Is noted that he does have cirrhosis likely due to chronic alcohol
use. Previous admissions he underwent exploratory laparotomy with lysis of adhesions as well as appendectomy due to the finding of a possible appendiceal mass. Postoperatively he developed acute kidney injury with creatinine up to 2.5 with MP.
Eventually discharged with a creatinine of 1.5 on March 14, 2025.
Renal consult for acute acute on chronic kidney disease with a BUN of 103 with a creatinine of 1.8 and a sodium of 125.
Assessment
MP cardiorenal creatinine 1.8 with azotemia
Tricuspid regurgitation severe
Heart failure reduced ejection fraction 40%
Status post appendectomy, lysis of adhesions February 2025
Paroxysmal atrial fibrillation
Iron deficiency anemia
Anasarca= 03/14 discharge 109 kg. Admission weight 118 kg
Plan
Convert back to torsemide 100 mg twice daily
Metolazone 2.5 mg twice weekly
Potassium 20 mill equivalents twice daily
Blood work Friday
DC planning
-
-
Date of Service: April 03, 2025
CC / HPI / ROS
-
Chief Complaint:
CKD3b
History of Present Illness:
Cr stable 1.7
Na low 128 stable
on IV lasix, some diuresis for decompensated HF with metolazone
Review of Systems:
no CP/SOB
no supplemental O2
weights down
Labs
-
Labs:
WBC 4.6 10^3/uL (4.8-10.8) L 04/03/25 06:38
RBC 3.59 10^6/uL (4.70-6.10) L 04/03/25 06:38
Hgb 9.3 g/dL (13.0-18.0) L 04/03/25 06:38
Hct 27.6 % (39.0-52.0) L 04/03/25 06:38
Plt Count 231 10^3/uL (130-400) 04/03/25 06:38
Sodium 128 mmol/L (135-145) L 04/03/25 06:38
Potassium 3.5 mmol/L (3.5-5.1) 04/03/25 06:38
Chloride 89 mmol/L (98-107) L 04/03/25 06:38
Carbon Dioxide 28 mmol/L (22-30) 04/03/25 06:38
BUN 113 mg/dl (9-20) H* 04/03/25 06:38
Creatinine 1.7 mg/dL (0.7-1.3) H 04/03/25 06:38
eGFR 41.78 04/03/25 06:38
Glucose 114 mg/dl (70-99) H 04/03/25 06:38
Calcium 9.0 mg/dl (8.4-10.2) 04/03/25 06:38
Nne-W-Yvepbuwbbqy Pept 3710 pg/ml 03/30/25 16:04
Albumin 3.8 g/dl (3.5-5.0) 03/30/25 16:04
Physical Exam
-
Vital Signs:
Vital Signs
Temp Pulse Resp BP Pulse Ox
97.5 F 62 16 127/53 99
04/03/25 07:20 04/03/25 08:48 04/03/25 07:20 04/03/25 08:48 04/03/25 08:45
Cardiovascular:: Regular rate and rhythm
Respiratory:: Bilateral: CTA
Lung Excursion:: Normal
Abdomen:: Nontender and Soft
Bowel Sounds:: Normal
Extremity Edema:: +3: Bilateral:
--- NOTE | 2025-04-03 13:23 | W.PN.HOSP.TC ---
Today's Communication/Plan
-
dc to home with VN Today
Assessment / Plan
Assessment / Plan
Assessment:
Acute on Chronic HFrEF
Severe Tricuspid Regurgitation s/p Failed TTVR
Severe Pulmonary Hypertension
MP on CKD IIIb
Cardiorenal Syndrome
- Certainly evidence of right-sided HF on exam with increased edema, weight gain, etc.
- Worsening MP/azotemia and decreased urine output despite increased diuretics/metolazone dosing at home.
- s/p IV Lasix course
- dc on Torsemide 100mg BID, Metolazone 2.5 mg twice weekly and KCL 20mg BID with repeat BMP on Friday
- OP Cardiology and Nephrology follow up
acute hypervolemic hyponatremia on chronic hyponatremia
- Follow for changes with diuresis.
- Fluid restriction continues
- repeat BMP on Friday
Permanent Atrial Fibrillation
- Stable. continue metoprolol.
- Continue Coumadin for stoke risk eduction.
- Follow up INR Friday.
R Hand Injury
- Patient reports multiple digital dislocations - since reduced.
- Improving pain, swelling , etc.
- Follow for clinical changes.
R shoulder pain
Hx of rotator cuff injury in R shoulder
- shoulder X ray: SEVERE OSTEOARTHRITIS of the RIGHT GLENOHUMERAL JOINT. Mild osteoarthritis of the right acromioclavicular joint. Chronic insertional tendinosis of the right rotator cuff. Diffuse bone demineralization.
- OP Orthopedics evaluation
s/p Ex Lap, MATT, Appendectomy
- Stable. Incision intact with scant drainage.
- s/p staple removal with CRS service; OP f/u
- Follow/continue local care.
DM-II
- Stable. Farxiga remains on hold.
- Follow glucose and cover with SSI as needed.
- A1C 6.5%
Anemia of Chronic Disease / Iron Deficiency
- Stable. Hgb is at/near known baseline.
Alcohol Use Disorder
Alcoholic Cirrhosis
- Patient states that he has abstained from EtOH for the past 11 days.
- Continue to encourage alcohol cessation.
Obesity due to excess calories
- Affects all aspects of care.
- Encourage healthy diet and activity as tolerated with goals of weight reduction.
- Alcohol cessation should also provide benefits.
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
DVT Prophylaxis: Coumadin
Code Status: Full
More than 30 minutes spent in discharge including
Final examination of the patient
Summarizing hospital stay
Instructions for continuing care to all relevant caregivers
Preparation of discharge records, prescriptions, and referral forms
Total time spent (in minutes): 41
Anticipated Discharge: Today
Subjective/Interval History
-
Date of Service: April 03, 2025
denies SOB or chest pain
Weight 113kg today
Objective Data
-
Labs:
Laboratory Results
04/03/25
06:38
WBC 4.6 L
Hgb 9.3 L
Hct 27.6 L
Plt Count 231
PT 25.9 H
INR 2.35
Sodium 128 L
Potassium 3.5
Chloride 89 L
Carbon Dioxide 28
BUN 113 H*
Creatinine 1.7 H
Glucose 114 H
Calcium 9.0
Vital Signs:
Vital Signs
Temp Pulse Resp BP Pulse Ox
97.5 F 62 16 127/53 99
04/03/25 07:20 04/03/25 08:48 04/03/25 07:20 04/03/25 08:48 04/03/25 08:45
I&O
04/02/25 04/03/25 04/04/25
06:59 06:59 06:59
Intake Total 720 / 720 480 / 480
Output Total 2900 / 2900 1725 / 1725
Balance -2180 / -2180 -1245 / -1245
Physical Exam
-
General: No Apparent Distress
HEENT: Normocephalic and Atraumatic
Respiratory: Negative Wheezes
Cardiac: Regular Rhythm and S1/S2
GI: Soft
Neuro: AO x 3
Psych: Calm
Data Reviewed
-
Total Time Spent with Patient (in minutes): 45
Labs: Labs Reviewed by me
--- NOTE | 2025-04-03 13:28 | W.DCSUMMARY ---
Discharge Summary
Discharge Data
Date of Admission: 03/30/25
Date of Discharge: 04/03/25
-
Pending Results: No
Hospital Course
75 y/o M, hx of chronic HFrEF, valvular heart disease and CKD III, A. Fib, type 2 DM, presented to ER on 03/30 with MP on outpatient labs. Patient also reported LE edema and weight gain. Patient was found to have cardiorenal MP and hypervolemic
hyponatremia in the setting of acute congestive heart failure. Patient was started on IV Lasix and received a few doses of metolazone with improvement in symptoms. His weight improved from 118kg to 113 kg. He was discharged on Torsemide + metolazone
+ potassium. Cardiology and Nephrology both were consulted during the case and patient will follow up with both services in office.
Patient also recently had Ex Lap, MATT, Appendectomy procedure in late February and Colorectal service visited with patient for staple removal. He will see Colorectal in 2-3 weeks in office.
Discharge Plan
-
Patient Disposition: Home with Home Care
Discharge Diagnosis/Procedures: cardiorenal MP and hypovolemic hyponatremia in the setting of acute congestive heart failure
Condition: Fair
Diet: 2 Gram Sodium, Diabetic, Carb Controlled and Restrict fluids to 48 oz
Activity: As tolerated
Bathing Restrictions: None
Blood Work: BMP Friday - script given. INR Friday (as per before)
Wound Care: To care for Steri-Strips, keep them dry for the first 24-48 hours, then gently wash the area with mild soap and water, patting dry; avoid scrubbing or pulling as they naturally fall off (usually 1-2 weeks), but if they curl, trim edges;
don't worry if they come off early, just keep clean, and call your doctor for signs of infection like redness or pus.
Instructions: *CBC Heart Failure Instructions
Referrals:
Manolo Ball MD [Active, Cardiology] - in one to two weeks
Choco Carlson MD [Family Provider, Internal Medicine]
Dimitri Monroe MD [Active, ColoRectal] - in two to four weeks
Prescriptions:
Continued
famotidine 40 mg Tablet
40 mg PO HS
atorvastatin 40 MG tablet
40 mg PO HS
pantoprazole 40 MG tablet,delayed release (DR/EC)
40 mg PO DAILY
warfarin 5 mg Tablet
10 mg PO MoWeFr@1900
warfarin 5 mg Tablet
5 mg PO SUTUTHSA@1900
lisinopril 5 mg Tablet
5 mg PO DAILY
metoprolol succinate [Toprol XL] 25 mg Tablet Extended Release 24 Hr
12.5 mg PO QPM
acetaminophen [Tylenol] 325 mg Tablet
650 mg PO Q6H
diphenhydramine-acetaminophen [Acetaminophen PM] 25-500 mg Tablet
1 tab PO HS
magnesium oxide 400 mg magnesium Tablet
400 mg PO DAILY
folic acid 1 mg tablet
1 mg PO DAILY
thiamine mononitrate (vit B1) 100 mg tablet
100 mg PO BID
torsemide 100 mg Tablet
100 mg PO BID Qty: 60 0RF
potassium chloride 20 mEq Tablet Extended Release
20 meq PO BID Qty: 60 0RF
Changed
metolazone 5 mg Tablet
5 mg PO DIRECTED Qty: 30 0RF
Rx Instructions:
on Friday and Friday weekly
Discharge Orders:
Discharge Patient (As Directed); Ordered 04/03/25
Ordered By: Stewart Jj
Discharge Date and Time
Print Language: KINYARWANDA
[2025-04-03 14:06] VITALS: BP 127/65
--- NOTE | 2025-04-03 14:44 | CM ---
Addendum entered by Melida Montague 04/03/25 14:58:
Pt provided with IMM; form signed and placed on chart, patient provided with a copy.
Addendum entered by Melida Montague 04/03/25 14:51:
[facility]
Original Note:
CM met with Familia and his to discuss discharge to home today. Pt was current with [facility] when he came in and is agreeable to resuming services with [facility] at discharge. CM will enter resumption of care referral.
Plan: Pt and are aware that they will be contacted by [facility] 2-3 days after he is home.
--- NOTE | 2025-04-04 10:26 | W.HF.CON ---
Heart Failure
- LV Function
Left ventricular function study result: LV Ejection fraction 36-40%
Ejection Fraction Percentage: 40
- ARNI
Patient already on ARNI: No
Heart Failure ARNI Contraindication: Worsening Renal Function
- ACEI/ARB
Patient already on ACEI/ARB: Yes
- Beta Danielle
Patient already on Evidence Based Beta Danielle: Yes
- Mineralocorticord Receptor Antagonist
Patient already on MRA: No
Heart Failure MRA Contraindication: Acute Renal Insufficiency
- SGLT-2 Inhibitor
Patient already on SGLT-2 Inhibitor: No
Heart Failure SGLT-2 Inhibitor Contraindication: Patient Refusal
- Afib Anticoagulation
Patient already on Anticoagulation for Afib: Yes
- NYHA CHF Classification
NYHA CHF Classification Level: Class III - Symptoms w/ min exertion, interferes w/ nml daily activity (pulmonary HTN, severe TR)
- ACC/AHA Stage
ACC/AHA Stage: Stage C: Symptomatic Heart Failure
== END 2025-04-03 15:10 | disposition home health service (06) | DRG 291 ==
LOC: 4 EAST ACU 20:58
PROVIDERS: Emergency Medicine; ADMITTING PHYSICIAN Hospitalist; ATTENDING PHYSICIAN Internal Medicine; CONSULT PHYSICIAN Surgery; EMERGENCY PHYSICIAN Emergency Medicine; FAMILY PHYSICIAN Internal Medicine; OTHER PHYSICIAN Internal Medicine; OTHER PHYSICIAN Internal Medicine Nephrology
DX: I13.0 Hypertensive heart and chronic kidney disease with heart failure and stage 1 through stage 4 chronic kidney disease, or unspecified chronic kidney disease (principal); I50.23 Acute on chronic systolic (congestive) heart failure; E87.1 Hypo-osmolality and hyponatremia; N17.9 Acute kidney failure, unspecified; I48.21 Permanent atrial fibrillation; N18.32 Chronic kidney disease, stage 3b; E11.22 Type 2 diabetes mellitus with diabetic chronic kidney disease; E78.00 Pure hypercholesterolemia, unspecified; D50.9 Iron deficiency anemia, unspecified; I27.29 Other secondary pulmonary hypertension; E66.09 Other obesity due to excess calories; K21.9 Gastro-esophageal reflux disease without esophagitis; I5A Non-ischemic myocardial injury (non-traumatic); D63.8 Anemia in other chronic diseases classified elsewhere; M19.011 Primary osteoarthritis, right shoulder; F10.10 Alcohol abuse, uncomplicated; I50.82 Biventricular heart failure; E86.1 Hypovolemia; K70.30 Alcoholic cirrhosis of liver without ascites; I07.1 Rheumatic tricuspid insufficiency; S63.258 Unspecified dislocation of other finger; W19.XXXD Unspecified fall, subsequent encounter; Z60.2 Problems related to living alone; Z79.01 Long term (current) use of anticoagulants; Z88.8 Allergy status to other drugs, medicaments and biological substances; Z90.49 Acquired absence of other specified parts of digestive tract; Z68.35 Body mass index [BMI] 35.0-35.9, adult; Z95.3 Presence of xenogenic heart valve
CPT/HCPCS: 71045; 73030; 80048; 80053; 81003; 82962; 83735; 83880; 84443; 84484; 85025; 85027; 85610; 93005; 97116; 97162; 97166; 97535